=== PATIENT | male | born 1940 | race Caucasian/White ===

== ENCOUNTER 2018-03-20 20:53 | Inpatient (IN) ==
[2018-03-20] MEDS ORDERED: Etomidate Inj 20 MG/10 ML Ampul IV.PUSH ONE ×2 (21:17→22:00)
[2018-03-20] MEDS ORDERED: MethylPREDNISolone Sod Succinate Inj 125 MG/2 ML Vial IV.PUSH ONE (21:23)
[2018-03-20] MEDS ORDERED: Sod Chloride 0.9% Inj 1,000 ML IV.SIG ONE ×2 (21:25→21:43)
[2018-03-20] MEDS ORDERED: Propofol 1000 mg/100 ml Inj 1,000 MG/100 ML BOTTLE IV.CONT PRN (21:25)
--- NOTE | 2018-03-20 21:32 | ED ---
HPI General Chief complaint: Shortness of Breath/Dyspnea Stated complaint: Respirtary Failure Time Seen by Provider: 03/20/18 21:23 Source: family and EMS Mode of arrival: EMS Limitations: other History of Present Illness HPI narrative: 77yo M with PMH of DM, HTN was brought in by [facility] for sob. Pt had called his daughter a little after 8pm and said he thinks he is having a stroke and daughter said he had slurred speech and difficulty breathing. [facility] said he was diaphoretic and saturating in the 60s and then they intubated him. Was not able to obtain much information since he was in distress. Saturation was low at 89% even after intubation. Breath sounds were equal and bilateral in the ED. However there was no air in the ET cuff and pt was reintubated in the ED. Pt was given 40mg of etimodate and 4mg of versed prior to arrival. 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 Follows with tip scourer Dr. Michelle. Related Data Home Medications Medication Instructions Recorded Confirmed alendronate 70 mg PO QWEEK 03/20/18 03/20/18 amlodipine 10 mg PO DAILY 03/20/18 03/20/18 aspirin 81 mg PO DAILY 03/20/18 03/20/18 atorvastatin 20 mg PO DAILY 03/20/18 03/20/18 fenofibrate 50 mg PO DAILY 03/20/18 03/20/18 levetiracetam 500 mg PO Q12H 03/20/18 03/20/18 metoprolol succinate 50 mg PO DAILY 03/20/18 03/20/18 ramipril 5 mg PO BID 03/20/18 03/20/18 sertraline 100 mg PO DAILY 03/20/18 03/20/18 valsartan 160 mg PO DAILY 03/20/18 03/20/18 Allergies Allergy/AdvReac Type Severity Reaction Status Date / Time No Known Allergies Allergy Unverified 03/20/18 21:14 Review of Systems ROS Unobtainable ROS Unobtainable: unobtainable due to endotracheal tube PMFSH Medical History Medical History Medical history unknown (Acute) Surgical history unknown (Acute) Social History Social History Substance History: Unable to Obtain Smoking Status: Unknown if ever smoked How Often Do You Have a Drink Containing Alcohol: Unable to Obtain Recent Travel in [facility] within the Last 8 Weeks: No Recent Out of Country Travel within the Last 8 Weeks: No Exam Narrative Exam Narrative: GENERAL: 77yo M sedated. SKIN: Focused skin assessment warm/dry. HEAD: Atraumatic. Normocephalic. EYES: Pupils at 2mm reactive bilaterally. ENT: No nasal bleeding or discharge. Mucous membranes pink and moist. NECK: Trachea midline. No JVD. CARDIOVASCULAR: Tachycardic. No murmur appreciated. RESPIRATORY: Coarse breath sounds bilaterally, mild wheezing bilaterally. GASTROINTESTINAL: Abdomen soft, non-tender, nondistended. MUSCULOSKELETAL: No obvious deformities. No clubbing. No cyanosis. +Bilateral lower extremity edema. NEUROLOGICAL: Awake and alert. No obvious cranial nerve deficits. Motor grossly within normal limits. Normal speech. PSYCHIATRIC: Appropriate mood and affect; insight and judgment normal. Procedures Intubation Time Out Performed: Yes Sedative: etomidate Mg Given: 20 Laryngoscope: fiber optic video scope ET Tube Size: 8 ET Tube Uncuffed: No Tube Secured Depth (cm): 26 Tube Secured Location: lips Tube Placement Confirmation: visualized tube passing through cords Patient Tolerated Procedure: well Intubation Complications: none Course Initial Documented Vital Signs Temperature 98.7 F 03/20/18 21:15 Pulse Rate 116 H 03/20/18 21:15 Respiratory Rate 16 03/20/18 21:15 Blood Pressure 136/66 03/20/18 21:15 Pulse Oximetry 94 L 03/20/18 21:15 Last Documented Vital Signs Temperature 98.7 F 03/20/18 21:15 Pulse Rate 92 H 03/21/18 00:59 Respiratory Rate 30 H 03/21/18 01:35 Blood Pressure 149/87 H 03/21/18 00:59 Pulse Oximetry 99 03/21/18 01:35 Critical Care Time Critical Care Time: Yes Total Critical Care Time: 60 Attestation: Aggregate critical care time was 60 minutes. Time to perform other separately billable procedures was not included in the critical care time. My time did not include minutes spent treating any other patients simultaneously or on activities that did not directly contribute to the patient's treatment. The services I provided to this patient were to treat and/or prevent clinically significant deterioration that could result in: cardiovascular collapse or . I provided critical care services requiring my management, as noted below: Chart data review, documentation time, medication orders and management, vital sign assessments/reviewing monitor data, ordering and reviewing lab tests, ordering and interpreting/reviewing x-rays and diagnostic studies, care of the patient and discussion of the patient with the admitting physicians. Medical Decision Making MDM Narrative Medical decision making narrative: 77yo M with sob and hypoxemia and saturating in the 60s upon [facility] arrival. Pt was intubated in field but still hypoxic at 89 % and the balloon was not inflating so pt was reintubated in the ED. Pt found to have LBBB and is new from prior but last EKG here was in 2008. Labs reviewed , WBC 11.8. Glucose elevated at 477. CO2 normal at 21. BUN elevated at 39. Creatinine elevated at 3.0. Lactic acid elevated at 4.2. Troponin is elevated at 3.48, may be secondary to ischemia or sepsis but can be ACS as well. Discussed with tip scourer Dr. Malhotra and recommend heparin drip if CT brain negative and transfer to [facility]. Discussed with Dr. Wilson and accepted to his service. CT brain showed no acute intracranial abnormality. Pt given heparin bolus. Pt will be going directly to cardiac quality control lab technician. Differential Diagnosis Differential Diagnosis: Acute pulmonary edema vs. pneumonia vs. COPD vs. CVA vs. ACS Lab Data Result diagrams: 03/20/18 21:20 03/20/18 21:20 Lab Results 03/20/18 03/20/18 03/20/18 Range/Units 21:20 21:20 21:20 CBC w Diff Auto diff final WBC 11.8 H (4.0-11.0) th/mm3 RBC 4.97 (4.50-5.90) mil/mm3 Hgb 14.9 (13.0-17.0) gm/dL Hct 46.5 (39.0-51.0) % MCV 93.6 (80.0-100.0) fL MCH 30.0 (27.0-34.0) pg MCHC 32.0 (32.0-36.0) % RDW 14.0 (11.6-17.2) % Plt Count 411 (150-450) th/mm3 MPV 8.0 (7.0-11.0) fL Neut % (Auto) 67.6 (16.0-70.0) % Lymph % (Auto) 21.9 (9.0-44.0) % [place] % (Auto) 6.5 (0.0-8.0) % Eos % (Auto) 2.4 (0.0-4.0) % Baso % (Auto) 1.6 (0.0-2.0) % Neut # (Auto) 7.9 H (1.8-7.7) th/mm3 Lymph # (Auto) 2.6 (1.0-4.8) th/mm3 [place] # (Auto) 0.8 (0.0-0.9) th/mm3 Eos # (Auto) 0.3 (0.0-0.4) th/mm3 Baso # (Auto) 0.2 (0.0-0.2) th/mm3 WBC Differential . Differential Comment . PT 10.5 (9.8-11.6) sec INR 1.0 Ratio APTT 25.5 (24.3-30.1) sec Puncture Site Patient Temperature O2 Saturation (90-100) % ABG pH (7.380-7.420) ABG pCO2 (38-42) mmHg ABG pO2 (61-120) mmHg ABG HCO3 (22-26) mmol/L ABG O2 Content (12.0-20.0) Vol % ABG Base Excess (-2-2) mmol/L ABG Methemoglobin (0-2) % Nahum Test Hemoglobin (12.0-16.0) G/DL Carboxyhemoglobin (0-4) % O2 Delivery Device Vent Setting Inspired O2 % Critical Value Sodium 139 (136-145) meq/L Potassium 4.3 (3.5-5.1) meq/L Chloride 106 (98-107) meq/L Carbon Dioxide 21.0 (21.0-32.0) meq/L Anion Gap 12 (5-15) meq/L BUN 39 H (7-18) mg/dL Creatinine 3.00 H (0.60-1.30) mg/dL Estimated GFR 20 L (>89) mL/min Random Glucose 477 H* (74-106) mg/dL Lactic Acid (0.4-2.0) mmol/L Calcium 8.1 L (8.5-10.1) mg/dL Magnesium 2.3 (1.5-2.5) mg/dL Total Bilirubin 0.2 (0.2-1.0) mg/dL AST 31 (15-37) U/L ALT 20 (12-78) U/L Alkaline Phosphatase 62 (45-117) U/L Total Creatine Kinase (39-308) U/L CK-MB (CK-2) (0.5-3.6) ng/mL CK-MB (CK-2) % (0.0-4.0) % Troponin I 3.48 H* (0.02-0.05) ng/mL B-Natriuretic Peptide (0-100) pg/mL Total Protein 6.9 (6.4-8.2) g/dL Albumin 3.0 L (3.4-5.0) g/dL TSH (0.358-3.740) uIU/mL Urine Color (Yellw/Straw) Urine Clarity (Clear) Urine pH (5.0-8.5) Ur Specific [place] (1.002-1.035) Urine Protein (Neg-Trace) mg/dL Urine Glucose (UA) (Negative) mg/dL Urine Ketones (Negative) mg/dL Urine Occult Blood (Negative) Urine Nitrate (Negative) Urine Bilirubin (Negative) Urine Urobilinogen (Less than 2) mg/dL Ur Leukocyte Esterase (Negative) Urine RBC (0-3) /hpf Urine WBC (0-5) /hpf Urine WBC Clumps (None) Ur Squamous Epith Cells (0-5) /hpf Urine Bacteria (None) /hpf 03/20/18 03/20/18 03/20/18 Range/Units 21:20 21:20 21:40 CBC w Diff WBC (4.0-11.0) th/mm3 RBC (4.50-5.90) mil/mm3 Hgb (13.0-17.0) gm/dL Hct (39.0-51.0) % MCV (80.0-100.0) fL MCH (27.0-34.0) pg MCHC (32.0-36.0) % RDW (11.6-17.2) % Plt Count (150-450) th/mm3 MPV (7.0-11.0) fL Neut % (Auto) (16.0-70.0) % Lymph % (Auto) (9.0-44.0) % [place] % (Auto) (0.0-8.0) % Eos % (Auto) (0.0-4.0) % Baso % (Auto) (0.0-2.0) % Neut # (Auto) (1.8-7.7) th/mm3 Lymph # (Auto) (1.0-4.8) th/mm3 [place] # (Auto) (0.0-0.9) th/mm3 Eos # (Auto) (0.0-0.4) th/mm3 Baso # (Auto) (0.0-0.2) th/mm3 WBC Differential Differential Comment PT (9.8-11.6) sec INR Ratio APTT (24.3-30.1) sec Puncture Site Patient Temperature O2 Saturation (90-100) % ABG pH (7.380-7.420) ABG pCO2 (38-42) mmHg ABG pO2 (61-120) mmHg ABG HCO3 (22-26) mmol/L ABG O2 Content (12.0-20.0) Vol % ABG Base Excess (-2-2) mmol/L ABG Methemoglobin (0-2) % Nahum Test Hemoglobin (12.0-16.0) G/DL Carboxyhemoglobin (0-4) % O2 Delivery Device Vent Setting Inspired O2 % Critical Value Sodium (136-145) meq/L Potassium (3.5-5.1) meq/L Chloride (98-107) meq/L Carbon Dioxide (21.0-32.0) meq/L Anion Gap (5-15) meq/L BUN (7-18) mg/dL Creatinine (0.60-1.30) mg/dL Estimated GFR (>89) mL/min Random Glucose (74-106) mg/dL Lactic Acid 4.2 H* (0.4-2.0) mmol/L Calcium (8.5-10.1) mg/dL Magnesium (1.5-2.5) mg/dL Total Bilirubin (0.2-1.0) mg/dL AST (15-37) U/L ALT (12-78) U/L Alkaline Phosphatase (45-117) U/L Total Creatine Kinase (39-308) U/L CK-MB (CK-2) (0.5-3.6) ng/mL CK-MB (CK-2) % (0.0-4.0) % Troponin I (0.02-0.05) ng/mL B-Natriuretic Peptide 235 H (0-100) pg/mL Total Protein (6.4-8.2) g/dL Albumin (3.4-5.0) g/dL TSH 2.100 (0.358-3.740) uIU/mL Urine Color (Yellw/Straw) Urine Clarity (Clear) Urine pH (5.0-8.5) Ur Specific [place] (1.002-1.035) Urine Protein (Neg-Trace) mg/dL Urine Glucose (UA) (Negative) mg/dL Urine Ketones (Negative) mg/dL Urine Occult Blood (Negative) Urine Nitrate (Negative) Urine Bilirubin (Negative) Urine Urobilinogen (Less than 2) mg/dL Ur Leukocyte Esterase (Negative) Urine RBC (0-3) /hpf Urine WBC (0-5) /hpf Urine WBC Clumps (None) Ur Squamous Epith Cells (0-5) /hpf Urine Bacteria (None) /hpf 03/20/18 03/20/18 03/21/18 Range/Units 21:40 22:10 00:15 CBC w Diff WBC (4.0-11.0) th/mm3 RBC (4.50-5.90) mil/mm3 Hgb (13.0-17.0) gm/dL Hct (39.0-51.0) % MCV (80.0-100.0) fL MCH (27.0-34.0) pg MCHC (32.0-36.0) % RDW (11.6-17.2) % Plt Count (150-450) th/mm3 MPV (7.0-11.0) fL Neut % (Auto) (16.0-70.0) % Lymph % (Auto) (9.0-44.0) % [place] % (Auto) (0.0-8.0) % Eos % (Auto) (0.0-4.0) % Baso % (Auto) (0.0-2.0) % Neut # (Auto) (1.8-7.7) th/mm3 Lymph # (Auto) (1.0-4.8) th/mm3 [place] # (Auto) (0.0-0.9) th/mm3 Eos # (Auto) (0.0-0.4) th/mm3 Baso # (Auto) (0.0-0.2) th/mm3 WBC Differential Differential Comment PT (9.8-11.6) sec INR Ratio APTT (24.3-30.1) sec Puncture Site Right radial Patient Temperature 98.6 O2 Saturation 96 (90-100) % ABG pH 7.23 L* (7.380-7.420) ABG pCO2 43 H (38-42) mmHg ABG pO2 320 H (61-120) mmHg ABG HCO3 17 L (22-26) mmol/L ABG O2 Content 18.6 (12.0-20.0) Vol % ABG Base Excess -8.9 L (-2-2) mmol/L ABG Methemoglobin 1.6 (0-2) % Nahum Test Y Hemoglobin 13.2 (12.0-16.0) G/DL Carboxyhemoglobin 0.9 (0-4) % O2 Delivery Device Ventilator Vent Setting Prvc/ac Inspired O2 100 % Critical Value Yes Sodium (136-145) meq/L Potassium (3.5-5.1) meq/L Chloride (98-107) meq/L Carbon Dioxide (21.0-32.0) meq/L Anion Gap (5-15) meq/L BUN (7-18) mg/dL Creatinine (0.60-1.30) mg/dL Estimated GFR (>89) mL/min Random Glucose (74-106) mg/dL Lactic Acid (0.4-2.0) mmol/L Calcium (8.5-10.1) mg/dL Magnesium (1.5-2.5) mg/dL Total Bilirubin (0.2-1.0) mg/dL AST (15-37) U/L ALT (12-78) U/L Alkaline Phosphatase (45-117) U/L Total Creatine Kinase 971 H (39-308) U/L CK-MB (CK-2) 66.9 H (0.5-3.6) ng/mL CK-MB (CK-2) % 6.9 H* (0.0-4.0) % Troponin I 10.10 H* (0.02-0.05) ng/mL B-Natriuretic Peptide (0-100) pg/mL Total Protein (6.4-8.2) g/dL Albumin (3.4-5.0) g/dL TSH (0.358-3.740) uIU/mL Urine Color Yellow (Yellw/Straw) Urine Clarity Slightly cloudy (Clear) Urine pH 6.0 (5.0-8.5) Ur Specific [place] 1.020 (1.002-1.035) Urine Protein 300 or greater H (Neg-Trace) mg/dL Urine Glucose (UA) 1000 or greater H (Negative) mg/dL Urine Ketones Negative (Negative) mg/dL Urine Occult Blood Moderate H (Negative) Urine Nitrate Positive H (Negative) Urine Bilirubin Negative (Negative) Urine Urobilinogen 0.2 (Less than 2) mg/dL Ur Leukocyte Esterase Negative (Negative) Urine RBC 4-15 H (0-3) /hpf Urine WBC 21-50 H (0-5) /hpf Urine WBC Clumps Few H (None) Ur Squamous Epith Cells 0-5 (0-5) /hpf Urine Bacteria Moderate H (None) /hpf Imaging Data Radiologist's impression: Chest X-Ray 03/20/18 21:23 CONCLUSION: 1. Bilateral infiltrates as above. 2. Endotracheal tube tip projects over the chest approximately 4 cm above the fern. Head CT 03/20/18 21:24 CONCLUSION: 1. No acute intracranial abnormality is identified. 2. Chronic findings include mild generalized atrophy and mild periventricular white matter low-attenuation. ECG Data EKG Prior to Arrival: No Attestation: I personally reviewed and interpreted this ECG as follows: Interpretation: Sinus tachycardia at 106bpm. Normal axis. LBBB. no concordance. Prior EKG was in 2008 and pt did not have LBBB. Discharge Plan Discharge Disposition Patient Disposition: 30 Still Patient Discharge Details Diagnosis: Acute respiratory failure with hypoxia Physicians Team ED Provider: Tiffany Amador Primary Care Provider: Radha Springer Attending Provider: Gerber Wilson Other Providers: Ladarius Ozuna Status ED Status: Left Department Discharge Information Discharge Date/Time: 03/21/18 01:58
--- NOTE | 2018-03-20 21:47 | XR ---
EXAM DATE: 03/20/2018 9:37 PM EDT AGE/SEX: 77 years / Male INDICATIONS: Post intubation. CLINICAL DATA: This is the patient's initial encounter. Patient reports that signs and symptoms have been present for 1 day and indicates a pain score of Nonresponsive. MEDICAL/SURGICAL HISTORY: Non-responsive. Non-responsive. COMPARISON: POI, XR ABDOMEN KUB, 12/11/2015. . FINDINGS: There is bilateral perihilar pneumonia, right worse than left. Some patchy more peripheral consolidat ion seen diffusely of the right lung and of the upper lobe of the left lung. No pleural effusion demo nstrated. No pneumothorax. There is apparent calcified pleural plaques bilaterally. There is increased density material along the right side of the mediastinum which may be additional p leural plaquing. Patient is intubated. Endotracheal tube tip projects approximately 4 cm above the ca nancy. CONCLUSION: 1. Bilateral infiltrates as above. 2. Endotracheal tube tip projects over the chest approximately 4 cm above the fern. Electronically signed by: Wyatt Melo MD 03/20/2018 9:46 PM EDT
[2018-03-20 21:50] LABS: Bilirubin,Urine Negative (Negative); Clarity,Urine Slightly Cloudy (Clear); Color,Urine Yellow (Yellw/Straw); Leukocyte Esterase,Urine Negative (Negative); Nitrite,Urine Positive (Negative); Urobilinogen,Urine 0.2 mg/dL (Less than 2)
[2018-03-20 21:51] LABS: Baso # (Auto) 0.2 th/mm3 (0.0-0.2); Baso % (Auto) 1.6 % (0.0-2.0); Eos # (Auto) 0.3 th/mm3 (0.0-0.4); Eos % (Auto) 2.4 % (0.0-4.0); Hematocrit 46.5 % (39.0-51.0); Hemoglobin 14.9 gm/dL (13.0-17.0); Lymph # (Auto) 2.6 th/mm3 (1.0-4.8); Lymph % (Auto) 21.9 % (9.0-44.0); Mean Corpuscular Volume 93.6 fL (80.0-100.0); Mono # (Auto) 0.8 th/mm3 (0.0-0.9); Mono % (Auto) 6.5 % (0.0-8.0); Neut # (Auto) 7.9 th/mm3 (1.8-7.7); Neut % (Auto) 67.6 % (16.0-70.0); Platelet Count 411 th/mm3 (150-450); Red Blood Count 4.97 mil/mm3 (4.50-5.90); White Blood Count 11.8 th/mm3 (4.0-11.0)
[2018-03-20 21:55] LABS: Bacteria,Urine Moderate /hpf; Squamous Epithelial Cell,Urine 0-5 /hpf (0-5); WBC,Urine 21-50 /hpf (0-5)
[2018-03-20] MEDS ORDERED: Piperacil/Tazo 3.375 GM Premix 50 ML IV.SIG ONE (21:55)
[2018-03-20 22:00] LABS: Chloride 106 meq/L (98-107); Potassium 4.3 meq/L (3.5-5.1); Sodium 139 meq/L (136-145)
[2018-03-20] MEDS ORDERED: Vancomycin Inj 1 GM/200 ML PIGGYBACK IV.SIG SCH (22:00)
[2018-03-20 22:03] LABS: Calcium 8.1 mg/dL (8.5-10.1)
[2018-03-20 22:04] LABS: Anion Gap 12 meq/L (5-15)
[2018-03-20 22:05] LABS: Activated Partial Thrombo Time 25.5 sec (24.3-30.1); Prothrombin Time 10.5 sec (9.8-11.6)
[2018-03-20 22:13] LABS: Alanine Aminotransferase 20 U/L (12-78); Alkaline Phosphatase 62 U/L (45-117); Aspartate Aminotransferase 31 U/L (15-37); Blood Urea Nitrogen 39 mg/dL (7-18); Glomerular Filtration Rate 20 mL/min (>89); Magnesium 2.3 mg/dL (1.5-2.5); Total Protein 6.9 g/dL (6.4-8.2)
[2018-03-20 22:15] LABS: Glucose,Random 477 mg/dL (74-106); Troponin I 3.48 ng/mL (0.02-0.05)
[2018-03-20 22:23] LABS: ABG Base Excess -8.9 mmol/L (-2-2); ABG PCO2 43 mmHg (38-42); ABG PO2 320 mmHg (61-120)
[2018-03-20] MEDS ORDERED: fentaNYL 10 mcg/mL Premix Drip 2,500 MCG/250 ML BAG IV.SIG PRN (22:48)
[2018-03-20] MEDS ORDERED: Bisacodyl 10 MG Supp RECTAL PRN (22:48)
[2018-03-20] MEDS ORDERED: Acetaminophen 325 MG Tablet PO PRN (22:48)
[2018-03-20] MEDS ORDERED: Potassium Chloride 25 MEQ Effervescent Tablet PO PRN (22:53)
[2018-03-20] MEDS ORDERED: Potassium Chlor 10 mEq Premix 10 MEQ/100 ML PIGGYBACK IV.SIG PRN ×2 (22:53)
[2018-03-20] MEDS ORDERED: Potassium Phosphate 500 MG Soluble Tablet PO PRN ×2 (22:53)
[2018-03-20] MEDS ORDERED: Magnesium Sulfate Inj 4 GM in Sodium Chlor 0.9% Inj 92 ML IV.SIG PRN (22:53)
[2018-03-20] MEDS ORDERED: Potassium Phosphate Inj 30 MMOL in Sodium Chlor 0.9% Inj 250 ML IV.SIG PRN (22:53)
[2018-03-20] MEDS ORDERED: Sodium Phosphate Inj 30 MMOL in Sodium Chlor 0.9% Inj 250 ML IV.SIG PRN (22:53)
[2018-03-20] MEDS ORDERED: Potassium Chlor 40 mEq Premix 40 MEQ/100 ML PIGGYBACK IV.SIG PRN ×2 (22:53)
[2018-03-20] MEDS ORDERED: Magnesium Sulfate Inj 2 GM in Sodium Chlor 0.9% Inj 96 ML IV.SIG PRN (22:53)
[2018-03-20] MEDS ORDERED: Magnesium Oxide 400 MG Tablet PO PRN (22:53)
[2018-03-20] MEDS ORDERED: Dextrose 50% in Water 50 ML Vial IV.PUSH PRN (22:54)
[2018-03-20] MEDS ORDERED: Vancomycin Consult Pharmacy 1 EACH OTHER SCH (23:00)
[2018-03-20] MEDS ORDERED: Piperacil/Tazo 4.5 GM Premix 4.5 GM/100 ML BAG IV.SIG SCH (23:00)
[2018-03-20] MEDS ORDERED: Metoprolol Inj 5 MG/5 ML Vial IV.PUSH SCH (23:00)
[2018-03-20] MEDS: Sod Chloride 0.9% Inj 1,000 ML IV.CONT SCH (23:06)
[2018-03-21] MEDS: Metoprolol Inj 5 MG/5 ML Vial IV.PUSH SCH ×4 (00:25→17:13)
[2018-03-21] MEDS ORDERED: Heparin 10,000 UNITS/10 ML Vial (for IV use) IV.PUSH STA (00:27)
[2018-03-21] MEDS ORDERED: Heparin Drip 25,000 UNIT/250 ML BAG IV.CONT PRN (00:27)
--- NOTE | 2018-03-21 00:33 | CT ---
EXAM DATE: 03/21/2018 12:07 AM EDT AGE/SEX: 77 years / Male INDICATIONS: Respiratory failure. CLINICAL DATA: This is the patient's initial encounter. Patient reports that signs and symptoms have been present for 1 day and indicates a pain score of Nonresponsive. MEDICAL/SURGICAL HISTORY: Non-responsive. Non-responsive. RADIATION DOSE: 62.42 CTDI (mGy) COMPARISON: No prior exams available for comparison. TECHNIQUE: CT of the head without contrast. Using automated exposure control and adjustment of the mA and/or kV according to patient size, radiation dose was kept as low as reasonably achievable to ob tain optimal diagnostic quality images. DICOM format image data is available electronically for revi ew and comparison. FINDINGS: Cerebrum: There is mild generalized atrophy and ventricles are normal given the degree of atrophy. M ild periventricular white matter change is present. No midline shift, mass lesion, hemorrhage or acu te infarction. No extraaxial fluid collections are seen. Posterior Fossa: The cerebellum and brainstem demonstrate no acute abnormality. The 4th ventricle is midline. The cerebellopontine angle is within normal limits. Extracranial: There are mucous retention cysts within the maxillary antra bilaterally, left greater than right, measuring up to 14 mm. Skull: No fracture. CONCLUSION: 1. No acute intracranial abnormality is identified. 2. Chronic findings include mild generalized atrophy and mild periventricular white matter low-atten uation. Electronically signed by: Wyatt Ayala MD 03/21/2018 12:32 AM EDT
[2018-03-21 00:54] LABS: Creatine Kinase MB 66.9 ng/mL (0.5-3.6)
[2018-03-21 01:04] LABS: CKMB Percent 6.9 % (0.0-4.0); Troponin I 10.1 ng/mL (0.02-0.05)
[2018-03-21] MEDS ORDERED: Heparin/NS PF Inj 1,000 ML ONE (01:09)
--- NOTE | 2018-03-21 01:30 | MH ---
cc: Robb Malhotra DO DATE OF ADMISSION: 03/20/2018 CHIEF COMPLAINT: Shortness of breath. HISTORY OF CHIEF COMPLAINT: Wyatt Andrews is a 77-year-old male who sees my partner Dr. Michelle in the office and presented via [facility] to [facility] Emergency Room for shortness of breath. Apparently, he called his daughter a little after 8 p.m., said that he thought he was having a heart attack. He was significantly short of breath. His daughter said that he had slurred speech on the phone. [facility] arrived and he was still on the phone with his daughter and at that time he was telling her that he felt like he was having a heart attack and he was extremely diaphoretic. He was saturating in the 60s and so they intubated him. No information was given to me directly, but this is all taken from the chart and from the emergency room physician. After intubation, saturations were 89% and there was a problem with the ET tube cuff and so he was reintubated. EKG was done and showed left bundle branch block. Previous EKG did not show a left bundle branch block, but it was from 2008. Lab work shows a lactic acid of 4.2 and a troponin of 3.48. I was called emergently by Dr. Amador due to the abnormal EKG as well as the elevated troponin. PAST MEDICAL HISTORY: (little is known as the patient has been here since 2008 and unable to get information from the patient). 1. Asbestosis. 2. Hypertension. 3. Hyperlipidemia. 4. Diabetes mellitus. 5. Otherwise unknown. PAST SURGICAL HISTORY: Unknown. ALLERGIES: NO KNOWN DRUG ALLERGIES. MEDICATIONS: 1. Valsartan 160 mg daily. 2. Aspirin 81 mg daily. 3. Sertraline 100 mg daily. 4. Alendronate 70 mg weekly. 5. Levetiracetam 500 mg every 12 hours. 6. Lipitor 20 mg daily. 7. Norvasc 10 mg daily. 8. Toprol-XL 50 mg daily. 9. Ramipril 5 mg b.i.d. 10. Fenofibrate 50 mg daily. FAMILY HISTORY: Unable to obtain at this time. SOCIAL HISTORY: Unable to obtain at this time. REVIEW OF SYSTEMS: Unable to be obtained. Apparently, he was significantly short of breath and diaphoretic, but otherwise no symptoms. PHYSICAL EXAMINATION: VITAL SIGNS: Temperature 98.7, heart rate 95, blood pressure 180/85, respirations 30, pulse oximetry 97% on 100% FiO2. GENERAL: The patient is intubated and lightly sedated. HEENT: Pupils are equal and round. Mucous membranes moist. ET tube in place. NECK: Supple. No JVD at 45 degrees. No carotid bruits heard bilaterally. Carotid upstroke is brisk in nature. HEART: Regular rate and rhythm. Positive first and second heart sounds with a 2/6 holosystolic murmur noted at the apex. LUNGS: Decreased breath sounds bilaterally with minimal rales noted. Mild wheezing is also noted. ABDOMEN: Soft, nontender, nondistended. No organomegaly noted. EXTREMITIES: Show 1 plus pitting edema bilaterally. NEUROLOGIC: Lightly sedated. Able to answer simple questions with nodding his head when arousable, follows simple commands. SKIN: Warm, dry and intact. OSTEOPATHIC: No kyphoscoliosis, lordosis. LABORATORY DATA: Hemoglobin 14.9, hematocrit 46.5, platelets 411. Potassium 4.3, BUN 39, creatinine 3.0, lactic acid 4.2. Troponin 3.48. Electrocardiogram (03/20/2018 at 2057): Sinus tachycardia with left bundle branch block. IMPRESSIONS: 1. Non-ST elevation myocardial infarction. 2. Lactic acidosis. 3. Acute respiratory failure requiring mechanical ventilation. 4. Chest x-ray with pulmonary edema versus pneumonia. 5. History of asbestosis. 6. History of hypertension. 7. History of hyperlipidemia. 8. History of diabetes mellitus. RECOMMENDATIONS: 1. Mr. Andrews presented with significant shortness of breath, which required intubation. 2. He does have elevated lactic acid as well as troponin and an EKG which shows a new left bundle branch block. Overall, my concern is less likely for an occluded vessel with a STEMI, but more likely either left main or significant multivessel disease. 3. He does have acute kidney injury, but has a history of chronic kidney disease with a creatinine of 2.0 in 2009, but no recent labs to review. 4. Overall, despite his acute kidney injury, I feel that he should go to the cardiac catheterization lab due to the concern for significant disease causing pulmonary edema, lactic acidosis and elevated troponin. If he does have an occluded vessel, this will have to be fixed and unfortunately require a larger amount of contrast, although we will have to be cognizant of this. If left main or multivessel disease, then may require intraaortic balloon pump therapy. 5. We will check a 2-D echo to look at his overall left ventricular function, cardiac structure and possible valvulopathies. 6. Critical care will be consulted for further management of ventilator. 7. Further recommendations will be made based on the hospital course. Thank you for allowing me to see Wyatt Andrews. If there are any questions, please do not hesitate to call. Robb Malhotra DO VGP/ct , 12:42 AM , 12:55 AM MTDD
[2018-03-21] MEDS ORDERED: Heparin Drip 25,000 UNIT/250 ML BAG IV.CONT ONE (02:11)
[2018-03-21] MEDS: Heparin Drip 25,000 UNIT/250 ML BAG IV.CONT SCH (03:00)
[2018-03-21] MEDS: Propofol 1000 mg/100 ml Inj 1,000 MG/100 ML BOTTLE IV.CONT PRN ×2 (03:00→08:49)
--- NOTE | 2018-03-21 03:02 | CATHPROC ---
Metric[employer] HIS Report Study Information Study Number Admission Scheduled Start Study Start [id number] Mar 20 2018 10:55PM 03/20/2018 Mar 21 2018 12:08AM [place] Service Cardiac Catheterization Admit Source Facility Department Emergency department [facility] - Thread Checker Physician and Clinical Staff Initial MD Malhotra, Robb Front Office Director Rosa Lilly RN Other cathlab, cathlab Recorder Joelle Moreno,CLIENT SERVICE SUPERVISOR TECH2 Scrub Sai Slaughter,RT(R) Procedures Performed Procedure Location (Site) Vessel Name Coronary Angiograms RCA Right Coronary IABP Fem Art (right) Femoral Art Wire insertion Fem Art (right) Femoral Art Equipment Time [facility] Coordinator Description Size Mfg Part Number Used/Scraped TRANSDUCER, TRGeoPalzAVE [id number] 00:38 KUNZ RAMÍREZ * Used W/ANDREACK *[id number] INTRODUCER SET, 00:38 [employer] FR 5 [id number] *[id number] Used MICROPUNCTURE STIFF [id number] *[id number] 534-550S *[id number] BALLOON, FR8 50CC SENSATION [id number]- 02:17 MAQUET FR 8 50CC Used PLUS 01U *[id number] WIRE, AMPLATZ SUPER STIFF 02:13 Meditech 180CM [id number] Used 3MMJ [id number] 00:38 [employer] BLANKET,WARM AIR CCL * Used *[id number] 00:38 [employer] PACK, CCL CUSTOM * Used *[id number] 02:00 MEDTRONIC JL 4.0 DXTERITY CATHETER FR 5 Used *[id number] 00:38 Decalog MEDICAL WIRE, 3MMJ .035 180CM 180CM Used *[id number] 00:38 NAMIC MANIFOLD, 4 PORT * Used *[id number] 00:38 NYCOMED OMNIPAQUE, 350 MG, 150ML 150ML [id number] Used [id number] 00:38 TERUMO MEDICAL SHEATH, FR5 TERUMO (10CM) FR 5 Used *[id number] History: Allergies Allergy Reaction No Known Allergies History: Risk Factors Family History of Hypertension Dyslipidemia Previous MO Previous Heart Failure Premature CAD Yes Yes No No No Prior Valve Prior PCI Prior CABG Surgery No No No Cerebrovascular Peripheral Artery Chronic Lung On Dialysis Diabetes Diabetes Therapy Disease Disease Disease No No No Yes Yes Oral Labs Hgb (g/dl) Hct (%) WBC (l/cumm) Platelets (thousands) 11.60-17.00 35.00-51.00 4.00-11.00 150.00-450.00 14.9 46.5 11.8 411 Glucose (mg/dl) BUN (mg/dl) Creatinine (mg/dl) BUN:Creatinine (1:x) 74.00-106.00 7.00-18.00 0.50-1.30 10.00-20.00 477 39 3.0 13 Na (meq/l) K (meq/l) 136.00-145.00 3.50-5.10 139 4.3 INR (PTT:PT) 0.90-1.10 1 Troponin I (ng/ml) 0.02-0.05 3.4 Medication Medication Total Dose (Bolus/Oral) Medication Total Dosage/Unit 1% XYLOCAINE 20 mL PROPOFOL 29.5 mL/hr Medications (Bolus/Oral) Medication Time Given Dosage/Unit Administered By Reason PROPOFOL 03/21/2018 1:31:09 AM 13 mL/hr Patient arrived on 13 mL/hr PROPOFOL in Left Antecubital via Peripheral IV. Pump/Drip Flow = 0 ml/hr using NaCl .9. PROPOFOL 03/21/2018 1:44:45 AM 16.5 mL/hr Rosa Lilly 16.5 mL/hr PROPOFOL given in lab by Rosa Lilly, JOAQUIN in Left Antecubital via Peripheral IV. Pump/D rip Flow = 0 ml/hr using NaCl .9. Ordered by Robb Malhotra 1% XYLOCAINE 03/21/2018 1:51:42 AM 20 mL Robb Malhotra Patient arrived on 20 mL 1% XYLOCAINE given by Robb Malhotra in Right Groin via Subcutaneous. O rdered by Robb Malhotra. Medication (Drip) Medication Time Given Dosage/Unit Concentration/Unit Diluent (ml) Solutio n HEPARIN DRIP 03/21/2018 2:37:20 AM 1000 units/hr 98956 units 250 D5W 1000 units/hr HEPARIN DRIP given in lab by Rosa Lilly, RN in Left Antecubital via Peripheral IV. Pump/Drip Flow = 10 ml/hr [place] [address] units in 250 ml. Ordered by Robb Malhotra IV Solutions 03/21/2018 1:31:10 AM 0 mL (IV) 1000 NaCl .9 Patient arrived on IV Solutions given by cathlab, cathlab in Left Antecubital via Peripheral IV. Pump /Drip Flow = 20 ml/hr using NaCl .9. Ordered by Robb Malhotra Initial Case Assessment Cardiovascular HR NIBP 96 148/92 Edema Present Skin color Skin None Normal Warm Dry Circulatory - Right Pulses Dorsalis Pedis Femoral 1 2 Scale (0,1,2,3,4,d) Circulatory - Left Pulses Dorsalis Pedis Femoral 1 2 Scale (0,1,2,3,4,d) Neurological State Oriented to time-place- Alert Moves all extremities person Respiration - General Respiration Rate SpO2 (%) (B/min) 16 98 Respiration - Ventilator Type Intubation Type ET(oral) Respiration - Ventilator Settings TV (ml) IMV (L) FIO2 (%) PEEP (cm/H2O) 550 16 100 5 Final Case Assessment Cardiovascular HR NIBP 89 141/73 Edema Present Skin color Skin None Normal Warm Dry Circulatory - Right Pulses Dorsalis Pedis Femoral 1 2 Scale (0,1,2,3,4,d) Circulatory - Left Pulses Dorsalis Pedis Femoral 1 2 Scale (0,1,2,3,4,d) Neurological State Oriented to time-place- Alert Moves all extremities person Respiration - General Respiration Rate SpO2 (%) (B/min) 16 99 Respiration - Ventilator Type Intubation Type ET(oral) Respiration - Ventilator Settings TV (ml) IMV (L) FIO2 (%) PEEP (cm/H2O) 550 16 100 5 Chronological Log Time Study Chronological Log 0:08:02 Emergency Room notified that Thread Checker is ready. JOAQUIN LILLY RECEIVED REPORT FROM ED R N 1:30:55 Patient arrived via Bed. 1:30:56 Patient Name, D.O.B, / Armband Verified By R.N. 1:30:57 Consent signed by the physician and the patient and verified by the Thread Checker staff. 1:30:58 Pre-op and post- op instructions given; patient acknowledges understanding of instructions. 1:31:01 Patient has been NPO for More than 6Hrs. 1:31:02 NO Skin Breakdown- 1:31:03 Patient Warmer Placed on the Table. 1:31:05 Disposable Defibrillator Pads Placed On Patient. 1:31:06 Alessandro Prominences Protected 1:31:07 A # 20 IV was noted in the Antecubital (left). Grade = 0 1:31:08 A # 20 IV was noted in the Hand (right). Grade = 0 1:31:09 Patient arrived on 13 mL/hr PROPOFOL in Left Antecubital via Peripheral IV. Pump/Drip Flow = 0 ml/hr using NaCl .9. Patient arrived on IV Solutions given by dana cathlab in Left Antecubital via Peripheral IV. Pump/Drip Flow = 20 1:31:10 ml/hr using NaCl .9. Ordered by Robb Malhotra. 1:31:11 History and physical on the chart or being dictated. 1:40:27 NIBP STAT measurement started. 1:41:02 HR=96 bpm, NUGC=871/92 mmhg, SpO2=98.0 %, Resp=14 B/min, Pain=0, Teto=10, Garcia=2 16.5 mL/hr PROPOFOL given in lab by Rosa Lilly RN in Left Antecubital via Peripheral IV. P ump/Drip Flow = 0 1:44:45 ml/hr using NaCl .9. Ordered by Robb Malhotra. Assessment: Initial Case, HR=96 BPM, TVPY=398/92 mmhg, Edema=None, Color=Normal, Skin = Warm, Dr y Right Pulses: Earl Ped=1, Femoral=2 1:45:09 Left Pulses: Earl Ped=1, Femoral=2 Neurological: State=Alert, Ox3, ARIZA Respiration: Resp=16 B/min, SpO2=98 %, Type=ET(Oral), KK=139 mL, IMV=16 L, HJV4=201 %, PEEP=5 cm /H2O 1:46:35 Reference ECG taken 1:46:57 Bilateral groins prepped with 2% chlorhexidine, and draped after a 3 minute waiting time. 1:47:34 Pressure channel 1 zeroed. Time Out. Correct patient, correct procedure, correct physician, labs, allergies, and equipment verified with technology lab teacher 1:49:40 team present. Fire risk assesment completed (see hard stop sheet for coding). Time Out Concu rred by MD and individual staff in procedure. 1:50:10 Case Start Patient arrived on 20 mL 1% XYLOCAINE given by Robb Malhotra in Right Groin via Subcutaneo us. Ordered by 1:51:42 Robb Malhotra. 1:54:01 Access site was Right Femoral Artery. A INTRODUCER SET, MICROPUNCTURE STIFF FR 5 was advanced into the Fem Art (right) using the Modif ied Seldinger 1:54:11 technique. 1:54:15 A WIRE, 3MMJ .035 180CM 180CM was inserted via Fem Art (right). A SHEATH, FR5 TERUMO (10CM) FR 5 was exchanged in the Fem Art (right). This was necessary in ord er for catheter 1:54:18 support. 1:56:20 An injection in the Fem Art (right) was made through the SHEATH, FR5 TERUMO (10CM) FR 5. Recorded Pressure: FA, HR=93, Condition=Condition 1 1:56:45 (Femoral Artery) FA 153/75/103 A JR 4.0 INFINITI CATHETER FR 5 was advanced over a wire. OMNIPAQUE, 350 MG, 150ML 150ML was use d for 1:57:25 injections. Recorded Pressure: Ao, HR=92, Condition=Condition 1 1:59:18 (Aorta) Ao 146/78/107 2:00:06 The RCA was injected and visualized at various angles. OMNIPAQUE, 350 MG, 150ML 150ML used. After removing the current catheter a JL 4.0 DXTERITY CATHETER FR 5 was advanced over a WIRE, 3M MJ .035 180CM 2:00:39 180CM. After removing the current catheter a PIGTAIL STR. INFINITI CATHETER FR 5 was advanced over a WI RE, 3MMJ .035 2:06:08 180CM 180CM. Recorded Pressure: LV, HR=96, Condition=Condition 1 2:08:23 (Left Ventricle) LV 160/17/43 Recorded Pressure: LV, Ao, HR=97, Condition=Condition 1 2:08:35 (Left Ventricle) LV 162/20/44, (Aorta) Ao 157/84/116 2:09:24 A WIRE, 3MMJ .035 180CM 180CM was inserted via Fem Art (right). 2:09:27 Catheter was removed 2:09:59 Sheath exchanged for intra-aortic balloon insertion. 2:12:02 The previous wire was exchanged for a WIRE, AMPLATZ SUPER STIFF 3MMJ 180CM. An BALLOON, FR8 50CC SENSATION PLUS FR 8 50CC was advanced to the descending aorta. Proper place ment was 2:17:17 confired under fluoroscopy and the balloon was sutured in place. Ratio = ~RATIO~. Augmented BP ~S YS~/~LENNIE~ 2:29:07 NIBP STAT measurement started. 2:29:58 Case End (Physician broke scrub) 2:30:18 HR=89 bpm, ZUHL=378/73 mmhg, SpO2=99.0 %, Resp=16 B/min, Pain=0, Teto=10, Garcia=2 1000 units/hr HEPARIN DRIP given in lab by Rosa Lilly, JOAQUIN in Left Antecubital via Periphe ral IV. Pump/Drip Flow 2:37:20 = 10 ml/hr [place] [address] units in 250 ml. Ordered by Hank Malhotra 2:38:05 Catheter(s) removed without difficulty 2:38:10 In the Fem Art (right) the sheath was sutured in place by Robb Malhotra SHEATH AND BALLOON PUMP 2:38:35 Sterile dressing applied to site 2:38:36 No case complications noted. 2:38:37 Cine recording checked. Assessment: Final Case, HR=89 BPM, CUAD=145/73 mmhg, Edema=None, Color=Normal, Skin = Warm, Dr y Right Pulses: Earl Ped=1, Femoral=2 2:41:57 Left Pulses: Earl Ped=1, Femoral=2 Neurological: State=Alert, Ox3, ARIZA Respiration: Resp=16 B/min, SpO2=99 %, Type=ET(Oral), RW=208 mL, IMV=16 L, GXI5=999 %, PEEP=5 cm/H2O 2:42:53 Bedside Report will be given. 2:43:00 [facility] - Contrast Media Used In Study Contrast Total Opened (mL) Total Used (mL) Total Wasted (mL) Omnipaque 25 25 0 End Study - Maximum Contrast Load Max Contrast Load (mL) 181.8 End Study - Radiation Exposure Fluoro Time (minutes) 4.1 End Study - Patient Disposition Complications Transferred To No Critical Care Bed
[2018-03-21] MEDS ORDERED: Propofol Inj 500 MG/50 ML Vial ONE (03:05)
--- NOTE | 2018-03-21 03:58 | P.CONCC ---
History of Present Illness Service: Critical care medicine Consult date: 03/21/18 Requesting Physician: Robb Malhotra Reason for Consult: Critical care management Primary Care Provider: Radha Springer MD Family Provider: Radha Springer MD Chief Complaint: Chest pain, altered mental status History of Present Illness: This is a 69-year-old male. Date of admission 03/20/2018. Date of consultation 03/21/2018. Past medical history includes asbestosis, hypertension , dyspnea, seizure disorder, osteoarthritis/osteoporosis and elevated BMI. He is a patient of Dr. Michelle. He presents to [facility] emergency department with a chief complaint of shortness of breath and altered mental status. He called his daughter after 1999 last night with slurred speech/ shortness of breath and chest pain. And then when EVAC arrived, saturations at 60 so was intubated. Patient had a ETT cuff leak and was reintubated by ED physician. EKG showed a new left bundle branch block with elevated troponin III 0.48. Lactic acid 4.2. Patient received Pipracil and tazobactam and vancomycin for possible pneumonia/community-acquired. General Production Worker consulted and patient proceeded with a left heart catheterization early this morning. Patient has multisystem coronary artery disease left main 50%, LAD 50%/mid LAD 90%. Diagonal 70%. Circumflex 70%. OM 90%. RCA 70% patient had anterior balloon pump placed one-to-one in the right femoral region. Currently a propofol drip at 25 mcg/kg/min and hemodynamically stable.. Review of Systems unobtainable due to endotracheal tube PMFSH - History History Provided By: Family Member, Condenser Tester / EMT - Medical History Medical History: Medical History (Last Reviewed 03/21/18 @ 04:00 by Gerber Wilson MD) Medical history unknown Surgical history unknown - Tobacco History Smoking Status: Unknown if ever smoked - Alcohol History How Often Do You Have a Drink Containing Alcohol: Unable to Obtain - Substance Use History Substance History: Unable to Obtain - Travel History Recent Travel in the [place] Within the Last 8 Weeks: No Recent Travel Out of the Country Within the Last 8 Weeks: No - Immunization History Tetanus Immunization: Unable to Assess Hx Influenza Vaccine This Season: Unable to Assess Medications and Allergies Active Medications: Active Medications Acetaminophen (Tylenol) 650 mg PO Q6H PRN PRN Reason: PAIN 1-10 AND/OR FEVER >101F Albuterol (Duoneb Neb (Vianney)) 1 ampul NEB Q4HR NEB [facility] Albuterol (Albuterol Neb (Prn)) 2.5 mg NEB Q2HR NEB PRN PRN Reason: SHORTNESS OF BREATH/WHEEZING Artificial Tears (Genteal Severe Dry Eye Relief 0.3% Opth Gel) 1 drops EACH EYE BID [facility] Aspirin (Aspirin Chew) 81 mg PO DAILY [facility] Atorvastatin Calcium (Lipitor) 20 mg PO DAILY [facility] Bisacodyl (Dulcolax Supp) 10 mg RECTAL DAILY PRN PRN Reason: SEVERE CONSITIPATION Chlorhexidine Gluconate (Peridex 0.12% Oral Kit) 15 ml OROPHARYNG BID@0800, 2000 [facility] Chlorhexidine Gluconate (Chlorhexidine 2% Cloth) 3 pack TOPICAL DAILY@0400 [facility] Stop: 03/26/18 03:59 Chlorhexidine Gluconate (Chlorhexidine 2% Cloth) 3 pack TOPICAL DAILY@0400 PRN PRN Reason: Extra cloth needed Stop: 03/26/18 03:59 Dextrose (D50w Vial) 50 ml IV.PUSH UNSCH PRN PRN Reason: PER HYPOGLYCEMIA PROTOCOL Famotidine (Pepcid Pf Inj) 20 mg IV.PUSH Q12HR [facility] Glucagon (Glucagon Inj) 1 mg OTHER PRN PRN PRN Reason: for Hypoglycemia Protocol Vancomycin/Sodium Chloride (Vancomycin Inj) 1 gm in 200 mls @ 200 mls/hr IV.SIG FIXTURE REPAIRER FABRICATOR [facility] Last Infusion: 03/21/18 00:43 Dose: Infused Fentanyl (Fentanyl 10 Mcg/Ml Premix Drip) 2,500 mcg in 250 mls @ 5 mls/hr IV.SIG TITRATE PRN; Protocol PRN Reason: Per Protocol Sodium Chloride (Ns Inj) 1,000 mls @ 84 mls/hr IV.CONT .[id number] [facility] Last Admin: 03/20/18 23:06 Dose: 84 mls/hr Propofol (Diprivan 1000 Mg/100 Ml Inj) 1,000 mg in 100 mls @ 3.266 mls/hr IV.CONT TITRATE PRN; Protocol PRN Reason: Per Protocol Magnesium Sulfate Inj 4 gm/ (Sodium Chloride) 100 mls @ 50 mls/hr IV.SIG UNSCH PRN PRN Reason: For Magnesium 0.9 - 1.1 mg/dL Magnesium Sulfate Inj 2 gm/ (Sodium Chloride) 100 mls @ 50 mls/hr IV.SIG UNSCH PRN PRN Reason: For Magnesium 1.2 - 1.6 mg/dL Potassium Phosphate 30 mmol/ (Sodium Chloride) 260 mls @ 42 mls/hr IV.SIG UNSCH PRN PRN Reason: SEE LABEL COMMENTS Sodium Phosphate 30 mmol/ (Sodium Chloride) 260 mls @ 42 mls/hr IV.SIG UNSCH PRN PRN Reason: For Phosphorus < 2.5 mg/dL Pharmacy Profile Note (Vancomycin Consult Pharmacy) 0 mls @ 0 mls/hr OTHER UNSCH [facility] Piperacillin/Tazobactam/Dextrose (Zosyn 2.25 Gm Premix) 50 mls @ 100 mls/hr IV.SIG Q6HR [facility] Insulin Aspart (Novolog Insulin Correctional Sugar Inj) 0 unit SQ Q6HR [facility]; Protocol Lactulose (Lactulose Liq) 30 ml PO DAILY PRN PRN Reason: SEVERE CONSITIPATION Levetiracetam (Keppra) 500 mg PO Q12H [facility] Metoprolol Tartrate (Lopressor Inj) 2.5 mg IV.PUSH Q6HR [facility] Last Admin: 03/21/18 00:25 Dose: 2.5 mg Non-Formulary Medication (Fenofibrate [Fenofibrate]) 50 mg PO DAILY [facility] Ondansetron HCl (Zofran Inj) 4 mg IV.PUSH Q6H PRN PRN Reason: NAUSEA OR VOMITING Senna/Docusate Sodium (Gely-Colace) 1 tab PO BID [facility] Sennosides (Senokot) 17.2 mg PO Q12H PRN PRN Reason: Moderate Constipation Sertraline HCl (Zoloft) 100 mg PO DAILY [facility] Sodium Chloride (Ns Flush) 2 ml IV.FLUSH PRN PRN PRN Reason: FLUSH AFTER USING IV ACCESS Sodium Chloride (Ns Flush) 2 ml IV.FLUSH BID [facility] Allergies Allergy/AdvReac Type Severity Reaction Status Date / Time No Known Allergies Allergy Unverified 03/20/18 21:14 Home Medications Medication Instructions Recorded Confirmed Type alendronate 70 mg PO QWEEK 03/20/18 03/20/18 History amlodipine 10 mg PO DAILY 03/20/18 03/20/18 History aspirin 81 mg PO DAILY 03/20/18 03/20/18 History atorvastatin 20 mg PO DAILY 03/20/18 03/20/18 History fenofibrate 50 mg PO DAILY 03/20/18 03/20/18 History levetiracetam 500 mg PO Q12H 03/20/18 03/20/18 History metoprolol succinate 50 mg PO DAILY 03/20/18 03/20/18 History ramipril 5 mg PO BID 03/20/18 03/20/18 History sertraline 100 mg PO DAILY 03/20/18 03/20/18 History valsartan 160 mg PO DAILY 03/20/18 03/20/18 History Physical Exam Vital signs: Vital Signs 03/20/18 21:15 03/20/18 21:20 03/20/18 21:30 Temperature 98.7 F Pulse Rate 116 H 89 Respiratory Rate 16 27 H Blood Pressure 136/66 132/80 Pulse Oximetry 94 L 97 100 03/20/18 21:31 03/20/18 22:05 03/20/18 22:07 Temperature Pulse Rate 89 90 Respiratory Rate 29 H Blood Pressure 159/87 H Pulse Oximetry 94 L 100 03/20/18 22:35 03/20/18 23:02 03/20/18 23:58 Temperature Pulse Rate 86 90 95 H Respiratory Rate Blood Pressure 170/89 H 168/86 H 180/85 H Pulse Oximetry 100 99 97 03/21/18 00:18 03/21/18 00:59 03/21/18 01:35 Temperature Pulse Rate 92 H Respiratory Rate 30 H 30 H Blood Pressure 149/87 H Pulse Oximetry 95 96 99 Intake & Output 03/20/18 03/20/18 03/21/18 06:59 18:59 06:59 Intake Total 2449 / 2449 Output Total 650 / 650 Balance 1799 / 1799 Weight 108.862 kg Intake: IV 2249 / 2249 Heparin/NS PF Inj 1,000 ML @ 0 0 / 0 mls/hr .ROUTE .STK-MED ONE Rx#: [id number] Zosyn 3.375 GM Premix 50 ML @ 50 / 50 100 mls/hr IV.SIG ONCE ONE Rx#: [id number] NS Inj 1,000 ML @ Wide Open IV. 1998 SIG BOLUS ONE Rx#:[id number] Vancomycin Inj 1 gm In 200 ml @ 200 / 200 200 mls/hr IV.SIG FIXTURE REPAIRER FABRICATOR [facility] Rx#:[id number] Anesthesia Amount 200 / 200 Output: Urine Amount (Catheter) 650 / 650 Indwelling Urethral Catheter 650 / 650 - Constitutional no acute distress - Routine HEENT Exam Head: Present: normocephalic, atraumatic Eye: Present: EOMI, PERRL, conjunctivae pink ENT: Present: mucous membranes moist, dentition normal - Routine Neck Exam Present: supple. Absent: JVD, carotid bruit - Routine Respiratory Exam Present: decreased breath sounds, crackles, distant breath sounds. Absent: accessory muscle use - Routine Cardiovascular Exam Present: RRR, S1, S2, murmur, S4. Absent: S3 - Routine Abdominal Exam Present: soft, firm. Absent: distended, organomegaly, mass - Routine Exam Patient deferred: penile exam, testicular exam, scrotal exam, groin exam, perineal exam - Routine Extremities Exam Present: edema. Absent: cyanosis, clubbing - Routine Skin Exam Present: intact - Routine Neurological Exam Present: CN II-XII intact. Absent: alert, tremors - Urinary Catheter Management Coude Cath placed during this visit: yes Reason for continuing: Hourly intake/output Insertion date: 03/20/18 Insertion time: 21:30 Indwelling Urethral Catheter Cath placed during this visit: no Septic Shock Reassessment Septic shock perfusion: reassessment completed Assessment and Plan - Assessment and Plan Plan: Neuro/Psych: Depressive disorder NOS Seizure disorder Currently on propofol at 25 mcg/kg/min/as needed fentanyl drip for sedation/ analgesia while intubated Goal of RASS -2 Daily sedation vacation Continue sertraline 100 mg daily/home medication Acetaminophen 650 milligrams every 6 hours as needed fever Continue levetiracetam 5 mg twice daily/home medication CV: NSTEMI Multivessel coronary disease Acute systolic heart failure Essential hypertension Hyperlipidemia Lactic acidosis Left heart catheterization revealed revealed left main 50%, LAD 50%, mid 90%. Diagonal 70%. Circumflex 70%. OM 90%. RCA 70%. IABP 1:1 Metoprolol tartrate 2.5 mg every 6 hours. On metoprolol succinate 50 mg daily at home Holding amlodipine 10 mg daily, ramipril 5 mill grams daily and valsartan while balloon pump Continue fenofibrate 40 mg daily and atorvastatin 40 mg daily/home medications Continue aspirin [address] surgery consultation Heparin drip see below Resp: Acute respiratory failure History of asbestosis [facility] / Ventilator bundle Albuterol/ipratropium aerosols every 4 hours with albuterol aerosols every 2 hours as needed for dyspnea Spontaneous breathing trials when clinically indicated Follow-up on ABG. Post intubation chest x-ray revealed bilateral pulmonary edema/pleural plaques bilateral upper lobes likely from asbestosis GI: Hypoalbuminemia Patient is currently n.p.o. NGT to [facility] Famotidine 10 mg twice daily for GI prophylaxis Docusate sodium/senna 1 tablet twice daily for bowel regimen : Mccormick catheter has been placed Endo: Sliding scale insulin with aspart insulin/medium protocol with Accu-Cheks every 6 hours to maintain euglycemia TSH is 2.1 Renal: Acute kidney injury in the setting of chronic kidney disease baseline creatinine around 2.3. Kidney ultrasound/urine electrolytes and eosinophils pending Heme: Leukocytosis Monitor CBC daily. Follow trends. Currently on heparin drip at 1000 units an hour. No indication for transfusion of blood products at this time. ID: Possible community acquired pneumonia Blood cultures 2, sputum, UA/urine Legionella and pneumococcal antigens urinary and influenza a and B pending Vancomycin/Pipracil/tazobactam day #2 MSK: Osteoarthritis/osteoporosis Currently holding alendronate 70 mg weekly/home medication PT evaluate and treat FEN: Replace electrolytes as clinically indicated. Access -Utilize peripheral IV. Central line if indicated Prophylax -GI -lansoprazole -DVT -SCDs/heparin drip 35 minutes critical care time
[2018-03-21] MEDS ORDERED: Chlorhexidine Gluconate 2% 1 Pack (2 Cloths) TOPICAL PRN (04:00)
[2018-03-21 04:02] LABS: Creatinine,Urine Random 38 mg/dL (27-300)
--- NOTE | 2018-03-21 04:06 | MA ---
cc: Robb Malhotra DO DATE: 03/21/2018 PROCEDURE: Left heart catheterization, coronary angiogram, intraaortic balloon pump placement. PREPROCEDURE DIAGNOSES: Shortness of breath, acute pulmonary edema, acute decompensated heart failure (class IV), NSTEMI, lactic acidosis showing decreased tissue perfusion. POSTPROCEDURE DIAGNOSES: Multivessel coronary artery disease, acute pulmonary edema/decompensated heart failure (class IV), vent-dependent respiratory failure, NSTEMI, lactic acidosis showing decreased tissue perfusion. MEDICATIONS: Propofol drip, heparin drip at 1000 units per hour. CONTRAST USED: 25 mL FLUOROSCOPY: 4.1 minutes. MODERATE SEDATION: After her intraaortic balloon pump placement, moderate sedation 40 minutes. FRAILITY SCORE: 5. ESTIMATED BLOOD LOSS: 10 mL. PROCEDURAL SUMMARY: The patient is a 77-year-old male who sees my partner, Dr. Whitman in the office and presented to [facility] emergency room due to shortness of breath. He was evaluated by [facility] on arrival and was intubated and brought to the emergency room. He was found to have acute pulmonary edema on his x-ray as well as a new left bundle branch block, elevated troponin, and lactic acidosis. Because of this, I felt that he should be taken urgently to the cardiac catheterization lab to evaluate for possibly an occluded vessel, but more likely ischemic cardiomyopathy, needing support. Emergent consent was taken due to the current nature as well as the patient being intubated and lightly sedated. He was brought to the lab and prepped in the usual sterile fashion. The right femoral artery was accessed using a modified Seldinger technique and placement of a 5-Tajik sheath. This was easily aspirated and flushed. A JR4 was advanced over a J-wire to the ascending aorta and used for selective angiography of the right coronary artery system. This was exchanged out for a JL3.5, which was used for selective angiography of the left coronary artery system. JL3.5 was exchanged for a pigtail, which was used to cross the aortic valve for measurement of left ventricular pressure. This was pulled back across the aortic valve showing no significant gradient of aortic stenosis. The pigtail was then removed. Due to multivessel disease, elevated troponin and lactic acid as well as an elevated LVEDP, I felt that an intraaortic balloon pump should be placed. The sheath was exchanged for an 8-Tajik balloon pump sheath. A 50 mL balloon pump was then placed at the level of fern and started on inflation. Augment pressure was 140. 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 FINDINGS: LEFT MAIN: Moderate size vessel with distal 50% disease. It bifurcates into an LAD and circumflex. LAD: Mmall to moderate sized vessel with 50% disease in the proximal portion. Mid portion has a long tubular lesion of 90%. Distally, it does have mild luminal irregularities. There is one major diagonal, which has a 70% lesion in the mid portion. LEFT CIRCUMFLEX: Moderate size vessel. It gives off 1 major obtuse marginal, which has a 90% lesion. After this, it bifurcates into an upper and lower branch. The circumflex continues on into the mid portion where there is 70% lesion before giving off another small obtuse marginal as well as the left circumflex proper. RCA: Moderate sized vessel with an 80% lesion in the proximal portion. Jrl-ci-[id number] has mild luminal irregularities up to 10% with some tortuosity. Distally, it gives off a PDA as well as a posterolateral branch with no significant disease. LVEDP: 44. IMPRESSION: 1. Acute pulmonary edema. 2. Acute decompensated heart failure (class IV). 3. Acute respiratory failure requiring mechanical ventilation. 4. Aud-KA-cvvkohyxe myocardial infarction. 5. Multivessel disease. 6. Gyrje-zj-saclxgm kidney disease. 7. Lactic acidosis due to decreased tissue perfusion. RECOMMENDATIONS: 1. The patient appears to have multivessel disease and I will ask CT surgery to see him for consideration of coronary artery bypass grafting. 2. Intraaortic balloon pump has been placed to help with tissue perfusion as well as his current heart failure. We will continue on one-to-one status. 3. He will be transferred to the CV ICU. 4. Critical care will be consulted to help with management of the patient as well as the ventilator. 5. We will check a 2-D echo to look at his overall left ventricular function, cardiac structure and possible valvulopathies. 6. We will have to watch his overall kidney function as he does have acute kidney injury on chronic kidney disease. After this was stabilized, he will most likely need diuresis as he has a significantly elevated LVEDP as well as pulmonary edema. 7. He will continue on a heparin drip for his intraaortic balloon pump. 8. Further recommendations will be made based on the hospital course. Thank you for allowing me to see the patient. If there are any questions, please do not hesitate to call. Robb Malhotra DO VGP/sv , 03:07 AM , 03:23 AM
[2018-03-21 04:22] LABS: ABG Base Excess -9.3 mmol/L (-2-2); ABG PCO2 35 mmHg (38-42); ABG PO2 130 mmHG (61-120)
[2018-03-21] MEDS: Chlorhexidine Gluconate 2% 1 Pack (2 Cloths) TOPICAL SCH (05:29)
[2018-03-21] MEDS: Oral Hygiene Kit OROPHARYNG SCH ×4 (05:33→17:11)
[2018-03-21] MEDS: Insulin NovoLOG Aspart Correctional Sugar Inj SQ SCH ×4 (05:33→17:14)
[2018-03-21] MEDS: levETIRAcetam 500 MG Tablet PO SCH ×2 (05:35→15:12)
[2018-03-21 05:43] LABS: Activated Partial Thrombo Time 29.9 sec (24.3-30.1); Prothrombin Time 10.5 sec (9.8-11.6)
[2018-03-21 05:47] LABS: Baso # (Auto) 0.1 th/mm3 (0.0-0.2); Baso % (Auto) 0.5 % (0.0-2.0); Hematocrit 40.1 % (39.0-51.0); Hemoglobin 13.2 gm/dL (13.0-17.0); Lymph # (Auto) 0.2 th/mm3 (1.0-4.8); Lymph % (Auto) 1.2 % (9.0-44.0); Mean Corpuscular HGB Conc 32.8 % (32.0-36.0); Mean Corpuscular Hemoglobin 30.1 pg (27.0-34.0); Mean Corpuscular Volume 91.7 fL (80.0-100.0); Mean Platelet Volume 7.8 fL (7.0-11.0); Mono # (Auto) 0.5 th/mm3 (0.0-0.9); Mono % (Auto) 3.4 % (0.0-8.0); Neut # (Auto) 13.7 th/mm3 (1.8-7.7); Neut % (Auto) 94.9 % (16.0-70.0); Platelet Count 255 th/mm3 (150-450); Red Blood Count 4.37 mil/mm3 (4.50-5.90); Red Cell Distribution Width 14.7 % (11.6-17.2); White Blood Count 14.4 th/mm3 (4.0-11.0)
[2018-03-21 05:52] LABS: Alanine Aminotransferase 37 U/L (12-78); Albumin 2.6 g/dL (3.4-5.0); Anion Gap 11 meq/L (5-15); Aspartate Aminotransferase 268 U/L (15-37); Blood Urea Nitrogen 40 mg/dL (7-18); Calcium 7.5 mg/dL (8.5-10.1); Chloride 115 meq/L (98-107); Glomerular Filtration Rate 22 mL/min (>89); Glucose,Random 368 mg/dL (74-106); Magnesium 2.2 mg/dL (1.5-2.5); Potassium 4.6 meq/L (3.5-5.1); Sodium 144 meq/L (136-145)
[2018-03-21 05:56] LABS: Alkaline Phosphatase 47 U/L (45-117); Phosphorus 2.7 mg/dL (2.5-4.9); Prealbumin 22 mg/dL (20-40); Total Protein 5.7 g/dL (6.4-8.2)
[2018-03-21 06:13] LABS: Chol/HDL Ratio 3.08 Ratio; HDL Cholesterol 41.2 mg/dL (40.0-60.0)
[2018-03-21] MEDS: Piperacil/Tazo 2.25 GM Premix 50 ML IV.SIG SCH ×3 (06:13→17:16)
[2018-03-21] MEDS ORDERED: Labetalol HCl Inj 100 MG/20 ML Vial IV.PUSH PRN (06:15)
--- NOTE | 2018-03-21 06:54 | XR ---
EXAM DATE: 03/21/2018 6:50 AM EDT AGE/SEX: 77 years / Male INDICATIONS: Shortness of breath, possible pulmonary disease. CLINICAL DATA: This is the patient's subsequent encounter. Patient reports that signs and symptoms h ave been present for 2 days and indicates a pain score of Nonresponsive. MEDICAL/SURGICAL HISTORY: Non-responsive. Non-responsive. COMPARISON: [facility], CHEST 1V SINGLE AP, 03/20/2018. . FINDINGS: Portable AP view of the chest demonstrates a normal-sized cardiac silhouette. Endotracheal tube and n asogastric tube remain present. EKG lines overlie the patient. There is stable pleural-based calcific ation bilaterally and there is increased pleural-parenchymal opacity in the right lower lung zone and slightly increased opacity at the left lung base. Airspace opacity in the left upper lobe is stable. No pneumothorax is identified. Bones demonstrate no acute finding. CONCLUSION: 1. New pleural-based opacity on the right characteristic of a pleural effusion with persistent right lung airspace consolidation. 2. Mildly increased left basilar opacity representing either airspace consolidation or atelectasis. The left upper lobe opacity is stable. 3. 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 Electronically signed by: Wyatt Ayala MD 03/21/2018 6:53 AM EDT
--- NOTE | 2018-03-21 07:51 | ECG ---
Date Performed: 03/20/2018 Time Performed: 20:57:12 PTAGE: 77 years EKG: SINUS TACHYCARDIA WITH OCCASIONAL VENTRICULAR PREMATURE COMPLEXES LEFT BUNDLE BRANCH BLOCK ABNORMAL ECG INTERPRETATION BASED ON A DEFAULT AGE OF 39 YEARS NO PREVIOUS TRACING DOCTOR: Gelacio Cheney Interpretating Date/Time 03/21/2018 07:51:00
[2018-03-21] MEDS: Famotidine PF Inj 20 MG/2 ML Vial IV.PUSH SCH ×2 (08:47→20:48)
[2018-03-21] MEDS: Senna/Docusate Sodium 8.6/50 MG Tablet PO SCH ×2 (08:47→20:47)
[2018-03-21] MEDS: Sertraline 100 MG Tablet PO SCH (08:56)
[2018-03-21] MEDS: Fenofibrate 48 MG Tablet PO SCH (08:56)
[2018-03-21] MEDS ORDERED: Famotidine PF Inj 20 MG/2 ML Vial IV.PUSH SCH ×2 (09:00)
--- NOTE | 2018-03-21 09:34 | ECG ---
Date Performed: 03/21/2018 Time Performed: 05:44:20 PTAGE: 77 years EKG: Sinus rhythm Left bundle branch block Abnormal ECG PREVIOUS TRACING : 03/20/2018 20.57 DOCTOR: Gelacio Cheney Interpretating Date/Time 03/21/2018 09:33:19
[2018-03-21] MEDS ORDERED: Vancomycin Inj 1,000 MG in Sodium Chlor 0.9% Inj 250 ML IV.SIG ONE (10:00)
[2018-03-21] MEDS: Chlorhexidine 0.12% Oral Kit 15 ML UDC OROPHARYNG SCH ×2 (10:16→20:32)
[2018-03-21] MEDS: Hypromellose 0.3% Opth Gel 10 GM Bottle EACH EYE SCH ×2 (10:18→20:32)
[2018-03-21] MEDS: Sod Chloride 0.9% Inj 1,000 ML IV.CONT SCH (10:19)
--- NOTE | 2018-03-21 10:24 | US ---
EXAM DATE: 03/21/2018 10:05 AM EDT AGE/SEX: 77 years / Male INDICATIONS: Increased BUN and creatinine. CLINICAL DATA: This is the patient's initial encounter. Patient reports that signs and symptoms have been present for 1 day and indicates a pain score of 0/10. MEDICAL/SURGICAL HISTORY: . Hypertension. Hyperlipidemia. Diabetes. Asbestosis. . Unknown COMPARISON: [facility], US KIDNEY, BILATERAL, 09/19/2017. . MEASUREMENTS: Right Kidney:__14.7 x 5.4 x 6.9 cm Left Kidney:__12.4 x 6.2 x 5.4 cm FINDINGS: Right Kidney: Hydronephrosis. Lobulated minimally complex cyst right kidney measures 5.8 x 5.3 x 7.1 cm. Left Kidney: No mass or hydronephrosis. Minimally complex cyst lower pole measures 3.8 x 3.9 x 3.8 cm . Bladder: Mccormick catheter is present. Bladder decompressed. Other: None. CONCLUSION: 1. Severe hydronephrosis right kidney. 2. Bilateral renal cysts. 3. Urinary bladder decompressed by Mccormick catheter. Electronically signed by: Marcus Broussard MD 03/21/2018 10:23 AM EDT
[2018-03-21] MEDS ORDERED: Sodium Bicarbonate 8.4% Inj 50 MEQ/50 ML Syringe ONE ×2 (12:54→14:48)
--- NOTE | 2018-03-21 12:54 | P.CON ---
History of Present Illness Service: CT Surgery Consult date: 03/21/18 Requesting Physician: Robb Malhotra Reason for Consult: NSTEMI, Cardiogenic shock, CAD Primary Care Provider: Radha Springer MD Family Provider: Radha Springer MD Chief Complaint: Chest pain, altered mental status History of Present Illness: 77 y/o male presents to [facility] with acute shortness of breath, nausea, diaphoresis, malaise for several hours. He required ET intubation and ventilator support. He rule-in for NSTEMI and was transferred to the [facility] for emergent LHC. He was found to have 3 vessel CAD and required IABP placement for hemodynamic and circulatory support. I spoke with his daughter who has extensive CT Surgery experience and he has no prior cardiac history. He does have renal disease, but his baselinf creatinine is unknown, but now 2.78 on admission. Troponin ~30. ECHO is pending Review of Systems Constitutional: Reports fatigue, Reports lack of energy, Reports malaise, Denies anorexia, Denies body ache(s), Denies chills, Denies daytime sleepiness, Denies excessive sweating, Denies fever(s), Denies headache(s), Denies increased appetite, Denies night sweats, Denies weakness, Denies weight gain, Denies weight loss, Denies other Eyes: Denies blind spots, Denies blurry vision, Denies bulging eyes, Denies change in vision, Denies double vision, Denies discharge, Denies dry eyes, Denies floaters, Denies irritation, Denies itchy eyes, Denies loss of vision, Denies pain, Denies requires corrective lenses, Denies sensitivity to light, Denies other Ears, Nose, Mouth, and Throat: Reports abnormal hearing, Denies bleeding gums, Denies bad breath, Denies change in voice, Denies dental pain, Denies difficulty swallowing, Denies dizziness, Denies dry mouth, Denies ear discharge , Denies ear pain, Denies facial pain, Denies headache(s), Denies hearing loss, Denies hoarseness, Denies lip swelling, Denies nosebleed, Denies mouth lesions, Denies mouth pain, Denies nasal congestion, Denies nasal discharge, Denies nasal obstruction, Denies nasal trauma, Denies neck lump, Denies neck pain, Denies nose pain, Denies pain with swallowing, Denies poor balance, Denies post nasal drip, Denies ringing in the ears, Denies sinus pain, Denies sinus pressure , Denies sore throat, Denies throat swelling, Denies tongue swelling, Denies other Cardiovascular: Reports excessive sweating, Reports lightheadedness, Reports shortness of breath Respiratory: Denies change in phlegm color, Denies chest congestion, Denies cough, Denies coughing up blood, Denies excessive phlegm production, Denies pain on inspiration, Denies pain with cough, Denies shortness of breath, Denies shortness of breath with activity, Denies snoring, Denies stridor, Denies wheezing, Denies other Gastrointestinal: Denies abdominal pain, Denies belching, Denies black, tarry stools, Denies bloating, Denies bright, red blood in stools, Denies change in bowel habits, Denies constant urge to pass stool, Denies change in stools, Denies coffee ground vomit, Denies constipation, Denies cramping, Denies difficulty swallowing, Denies excessive passing of gas, Denies feeling full early, Denies heartburn, Denies incontinent of stools, Denies loose stools, Denies nausea, Denies pain with swallowing, Denies vomiting, Denies vomiting blood, Denies other Genitourinary: Denies blood in semen, Denies blood in urine, Denies decreased urination, Denies difficulty urinating, Denies difficulty with ejaculations, Denies erectile dysfunction, Denies genital lesions, Denies genital pain, Denies painful urination, Denies side pain, Denies frequent nighttime urination , Denies painful ejaculations, Denies penile discharge, Denies scrotal swelling , Denies testicle lump, Denies testicle pain, Denies urinary frequency, Denies urinary hesitancy, Denies urinary incontinence, Denies urinary urgency, Denies other Musculoskeletal: Denies abnormal walking, Denies back pain, Denies body aches, Denies decreased muscle mass, Denies deformity, Denies joint pain, Denies joint swelling, Denies limited joint movement, Denies loss of height, Denies muscle cramps, Denies muscle weakness, Denies neck pain, Denies numbness, Denies radiating pain into limb, Denies stiffness, Denies tingling, Denies other Skin/Breast: Denies acne, Denies bleeding lesions, Denies boil, Denies breast swelling, Denies breast skin changes, Denies breast pain, Denies breast lump, Denies change in breast shape, Denies change in hair, Denies change in skin color, Denies changing lesions, Denies dry skin, Denies excessive hair growth, Denies hair loss, Denies itching, Denies lesions, Denies nail changes, Denies new lesions, Denies nipple discharge, Denies non-healing lesions, Denies redness , Denies sensitivity to light, Denies rash, Denies skin pain, Denies skin ulcer , Denies sores, Denies stretch cooley, Denies unusual bruising, Denies wounds, Denies yellowing of the skin, Denies other Neurologic: Denies abnormal hearing, Denies abnormal movements, Denies abnormal speech, Denies abnormal walking, Denies behavioral changes, Denies burning sensations, Denies confusion, Denies dizziness, Denies fainting, Denies frequent falls, Denies headache(s), Denies lack of coordination, Denies localized weakness, Denies loss of vision, Denies memory loss, Denies numbness, Denies other visual disturbances, Denies radiating pain, Denies restless legs, Denies convulsions, Denies seizure-like activity, Denies sensory deficit, Denies tingling, Denies tingling/numbness/burning sensations, Denies tremor(s), Denies unsteadiness, Denies weakness, Denies other Psychiatric: Denies abnormal sleep pattern, Denies anxiety, Denies behavioral changes, Denies change in appetite, Denies change in sex drive, Denies confusion , Denies depression, Denies difficulty concentrating, Denies hearing things others do not hear, Denies hopelessness, Denies irritability, Denies lack of enjoyment, Denies memory loss, Denies mood swings, Denies panic attacks, Denies paranoia, Denies seeing things others do not see, Denies sensing things others do not sense, Denies tactile hallucinations, Denies thoughts of hurting/killing others, Denies thoughts of hurting/killing yourself, Denies other Endocrine: Denies cold intolerance, Denies excessive sweating, Denies flushing, Denies heat intolerance, Denies increased hunger, Denies increased thirst, Denies increased urination, Denies rapid, pounding, or irregular heartbeat, Denies other Hematologic/Lymphatic: Denies easy bleeding, Denies easy bruising, Denies enlarged lymph nodes, Denies other Allergic/Immunologic: Denies GI upset with certain foods, Denies hives, Denies itchy eyes, Denies lip swelling, Denies seasonal runny nose, Denies throat swelling, Denies tongue swelling, Denies wheezing, Denies other PMFSH - History History Provided By: Family Member, 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 / EMT - Medical History Medical History: Medical History (Last Updated 03/21/18 @ 12:40 by Kallie Horn MD) Medical history unknown Renal disease Surgical history unknown - Family History Family History: Family History (Last Updated 03/21/18 @ 12:40 by Kallie Horn MD) Other Family history of acute myocardial infarction Family history of hypertension - Tobacco History Second Hand Smoke Exposure: Yes Tobacco Use In Past 30 Days: No Smoking Status: Never smoker - Alcohol History How Often Do You Have a Drink Containing Alcohol: 2 to 3 times a week - Substance Use History Substance History: No History of Abuse, Unable to Obtain - Travel History History of Recent Travel: No Recent Travel in the [place] Within the Last 8 Weeks: No Recent Travel Out of the Country Within the Last 8 Weeks: No - Immunization History Tetanus Immunization: Unable to Assess Hx Influenza Vaccine This Season: Yes Medications and Allergies Active Medications: Active Medications Acetaminophen (Tylenol) 650 mg PO Q6H PRN PRN Reason: PAIN 1-10 AND/OR FEVER >101F Albuterol (Duoneb Neb (V[facility]ney)) 1 ampul NEB Q4HR NEB [facility] Last Admin: 03/21/18 12:11 Dose: 1 ampul Albuterol (Albuterol Neb (Prn)) 2.5 mg NEB Q2HR NEB PRN PRN Reason: SHORTNESS OF BREATH/WHEEZING Artificial Tears (Genteal Severe Dry Eye Relief 0.3% Opth Gel) 1 drops EACH EYE BID [facility] Last Admin: 03/21/18 10:18 Dose: Not Given Aspirin (Aspirin Chew) 81 mg PO DAILY [facility] Last Admin: 03/21/18 08:47 Dose: 81 mg Atorvastatin Calcium (Lipitor) 20 mg PO DAILY [facility] Last Admin: 03/21/18 08:54 Dose: 20 mg Bisacodyl (Dulcolax Supp) 10 mg RECTAL DAILY PRN PRN Reason: SEVERE CONSITIPATION Chlorhexidine Gluconate (Peridex 0.12% Oral Kit) 15 ml OROPHARYNG BID@0800, 2000 [facility] Last Admin: 03/21/18 10:16 Dose: 15 ml Chlorhexidine Gluconate (Chlorhexidine 2% Cloth) 3 pack TOPICAL DAILY@0400 [facility] Stop: 03/26/18 03:59 Last Admin: 03/21/18 05:29 Dose: 3 pack Chlorhexidine Gluconate (Chlorhexidine 2% Cloth) 3 pack TOPICAL DAILY@0400 PRN PRN Reason: Extra cloth needed Stop: 03/26/18 03:59 Dextrose (D50w Vial) 50 ml IV.PUSH UNSCH PRN PRN Reason: PER HYPOGLYCEMIA PROTOCOL Famotidine (Pepcid Pf Inj) 10 mg IV.PUSH Q12HR [facility] Last Admin: 03/21/18 08:47 Dose: 10 mg Fenofibrate (Tricor) 48 mg PO DAILY [facility] Last Admin: 03/21/18 08:56 Dose: 48 mg Furosemide (Lasix Inj) 40 mg IV.PUSH ONCE ONE Stop: 03/21/18 12:17 Glucagon (Glucagon Inj) 1 mg OTHER PRN PRN PRN Reason: for Hypoglycemia Protocol Vancomycin/Sodium Chloride (Vancomycin Inj) 1 gm in 200 mls @ 200 mls/hr IV.SIG FLORAL ARTIST [facility] Last Infusion: 03/21/18 00:43 Dose: Infused Fentanyl (Fentanyl 10 Mcg/Ml Premix Drip) 2,500 mcg in 250 mls @ 5 mls/hr IV.SIG TITRATE PRN; Protocol PRN Reason: Per Protocol Sodium Chloride (Ns Inj) 1,000 mls @ 84 mls/hr IV.CONT .[id number] [facility] Last Admin: 03/21/18 10:19 Dose: 84 mls/hr Propofol (Diprivan 1000 Mg/100 Ml Inj) 1,000 mg in 100 mls @ 3.266 mls/hr IV.CONT TITRATE PRN; Protocol PRN Reason: Per Protocol Last Admin: 03/21/18 08:49 Dose: 25 mcg/kg/min, 16.33 mls/hr Magnesium Sulfate Inj 4 gm/ (Sodium Chloride) 100 mls @ 50 mls/hr IV.SIG UNSCH PRN PRN Reason: For Magnesium 0.9 - 1.1 mg/dL Magnesium Sulfate Inj 2 gm/ (Sodium Chloride) 100 mls @ 50 mls/hr IV.SIG UNSCH PRN PRN Reason: For Magnesium 1.2 - 1.6 mg/dL Potassium Phosphate 30 mmol/ (Sodium Chloride) 260 mls @ 42 mls/hr IV.SIG UNSCH PRN PRN Reason: SEE LABEL COMMENTS Sodium Phosphate 30 mmol/ (Sodium Chloride) 260 mls @ 42 mls/hr IV.SIG UNSCH PRN PRN Reason: For Phosphorus < 2.5 mg/dL Pharmacy Profile Note (Vancomycin Consult Pharmacy) 0 mls @ 0 mls/hr OTHER UNSCH [facility] Piperacillin/Tazobactam/Dextrose (Zosyn 2.25 Gm Premix) 50 mls @ 100 mls/hr IV.SIG Q6HR [facility] Last Admin: 03/21/18 11:38 Dose: 100 mls/hr Heparin Sodium/Dextrose (Heparin/D5w 25,000 U/250 Ml) 25,000 unit in 250 mls @ 10 mls/hr IV.CONT Q25H [facility] Last Infusion: 03/21/18 06:52 Dose: 1,000 units/hr, 10 mls/hr Insulin Aspart (Novolog Insulin Correctional Sugar Inj) 0 unit SQ Q6HR [facility]; Protocol Last Admin: 03/21/18 11:38 Dose: 7 unit Lactulose (Lactulose Liq) 30 ml PO DAILY PRN PRN Reason: SEVERE CONSITIPATION Levetiracetam (Keppra) 500 mg PO Q12H [facility] Last Admin: 03/21/18 05:35 Dose: 500 mg Metoprolol Tartrate (Lopressor Inj) 2.5 mg IV.PUSH Q6HR [facility] Last Admin: 03/21/18 11:38 Dose: 2.5 mg Ondansetron HCl (Zofran Inj) 4 mg IV.PUSH Q6H PRN PRN Reason: NAUSEA OR VOMITING Senna/Docusate Sodium (Gely-Colace) 1 tab PO BID [facility] Last Admin: 03/21/18 08:47 Dose: 1 tab Sennosides (Senokot) 17.2 mg PO Q12H PRN PRN Reason: Moderate Constipation Sertraline HCl (Zoloft) 100 mg PO DAILY [facility] Last Admin: 03/21/18 08:56 Dose: 100 mg Sodium Chloride (Ns Flush) 2 ml IV.FLUSH PRN PRN PRN Reason: FLUSH AFTER USING IV ACCESS Sodium Chloride (Ns Flush) 2 ml IV.FLUSH BID [facility] Last Admin: 03/21/18 08:56 Dose: 2 ml Allergies Allergy/AdvReac Type Severity Reaction Status Date / Time No Known Allergies Allergy Unverified 03/20/18 21:14 Home Medications Medication Instructions Recorded Confirmed Type alendronate 70 mg PO QWEEK 03/20/18 03/20/18 History amlodipine 10 mg PO DAILY 03/20/18 03/20/18 History aspirin 81 mg PO DAILY 03/20/18 03/20/18 History atorvastatin 20 mg PO DAILY 03/20/18 03/20/18 History fenofibrate 50 mg PO DAILY 03/20/18 03/20/18 History levetiracetam 500 mg PO Q12H 03/20/18 03/20/18 History metoprolol succinate 50 mg PO DAILY 03/20/18 03/20/18 History ramipril 5 mg PO BID 03/20/18 03/20/18 History sertraline 100 mg PO DAILY 03/20/18 03/20/18 History valsartan 160 mg PO DAILY 03/20/18 03/20/18 History Physical Exam Vital signs: Vital Signs 03/20/18 21:15 03/20/18 21:20 03/20/18 21:30 Temperature 98.7 F Pulse Rate 116 H 89 Respiratory Rate 16 27 H Blood Pressure 136/66 132/80 Pulse Oximetry 94 L 97 100 03/20/18 21:31 03/20/18 22:05 03/20/18 22:07 Temperature Pulse Rate 89 90 Respiratory Rate 29 H Blood Pressure 159/87 H Pulse Oximetry 94 L 100 03/20/18 22:35 03/20/18 23:02 03/20/18 23:58 Temperature Pulse Rate 86 90 95 H Respiratory Rate Blood Pressure 170/89 H 168/86 H 180/85 H Pulse Oximetry 100 99 97 03/21/18 00:18 03/21/18 00:59 03/21/18 01:35 Temperature Pulse Rate 92 H Respiratory Rate 30 H 30 H Blood Pressure 149/87 H Pulse Oximetry 95 96 99 03/21/18 03:00 03/21/18 03:15 03/21/18 03:41 Temperature 97.4 F L Pulse Rate 80 87 Respiratory Rate 20 Blood Pressure 159/90 H 159/90 H Pulse Oximetry 99 99 03/21/18 04:33 03/21/18 05:30 03/21/18 07:00 Temperature 97.5 F L Pulse Rate 66 69 Respiratory Rate 19 19 18 Blood Pressure 132/80 Pulse Oximetry 97 99 03/21/18 07:39 03/21/18 07:55 03/21/18 08:00 Temperature Pulse Rate 67 68 69 Respiratory Rate 18 18 Blood Pressure 139/72 Pulse Oximetry 99 99 03/21/18 08:07 03/21/18 10:00 03/21/18 11:00 Temperature 97.2 F L 97.4 F L Pulse Rate 69 68 80 Respiratory Rate 19 23 25 H Blood Pressure 107/55 L 112/71 120/78 Pulse Oximetry 99 98 99 03/21/18 12:12 03/21/18 12:23 Temperature Pulse Rate 68 Respiratory Rate 18 14 Blood Pressure Pulse Oximetry 99 Intake & Output 03/20/18 03/21/18 03/21/18 18:59 06:59 18:59 Intake Total 2695.0 / 2695.0 816 / 816 Output Total 1015 / 1015 Balance 1680.0 / 1680.0 816 / 816 Weight 102 kg Intake: IV 2495.0 / 2495.0 816 / 816 Heparin/NS PF Inj 1,000 ML @ 0 0 / 0 mls/hr .ROUTE .STK-MED ONE Rx#: [id number] Heparin/D5W 25,000 U/250 mL 25, 36.8 / 36.8 000 unit In 250 ml @ 1,000 UNITS/HR 10 mls/hr IV.CONT Q25H [facility] Rx#:[id number] Diprivan 1000 mg/100 ml Inj 1, 54 / 54 46 / 46 000 mg In 100 ml @ 5 MCG/KG/MIN 3.266 mls/hr IV.CONT TITRATE PRN Rx#:[id number] NS Inj 1,000 ML @ 84 mls/hr IV. 115 / 115 770 / 770 CONT .[id number] [facility] Rx#: [id number] Zosyn 2.25 GM Premix 50 ML @ 40.2 / 40.2 100 mls/hr IV.SIG Q6HR [facility] Rx#: [id number] Zosyn 3.375 GM Premix 50 ML @ 50 / 50 100 mls/hr IV.SIG ONCE ONE Rx#: [id number] NS Inj 1,000 ML @ Wide Open IV. 1998 SIG BOLUS ONE Rx#:[id number] Vancomycin Inj 1 gm In 200 ml @ 200 / 200 200 mls/hr IV.SIG FLORAL ARTIST [facility] Rx#:[id number] Anesthesia Amount 200 / 200 Output: Urine Amount (Catheter) 1015 / 1015 Indwelling Urethral Catheter 1015 / 1015 Other: Weight On Admission 101.5 kg - Constitutional no acute distress - Routine HEENT Exam Head: Present: normocephalic, atraumatic Eye: Present: normal accommodation - Routine Neck Exam Present: supple - Routine Respiratory Exam Present: rales - Routine Cardiovascular Exam Present: RRR, S1, S2 - Routine Abdominal Exam Present: soft, normoactive bowel sounds - Routine Extremities Exam Present: pulses intact - Routine Skin Exam Present: intact - Routine Psychiatric Exam Comments: Intubated and sedated - Urinary Catheter Management Coude Cath placed during this visit: yes Reason for continuing: Hourly intake/output Insertion date: 03/20/18 Insertion time: 21:30 Indwelling Urethral Catheter Cath placed during this visit: no Assessment and Plan - Assessment (1) NSTEMI (non-ST elevated myocardial infarction) Code(s): I21.4 - Non-ST elevation (NSTEMI) myocardial infarction Status: Acute (2) Cardiogenic shock Code(s): R57.0 - Cardiogenic shock Status: Acute (3) CAD (coronary artery disease) Code(s): I25.10 - Atherosclerotic heart disease of [place] coronary artery without angina pectoris Status: Acute (4) Stage 4 chronic kidney disease Code(s): N18.4 - Chronic kidney disease, stage 4 (severe) Status: Acute - Plan 77y/o male presents with acute NSTEMI, pulmonary edema, respiratory failure requiring mechanical ventilation, and cardiogenic shock with metabolic acidosis. He was found tohave multivessel and left main CAD. His EF is unknown and an echo is pending. STS risk for CABG is as follows: Risk Model and Variables - STS Adult Cardiac Surgery Database Version 2.81 RISK SCORES About the STS Risk Calculator Procedure: CAB Only Risk of Mortality: 16.383% Morbidity or Mortality: 76.637% Long Length of Stay: 34.492% Short Length of Stay: 4.215% Permanent Stroke: 2.428% Prolonged Ventilation: 65.473% DSW Infection: 0.68% Renal Failure: 36.391% Reoperation: 20.569% He is stable with IABP support and mechanical ventilation. His current risk for CABG is very high and his LV function is unknown. He also continues to have a profound metabolic acidosis which needs to be corrected. Recommend CABG once he is stabilized and resuscitated. I spoke withhis daughter, who I know well and she understands he may require several days to recover prior to surgery. He remains very critical at this moment. Discussed Condition With: daughter
[2018-03-21 12:59] LABS: Hemoglobin A1c 8.2 % (4.3-6.0)
--- NOTE | 2018-03-21 14:16 | P.PNCA ---
Subjective Interval history: Stable since cardiac cath Sedated on the vent IABP 1:1 with good augmentation Pulses distally by doppler, foot warm Hemodynamically stable Physical Exam Vital signs: Vital Signs 03/20/18 21:15 03/20/18 21:20 03/20/18 21:30 Temperature 98.7 F Pulse Rate 116 H 89 Respiratory Rate 16 27 H Blood Pressure 136/66 132/80 Pulse Oximetry 94 L 97 100 03/20/18 21:31 03/20/18 22:05 03/20/18 22:07 Temperature Pulse Rate 89 90 Respiratory Rate 29 H Blood Pressure 159/87 H Pulse Oximetry 94 L 100 03/20/18 22:35 03/20/18 23:02 03/20/18 23:58 Temperature Pulse Rate 86 90 95 H Respiratory Rate Blood Pressure 170/89 H 168/86 H 180/85 H Pulse Oximetry 100 99 97 03/21/18 00:18 03/21/18 00:59 03/21/18 01:35 Temperature Pulse Rate 92 H Respiratory Rate 30 H 30 H Blood Pressure 149/87 H Pulse Oximetry 95 96 99 03/21/18 03:00 03/21/18 03:15 03/21/18 03:41 Temperature 97.4 F L Pulse Rate 80 87 Respiratory Rate 20 Blood Pressure 159/90 H 159/90 H Pulse Oximetry 99 99 03/21/18 04:33 03/21/18 05:30 03/21/18 07:00 Temperature 97.5 F L Pulse Rate 66 69 Respiratory Rate 19 19 18 Blood Pressure 132/80 Pulse Oximetry 97 99 03/21/18 07:39 03/21/18 07:55 03/21/18 08:00 Temperature Pulse Rate 67 68 69 Respiratory Rate 18 18 Blood Pressure 139/72 Pulse Oximetry 99 99 03/21/18 08:07 03/21/18 10:00 03/21/18 11:00 Temperature 97.2 F L 97.4 F L Pulse Rate 69 68 80 Respiratory Rate 19 23 25 H Blood Pressure 107/55 L 112/71 120/78 Pulse Oximetry 99 98 99 03/21/18 12:12 03/21/18 12:23 Temperature Pulse Rate 68 Respiratory Rate 18 14 Blood Pressure Pulse Oximetry 99 Intake & Output 03/20/18 03/21/18 03/21/18 18:59 06:59 18:59 Intake Total 2695.0 / 2695.0 816 / 816 Output Total 1015 / 1015 Balance 1680.0 / 1680.0 816 / 816 Weight 102 kg Intake: IV 2495.0 / 2495.0 816 / 816 Heparin/NS PF Inj 1,000 ML @ 0 0 / 0 mls/hr .ROUTE .STK-MED ONE Rx#: [id number] Heparin/D5W 25,000 U/250 mL 25, 36.8 / 36.8 000 unit In 250 ml @ 1,000 UNITS/HR 10 mls/hr IV.CONT Q25H [facility] Rx#:[id number] Diprivan 1000 mg/100 ml Inj 1, 54 / 54 46 / 46 000 mg In 100 ml @ 5 MCG/KG/MIN 3.266 mls/hr IV.CONT TITRATE PRN Rx#:[id number] NS Inj 1,000 ML @ 84 mls/hr IV. 115 / 115 770 / 770 CONT .[id number] [facility] Rx#: [id number] Zosyn 2.25 GM Premix 50 ML @ 40.2 / 40.2 100 mls/hr IV.SIG Q6HR [facility] Rx#: [id number] Zosyn 3.375 GM Premix 50 ML @ 50 / 50 100 mls/hr IV.SIG ONCE ONE Rx#: [id number] NS Inj 1,000 ML @ Wide Open IV. 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 HEAD: Atraumatic. Normocephalic. EYES: Pupils equal and round. No scleral icterus. No injection or drainage. ENT: No nasal bleeding or discharge. Mucous membranes pink and moist. ET tube in place NECK: Trachea midline. No JVD. CARDIOVASCULAR: Regular rate and rhythm. RESPIRATORY: No accessory muscle use. Decreased breath sounds bilaterally GASTROINTESTINAL: Abdomen soft, non-tender, nondistended. Hepatic and splenic margins not palpable. MUSCULOSKELETAL: Extremities without clubbing, cyanosis, or edema. No obvious deformities. Right femoral sheath no hematoma NEUROLOGICAL: Intubated and sedated, able to follow simple commands - Urinary Catheter Management Coude Cath placed during this visit: yes Reason for continuing: Hourly intake/output Insertion date: 03/20/18 Insertion time: 21:30 Indwelling Urethral Catheter Cath placed during this visit: no Assessment and Plan - Assessment (1) Multi-vessel coronary artery stenosis Code(s): I25.10 - Atherosclerotic heart disease of [place] coronary artery without angina pectoris Status: Acute (2) Lactic acidosis Code(s): E87.2 - Acidosis Status: Acute (3) Acute respiratory failure with hypoxia Code(s): J96.01 - Acute respiratory failure with hypoxia Status: Acute (4) NSTEMI (non-ST elevated myocardial infarction) Code(s): I21.4 - Non-ST elevation (NSTEMI) myocardial infarction Status: Acute (5) Cardiogenic shock Code(s): R57.0 - Cardiogenic shock Status: Acute (6) CAD (coronary artery disease) Code(s): I25.10 - Atherosclerotic heart disease of [place] coronary artery without angina pectoris Status: Acute (7) Stage 4 chronic kidney disease Code(s): N18.4 - Chronic kidney disease, stage 4 (severe) Status: Acute - Plan 1) MVCAD/NSTEMI CT surgery evaluation Discussed with Dr. Horn Agree with trying to stabilize before consideration of surgery 2D echo pending Heparin drip for NSTEMI/CAD/IABP 2) Cardiogenic shock/pulmonary edema Heart failure with lactic acidosis Leading to decreased tissue perfusion Con't on IABP for now while lactic acid hopefully clears with better perfusion 3) ROMINA on CKD Not sure what his baseline is, but creatinine was 2.0 in 2009 Will ask Nephrology to evaluate the patient 4) VDRF due to heart failure Critical care managing Would wait to extubate until acidosis resolved And consider taking out IABP before extubating so patient would not have to lay flat?
--- NOTE | 2018-03-21 14:54 | ECHRPT ---
Indication: Heart Failure CONCLUSIONS Limited echo for LVEF The left ventricular systolic function is severely reduced with an estimated ejection fraction in th e range of 20-25%. Global hypokinesis, worse inferiorly. Mild concentric left ventricular hypertrophy. Normal left ventricular size. BP: / HR: Rhythm: MEASUREMENTS (Male / Female) Normal Values Technical Quality:Technically difficult study 2D ECHO LV Diastolic Diameter PLAX 5.3 cm 4.2 - 5.9 / 3.9 - 5.3 cm LV Systolic Diameter PLAX 4.8 cm IVS Diastolic Thickness 1.3 cm 0.6 - 1.0 / 0.6 - 0.9 cm LVPW Diastolic Thickness 1.2 cm 0.6 - 1.0 / 0.6 - 0.9 cm LV Relative Wall Thickness 0.5 FINDINGS LEFT VENTRICLE The left ventricular systolic function is severely reduced with an estimated ejection fraction in th e range of 20-25%. Mild concentric left ventricular hypertrophy. Normal left ventricular size. Ladarius Ozuna MD (Electronically Signed) Final Date:21 March 2018 14:52
[2018-03-21] MEDS ORDERED: Calcium Chloride Inj 1 GM in Sodium Chlor 0.9% Inj 100 ML IV.SIG ONE (15:00)
[2018-03-21] MEDS: Insulin Regular (For Infusion) 100 UNIT in Sodium Chlor 0.9% Inj 99 ML IV.CONT PRN ×4 (15:12→18:17)
--- NOTE | 2018-03-21 16:58 | P.CONNP ---
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 Herrera in [facility]. According to one of the notes, his baseline creatinine is around 2.3. Patient is currently intubated, but conscious, able to understand communication, tries to talk through the ET tube. Also able to write some questions and answers. He was at home yesterday, developed shortness of breath. Called his daughter. EMS brought him to the ER, intubated. His creatinine was 3. Today it is 2.7. He had cardiac catheterization which revealed multivessel disease. He has IABP. Patient has been seen by CT surgery. He has metabolic acidosis, pulmonary edema. CT surgery wants stabilization of his status before surgery. He has made about 1680 ml of urine so far today, in about 10 hours. He received a dose of Lasix. Patient is on heparin drip. Review of Systems unobtainable due to endotracheal tube PMFSH - History History Provided By: Patient - Medical History Medical History: Medical History (Last Updated 03/21/18 @ 12:40 by Kallie Horn MD) Medical history unknown Renal disease Surgical history unknown - Family History Family History: Family History (Last Updated 03/21/18 @ 12:40 by Kallie Horn MD) Other Family history of acute myocardial infarction Family history of hypertension - Tobacco History Second Hand Smoke Exposure: Yes Tobacco Use In Past 30 Days: No Smoking Status: Never smoker - Alcohol History How Often Do You Have a Drink Containing Alcohol: 2 to 3 times a week - Substance Use History Substance History: No History of Abuse, Unable to Obtain - Travel History History of Recent Travel: No Recent Travel in the [place] Within the Last 8 Weeks: No Recent Travel Out of the Country Within the Last 8 Weeks: No - Immunization History Tetanus Immunization: Unable to Assess Hx Influenza Vaccine This Season: Yes Medications and Allergies Active Medications: Active Medications Acetaminophen (Tylenol) 650 mg PO Q6H PRN PRN Reason: PAIN 1-10 AND/OR FEVER >101F Albuterol (Duoneb Neb (Vianney)) 1 ampul NEB Q4HR NEB VIANNEY Last Admin: 03/21/18 16:12 Dose: 1 ampul Albuterol (Albuterol Neb (Prn)) 2.5 mg NEB Q2HR NEB PRN PRN Reason: SHORTNESS OF BREATH/WHEEZING Artificial Tears (Genteal Severe Dry Eye Relief 0.3% Opth Gel) 1 drops EACH EYE BID [facility] Last Admin: 03/21/18 10:18 Dose: Not Given Aspirin (Aspirin Chew) 81 mg PO DAILY [facility] Last Admin: 03/21/18 08:47 Dose: 81 mg Atorvastatin Calcium (Lipitor) 80 mg PO [facility] Bisacodyl (Dulcolax Supp) 10 mg RECTAL DAILY PRN PRN Reason: SEVERE CONSITIPATION Chlorhexidine Gluconate (Peridex 0.12% Oral Kit) 15 ml OROPHARYNG BID@0800, 2000 [facility] Last Admin: 03/21/18 10:16 Dose: 15 ml Chlorhexidine Gluconate (Chlorhexidine 2% Cloth) 3 pack TOPICAL DAILY@0400 [facility] Stop: 03/26/18 03:59 Last Admin: 03/21/18 05:29 Dose: 3 pack Chlorhexidine Gluconate (Chlorhexidine 2% Cloth) 3 pack TOPICAL DAILY@0400 PRN PRN Reason: Extra cloth needed Stop: 03/26/18 03:59 Dextrose (D50w Vial) 50 ml IV.PUSH UNSCH PRN PRN Reason: PER HYPOGLYCEMIA PROTOCOL Famotidine (Pepcid Pf Inj) 10 mg IV.PUSH Q12HR [facility] Last Admin: 03/21/18 08:47 Dose: 10 mg Fenofibrate (Tricor) 48 mg PO DAILY [facility] Last Admin: 03/21/18 08:56 Dose: 48 mg Glucagon (Glucagon Inj) 1 mg OTHER PRN PRN PRN Reason: for Hypoglycemia Protocol Vancomycin/Sodium Chloride (Vancomycin Inj) 1 gm in 200 mls @ 200 mls/hr IV.SIG [employer]ELOPMENT [facility] Last Infusion: 03/21/18 00:43 Dose: Infused Fentanyl (Fentanyl 10 Mcg/Ml Premix Drip) 2,500 mcg in 250 mls @ 5 mls/hr IV.SIG TITRATE PRN; Protocol PRN Reason: Per Protocol Sodium Chloride (Ns Inj) 1,000 mls @ 84 mls/hr IV.CONT .[id number] [facility] Last Admin: 03/21/18 10:19 Dose: 84 mls/hr Propofol (Diprivan 1000 Mg/100 Ml Inj) 1,000 mg in 100 mls @ 3.266 mls/hr IV.CONT TITRATE PRN; Protocol PRN Reason: Per Protocol Last Titration: 03/21/18 16:12 Dose: 0 mcg/kg/min, 0 mls/hr Magnesium Sulfate Inj 4 gm/ (Sodium Chloride) 100 mls @ 50 mls/hr IV.SIG UNSCH PRN PRN Reason: For Magnesium 0.9 - 1.1 mg/dL Magnesium Sulfate Inj 2 gm/ (Sodium Chloride) 100 mls @ 50 mls/hr IV.SIG UNSCH PRN PRN Reason: For Magnesium 1.2 - 1.6 mg/dL Potassium Phosphate 30 mmol/ (Sodium Chloride) 260 mls @ 42 mls/hr IV.SIG UNSCH PRN PRN Reason: SEE LABEL COMMENTS Sodium Phosphate 30 mmol/ (Sodium Chloride) 260 mls @ 42 mls/hr IV.SIG UNSCH PRN PRN Reason: For Phosphorus < 2.5 mg/dL Pharmacy Profile Note (Vancomycin Consult Pharmacy) 0 mls @ 0 mls/hr OTHER UNSCH VIANNEY Piperacillin/Tazobactam/Dextrose (Zosyn 2.25 Gm Premix) 50 mls @ 100 mls/hr IV.SIG Q6HR [facility] Last Admin: 03/21/18 11:38 Dose: 100 mls/hr Heparin Sodium/Dextrose (Heparin/D5w 25,000 U/250 Ml) 25,000 unit in 250 mls @ 10 mls/hr IV.CONT Q25H [facility] Last Infusion: 03/21/18 06:52 Dose: 1,000 units/hr, 10 mls/hr Insulin Human Regular 100 unit (/ Sodium Chloride) 100 mls @ 3 mls/hr IV.CONT TITRATE PRN; Protocol PRN Reason: See Protocol Last Admin: 03/21/18 16:06 Dose: 13 units/hr, 13 mls/hr Insulin Aspart (Novolog Insulin Correctional Sugar Inj) 0 unit SQ Q6HR VIANNEY; Protocol Last Admin: 03/21/18 11:38 Dose: 7 unit Lactulose (Lactulose Liq) 30 ml PO DAILY PRN PRN Reason: SEVERE CONSITIPATION Levetiracetam (Keppra) 500 mg PO Q12H [facility] Last Admin: 03/21/18 15:12 Dose: 500 mg Metoprolol Tartrate (Lopressor Inj) 2.5 mg IV.PUSH Q6HR [facility] Last Admin: 03/21/18 11:38 Dose: 2.5 mg Ondansetron HCl (Zofran Inj) 4 mg IV.PUSH Q6H PRN PRN Reason: NAUSEA OR VOMITING Senna/Docusate Sodium (Gely-Colace) 1 tab PO BID [facility] Last Admin: 03/21/18 08:47 Dose: 1 tab Sennosides (Senokot) 17.2 mg PO Q12H PRN PRN Reason: Moderate Constipation Sertraline HCl (Zoloft) 100 mg PO DAILY [facility] Last Admin: 03/21/18 08:56 Dose: 100 mg Sodium Chloride (Ns Flush) 2 ml IV.FLUSH PRN PRN PRN Reason: FLUSH AFTER USING IV ACCESS Sodium Chloride (Ns Flush) 2 ml IV.FLUSH BID [facility] Last Admin: 03/21/18 08:56 Dose: 2 ml Allergies Allergy/AdvReac Type Severity Reaction Status Date / Time No Known Allergies Allergy Unverified 03/20/18 21:14 Home Medications Medication Instructions Recorded Confirmed Type alendronate 70 mg PO QWEEK 03/20/18 03/20/18 History amlodipine 10 mg PO DAILY 03/20/18 03/20/18 History aspirin 81 mg PO DAILY 03/20/18 03/20/18 History atorvastatin 20 mg PO DAILY 03/20/18 03/20/18 History fenofibrate 50 mg PO DAILY 03/20/18 03/20/18 History levetiracetam 500 mg PO Q12H 03/20/18 03/20/18 History metoprolol succinate 50 mg PO DAILY 03/20/18 03/20/18 History ramipril 5 mg PO BID 03/20/18 03/20/18 History sertraline 100 mg PO DAILY 03/20/18 03/20/18 History valsartan 160 mg PO DAILY 03/20/18 03/20/18 History Exam Vital signs: Vital Signs 03/20/18 21:15 03/20/18 21:20 03/20/18 21:30 Temperature 98.7 F Pulse Rate 116 H 89 Respiratory Rate 16 27 H Blood Pressure 136/66 132/80 Pulse Oximetry 94 L 97 100 03/20/18 21:31 03/20/18 22:05 03/20/18 22:07 Temperature Pulse Rate 89 90 Respiratory Rate 29 H Blood Pressure 159/87 H Pulse Oximetry 94 L 100 03/20/18 22:35 03/20/18 23:02 03/20/18 23:58 Temperature Pulse Rate 86 90 95 H Respiratory Rate Blood Pressure 170/89 H 168/86 H 180/85 H Pulse Oximetry 100 99 97 03/21/18 00:18 03/21/18 00:59 03/21/18 01:35 Temperature Pulse Rate 92 H Respiratory Rate 30 H 30 H Blood Pressure 149/87 H Pulse Oximetry 95 96 99 03/21/18 03:00 03/21/18 03:15 03/21/18 03:41 Temperature 97.4 F L Pulse Rate 80 87 Respiratory Rate 20 Blood Pressure 159/90 H 159/90 H Pulse Oximetry 99 99 03/21/18 04:33 03/21/18 05:30 03/21/18 07:00 Temperature 97.5 F L Pulse Rate 66 69 Respiratory Rate 19 19 18 Blood Pressure 132/80 Pulse Oximetry 97 99 03/21/18 07:39 03/21/18 07:55 03/21/18 08:00 Temperature Pulse Rate 67 68 69 Respiratory Rate 18 18 Blood Pressure 139/72 Pulse Oximetry 99 99 03/21/18 08:07 03/21/18 10:00 03/21/18 11:00 Temperature 97.2 F L 97.4 F L Pulse Rate 69 68 80 Respiratory Rate 19 23 25 H Blood Pressure 107/55 L 112/71 120/78 Pulse Oximetry 99 98 99 03/21/18 12:00 03/21/18 12:12 03/21/18 12:23 Temperature 97.3 F L Pulse Rate 69 68 Respiratory Rate 18 18 14 Blood Pressure 129/75 Pulse Oximetry 98 99 03/21/18 13:00 03/21/18 14:00 03/21/18 15:00 Temperature 97.6 F Pulse Rate 68 83 78 Respiratory Rate 15 19 19 Blood Pressure 137/78 129/75 121/73 Pulse Oximetry 98 98 98 03/21/18 15:40 03/21/18 16:12 03/21/18 16:20 Temperature Pulse Rate 83 80 86 Respiratory Rate 25 H 21 14 Blood Pressure 127/80 127/80 Pulse Oximetry 98 98 Intake & Output 03/20/18 03/21/18 03/21/18 18:59 06:59 18:59 Intake Total 2695.0 / 2695.0 Output Total 101 / 1015 Balance 1680.0 / 1680.0 Weight 102 kg Intake: IV 2495.0 / 2495.0 Heparin/NS PF Inj 1,000 ML @ 0 0 / 0 mls/hr .ROUTE .STK-MED ONE Rx#: [id number] Heparin/D5W 25,000 U/250 mL 25, 36.8 / 36.8 000 unit In 250 ml @ 1,000 UNITS/HR 10 mls/hr IV.CONT Q25H [facility] Rx#:[id number] NovoLIN R (IV Infusion) 100 100 / 100 UNIT In NS Inj 99 ML @ 3 UNITS/ HR 3 mls/hr IV.CONT TITRATE PRN Rx#:[id number] Diprivan 1000 mg/100 ml Inj 1, 54 / 54 46 / 46 000 mg In 100 ml @ 5 MCG/KG/MIN 3.266 mls/hr IV.CONT TITRATE PRN Rx#:[id number] NS Inj 1,000 ML @ 84 mls/hr IV. 115 / 115 770 / 770 CONT .[id number] [facility] Rx#: [id number] Zosyn 2.25 GM Premix 50 ML @ 40.2 / 40.2 100 mls/hr IV.SIG Q6HR [facility] Rx#: [id number] Zosyn 3.375 GM Premix 50 ML @ 50 / 50 100 mls/hr IV.SIG ONCE ONE Rx#: [id number] NS Inj 1,000 ML @ Wide Open IV. 1998 SIG BOLUS ONE Rx#:[id number] Vancomycin Inj 1 gm In 200 ml @ 200 / 200 200 mls/hr IV.SIG STRATE[employer]IC BUSINESS DEVELOPMENT [facility] Rx#:[id number] Anesthesia Amount 200 / 200 Output: Urine Amount (Catheter) 1015 / 1015 Indwelling Urethral Catheter 1015 / 1015 Other: Weight On Admission 101.5 kg - Constitutional no acute distress Comments: intubated, on the ventilator. - Routine HEENT Exam Head: Present: normocephalic Eye: Present: EOMI, PERRL - Routine Neck Exam Absent: JVD, thyromegaly - Routine Respiratory Exam Present: CTA bilaterally - Routine Cardiovascular Exam Present: RRR, S1, S2 - Routine Abdominal Exam Present: soft, normoactive bowel sounds. Absent: tenderness, distended, rebound , organomegaly, mass - Routine Extremities Exam Present: pulses intact. Absent: edema - Routine Skin Exam Present: intact. Absent: cyanosis, erythema - Routine Neurological Exam Present: alert, oriented X3 Results - Lab Results 03/21/18 05:08 03/21/18 05:08 Most recent lab results ABG pH 7.28 (7.380-7.420) L* 03/21/18 03:57 ABG pCO2 35 mmHg (38-42) L 03/21/18 03:57 ABG pO2 130 mmHG (61-120) H 03/21/18 03:57 ABG HCO3 16 mmol/L (22-26) L* 03/21/18 03:57 Calcium 7.5 mg/dL (8.5-10.1) L 03/21/18 05:08 Phosphorus 2.7 mg/dL (2.5-4.9) 03/21/18 05:08 Magnesium 2.2 mg/dL (1.5-2.5) 03/21/18 05:08 Assessment and Plan - Assessment (1) Acute worsening of stage 4 chronic kidney disease Code(s): N28.9 - Disorder of kidney and ureter, unspecified; N18.4 - Chronic kidney disease, stage 4 (severe) Status: Acute Plan: patient may have underlying stage III to IV CKD due to diabetic nephropathy. He appears to have diabetic nephropathy. Acute worsening could be due to NSTEMI, cardiogenic shock and renal hypoperfusion. He is non oliguric, and it appears that renal function is improving. He is non oliguric. Avoid nephrotoxic agents. Monitor urine output and renal function. Quantify proteinuria. Addendum Patient's renal US revealed severe hydronephrosis of the right kidney. Reason is not clear. Needs CT of the abdomen/pelvis when he is stable to investigate further. Consider consulting Urology. Unclear of the duration. (2) Lactic acidosis Code(s): E87.2 - Acidosis Status: Acute Plan: due to renal hypoperfusion after NSTEMI. Monitor. Should improve with improved hemodynamics. (3) NSTEMI (non-ST elevated myocardial infarction) Code(s): I21.4 - Non-ST elevation (NSTEMI) myocardial infarction Status: Acute Plan: s/p cath. Multivessel disease noted, need for CABG. Seen by CT surgery, surgery when he is stable. (4) Cardiogenic shock Code(s): R57.0 - Cardiogenic shock Status: Acute Plan: s/p cath, on IABP. Improving. - Attending Attestation Thanks for the consult.
[2018-03-21 17:38] LABS: Calcium 8.6 mg/dL (8.5-10.1); Carbon Dioxide 21.9 meq/L (21.0-32.0); Potassium 4.2 meq/L (3.5-5.1)
[2018-03-22] MEDS: Sod Chloride 0.9% Inj 1,000 ML IV.CONT SCH ×2 (00:21→12:04)
[2018-03-22] MEDS: Metoprolol Inj 5 MG/5 ML Vial IV.PUSH SCH ×3 (00:21→11:36)
[2018-03-22] MEDS: Oral Hygiene Kit OROPHARYNG SCH ×4 (00:22→16:20)
[2018-03-22] MEDS: Insulin NovoLOG Aspart Correctional Sugar Inj SQ SCH ×4 (00:22→17:55)
[2018-03-22] MEDS: Piperacil/Tazo 2.25 GM Premix 50 ML IV.SIG SCH ×4 (00:22→17:55)
--- NOTE | 2018-03-22 03:50 | XR ---
EXAM DATE: 03/22/2018 3:30 AM EDT AGE/SEX: 77 years / Male INDICATIONS: Shortness of breath, possible pulmonary disease. CLINICAL DATA: This is the patient's subsequent encounter. Patient reports that signs and symptoms h ave been present for 2 days and indicates a pain score of Nonresponsive. MEDICAL/SURGICAL HISTORY: . Hypertension. Hyperlipidemia. Diabetes Non-responsive. COMPARISON: [facility] [place], CHEST 1V SINGLE AP, 03/21/2018. . FINDINGS: Portable AP view of the chest demonstrates a normal-sized cardiac silhouette with calcification of th e aorta. EKG lines overlie the patient. Bilateral calcified pleural plaques remain present. Lungs are underinflated with mild bibasilar airspace opacity. No pleural effusion is appreciated. There is imp roved aeration at the right lung base. CONCLUSION: Improved aeration at the right lung base. Mild bibasilar opacity remains present and may represent at electasis or consolidation. Electronically signed by: Wyatt Ayala MD 03/22/2018 3:49 AM EDT
[2018-03-22 04:23] LABS: Baso % (Auto) 0.3 % (0.0-2.0); Hematocrit 39.6 % (39.0-51.0); Hemoglobin 12.7 gm/dL (13.0-17.0); Lymph # (Auto) 1.8 th/mm3 (1.0-4.8); Lymph % (Auto) 12.3 % (9.0-44.0); Mean Corpuscular HGB Conc 32.1 % (32.0-36.0); Mean Corpuscular Hemoglobin 29.6 pg (27.0-34.0); Mean Corpuscular Volume 92.2 fL (80.0-100.0); Mean Platelet Volume 7.6 fL (7.0-11.0); Mono # (Auto) 1.2 th/mm3 (0.0-0.9); Mono % (Auto) 8.4 % (0.0-8.0); Neut # (Auto) 11.4 th/mm3 (1.8-7.7); Platelet Count 212 th/mm3 (150-450); Red Blood Count 4.29 mil/mm3 (4.50-5.90); Red Cell Distribution Width 14.8 % (11.6-17.2); White Blood Count 14.5 th/mm3 (4.0-11.0)
[2018-03-22 04:40] LABS: Alanine Aminotransferase 40 U/L (12-78); Albumin 2.6 g/dL (3.4-5.0); Anion Gap 10 meq/L (5-15); Aspartate Aminotransferase 183 U/L (15-37); Blood Urea Nitrogen 37 mg/dL (7-18); Calcium 7.9 mg/dL (8.5-10.1); Carbon Dioxide 23.3 meq/L (21.0-32.0); Chloride 114 meq/L (98-107); Glomerular Filtration Rate 23 mL/min (>89); Glucose,Random 183 mg/dL (74-106); Magnesium 1.7 mg/dL (1.5-2.5); Phosphorus 2.7 mg/dL (2.5-4.9); Potassium 3.9 meq/L (3.5-5.1); Sodium 147 meq/L (136-145)
[2018-03-22 04:42] LABS: Alkaline Phosphatase 30 U/L (45-117); Total Protein 5.8 g/dL (6.4-8.2); Vancomycin,Random 12.3 Comment
[2018-03-22] MEDS ORDERED: Metoprolol Tartrate 25 MG Tablet PO SCH (05:00)
[2018-03-22] MEDS: Chlorhexidine Gluconate 2% 1 Pack (2 Cloths) TOPICAL SCH (06:25)
[2018-03-22] MEDS: levETIRAcetam 500 MG Tablet PO SCH ×2 (06:28→16:20)
[2018-03-22] MEDS: Heparin Drip 25,000 UNIT/250 ML BAG IV.CONT SCH (08:26)
[2018-03-22] MEDS: Senna/Docusate Sodium 8.6/50 MG Tablet PO SCH ×2 (08:27→21:00)
[2018-03-22] MEDS: Sertraline 100 MG Tablet PO SCH (08:27)
[2018-03-22] MEDS: Famotidine PF Inj 20 MG/2 ML Vial IV.PUSH SCH ×2 (08:27→21:00)
[2018-03-22] MEDS: Fenofibrate 48 MG Tablet PO SCH (08:27)
[2018-03-22] MEDS: Chlorhexidine 0.12% Oral Kit 15 ML UDC OROPHARYNG SCH ×2 (08:28→22:19)
[2018-03-22] MEDS: Hypromellose 0.3% Opth Gel 10 GM Bottle EACH EYE SCH ×2 (10:23→22:19)
[2018-03-22] MEDS ORDERED: Vancomycin Inj 1,500 MG in Sodium Chlor 0.9% Inj 500 ML IV.SIG ONE (11:00)
[2018-03-22] MEDS ORDERED: Sodium Chloride 0.45 % Inj 1,000 ML IV.CONT SCH (11:00)
--- NOTE | 2018-03-22 11:25 | P.PNNP ---
Subjective Interval history: He is doing much better. Hemodynamically stable. Daughter is at the bedside. She is not aware of his baseline renal function. IABP may be discontinued today. Physical Exam Vital signs: Vital Signs 03/21/18 12:00 03/21/18 12:12 03/21/18 12:23 Temperature 97.3 F L Pulse Rate 69 68 Respiratory Rate 18 18 14 Blood Pressure 129/75 Pulse Oximetry 98 99 03/21/18 12:30 03/21/18 13:00 03/21/18 14:00 Temperature 97.6 F 97.6 F 97.5 F L Pulse Rate 68 83 Respiratory Rate 15 19 Blood Pressure 137/78 129/75 Pulse Oximetry 98 98 03/21/18 14:30 03/21/18 15:00 03/21/18 15:40 Temperature 97.4 F L Pulse Rate 78 83 Respiratory Rate 19 25 H Blood Pressure 121/73 127/80 Pulse Oximetry 98 98 03/21/18 15:55 03/21/18 16:12 03/21/18 16:20 Temperature Pulse Rate 80 86 Respiratory Rate 21 21 14 Blood Pressure 127/80 Pulse Oximetry 99 98 03/21/18 16:50 03/21/18 17:33 03/21/18 19:00 Temperature 97.8 F Pulse Rate 92 H 97 H Respiratory Rate 23 16 Blood Pressure 146/73 H 134/63 Pulse Oximetry 95 95 94 L 03/21/18 20:00 03/21/18 21:42 03/21/18 23:00 Temperature 98 F Pulse Rate 98 H 92 H 106 H Respiratory Rate 20 14 Blood Pressure 146/67 H Pulse Oximetry 94 L 96 95 03/22/18 00:00 03/22/18 00:07 03/22/18 03:00 Temperature 98.2 F Pulse Rate 105 H 102 H 106 H Respiratory Rate 18 16 Blood Pressure 145/74 H Pulse Oximetry 96 03/22/18 04:00 03/22/18 07:00 03/22/18 07:46 Temperature 98.0 F Pulse Rate 112 H 82 96 H Respiratory Rate 16 18 Blood Pressure 157/67 H Pulse Oximetry 98 98 03/22/18 08:00 03/22/18 10:48 Temperature Pulse Rate 88 Respiratory Rate 16 19 Blood Pressure Pulse Oximetry 97 Intake & Output 03/21/18 03/22/18 03/22/18 18:59 06:59 18:59 Intake Total 2090 / 2090 1743.2 / 1743.2 410 / 410 Output Total 3550 / 3550 1974 Balance -1459 / -1459 -231.8 / -231.8 410 / 410 Weight 102.5 kg Intake: IV 1216 / 1216 1263.2 / 1263.2 410 / 410 Heparin/D5W 25,000 U/250 mL 25, 213.2 / 213.2 000 unit In 250 ml @ 1,000 UNITS/HR 10 mls/hr IV.CONT Q25H [facility] Rx#:[id number] NovoLIN R (IV Infusion) 100 300 / 300 UNIT In NS Inj 99 ML @ 3 UNITS/ HR 3 mls/hr IV.CONT TITRATE PRN Rx#:[id number] Diprivan 1000 mg/100 ml Inj 1, 46 / 46 000 mg In 100 ml @ 5 MCG/KG/MIN 3.266 mls/hr IV.CONT TITRATE PRN Rx#:[id number] NS Inj 1,000 ML @ 84 mls/hr IV. 770 / 770 1000 / 1000 CONT .[id number] [facility] Rx#: [id number] Zosyn 2.25 GM Premix 50 ML @ 100 / 100 50 / 50 50 / 50 100 mls/hr IV.SIG Q6HR [facility] Rx#: [id number] Oral 480 / 480 Tube Irrigant 30 / 30 Other 845 / 845 Output: Urine Amount (Catheter) 3550 / 3550 1974 Indwelling Urethral Catheter 3550 / 3550 1974 Other: Other Intake Source Saline Solution Date of Last Bowel Movement 03/20/18 03/20/18 # Bowel Movements 0 - Constitutional no acute distress - Routine HEENT Exam Head: Present: normocephalic, atraumatic Eye: Present: EOMI, PERRL ENT: Present: mucous membranes moist - Routine Neck Exam Present: supple. Absent: JVD, lymphadenopathy, thyromegaly - Routine Respiratory Exam Present: CTA bilaterally - Routine Cardiovascular Exam Present: RRR, S1, S2 - Routine Abdominal Exam Present: soft, normoactive bowel sounds. Absent: mass - Routine Skin Exam Present: intact. Absent: cyanosis, erythema - Routine Neurological Exam Present: alert, oriented X3, CN II-XII intact, hearing grossly intact, normal speech - Urinary Catheter Management Coude Cath placed during this visit: yes Reason for continuing: Hourly intake/output Insertion date: 03/20/18 Insertion time: 21:30 Indwelling Urethral Catheter Cath placed during this visit: no Assessment and Plan - Assessment (1) Acute worsening of stage 4 chronic kidney disease Code(s): N28.9 - Disorder of kidney and ureter, unspecified; N18.4 - Chronic kidney disease, stage 4 (severe) Status: Acute Plan: patient may have underlying stage III to IV CKD due to diabetic nephropathy. He appears to have diabetic nephropathy. Acute worsening could be due to NSTEMI, cardiogenic shock and renal hypoperfusion. He is non oliguric, and it appears that renal function is improving. Avoid nephrotoxic agents. Monitor urine output and renal function. Quantify proteinuria. Discontinue 0.9 %NS. Start 0.45%NS at 30 ml/hour. IVF can be stopped if oral intake is adequate. Patient's renal US revealed severe hydronephrosis of the right kidney. Reason is not clear. I have ordered CT of the abdomen/pelvis. (2) Lactic acidosis Code(s): E87.2 - Acidosis Status: Acute Plan: due to renal hypoperfusion after NSTEMI. Monitor. Should improve with improved hemodynamics. (3) NSTEMI (non-ST elevated myocardial infarction) Code(s): I21.4 - Non-ST elevation (NSTEMI) myocardial infarction Status: Acute Plan: s/p cath. Multivessel disease noted, need for CABG. Seen by CT surgery, surgery when he is stable. (4) Cardiogenic shock Code(s): R57.0 - Cardiogenic shock Status: Acute Plan: s/p cath, on IABP. Improving. (5) Hyperosmolality and hypernatremia Code(s): E87.0 - Hyperosmolality and hypernatremia Status: Acute Plan: Discontinue 0.9%NS. Encourage oral water intake.
[2018-03-22] MEDS ORDERED: Sodium Chlor 0.9% Inj 77.5 ML, Papaverine Inj 60 MG, Nitroglycerin Inj 100 MCG, dilTIAZ... IRRIGATION SCH ×3 (11:30)
[2018-03-22] MEDS ORDERED: Chlorhexidine 4% Topical 120 APPLIC/120 ML Bottle TOPICAL SCH (11:30)
[2018-03-22] MEDS ORDERED: Sodium Chloride 0.9% Irr Bot 500 ML, ceFAZolin Inj 500 MG IRRIGATION SCH ×2 (11:30)
--- NOTE | 2018-03-22 11:36 | P.PNCV ---
- Note Subjective/Hospital Course: Markedly improved. Extubated. A and O x 4. Objective: Vital Signs - 24 hr 03/21/18 12:00 03/21/18 12:12 03/21/18 12:23 Temperature 97.3 F L Pulse Rate 69 68 Respiratory Rate 18 18 14 Blood Pressure 129/75 Pulse Oximetry 98 99 03/21/18 12:30 03/21/18 13:00 03/21/18 14:00 Temperature 97.6 F 97.6 F 97.5 F L Pulse Rate 68 83 Respiratory Rate 15 19 Blood Pressure 137/78 129/75 Pulse Oximetry 98 98 03/21/18 14:30 03/21/18 15:00 03/21/18 15:40 Temperature 97.4 F L Pulse Rate 78 83 Respiratory Rate 19 25 H Blood Pressure 121/73 127/80 Pulse Oximetry 98 98 03/21/18 15:55 03/21/18 16:12 03/21/18 16:20 Temperature Pulse Rate 80 86 Respiratory Rate 21 21 14 Blood Pressure 127/80 Pulse Oximetry 99 98 03/21/18 16:50 03/21/18 17:33 03/21/18 19:00 Temperature 97.8 F Pulse Rate 92 H 97 H Respiratory Rate 23 16 Blood Pressure 146/73 H 134/63 Pulse Oximetry 95 95 94 L 03/21/18 20:00 03/21/18 21:42 03/21/18 23:00 Temperature 98 F Pulse Rate 98 H 92 H 106 H Respiratory Rate 20 14 Blood Pressure 146/67 H Pulse Oximetry 94 L 96 95 03/22/18 00:00 03/22/18 00:07 03/22/18 03:00 Temperature 98.2 F Pulse Rate 105 H 102 H 106 H Respiratory Rate 18 16 Blood Pressure 145/74 H Pulse Oximetry 96 03/22/18 04:00 03/22/18 07:00 03/22/18 07:46 Temperature 98.0 F Pulse Rate 112 H 82 96 H Respiratory Rate 16 18 Blood Pressure 157/67 H Pulse Oximetry 98 98 03/22/18 08:00 03/22/18 10:48 Temperature Pulse Rate 88 Respiratory Rate 16 19 Blood Pressure Pulse Oximetry 97 Labs: Laboratory Results - last 12 hr 03/22/18 03/22/18 03/22/18 04:00 04:00 04:00 WBC 14.5 H RBC 4.29 L Hgb 12.7 L Hct 39.6 MCV 92.2 MCH 29.6 MCHC 32.1 RDW 14.8 Plt Count 212 MPV 7.6 Neut % (Auto) 79.0 H Lymph % (Auto) 12.3 [place] % (Auto) 8.4 H Eos % (Auto) 0.0 Baso % (Auto) 0.3 Neut # (Auto) 11.4 H Lymph # (Auto) 1.8 [place] # (Auto) 1.2 H Eos # (Auto) 0.0 Baso # (Auto) 0.0 WBC Differential . Differential Comment Auto diff final Sodium 147 H Potassium 3.9 Chloride 114 H Carbon Dioxide 23.3 Anion Gap 10 BUN 37 H Creatinine 2.67 H Estimated GFR 23 L Random Glucose 183 H D Lactic Acid 2.2 H Calcium 7.9 L Phosphorus 2.7 Magnesium 1.7 Total Bilirubin 0.3 AST 183 H ALT 40 Alkaline Phosphatase 30 L Total Protein 5.8 L Albumin 2.6 L Random Vancomycin 12.3 Result Diagrams: 03/22/18 04:00 03/22/18 04:00 Imaging: Head CT 03/20/18 21:24 CONCLUSION: 1. No acute intracranial abnormality is identified. 2. Chronic findings include mild generalized atrophy and mild periventricular white matter low-attenuation. Abdomen/Bladder Ultrasound 03/21/18 00:00 CONCLUSION: 1. Severe hydronephrosis right kidney. 2. Bilateral renal cysts. 3. Urinary bladder decompressed by Mccormick catheter. Chest X-Ray 03/22/18 06:00 CONCLUSION: Improved aeration at the right lung base. Mild bibasilar opacity remains present and may represent atelectasis or consolidation. Cardiovascular: RRR Telemetry: ST with PACs Pulmonary: Bilat crackles GI/: NABS, NT Preop orders written Risks and benefits of cabg discussed and he agrees to proceed. CABG likely Friday or Friday pending renal function.
[2018-03-22] MEDS ORDERED: ceFAZolin Inj 2,000 MG in Sodium Chlor 0.9% Inj 80 ML IV.SIG SCH (12:00)
[2018-03-22] MEDS: Mupirocin 2% Nasal Oint Topical Syringe EACH NARE SCH ×2 (12:50→22:19)
[2018-03-22] MEDS ORDERED: Mag Sulf 1 gm/100 ml Premix 100 ML IV.SIG SCH (13:00)
--- NOTE | 2018-03-22 13:03 | P.PNCA ---
Subjective Interval history: Extubated yesterday Doing well No chest pain/SOB IABP 1:1, right leg warm with pulses Augment pressure 140-150 Physical Exam Vital signs: Vital Signs 03/21/18 13:00 03/21/18 14:00 03/21/18 14:30 Temperature 97.6 F 97.5 F L 97.4 F L Pulse Rate 68 83 Respiratory Rate 15 19 Blood Pressure 137/78 129/75 Pulse Oximetry 98 98 03/21/18 15:00 03/21/18 15:40 03/21/18 15:55 Temperature Pulse Rate 78 83 Respiratory Rate 19 25 H 21 Blood Pressure 121/73 127/80 Pulse Oximetry 98 98 99 03/21/18 16:12 03/21/18 16:20 03/21/18 16:50 Temperature Pulse Rate 80 86 Respiratory Rate 21 14 Blood Pressure 127/80 Pulse Oximetry 98 95 03/21/18 17:33 03/21/18 19:00 03/21/18 20:00 Temperature 97.8 F Pulse Rate 92 H 97 H 98 H Respiratory Rate 23 16 Blood Pressure 146/73 H 134/63 Pulse Oximetry 95 94 L 94 L 03/21/18 21:42 03/21/18 23:00 03/22/18 00:00 Temperature 98 F Pulse Rate 92 H 106 H 105 H Respiratory Rate 20 14 Blood Pressure 146/67 H Pulse Oximetry 96 95 03/22/18 00:07 03/22/18 03:00 03/22/18 04:00 Temperature 98.2 F Pulse Rate 102 H 106 H 112 H Respiratory Rate 18 16 Blood Pressure 145/74 H Pulse Oximetry 96 03/22/18 07:00 03/22/18 07:46 03/22/18 08:00 Temperature 98.0 F Pulse Rate 82 96 H Respiratory Rate 16 18 16 Blood Pressure 157/67 H Pulse Oximetry 98 98 97 03/22/18 10:48 03/22/18 11:00 Temperature 98.0 F Pulse Rate 88 98 H Respiratory Rate 19 16 Blood Pressure 165/85 H Pulse Oximetry 97 Intake & Output 03/21/18 03/22/18 03/22/18 18:59 06:59 18:59 Intake Total 2091 / 2091 1743.2 / 1743.2 1466 / 1466 Output Total 3550 / 3550 1974 Balance -1459 / -1459 -231.8 / -231.8 1466 / 1466 Weight 102.5 kg Intake: IV 1216 / 1216 1263.2 / 1263.2 1466 / 1466 Heparin/D5W 25,000 U/250 mL 25, 213.2 / 213.2 000 unit In 250 ml @ 1,000 UNITS/HR 10 mls/hr IV.CONT Q25H [facility] Rx#:[id number] NovoLIN R (IV Infusion) 100 300 / 300 6 / 6 UNIT In NS Inj 99 ML @ 3 UNITS/ HR 3 mls/hr IV.CONT TITRATE PRN Rx#:[id number] Diprivan 1000 mg/100 ml Inj 1, 46 / 46 000 mg In 100 ml @ 5 MCG/KG/MIN 3.266 mls/hr IV.CONT TITRATE PRN Rx#:[id number] NS Inj 1,000 ML @ 84 mls/hr IV. 770 / 770 1000 / 1000 1000 / 1000 CONT .[id number] [facility] Rx#: [id number] Zosyn 2.25 GM Premix 50 ML @ 100 / 100 50 / 50 100 / 100 100 mls/hr IV.SIG Q6HR [facility] Rx#: [id number] Oral 480 / 480 Tube Irrigant 30 / 30 Other 845 / 845 Output: Urine Amount (Catheter) 3550 / 3549 Indwelling Urethral Catheter 3549 / 3549 Other: Other Intake Source Saline Solution Date of Last Bowel Movement 03/20/18 03/20/18 # Bowel Movements 0 Narrative: GENERAL: NAD, AAOx3 SKIN: Warm and dry. HEAD: Atraumatic. Normocephalic. EYES: Pupils equal and round. No scleral icterus. No injection or drainage. ENT: No nasal bleeding or discharge. Mucous membranes pink and moist. ET tube in place NECK: Trachea midline. No JVD. CARDIOVASCULAR: Regular rate and rhythm. RESPIRATORY: No accessory muscle use. Decreased breath sounds bilaterally GASTROINTESTINAL: Abdomen soft, non-tender, nondistended. Hepatic and splenic margins not palpable. MUSCULOSKELETAL: Extremities without clubbing, cyanosis, or edema. No obvious deformities. Right femoral sheath no hematoma, right lower extremity is warm with palpable pulses NEUROLOGICAL: No focal deficits - Urinary Catheter Management Coude Cath placed during this visit: yes Reason for continuing: Hourly intake/output Insertion date: 03/20/18 Insertion time: 21:30 Indwelling Urethral Catheter Cath placed during this visit: no Assessment and Plan - Assessment (1) Multi-vessel coronary artery stenosis Code(s): I25.10 - Atherosclerotic heart disease of [place] coronary artery without angina pectoris Status: Acute (2) Lactic acidosis Code(s): E87.2 - Acidosis Status: Acute (3) Acute respiratory failure with hypoxia Code(s): J96.01 - Acute respiratory failure with hypoxia Status: Acute (4) NSTEMI (non-ST elevated myocardial infarction) Code(s): I21.4 - Non-ST elevation (NSTEMI) myocardial infarction Status: Acute (5) Cardiogenic shock Code(s): R57.0 - Cardiogenic shock Status: Acute (6) CAD (coronary artery disease) Code(s): I25.10 - Atherosclerotic heart disease of [place] coronary artery without angina pectoris Status: Acute (7) Stage 4 chronic kidney disease Code(s): N18.4 - Chronic kidney disease, stage 4 (severe) Status: Acute - Plan 1) MVCAD/NSTEMI CT surgery evaluation Discussed with Dr. Horn Agree with trying to stabilize before consideration of surgery, possible later this week EF 25% Heparin drip for NSTEMI/CAD/IABP 2) Cardiogenic shock/pulmonary edema Heart failure with lactic acidosis Leading to decreased tissue perfusion Con't on IABP for now while lactic acid hopefully clears with better perfusion Discussed with Dr. Horn, plan to leave IABP until surgery if possible, will reevaluate daily 3) ROMINA on CKD Not sure what his baseline is, but creatinine was 2.0 in 2008 Evaluated by Nephrology 4) VDRF due to heart failure Extubated
[2018-03-22] MEDS ORDERED: Magnesium Sulfate Inj 2 GM in Sodium Chlor 0.9% Inj 96 ML IV.SIG PRN (13:07)
[2018-03-22] MEDS ORDERED: Magnesium Sulfate Inj 2 GM in Sodium Chlor 0.9% Inj 96 ML IV.SIG ONE (14:00)
--- NOTE | 2018-03-22 14:23 | US ---
EXAM DATE: 03/22/2018 2:19 PM EDT AGE/SEX: 77 years / Male INDICATIONS: Pre op cardiac surgery. CLINICAL DATA: This is the patient's initial encounter. Patient reports that signs and symptoms have been present for 1 day and indicates a pain score of 0/10. MEDICAL/SURGICAL HISTORY: . Renal disease. None. COMPARISON: No prior exams available for comparison. VELOCITY PARAMETERS: ICA/CCA Ratio: Right 1.9 , Left 1.1 ICA: Right 121 cm/sec, Left 89 cm/sec CCA: Right 63 cm/sec, Left 80 cm/sec ECA: Right 130 cm/sec, Left 98 cm/sec Vertebral: Right 35 cm/sec antegrade, Left 63 cm/sec antegrade FINDINGS: Right Carotid: Mild arteriosclerotic plaque is visualized.The waveforms are within normal limits. Left Carotid: Mild arteriosclerotic plaque is visualized. The waveforms are within normal limits. Other: None. CONCLUSION: 1. Mild atherosclerotic plaquing at both carotid bifurcations. 2. No focal high-grade or hemodynamically significant stenosis. Electronically signed by: Damian Cortes MD 03/22/2018 2:22 PM EDT
--- NOTE | 2018-03-22 14:33 | US ---
EXAM DATE: 03/22/2018 2:25 PM EDT AGE/SEX: 77 years / Male INDICATIONS: Pre op cardiac surgery. CLINICAL DATA: This is the patient's initial encounter. Patient reports that signs and symptoms have been present for 1 day and indicates a pain score of 0/10. MEDICAL/SURGICAL HISTORY: . Renal disease. None. COMPARISON: No prior exams available for comparison. TECHNIQUE: Venous ultrasound of both lower extremities was performed from the inguinal ligament to t he proximal calf. Real-time, color Doppler and spectral tracing, compression and augmentation techni ques were used. FINDINGS: Right Leg: Normal compression of the deep venous system from the inguinal region to the proximal saul f. No echogenic clot is seen. Normal response of the venous system to augmentation and respiration. Left Leg: Normal compression of the deep venous system from the inguinal region to the proximal calf . No echogenic clot is seen. Normal response of the venous system to augmentation and respiration. Other: On the venous mapping study, a thrombus is noted in the right distal calf within the greater saphenous vein.. CONCLUSION: 1. No evidence of DVT. 2. Focal thrombus in the distal right calf within the GSV. Electronically signed by: Damian Cortes MD 03/22/2018 2:31 PM EDT
--- NOTE | 2018-03-22 14:34 | US ---
EXAM DATE: 03/22/2018 2:25 PM EDT AGE/SEX: 77 years / Male INDICATIONS: Pre op cardiac surgery. CLINICAL DATA: This is the patient's initial encounter. Patient reports that signs and symptoms have been present for 1 day and indicates a pain score of 0/10. MEDICAL/SURGICAL HISTORY: . Renal disease. None. COMPARISON: [facility] [place], US VENOUS DOPPLER LEG BI, 03/22/2018. . MEASUREMENTS: RIGHT THIGH: Proximal:__4 mm Mid:__ 3 mm Distal:__3 mm LEFT THIGH: Proximal:__5 mm Mid:__3 mm Distal:__3 mm RIGHT CALF: Proximal:__3 mm Mid:__2 mm Distal:__Thrombosed LEFT CALF: Proximal:__1 mm Mid:__3 mm Distal:__3 mm FINDINGS: There is occlusive thrombus seen in the right distal greater saphenous vein in the calf. CONCLUSION: 1. Focal occlusive thrombus in the distal right greater saphenous vein in the calf. 2. Otherwise unremarkable study with measurements as above. Electronically signed by: Damian Cortes MD 03/22/2018 2:32 PM EDT
--- NOTE | 2018-03-22 15:35 | P.PNCC ---
Subjective Subjective Remarks/Hospital Course: 03/21: This is a 69-year-old male. Date of admission 03/20/2018. Date of consultation 03/21/2018. Past medical history includes asbestosis, hypertension, dyspnea, seizure disorder, osteoarthritis/osteoporosis and elevated BMI. He is a patient of Dr. Michelle. He presents to [facility] emergency department with a chief complaint of shortness of breath and altered mental status. He called his daughter after 1999 last night with slurred speech/shortness of breath and chest pain. And then when [facility] arrived, saturations at 60 so was intubated. Patient had a ETT cuff leak and was reintubated by ED physician. EKG showed a new left bundle branch block with elevated troponin III 0.48. Lactic acid 4.2. Patient received Pipracil and tazobactam and vancomycin for possible pneumonia/community-acquired. [employer] consulted and patient proceeded with a left heart catheterization early this morning. Patient has multisystem coronary artery disease left main 50%, LAD 50%/mid LAD 90%. Diagonal 70%. Circumflex 70%. OM 90%. RCA 70% patient had anterior balloon pump placed one-to-one in the right femoral region. Currently a propofol drip at 25 mcg/kg/min and hemodynamically stable. 03/22: Extubated yesterday currently on 1 L nasal cannula. IABP remains in place. Denies any chest pain or shortness of breath. CABG plan for 03/[address] surgery[address] Cardiology following. Objective Vital Signs / I&O: Vital Signs 03/21/18 15:40 03/21/18 15:55 03/21/18 16:12 Temperature Pulse Rate 83 80 Respiratory Rate 25 H 21 21 Blood Pressure 127/80 Pulse Oximetry 98 99 03/21/18 16:20 03/21/18 16:50 03/21/18 17:33 Temperature Pulse Rate 86 92 H Respiratory Rate 14 23 Blood Pressure 127/80 146/73 H Pulse Oximetry 98 95 95 03/21/18 19:00 03/21/18 20:00 03/21/18 21:42 Temperature 97.8 F Pulse Rate 97 H 98 H 92 H Respiratory Rate 16 20 Blood Pressure 134/63 Pulse Oximetry 94 L 94 L 96 03/21/18 23:00 03/22/18 00:00 03/22/18 00:07 Temperature 98 F Pulse Rate 106 H 105 H 102 H Respiratory Rate 14 18 Blood Pressure 146/67 H Pulse Oximetry 95 03/22/18 03:00 03/22/18 04:00 03/22/18 07:00 Temperature 98.2 F 98.0 F Pulse Rate 106 H 112 H 82 Respiratory Rate 16 16 Blood Pressure 145/74 H 157/67 H Pulse Oximetry 96 98 03/22/18 07:46 03/22/18 08:00 03/22/18 10:48 Temperature Pulse Rate 96 H 88 Respiratory Rate 18 16 19 Blood Pressure Pulse Oximetry 98 97 03/22/18 11:00 Temperature 98.0 F Pulse Rate 98 H Respiratory Rate 16 Blood Pressure 165/85 H Pulse Oximetry 97 Intake & Output 03/21/18 03/22/18 03/22/18 18:59 06:59 18:59 Intake Total 2091 / 2091 1743.2 / 1743.2 1484 / 1484 Output Total 3550 / 3550 1974 / 1974 Balance -1459 / -1459 -231.8 / -231.8 1484 / 1484 Weight 102.5 kg Intake: IV 1216 / 1216 1263.2 / 1263.2 1484 / 1484 Heparin/D5W 25,000 U/250 mL 25, 213.2 / 213.2 000 unit In 250 ml @ 1,000 UNITS/HR 10 mls/hr IV.CONT Q25H [facility] Rx#:[id number] NovoLIN R (IV Infusion) 100 300 / 300 6 / 6 UNIT In NS Inj 99 ML @ 3 UNITS/ HR 3 mls/hr IV.CONT TITRATE PRN Rx#:[id number] Diprivan 1000 mg/100 ml Inj 1, 46 / 46 000 mg In 100 ml @ 5 MCG/KG/MIN 3.266 mls/hr IV.CONT TITRATE PRN Rx#:[id number] NS Inj 1,000 ML @ 84 mls/hr IV. 770 / 770 1000 / 1000 1000 / 1000 CONT .[id number] [facility] Rx#: [id number] Magnesium Sulfate 1 gm/D5W 100 18 / 18 ml Premix 100 ML @ 100 mls/hr IV.SIG Q1H [facility] Rx#:[id number] Zosyn 2.25 GM Premix 50 ML @ 100 / 100 50 / 50 100 / 100 100 mls/hr IV.SIG Q6HR [facility] Rx#: [id number] Oral 480 / 480 Tube Irrigant 30 / 30 Other 845 / 845 Output: Urine Amount (Catheter) 3549 Indwelling Urethral Catheter 3549 Other: Other Intake Source Saline Solution Date of Last Bowel Movement 03/20/18 03/20/18 # Bowel Movements 0 Result Diagrams: 03/22/18 04:00 03/22/18 04:00 Objective Remarks: HEENT/Neuro: No pallor or icterus, tongue moist, NARINDER, Awake alert oriented 3 , nonfocal grossly, moving all 4 extremities Neck: No JVD Chest/pulmonary: CTA bilaterally Cardiovascular: S1-S2 regular no gallop or murmur. IABP in place with 1:1 augmentation GI/abdomen: Soft, nontender, bowel sounds present Extremities: Warm bilaterally, no edema Assessment and Plan - Assessment and Plan Plan: Neuro/Psych: Depressive disorder NOS Seizure disorder Currently on propofol at 25 mcg/kg/min/as needed fentanyl drip for sedation/ analgesia while intubated Goal of RASS -2 Daily sedation vacation Continue sertraline 100 mg daily/home medication Acetaminophen 650 milligrams every 6 hours as needed fever Continue levetiracetam 5 mg twice daily/home medication CV: NSTEMI Multivessel coronary disease Acute systolic heart failure Essential hypertension Hyperlipidemia Lactic acidosis Left heart catheterization revealed revealed left main 50%, LAD 50%, mid 90%. Diagonal 70%. Circumflex 70%. OM 90%. RCA 70%. IABP 1:1 Metoprolol tartrate 2.5 mg every 6 hours. On metoprolol succinate 50 mg daily at home Holding amlodipine 10 mg daily, ramipril 5 mill grams daily and valsartan while balloon pump Continue fenofibrate 40 mg daily and atorvastatin 40 mg daily/home medications Continue aspirin [address] surgery consultation Heparin drip see below Resp: Acute respiratory failure History of asbestosis [facility] / Ventilator bundle Albuterol/ipratropium aerosols every 4 hours with albuterol aerosols every 2 hours as needed for dyspnea Spontaneous breathing trials when clinically indicated Follow-up on ABG. Post intubation chest x-ray revealed bilateral pulmonary edema/pleural plaques bilateral upper lobes likely from asbestosis GI: Hypoalbuminemia Patient is currently n.p.o. NGT to RAJEEV Famotidine 10 mg twice daily for GI prophylaxis Docusate sodium/senna 1 tablet twice daily for bowel regimen : Mccormick catheter has been placed Endo: Sliding scale insulin with aspart insulin/medium protocol with Accu-Cheks every 6 hours to maintain euglycemia TSH is 2.1 Renal: Acute kidney injury in the setting of chronic kidney disease baseline creatinine around 2.3. Strict intake output, monitor and replete electrodes, follow BN creatinine. Nephrology following. IV hydration. Heme: Leukocytosis Monitor CBC daily. Follow trends. Currently on heparin drip. No indication for transfusion of blood products at this time. ID: Possible community acquired pneumonia Blood cultures 2, sputum, UA/urine Legionella and pneumococcal antigens urinary and influenza a and B pending Stop IV vancomycin and Zosyn, doubt pneumonia MSK: Osteoarthritis/osteoporosis Currently holding alendronate 70 mg weekly/home medication PT evaluate and treat FEN: Replace electrolytes as clinically indicated. Access -Utilize peripheral IV. Central line if indicated Prophylax -GI -lansoprazole -DVT -SCDs/heparin drip Discussed with Dr. Malhotra from cardiology.
[2018-03-22] MEDS: Metoprolol Tartrate 25 MG Tablet PO SCH (21:00)
[2018-03-23] MEDS: Oral Hygiene Kit OROPHARYNG SCH ×4 (01:26→16:11)
[2018-03-23 03:41] LABS: Albumin 2.6 g/dL (3.4-5.0); Calcium 8.3 mg/dL (8.5-10.1); Carbon Dioxide 25.4 meq/L (21.0-32.0); Phosphorus 2.8 mg/dL (2.5-4.9); Potassium 3.8 meq/L (3.5-5.1)
[2018-03-23] MEDS: levETIRAcetam 500 MG Tablet PO SCH ×2 (04:45→15:39)
[2018-03-23] MEDS: Chlorhexidine Gluconate 2% 1 Pack (2 Cloths) TOPICAL SCH (04:45)
[2018-03-23] MEDS: Piperacil/Tazo 2.25 GM Premix 50 ML IV.SIG SCH ×4 (05:27→18:11)
[2018-03-23] MEDS: Insulin NovoLOG Aspart Correctional Sugar Inj SQ SCH ×4 (05:27→18:11)
[2018-03-23] MEDS: Heparin Drip 25,000 UNIT/250 ML BAG IV.CONT SCH ×2 (05:28→11:39)
--- NOTE | 2018-03-23 06:14 | XR ---
EXAM DATE: 03/23/2018 5:29 AM EDT AGE/SEX: 77 years / Male INDICATIONS: shortness of breath, possible pulmonary disease. CLINICAL DATA: This is the patient's subsequent encounter. Patient reports that signs and symptoms h ave been present for 3 days and indicates a pain score of 0/10. MEDICAL/SURGICAL HISTORY: Renal disease. Hypertension. Diabetes. None. Hyperlipidemia. COMPARISON: [facility] – [place], CHEST 1V SINGLE AP, 03/22/2018. . FINDINGS: A single AP view of the chest demonstrates the lungs to be symmetrically aerated without evidence of mass, infiltrate or effusion. Minimal right basilar density. Bilateral calcified pleural plaques. Car diomegaly. The cardiomediastinal contours are unremarkable. Osseous structures are intact. CONCLUSION: 1. Minimal right basilar density. 2. Bilateral calcified pleural plaques which can be seen with asbestosis exposure. Electronically signed by: Marcus Broussard MD 03/23/2018 6:13 AM EDT
[2018-03-23] MEDS: Chlorhexidine 0.12% Oral Kit 15 ML UDC OROPHARYNG SCH ×2 (07:21→20:13)
[2018-03-23] MEDS ORDERED: Iohexol 350 MG/ML 50 ML Vial (for Cath Lab) IV.SIG ONE (08:34)
[2018-03-23] MEDS ORDERED: Heparin Drip 25,000 UNIT/250 ML BAG IV.CONT PRN (08:43)
[2018-03-23] MEDS: Mupirocin 2% Nasal Oint Topical Syringe EACH NARE SCH ×2 (08:57→21:10)
[2018-03-23] MEDS: Fenofibrate 48 MG Tablet PO SCH (08:57)
[2018-03-23] MEDS: Senna/Docusate Sodium 8.6/50 MG Tablet PO SCH ×2 (08:57→21:10)
[2018-03-23] MEDS: Metoprolol Tartrate 25 MG Tablet PO SCH ×3 (08:58→18:11)
[2018-03-23] MEDS: Famotidine PF Inj 20 MG/2 ML Vial IV.PUSH SCH ×2 (08:58→21:10)
[2018-03-23] MEDS: Sertraline 100 MG Tablet PO SCH (08:58)
[2018-03-23] MEDS: Hypromellose 0.3% Opth Gel 10 GM Bottle EACH EYE SCH ×2 (08:59→21:10)
--- NOTE | 2018-03-23 09:28 | P.PNCV ---
- Note Subjective/Hospital Course: 77-year-old male pt of Dr. Michelle presented via [facility] to [facility] Emergency Room for shortness of breath. Apparently, he called his daughter a little after 8 p.m., said that he thought he was having a heart attack. He was significantly short of breath. His daughter said that he had slurred speech on the phone. [facility] arrived and he was still on the phone with his daughter and at that time he was telling her that he felt like he was having a heart attack and he was extremely diaphoretic. He was saturating in the 60s and so they intubated him. He was then transferred to the [facility] hospital . EKG was done and showed ne left bundle branch block. Lab work shows a lactic acid of 4.2 and a troponin of 3.48. PAST MEDICAL HISTORY: Asbestosis, Hypertension, Hyperlipidemia, Diabetes mellitus, seizure disorder s/p heart cath : . Acute pulmonary edema, Acute decompensated heart failure ( class IV), Acute respiratory failure requiring mechanical ventilation, Non- ST-elevation myocardial infarction, Multivessel disease, [id number] kidney disease, Lactic acidosis due to decreased tissue perfusion. EF 20-25% cath : left main 50%, LAD 50%/mid LAD 90%. Diagonal 70%. Circumflex 70%. OM 90%. RCA 70% patient had anterior balloon pump placed one-to-one in the right femoral region. 03/23 pt on nasal cannula, IABP 1:1 lower ext US noted : thrombus is noted in the right distal calf within the greater saphenous vein.. Objective: Vital Signs - 24 hr 03/22/18 10:48 03/22/18 11:00 03/22/18 15:00 Temperature 98.0 F 98.4 F Pulse Rate 88 98 H 86 Respiratory Rate 19 16 16 Blood Pressure 165/85 H 160/75 H Pulse Oximetry 97 97 03/22/18 17:05 03/22/18 19:00 03/22/18 20:00 Temperature 98.2 F Pulse Rate 84 103 H Respiratory Rate 20 18 Blood Pressure 144/74 H Pulse Oximetry 94 L 96 03/22/18 21:50 03/22/18 22:28 03/22/18 23:00 Temperature 98.4 F Pulse Rate 95 H 88 Respiratory Rate 20 16 Blood Pressure 155/83 H Pulse Oximetry 97 93 L 03/23/18 00:22 03/23/18 03:00 03/23/18 03:54 Temperature 98.2 F Pulse Rate 84 88 81 Respiratory Rate 14 16 14 Blood Pressure 163/77 H Pulse Oximetry 82 L 03/23/18 04:00 03/23/18 07:00 03/23/18 07:30 Temperature 97.9 F Pulse Rate 84 Respiratory Rate 14 16 Blood Pressure 163/82 H Pulse Oximetry 95 93 L 03/23/18 07:39 Temperature Pulse Rate Respiratory Rate Blood Pressure Pulse Oximetry 95 GENERAL: A&) x 3 SKIN: Warm and dry. HEAD: Atraumatic. Normocephalic. EYES: Pupils equal and round. No scleral icterus. No injection or drainage. ENT: No nasal bleeding or discharge. Mucous membranes pink and moist. NECK: Trachea midline. No JVD. CARDIOVASCULAR: Regular rate and rhythm. IABP right groin with good augmentation / + distal pulses RESPIRATORY: No accessory muscle use. Clear to auscultation. Breath sounds equal bilaterally. diminished in bases GASTROINTESTINAL: Abdomen soft, non-tender, nondistended. Hepatic and splenic margins not palpable. MUSCULOSKELETAL: Extremities without clubbing, cyanosis, or edema. No obvious deformities. NEUROLOGICAL: Awake and alert. No obvious cranial nerve deficits. Motor grossly within normal limits. Five out of 5 muscle strength in the arms and legs. Normal speech. PSYCHIATRIC: Appropriate mood and affect; insight and judgment normal. Labs: Laboratory Results - last 12 hr 03/22/18 03/23/18 23:59 02:18 Sodium 145 Potassium 3.8 Chloride 111 H Carbon Dioxide 25.4 Anion Gap 9 BUN 35 H Creatinine 2.47 H Estimated GFR 25 L POC Glucose 181 H Random Glucose 185 H Calcium 8.3 L Phosphorus 2.8 Albumin 2.6 L Result Diagrams: 03/22/18 04:00 03/23/18 02:18 Telemetry: NSR with LBBB - Plan (1) NSTEMI (non-ST elevated myocardial infarction) Plan: on ASA, Heparin for possible surgery in am (2) Cardiogenic shock Plan: resolved (4) Stage 4 chronic kidney disease Plan: indices improving, non-oliguric/ Nephro following
[2018-03-23 12:01] LABS: Hematocrit 36.5 % (39.0-51.0); Hemoglobin 12.1 gm/dL (13.0-17.0); Mean Corpuscular HGB Conc 33.2 % (32.0-36.0); Mean Corpuscular Hemoglobin 30.3 pg (27.0-34.0); Mean Corpuscular Volume 91.4 fL (80.0-100.0); Mean Platelet Volume 7.7 fL (7.0-11.0); Platelet Count 175 th/mm3 (150-450); Red Cell Distribution Width 14.8 % (11.6-17.2)
[2018-03-23 12:15] LABS: Activated Partial Thrombo Time 27.5 sec (24.3-30.1); Prothrombin Time 10.2 sec (9.8-11.6)
[2018-03-23] MEDS ORDERED: Heparin 10,000 UNITS/10 ML Vial (for IV use) IV.PUSH PRN ×2 (12:38→12:39)
--- NOTE | 2018-03-23 12:44 | P.PNCC ---
Subjective Subjective Remarks/Hospital Course: 03/21: This is a 69-year-old male. Date of admission 03/20/2018. Date of consultation 03/21/2018. Past medical history includes asbestosis, hypertension, dyspnea, seizure disorder, osteoarthritis/osteoporosis and elevated BMI. He is a patient of Dr. Michelle. He presents to [facility] emergency department with a chief complaint of shortness of breath and altered mental status. He called his daughter after 1999 last night with slurred speech/shortness of breath and chest pain. And then when [facility]AC arrived, saturations at 60 so was intubated. Patient had a ETT cuff leak and was reintubated by ED physician. EKG showed a new left bundle branch block with elevated troponin III 0.48. Lactic acid 4.2. Patient received Pipracil and tazobactam and vancomycin for possible pneumonia/community-acquired. Building Maintenance Worker consulted and patient proceeded with a left heart catheterization early this morning. Patient has multisystem coronary artery disease left main 50%, LAD 50%/mid LAD 90%. Diagonal 70%. Circumflex 70%. OM 90%. RCA 70% patient had anterior balloon pump placed one-to-one in the right femoral region. Currently a propofol drip at 25 mcg/kg/min and hemodynamically stable. 03/22: Extubated yesterday currently on 1 L nasal cannula. IABP remains in place. Denies any chest pain or shortness of breath. CABG plan for 03/[address] surgery[address] Cardiology following. 03/23: Remains on nasal cannula. IABP in place. Awaiting CABG. Objective Vital Signs / I&O: Vital Signs 03/22/18 15:00 03/22/18 17:05 03/22/18 19:00 Temperature 98.4 F 98.2 F Pulse Rate 86 84 103 H Respiratory Rate 16 20 18 Blood Pressure 160/75 H 144/74 H Pulse Oximetry 97 94 L 03/22/18 20:00 03/22/18 21:50 03/22/18 22:28 Temperature Pulse Rate 95 H Respiratory Rate 20 Blood Pressure Pulse Oximetry 96 97 03/22/18 23:00 03/23/18 00:22 03/23/18 03:00 Temperature 98.4 F 98.2 F Pulse Rate 88 84 88 Respiratory Rate 16 14 16 Blood Pressure 155/83 H 163/77 H Pulse Oximetry 93 L 82 L 03/23/18 03:54 03/23/18 04:00 03/23/18 07:00 Temperature 97.9 F Pulse Rate 81 84 Respiratory Rate 14 14 16 Blood Pressure 163/82 H Pulse Oximetry 95 03/23/18 07:30 03/23/18 07:39 03/23/18 11:00 Temperature 98.1 F Pulse Rate 93 H Respiratory Rate 16 Blood Pressure 154/75 H Pulse Oximetry 93 L 95 96 03/23/18 12:06 Temperature Pulse Rate 77 Respiratory Rate 17 Blood Pressure Pulse Oximetry Intake & Output 03/22/18 03/23/18 03/23/18 18:59 06:59 18:59 Intake Total 2434 / 2434 1760 / 1760 150 / 150 Output Total 925 / 925 1075 / 1075 Balance 1509 / 1509 685 / 685 150 / 150 Weight 99 kg Intake: IV 1534 / 1534 1280 / 1280 150 / 150 Heparin/D5W 25,000 U/250 mL 25, 250 / 250 000 unit In 250 ml @ 1,000 UNITS/HR 10 mls/hr IV.CONT Q25H HEIDI Rx#:[id number] NovoLIN R (IV Infusion) 100 6 / 6 UNIT In NS Inj 99 ML @ 3 UNITS/ HR 3 mls/hr IV.CONT TITRATE PRN Rx#:[id number] NS Inj 1,000 ML @ 84 mls/hr IV. 1000 / 1000 CONT .[id number] HEIDI Rx#: [id number] 1/2 Normal Saline Inj 1,000 ML 930 / 930 @ 30 mls/hr IV.CONT .Q24H HEIDI Rx#:[id number] Magnesium Sulfate 1 gm/D5W 100 18 / 18 ml Premix 100 ML @ 100 mls/hr IV.SIG Q1H HEIDI Rx#:[id number] Zosyn 2.25 GM Premix 50 ML @ 150 / 150 100 / 100 50 / 50 100 mls/hr IV.SIG Q6HR HEIDI Rx#: [id number] Oral 900 / 900 480 / 480 Output: Urine Amount (Catheter) 925 / 925 1075 / 1075 Indwelling Urethral Catheter 925 / 925 1075 / 1075 Other: Date of Last Bowel Movement 03/20/18 03/20/18 03/20/18 # Bowel Movements 0 Result Diagrams: 03/23/18 11:36 03/23/18 02:18 Objective Remarks: HEENT/Neuro: No pallor or icterus, tongue moist, NARINDER, Awake alert oriented 3 , nonfocal grossly, moving all 4 extremities Neck: No JVD Chest/pulmonary: CTA bilaterally Cardiovascular: S1-S2 regular no gallop or murmur. IABP in place with 1:1 augmentation GI/abdomen: Soft, nontender, bowel sounds present Extremities: Warm bilaterally, no edema Assessment and Plan - Assessment and Plan Plan: Neuro/Psych: Depressive disorder NOS Seizure disorder Currently on propofol at 25 mcg/kg/min/as needed fentanyl drip for sedation/ analgesia while intubated Goal of RASS -2 Daily sedation vacation Continue sertraline 100 mg daily/home medication Acetaminophen 650 milligrams every 6 hours as needed fever Continue levetiracetam 5 mg twice daily/home medication CV: NSTEMI Multivessel coronary disease Acute systolic heart failure Essential hypertension Hyperlipidemia Lactic acidosis Left heart catheterization revealed revealed left main 50%, LAD 50%, mid 90%. Diagonal 70%. Circumflex 70%. OM 90%. RCA 70%. IABP 1:1 Metoprolol tartrate 2.5 mg every 6 hours. On metoprolol succinate 50 mg daily at home Holding amlodipine 10 mg daily, ramipril 5 mill grams daily and valsartan while balloon pump Continue fenofibrate 40 mg daily and atorvastatin 40 mg daily/home medications Continue aspirin [address] surgery consultation Heparin drip see below Resp: Acute respiratory failure History of asbestosis Extubated on 03/22, on nasal cannula 1 L/min Albuterol/ipratropium aerosols every 4 hours with albuterol aerosols every 2 hours as needed for dyspnea Post intubation chest x-ray revealed bilateral pulmonary edema/pleural plaques bilateral upper lobes likely from asbestosis GI: Hypoalbuminemia Tolerating p.o. diet Famotidine 10 mg twice daily for GI prophylaxis Docusate sodium/senna 1 tablet twice daily for bowel regimen : Mccormick catheter has been placed Endo: Sliding scale insulin with aspart insulin/medium protocol with Accu-Cheks every 6 hours to maintain euglycemia TSH is 2.1 Renal: Acute kidney injury in the setting of chronic kidney disease baseline creatinine around 2.3. Strict intake output, monitor and replete electrodes, follow BN creatinine. Nephrology following. IV hydration. Heme: Leukocytosis Monitor CBC daily. Follow trends. Currently on heparin drip. No indication for transfusion of blood products at this time. ID: Possible community acquired pneumonia Blood cultures 2 negative. Stopped IV vancomycin and Zosyn on 03/22, doubt pneumonia MSK: Osteoarthritis/osteoporosis Currently holding alendronate 70 mg weekly/home medication PT evaluate and treat FEN: Replace electrolytes as clinically indicated. Access -Utilize peripheral IV. Central line if indicated Prophylax -GI -lansoprazole -DVT -SCDs/heparin drip Discussed with Dr. Horn from [facility].
--- NOTE | 2018-03-23 15:59 | P.PNCA ---
Subjective Interval history: No events overnight Doing well IABP in place, pulses palpable distally Physical Exam Vital signs: Vital Signs 03/22/18 17:05 03/22/18 19:00 03/22/18 20:00 Temperature 98.2 F Pulse Rate 84 103 H Respiratory Rate 20 18 Blood Pressure 144/74 H Pulse Oximetry 94 L 96 03/22/18 21:50 03/22/18 22:28 03/22/18 23:00 Temperature 98.4 F Pulse Rate 95 H 88 Respiratory Rate 20 16 Blood Pressure 155/83 H Pulse Oximetry 97 93 L 03/23/18 00:22 03/23/18 03:00 03/23/18 03:54 Temperature 98.2 F Pulse Rate 84 88 81 Respiratory Rate 14 16 14 Blood Pressure 163/77 H Pulse Oximetry 82 L 03/23/18 04:00 03/23/18 07:00 03/23/18 07:30 Temperature 97.9 F Pulse Rate 84 Respiratory Rate 14 16 Blood Pressure 163/82 H Pulse Oximetry 95 93 L 03/23/18 07:39 03/23/18 11:00 03/23/18 12:06 Temperature 98.1 F Pulse Rate 93 H 77 Respiratory Rate 16 17 Blood Pressure 154/75 H Pulse Oximetry 95 96 03/23/18 15:00 03/23/18 15:28 Temperature 98.5 F Pulse Rate 86 78 Respiratory Rate 18 19 Blood Pressure 131/72 Pulse Oximetry 94 L Intake & Output 03/22/18 03/23/18 03/23/18 18:59 06:59 18:59 Intake Total 2434 / 2434 1760 / 1760 150 / 150 Output Total 925 / 925 1075 / 1075 Balance 1509 / 1509 685 / 685 150 / 150 Weight 99 kg Intake: IV 1534 / 1534 1280 / 1280 150 / 150 Heparin/D5W 25,000 U/250 mL 25, 250 / 250 000 unit In 250 ml @ 1,000 UNITS/HR 10 mls/hr IV.CONT Q25H HEIDI Rx#:[id number] NovoLIN R (IV Infusion) 100 6 / 6 UNIT In NS Inj 99 ML @ 3 UNITS/ HR 3 mls/hr IV.CONT TITRATE PRN Rx#:[id number] NS Inj 1,000 ML @ 84 mls/hr IV. 1000 / 1000 CONT .[id number] HEIDI Rx#: [id number] 1/2 Normal Saline Inj 1,000 ML 930 / 930 @ 30 mls/hr IV.CONT .Q24H HEIDI Rx#:[id number] Magnesium Sulfate 1 gm/D5W 100 18 / 18 ml Premix 100 ML @ 100 mls/hr IV.SIG Q1H HEIDI Rx#:[id number] Zosyn 2.25 GM Premix 50 ML @ 150 / 150 100 / 100 50 / 50 100 mls/hr IV.SIG Q6HR HEIDI Rx#: [id number] Oral 900 / 900 480 / 480 Output: Urine Amount (Catheter) 925 / 925 1075 / 1075 Indwelling Urethral Catheter 925 / 925 1075 / 1075 Other: Date of Last Bowel Movement 03/20/18 03/20/18 03/20/18 # Bowel Movements 0 Narrative: GENERAL: NAD, AAOx3 SKIN: Warm and dry. HEAD: Atraumatic. Normocephalic. EYES: Pupils equal and round. No scleral icterus. No injection or drainage. ENT: No nasal bleeding or discharge. Mucous membranes pink and moist. ET tube in place NECK: Trachea midline. No JVD. CARDIOVASCULAR: Regular rate and rhythm. RESPIRATORY: No accessory muscle use. Decreased breath sounds bilaterally GASTROINTESTINAL: Abdomen soft, non-tender, nondistended. Hepatic and splenic margins not palpable. MUSCULOSKELETAL: Extremities without clubbing, cyanosis, or edema. No obvious deformities. Right femoral sheath no hematoma, right lower extremity is warm with palpable pulses NEUROLOGICAL: No focal deficits - Urinary Catheter Management Coude Cath placed during this visit: yes Reason for continuing: Hourly intake/output Insertion date: 03/20/18 Insertion time: 21:30 Indwelling Urethral Catheter Cath placed during this visit: no Assessment and Plan - Assessment (1) Multi-vessel coronary artery stenosis Code(s): I25.10 - Atherosclerotic heart disease of [place] coronary artery without angina pectoris Status: Acute (2) Lactic acidosis Code(s): E87.2 - Acidosis Status: Acute (3) Acute respiratory failure with hypoxia Code(s): J96.01 - Acute respiratory failure with hypoxia Status: Acute (4) NSTEMI (non-ST elevated myocardial infarction) Code(s): I21.4 - Non-ST elevation (NSTEMI) myocardial infarction Status: Acute (5) Cardiogenic shock Code(s): R57.0 - Cardiogenic shock Status: Acute (6) CAD (coronary artery disease) Code(s): I25.10 - Atherosclerotic heart disease of [place] coronary artery without angina pectoris Status: Acute (7) Stage 4 chronic kidney disease Code(s): N18.4 - Chronic kidney disease, stage 4 (severe) Status: Acute - Plan 1) MVCAD/NSTEMI CT surgery evaluation Discussed with Dr. Horn Agree with trying to stabilize before consideration of surgery, possible tomorrow EF 25% Heparin drip for NSTEMI/CAD/IABP 2) Cardiogenic shock/pulmonary edema Heart failure with lactic acidosis Leading to decreased tissue perfusion Con't on IABP for now while lactic acid hopefully clears with better perfusion Discussed with Dr. Horn, plan to leave IABP until surgery if possible, will reevaluate daily 3) ROMINA on CKD Not sure what his baseline is, but creatinine was 2.0 in 2008 Evaluated by Nephrology 4) VDRF due to heart failure Extubated
[2018-03-23 16:21] LABS: Calcium 8.6 mg/dL (8.5-10.1); Carbon Dioxide 23.9 meq/L (21.0-32.0); Potassium 3.9 meq/L (3.5-5.1)
--- NOTE | 2018-03-23 17:34 | P.PNNP ---
Subjective Interval history: His renal function is better. IABP is still in place. May have CABG tomorrow. He has been extubated. <Kavita Beauchamp - Last Filed: 03/23/18 17:15> Physical Exam Vital signs: Vital Signs 03/22/18 19:00 03/22/18 20:00 03/22/18 21:50 Temperature 98.2 F Pulse Rate 103 H 95 H Respiratory Rate 18 20 Blood Pressure 144/74 H Pulse Oximetry 94 L 96 03/22/18 22:28 03/22/18 23:00 03/23/18 00:22 Temperature 98.4 F Pulse Rate 88 84 Respiratory Rate 16 14 Blood Pressure 155/83 H Pulse Oximetry 97 93 L 03/23/18 03:00 03/23/18 03:54 03/23/18 04:00 Temperature 98.2 F Pulse Rate 88 81 Respiratory Rate 16 14 14 Blood Pressure 163/77 H Pulse Oximetry 82 L 03/23/18 07:00 03/23/18 07:30 03/23/18 07:39 Temperature 97.9 F Pulse Rate 84 Respiratory Rate 16 Blood Pressure 163/82 H Pulse Oximetry 95 93 L 95 03/23/18 11:00 03/23/18 12:06 03/23/18 15:00 Temperature 98.1 F 98.5 F Pulse Rate 93 H 77 86 Respiratory Rate 16 17 18 Blood Pressure 154/75 H 131/72 Pulse Oximetry 96 94 L 03/23/18 15:28 Temperature Pulse Rate 78 Respiratory Rate 19 Blood Pressure Pulse Oximetry Intake & Output 03/22/18 03/23/18 03/23/18 18:59 06:59 18:59 Intake Total 2434 / 2434 1760 / 1760 150 / 150 Output Total 925 / 925 1075 / 1075 Balance 1509 / 1509 685 / 685 150 / 150 Weight 99 kg Intake: IV 1534 / 1534 1280 / 1280 150 / 150 Heparin/D5W 25,000 U/250 mL 25, 250 / 250 000 unit In 250 ml @ 1,000 UNITS/HR 10 mls/hr IV.CONT Q25H HEIDI Rx#:[id number] NovoLIN R (IV Infusion) 100 6 / 6 UNIT In NS Inj 99 ML @ 3 UNITS/ HR 3 mls/hr IV.CONT TITRATE PRN Rx#:[id number] NS Inj 1,000 ML @ 84 mls/hr IV. 1000 / 1000 CONT .[id number] HEIDI Rx#: [id number] 1/2 Normal Saline Inj 1,000 ML 930 / 930 @ 30 mls/hr IV.CONT .Q24H HEIDI Rx#:[id number] Magnesium Sulfate 1 gm/D5W 100 18 / 18 ml Premix 100 ML @ 100 mls/hr IV.SIG Q1H HEIDI Rx#:[id number] Zosyn 2.25 GM Premix 50 ML @ 150 / 150 100 / 100 50 / 50 100 mls/hr IV.SIG Q6HR HEIDI Rx#: [id number] Oral 900 / 900 480 / 480 Output: Urine Amount (Catheter) 925 / 925 1075 / 1075 Indwelling Urethral Catheter 925 / 925 1075 / 1075 Other: Date of Last Bowel Movement 03/20/18 03/20/18 03/20/18 # Bowel Movements 0 - Constitutional no acute distress, average body habitus - Routine HEENT Exam Head: Present: normocephalic Eye: Present: EOMI ENT: Present: mucous membranes moist - Routine Neck Exam Present: supple, full ROM - Routine Respiratory Exam Present: decreased breath sounds. Absent: accessory muscle use - Routine Cardiovascular Exam Present: RRR, S1, S2 Comments: IABP - Routine Abdominal Exam Present: soft, normoactive bowel sounds - Routine Extremities Exam Present: pulses intact, normal capillary refill. Absent: edema - Routine Skin Exam Present: intact, dry, warm - Routine Neurological Exam Present: alert, oriented X3, CN II-XII intact, moving all extremities - Detailed Neurological Exam: Coma Scale Eye Opening: Spontaneous Verbal Response: Oriented Motor Response: Obey commands [place] Coma Scale Total: 15 - Routine Psychiatric Exam Present: normal affect, normal thought process - Urinary Catheter Management Coude Cath placed during this visit: yes Urethral indwelling: Yes Reason for continuing: Hourly intake/output Insertion date: 03/20/18 Insertion time: 21:30 Indwelling Urethral Catheter Cath placed during this visit: no <Kavita Beauchamp - Last Filed: 03/23/18 17:15> Vital signs: Vital Signs 03/23/18 11:00 03/23/18 12:06 08/13/18 15:00 Temperature 98.1 F 98.5 F Pulse Rate 93 H 77 86 Respiratory Rate 16 17 18 Blood Pressure 154/75 H 131/72 Pulse Oximetry 96 94 L 03/23/18 15:28 03/23/18 19:00 03/23/18 19:15 Temperature 98.5 F Pulse Rate 78 82 88 Respiratory Rate 19 20 Blood Pressure 158/86 H Pulse Oximetry 97 03/23/18 20:16 03/23/18 23:00 03/23/18 23:30 Temperature 99.1 F Pulse Rate 81 85 Respiratory Rate 16 20 Blood Pressure 171/90 H Pulse Oximetry 95 91 L 97 03/24/18 03:00 03/24/18 03:20 03/24/18 03:51 Temperature Pulse Rate 65 67 66 Respiratory Rate 20 20 Blood Pressure 97/59 L Pulse Oximetry 98 03/24/18 04:00 03/24/18 04:01 Temperature Pulse Rate Respiratory Rate 24 Blood Pressure Pulse Oximetry 97 Intake & Output 03/23/18 03/24/18 03/24/18 18:59 06:59 18:59 Intake Total 1750 / 1750 244.4 / 244.4 502 / 502 Output Total 875 / 875 800 / 800 Balance 875 / 875 -555.6 / -555.6 502 / 502 Weight 98.5 kg Intake: IV 200 / 200 244.4 / 244.4 502 / 502 Precedex Inj 200 MCG In NS Inj 54.2 / 54.2 48 ML @ 0.2 MCG/KG/HR 4.95 mls/ hr IV.CONT TITRATE PRN Rx#: [id number] Zosyn 2.25 GM Premix 50 ML @ 100 / 100 100 / 100 100 mls/hr IV.SIG Q6HR HEIDI Rx#: [id number] Rocephin Inj 1,000 MG In NS Inj 90.2 / 90.2 100 ML @ 200 mls/hr IV.SIG Q24H HEIDI Rx#:[id number] Oral 1550 / 1550 Output: Urine Amount (Catheter) 875 / 875 800 / 800 Indwelling Urethral Catheter 875 / 875 800 / 800 Other: Date of Last Bowel Movement 03/20/18 # Bowel Movements 0 - Urinary Catheter Management Coude Cath placed during this visit: no Indwelling Urethral Catheter Cath placed during this visit: no <Joaquin Veronica - Last Filed: 03/24/18 08:02> Assessment and Plan - Assessment (1) Acute worsening of stage 4 chronic kidney disease Code(s): N28.9 - Disorder of kidney and ureter, unspecified; N18.4 - Chronic kidney disease, stage 4 (severe) Status: Acute Plan: 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 Follows with Dr Herrera in [facility]. Exact baseline is unknown. ROMINA secondary to NSTEMI and cardiogenic shock, resulting in renal hypoperfusion. Imaging shows severe hydronephrosis of the right kidney. Reason is unclear. Pending non contrast CT of the abdomen/pelvis. May need urology evaluation. He is non oliguric. Renal function is improving. Obtain daily labs, monitor renal indices. Avoid nephrotoxic agents. He has 3 grams proteinuria. Ramipril should be resumed at discharge. Off IVF , PO fluids encouraged. (2) NSTEMI (non-ST elevated myocardial infarction) Code(s): I21.4 - Non-ST elevation (NSTEMI) myocardial infarction Status: Acute Plan: s/p cath showing multivessel disease. He needs CABG. Possible surgery 03/24. On heparin gtt, metoprolol, ASA. (3) Cardiogenic shock Code(s): R57.0 - Cardiogenic shock Status: Acute Plan: s/p cath, on IABP (to be continued until surgery). Improving hemodynamics. (4) Hyperosmolality and hypernatremia Code(s): E87.0 - Hyperosmolality and hypernatremia Status: Acute Plan: Improving. Encourage oral fluids now that he is extubated. (5) Lactic acidosis Code(s): E87.2 - Acidosis Status: Acute Plan: due to renal hypoperfusion after NSTEMI. Monitor. Improving. <Kavita Beauchamp - Last Filed: 03/23/18 17:15> - Assessment (1) Acute worsening of stage 4 chronic kidney disease Code(s): N28.9 - Disorder of kidney and ureter, unspecified; N18.4 - Chronic kidney disease, stage 4 (severe) Status: Acute (2) NSTEMI (non-ST elevated myocardial infarction) Code(s): I21.4 - Non-ST elevation (NSTEMI) myocardial infarction Status: Acute (3) Cardiogenic shock Code(s): R57.0 - Cardiogenic shock Status: Acute (4) Hyperosmolality and hypernatremia Code(s): E87.0 - Hyperosmolality and hypernatremia Status: Acute (5) Lactic acidosis Code(s): E87.2 - Acidosis Status: Acute - Attending Attestation patient was seen and examined. Agree with above assessment and plan. Discussed with patient's daughter at the bedside. We are attempting to verify his baseline renal function. Also we have ordered CT of the abdomen/pelvis to further investigate unilateral hydronephrosis. <Joaquin Veronica - Last Filed: 03/24/18 08:02>
[2018-03-24] MEDS ORDERED: Labetalol HCl Inj 100 MG/20 ML Vial ONE (00:13)
[2018-03-24] MEDS ORDERED: Labetalol HCl Inj 100 MG/20 ML Vial IV.PUSH PRN (00:15)
[2018-03-24] MEDS: Oral Hygiene Kit OROPHARYNG SCH ×4 (00:28→16:57)
[2018-03-24] MEDS: Insulin NovoLOG Aspart Correctional Sugar Inj SQ SCH ×2 (00:28→05:51)
[2018-03-24] MEDS: Piperacil/Tazo 2.25 GM Premix 50 ML IV.SIG SCH ×2 (00:30→05:35)
[2018-03-24] MEDS: Dexmedetomidine Inj 200 MCG in Sodium Chlor 0.9% Inj 48 ML IV.CONT PRN ×4 (00:32→23:54)
--- NOTE | 2018-03-24 03:22 | XR ---
EXAM DATE: 03/24/2018 2:39 AM EDT AGE/SEX: 77 years / Male INDICATIONS: Check IABP placement. CLINICAL DATA: This is the patient's subsequent encounter. Patient reports that signs and symptoms h ave been present for 4 - 6 days and indicates a pain score of 0/10. MEDICAL/SURGICAL HISTORY: Renal disease. Hypertension. Diabetes. None. COMPARISON: POI, XR ABDOMEN KUB, 12/11/2015. . FINDINGS: Examination of the upper abdomen and chest demonstrates nonobstructive bowel gas pattern. Bilateral c alcified pleural plaques. Small metallic density projects over the descending thoracic aorta presumed to be the intra-arterial balloon pump. No free air is identified. Osseous structures are intact. CONCLUSION: Intra-arterial balloon pump noted in the descending thoracic aorta Electronically signed by: Marcus Broussard MD 03/24/2018 3:21 AM EDT
[2018-03-24 04:27] LABS: Hematocrit 34.4 % (39.0-51.0); Hemoglobin 11.3 gm/dL (13.0-17.0); Mean Corpuscular HGB Conc 32.8 % (32.0-36.0); Mean Corpuscular Hemoglobin 30.2 pg (27.0-34.0); Mean Corpuscular Volume 91.9 fL (80.0-100.0); Mean Platelet Volume 7.9 fL (7.0-11.0); Platelet Count 154 th/mm3 (150-450); Red Blood Count 3.74 mil/mm3 (4.50-5.90); Red Cell Distribution Width 14.5 % (11.6-17.2); White Blood Count 9.4 th/mm3 (4.0-11.0)
[2018-03-24 04:45] LABS: Albumin 2.3 g/dL (3.4-5.0); Calcium 8.1 mg/dL (8.5-10.1); Carbon Dioxide 23.9 meq/L (21.0-32.0); Phosphorus 4.5 mg/dL (2.5-4.9); Potassium 4.3 meq/L (3.5-5.1); Vancomycin,Random 4.8 Comment
[2018-03-24] MEDS: Chlorhexidine Gluconate 2% 1 Pack (2 Cloths) TOPICAL SCH (05:21)
[2018-03-24] MEDS: levETIRAcetam 500 MG Tablet PO SCH ×2 (05:35→16:56)
[2018-03-24] MEDS ORDERED: MethylPREDNISolone Sod Succinate Inj 125 MG/2 ML Vial ONE (06:33)
[2018-03-24] MEDS ORDERED: Heparin - SQ 10,000 UNITS/ML Vial ONE ×2 (06:33→06:48)
[2018-03-24] MEDS ORDERED: Potassium Chlor 40 mEq Premix 80 MEQ/200 ML PIGGYBACK ONE (06:46)
[2018-03-24] MEDS ORDERED: Cardioplegic Irr Soln 2,000 ML IRRIGATION ONE (06:46)
[2018-03-24] MEDS ORDERED: Heparin 10,000 UNITS/10 ML Vial (for IV use) ONE (06:47)
[2018-03-24] MEDS ORDERED: Albumin Human 25% Inj 50 ML IV.SIG ONE (06:47)
[2018-03-24] MEDS ORDERED: ceFAZolin 2 GM Premix Inj 2 GM/50 ML PIGGYBACK IV.SIG ONE (07:00)
--- NOTE | 2018-03-24 08:36 | P.PNCC ---
Subjective Subjective Remarks/Hospital Course: 03/21: This is a 69-year-old male. Date of admission 03/20/2018. Date of consultation 03/21/2018. Past medical history includes asbestosis, hypertension, dyspnea, seizure disorder, osteoarthritis/osteoporosis and elevated BMI. He is a patient of Dr. Michelle. He presents to [facility] emergency department with a chief complaint of shortness of breath and altered mental status. He called his daughter after 1999 last night with slurred speech/shortness of breath and chest pain. And then when EVAC arrived, saturations at 60 so was intubated. Patient had a ETT cuff leak and was reintubated by ED physician. EKG showed a new left bundle branch block with elevated troponin III 0.48. Lactic acid 4.2. Patient received Pipracil and tazobactam and vancomycin for possible pneumonia/community-acquired. Solutions Specialist consulted and patient proceeded with a left heart catheterization early this morning. Patient has multisystem coronary artery disease left main 50%, LAD 50%/mid LAD 90%. Diagonal 70%. Circumflex 70%. OM 90%. RCA 70% patient had anterior balloon pump placed one-to-one in the right femoral region. Currently a propofol drip at 25 mcg/kg/min and hemodynamically stable. 03/22: Extubated yesterday currently on 1 L nasal cannula. IABP remains in place. Denies any chest pain or shortness of breath. CABG plan for 03/[address] surgery[address] Cardiology following. 03/23: Remains on nasal cannula. IABP in place. Awaiting CABG. 03/24: Had agitation/delirium last night for which Precedex was started. Going to OR for CABG today. IABP in place. Objective Vital Signs / I&O: Vital Signs 03/23/18 11:00 03/23/18 12:06 03/23/18 15:00 Temperature 98.1 F 98.5 F Pulse Rate 93 H 77 86 Respiratory Rate 16 17 18 Blood Pressure 154/75 H 131/72 Pulse Oximetry 96 94 L 03/23/18 15:28 03/23/18 19:00 03/23/18 19:15 Temperature 98.5 F Pulse Rate 78 82 88 Respiratory Rate 19 20 Blood Pressure 158/86 H Pulse Oximetry 97 03/23/18 20:16 03/23/18 23:00 03/23/18 23:30 Temperature 99.1 F Pulse Rate 81 85 Respiratory Rate 16 20 Blood Pressure 171/90 H Pulse Oximetry 95 91 L 97 03/24/18 03:00 03/24/18 03:20 03/24/18 03:51 Temperature Pulse Rate 65 67 66 Respiratory Rate 20 20 Blood Pressure 97/59 L Pulse Oximetry 98 03/24/18 04:00 03/24/18 04:01 Temperature Pulse Rate Respiratory Rate 24 Blood Pressure Pulse Oximetry 97 Intake & Output 03/23/18 03/24/18 03/24/18 18:59 06:59 18:59 Intake Total 1750 / 1750 244.4 / 244.4 502 / 502 Output Total 875 / 875 800 / 800 Balance 875 / 875 -555.6 / -555.6 502 / 502 Weight 98.5 kg Intake: IV 200 / 200 244.4 / 244.4 502 / 502 Precedex Inj 200 MCG In NS Inj 54.2 / 54.2 48 ML @ 0.2 MCG/KG/HR 4.95 mls/ hr IV.CONT TITRATE PRN Rx#: [id number] Zosyn 2.25 GM Premix 50 ML @ 100 / 100 100 / 100 100 mls/hr IV.SIG Q6HR HEIDI Rx#: [id number] Rocephin Inj 1,000 MG In NS Inj 90.2 / 90.2 100 ML @ 200 mls/hr IV.SIG Q24H HEIDI Rx#:[id number] Oral 1550 / 1550 Output: Urine Amount (Catheter) 875 / 875 800 / 800 Indwelling Urethral Catheter 875 / 875 800 / 800 Other: Date of Last Bowel Movement 03/20/18 # Bowel Movements 0 Result Diagrams: 03/24/18 04:16 03/24/18 04:16 Imaging: Impressions Carotid Doppler Study 03/22/18 11:30 CONCLUSION: 1. Mild atherosclerotic plaquing at both carotid bifurcations. 2. No focal high-grade or hemodynamically significant stenosis. Lower Extremity Ultrasound 03/22/18 11:30 CONCLUSION: 1. Focal occlusive thrombus in the distal right greater saphenous vein in the calf. 2. Otherwise unremarkable study with measurements as above. Venous Doppler Study 03/22/18 11:30 CONCLUSION: 1. No evidence of DVT. 2. Focal thrombus in the distal right calf within the GSV. Chest X-Ray 03/23/18 06:00 CONCLUSION: 1. Minimal right basilar density. 2. Bilateral calcified pleural plaques which can be seen with asbestosis exposure. Abdomen X-Ray 03/24/18 01:58 CONCLUSION: Intra-arterial balloon pump noted in the descending thoracic aorta Objective Remarks: HEENT/Neuro: No pallor or icterus, tongue moist, NARINDER, Awake alert oriented 3 , nonfocal grossly, moving all 4 extremities Neck: No JVD Chest/pulmonary: CTA bilaterally Cardiovascular: S1-S2 regular no gallop or murmur. IABP in place with 1:1 augmentation GI/abdomen: Soft, nontender, bowel sounds present Extremities: Warm bilaterally, no edema Assessment and Plan - Assessment and Plan Plan: Neuro/Psych: Depressive disorder NOS Seizure disorder Currently on propofol at 25 mcg/kg/min/as needed fentanyl drip for sedation/ analgesia while intubated Goal of RASS -2 Daily sedation vacation Continue sertraline 100 mg daily/home medication Acetaminophen 650 milligrams every 6 hours as needed fever Continue levetiracetam 5 mg twice daily/home medication CV: NSTEMI Multivessel coronary disease Acute systolic heart failure Essential hypertension Hyperlipidemia Lactic acidosis Left heart catheterization revealed revealed left main 50%, LAD 50%, mid 90%. Diagonal 70%. Circumflex 70%. OM 90%. RCA 70%. IABP 1:1 Metoprolol tartrate 2.5 mg every 6 hours. On metoprolol succinate 50 mg daily at home Holding amlodipine 10 mg daily, ramipril 5 mill grams daily and valsartan while balloon pump Continue fenofibrate 40 mg daily and atorvastatin 40 mg daily/home medications Continue aspirin [address] surgery following, scheduled for CABG 03/24 Heparin drip see below Resp: Acute respiratory failure History of asbestosis Extubated on 03/22, on nasal cannula 1 L/min Albuterol/ipratropium aerosols every 4 hours with albuterol aerosols every 2 hours as needed for dyspnea Post intubation chest x-ray revealed bilateral pulmonary edema/pleural plaques bilateral upper lobes likely from asbestosis GI: Hypoalbuminemia Tolerating p.o. diet Famotidine 10 mg twice daily for GI prophylaxis Docusate sodium/senna 1 tablet twice daily for bowel regimen : Mccormick catheter has been placed Endo: Sliding scale insulin with aspart insulin/medium protocol with Accu-Cheks every 6 hours to maintain euglycemia TSH is 2.1 Renal: Acute kidney injury in the setting of chronic kidney disease baseline creatinine around 2.3. Strict intake output, monitor and replete electrodes, follow BUN creatinine. Nephrology following. IV hydration. Heme: Leukocytosis Monitor CBC daily. Follow trends. Currently on heparin drip. No indication for transfusion of blood products at this time. ID: Possible community acquired pneumonia Blood cultures 2 negative. Stopped IV vancomycin and Zosyn on 03/22, doubt pneumonia MSK: Osteoarthritis/osteoporosis Currently holding alendronate 70 mg weekly/home medication PT evaluate and treat FEN: Replace electrolytes as clinically indicated. Access -Utilize peripheral IV. Central line if indicated Prophylax -GI -lansoprazole -DVT -SCDs/heparin drip
[2018-03-24] MEDS: Chlorhexidine 0.12% Oral Kit 15 ML UDC OROPHARYNG SCH ×2 (08:41→23:21)
[2018-03-24] MEDS: Metoprolol Tartrate 25 MG Tablet PO SCH (08:42)
[2018-03-24] MEDS: Hypromellose 0.3% Opth Gel 10 GM Bottle EACH EYE SCH ×2 (08:42→22:36)
[2018-03-24] MEDS: Senna/Docusate Sodium 8.6/50 MG Tablet PO SCH ×2 (08:42→21:24)
[2018-03-24] MEDS: Famotidine PF Inj 20 MG/2 ML Vial IV.PUSH SCH (08:42)
[2018-03-24] MEDS: Fenofibrate 48 MG Tablet PO SCH (08:42)
[2018-03-24] MEDS: Mupirocin 2% Nasal Oint Topical Syringe EACH NARE SCH ×2 (08:42→22:36)
[2018-03-24] MEDS ORDERED: Insulin Regular (For Infusion) 100 UNIT in Sodium Chlor 0.9% Inj 99 ML IV.CONT PRN (11:47)
[2018-03-24] MEDS ORDERED: Calcium Chloride Inj 1 GM in Sodium Chlor 0.9% Inj 100 ML IV.SIG PRN (11:47)
[2018-03-24] MEDS ORDERED: Potassium Chlor 20 mEq Premix 20 MEQ/100 ML PIGGYBACK IV.SIG PRN ×3 (11:47)
[2018-03-24] MEDS ORDERED: Albumin Human 5% Inj 250 ML IV.SIG PRN (11:47)
[2018-03-24] MEDS ORDERED: Post-op Orders (for Pharmacy) OTHER STA (11:47)
[2018-03-24] MEDS ORDERED: RESP: Racemic Epinephrine 2.25% 0.5 ML Neb NEB PRN (11:47)
[2018-03-24] MEDS ORDERED: Dextrose 50% in Water 50 ML Vial IV.PUSH PRN (11:47)
[2018-03-24] MEDS ORDERED: hydrALAZINE HCl Inj 20 MG/ML Vial IV.PUSH PRN (11:47)
[2018-03-24] MEDS ORDERED: Metoprolol Inj 5 MG/5 ML Vial IV.PUSH PRN (11:47)
[2018-03-24] MEDS ORDERED: Calcium Chloride Inj 1 GM/10 ML Syringe IV.PUSH PRN (11:47)
[2018-03-24] MEDS ORDERED: Magnesium Sulfate Inj 2 GM in Sodium Chlor 0.9% Inj 96 ML IV.SIG PRN ×4 (11:47)
[2018-03-24] MEDS ORDERED: Heparin - SQ 10,000 UNITS/ML Vial OTHER ONE (12:00)
[2018-03-24] MEDS ORDERED: Sodium Chlor 0.9% Inj 250 ML IV.SIG ONE (12:00)
[2018-03-24] MEDS ORDERED: Protamine Sulfate Inj 250 MG/25 ML Vial IV.PUSH ONE (12:00)
[2018-03-24] MEDS ORDERED: Phenylephrine/NS 1000 MCG/10ML Syringe IV.PUSH ONE (12:00)
[2018-03-24] MEDS ORDERED: Dexmedetomidine Inj 200 MCG/2 ML Vial IV.PUSH ONE (12:00)
[2018-03-24] MEDS ORDERED: Artificial Tears Opth Oint 3.5 GM Tube EACH EYE ONE (12:00)
[2018-03-24] MEDS ORDERED: Sodium Chlor 0.9% Inj 500 ML IV.SIG ONE (12:00)
[2018-03-24] MEDS ORDERED: Nitroglycerin Drip Premix 50 MG/250 ML BOTTLE IV.SIG ONE (12:00)
[2018-03-24] MEDS ORDERED: Calcium Chloride Inj 1 GM/10 ML Syringe IV.CONT ONE (12:00)
--- NOTE | 2018-03-24 12:20 | P.OP ---
- Preoperative Diagnosis (1) NSTEMI (non-ST elevated myocardial infarction) (2) Cardiogenic shock (3) CAD (coronary artery disease) (4) Multi-vessel coronary artery stenosis - Postoperative Diagnosis (1) NSTEMI (non-ST elevated myocardial infarction) (2) Cardiogenic shock (3) CAD (coronary artery disease) (4) Multi-vessel coronary artery stenosis Date of procedure: 03/24/18 Procedure: CABG x 4 VERDUGO to LAD - good SVG to PDA - good SVG to OM1 - good SVG to D1 - fair EVH Anesthesia: GETA Surgeon: Kallie Horn MD Dye Reel Operator: Halima Bone Operation and Findings: The risks, benefits, complications, treatment options, and expected outcomes were discussed with the patient. The possibilities of reaction to medication, pulmonary aspiration, perforation of viscus, bleeding, recurrent infection, the need for additional procedures, failure to diagnose a condition, and creating a complication requiring transfusion or operation were discussed with the patient. The patient concurred with the proposed plan, giving informed consent. The site of surgery properly noted/marked. The patient was taken to Operating Room, identified as Wyatt Nakulxiao and the procedure verified as CABG, EVH, TAWNY. A Time Out was held and the above information confirmed. Standard monitoring lines and Mccormick catheter were placed. General anesthesia was induced. The patient was prepped and draped in a sterile fashion. A median sternotomy was performed and electrocautery was used to obtain hemostasis. The left internal mammary artery was procured as a pedicle from the 7th rib to the 1st rib in the usual manner. Simultaneously left greater saphenous vein was procured from the left leg using a minimally invasive endoscopic technique. The vein was prepared for anastomosis and the leg wound was irrigated and closed in 2 layers. The pericardium was opened and a pericardial sling was created using interrupted 0 silk sutures. The patient was heparinized for cardiopulmonary bypass and the distal mammary pedicle was instrumented for anastomosis. The heart was instrumented for cardiopulmonary bypass in the usual manner. Antegrade blood cardioplegia was employed. The patient was placed on cardiopulmonary bypass. An aortic cross-clamp was applied and the heart was arrested using cold blood cardioplegia. Antegrade cardioplegia was administered after he each anastomosis. After adequate arrest, the distal right coronary circulation was investigated and the PDA was opened with a [place] blade and found to be a 1.5 millimeter good target. Saphenous vein was approximated to the PDA artery using a running 7 0 Prolene suture. The graft was measured for length and orientation and the proximal anastomosis was constructed to the ascending aorta using a running 5 0 Prolene suture after creating an aortotomy with a 5 millimeter punch. The 1st circumflex marginal artery was then opened with a [place] blade and found to be a 1.5 millimeter good target. Saphenous vein was approximated to the OM1 artery using a running 7 0 Prolene suture. The graft was measured for length and orientation and the proximal anastomosis was constructed to the ascending aorta using a running 5 0 Prolene suture after creating an aortotomy with a 5 millimeter punch. The 1st diagonal artery was then opened with a [place] blade and found to be a 1 millimeter fair target. Saphenous vein was approximated to the D1 artery using a running 7 0 Prolene suture. The graft was measured for length and orientation and was suspended from the pericardium. The distal LAD was opened with a [place] blade and found to be a 1.5 millimeter good target. The left internal mammary artery was approximated to the LAD using a running 7 0 Prolene suture. The pedicle was attached to the epicardium using interrupted 5 0 silk suture. The patient was systemically rewarmed and received a hotshot dose of warm blood cardioplegia. The aorta was vented and the proximal anastomosis to the D1 graft was accomplished using a running 5 0 Prolene suture after creating an aortotomy was a 5 millimeter punch. The cross -clamp was removed and all proximal and distal anastomoses were examined for hemostasis. Temporary atrial pacing on wires were positioned and brought out through the skin in the usual manner. The patient was paced at 80 beats per minute and weaned from cardiopulmonary bypass. Protamine was given. There was no adverse reaction. Decannulation was carried out without incident. Wound was checked for hemostasis which was obtained using electrocautery. A 36 [place] mediastinal and 32 [place] left pleural chest tubes were placed and secured to the skin with 0 silk suture. The sternum was closed with stainless steel wire. The fascia was closed with 1. PDS. The subcutaneous tissue was closed using a running 2-0 Vicryl suture. The skin was closed with 4-0 Monocryl. Sterile dressings were placed. At the end of the operation, all sponge, instruments, and needle counts were correct. The patient was transferred to the CVICU in stable condition. Findings: Diffuse CAD, IABP 1:1, EF improved to ~35-40% after revascularization XC: 68 min CPB: 83 min Drains: mediastinal x 1 pleural x 1 Complications: none Disposition: to CVICU in stable condition, IABP 1:1
--- NOTE | 2018-03-24 13:10 | XR ---
EXAM DATE: 03/24/2018 1:02 PM EDT AGE/SEX: 77 years / Male INDICATIONS: Post cabg. CLINICAL DATA: This is the patient's initial encounter. Patient reports that signs and symptoms have been present for 1 day and indicates a pain score of Nonresponsive. MEDICAL/SURGICAL HISTORY: Hypertension. renal disease, diabetes None. COMPARISON: [facility] [place], CHEST 1V SINGLE AP, 03/23/2018. . FINDINGS: A single AP view of the chest demonstrates interval thoracic surgery with intact median sternotomy wi res. Endotracheal tube is appropriately positioned above the fern. Left-sided thoracostomy tube wit hout pneumothorax. Bilateral pleural plaques, right greater than left are unchanged from prior. Heart size is borderline . Increasing right basilar consolidation with probable associated effusion. Osseous structures are in tact with some degenerative spurring of the dorsal spine. CONCLUSION: 1. Findings of interval thoracic surgery with intact median sternotomy wires. 2. Increasing right basilar consolidation with probable associated effusion. Minimal left basilar at electasis. 3. Appropriate positioning of life-support tubes. Endotracheal tube with the tip at the clavicular h camilla. Left thoracostomy tube without pneumothorax. 4. Bilateral pleural plaques, right greater than left. Findings may be indicative of prior asbestos exposure. Electronically signed by: Jony Mota MD 03/24/2018 1:09 PM EDT
[2018-03-24] MEDS ORDERED: fentaNYL Citrate Inj 250 MCG/5 ML Ampul ONE ×2 (13:24)
--- NOTE | 2018-03-24 13:59 | P.PNCV ---
- Note Subjective/Hospital Course: 77-year-old male pt of Dr. Michelle presented via [facility] to [facility] Emergency Room for shortness of breath. Apparently, he called his daughter a little after 8 p.m., said that he thought he was having a heart attack. He was significantly short of breath. His daughter said that he had slurred speech on the phone. [facility] arrived and he was still on the phone with his daughter and at that time he was telling her that he felt like he was having a heart attack and he was extremely diaphoretic. He was saturating in the 60s and so they intubated him. He was then transferred to the [facility] hospital . EKG was done and showed ne left bundle branch block. Lab work shows a lactic acid of 4.2 and a troponin of 3.48. PAST MEDICAL HISTORY: Asbestosis, Hypertension, Hyperlipidemia, Diabetes mellitus, seizure disorder s/p heart cath : . Acute pulmonary edema, Acute decompensated heart failure ( class IV), Acute respiratory failure requiring mechanical ventilation, Non- ST-elevation myocardial infarction, Multivessel disease, [id number] kidney disease, Lactic acidosis due to decreased tissue perfusion. EF 20-25% cath : left main 50%, LAD 50%/mid LAD 90%. Diagonal 70%. Circumflex 70%. OM 90%. RCA 70% patient had anterior balloon pump placed one-to-one in the right femoral region. 03/23 pt on nasal cannula, IABP 1:1 lower ext US noted : thrombus is noted in the right distal calf within the greater saphenous vein.. 03/24 surgery CABG x 4 VERDUGO to LAD - good SVG to PDA - good SVG to OM1 - good SVG to D1 - fair EVH Objective: Vital Signs - 24 hr 03/23/18 15:00 03/23/18 15:28 03/23/18 19:00 Temperature 98.5 F Pulse Rate 86 78 82 Respiratory Rate 18 19 Blood Pressure 131/72 Pulse Oximetry 94 L 03/23/18 19:15 03/23/18 20:16 03/23/18 23:00 Temperature 98.5 F 99.1 F Pulse Rate 88 81 85 Respiratory Rate 20 16 20 Blood Pressure 158/86 H 171/90 H Pulse Oximetry 97 95 91 L 03/23/18 23:30 03/24/18 03:00 03/24/18 03:20 Temperature Pulse Rate 65 67 Respiratory Rate 20 Blood Pressure 97/59 L Pulse Oximetry 97 98 03/24/18 03:51 03/24/18 04:00 03/24/18 04:01 Temperature Pulse Rate 66 Respiratory Rate 20 24 Blood Pressure Pulse Oximetry 97 03/24/18 12:30 03/24/18 13:00 Temperature 96.8 F L Pulse Rate 71 Respiratory Rate 18 17 Blood Pressure 139/40 L Pulse Oximetry 92 L Labs: Laboratory Results - last 12 hr 03/22/18 03/24/18 03/24/18 13:23 04:16 04:16 WBC 9.4 RBC 3.74 L Hgb 11.3 L Hct 34.4 L MCV 91.9 MCH 30.2 MCHC 32.8 RDW 14.5 Plt Count 154 MPV 7.9 Sodium 141 Potassium 4.3 Chloride 109 H Carbon Dioxide 23.9 Anion Gap 8 BUN 44 H Creatinine 2.61 H Estimated GFR 24 L POC Glucose Random Glucose 175 H Calcium 8.1 L Phosphorus 4.5 D Albumin 2.3 L Random Vancomycin 4.8 Blood Type O Positive Antibody Screen Negative MTS Gel Crossmatch See Detail 03/24/18 03/24/18 05:44 13:11 WBC RBC Hgb Hct MCV MCH MCHC RDW Plt Count MPV Sodium Potassium Chloride Carbon Dioxide Anion Gap BUN Creatinine Estimated GFR POC Glucose 169 H 131 H Random Glucose Calcium Phosphorus Albumin Random Vancomycin Blood Type Antibody Screen MTS Gel Crossmatch Result Diagrams: 03/24/18 04:16 03/24/18 04:16 - Plan (2) Cardiogenic shock Plan: IABP (4) Stage 4 chronic kidney disease Plan: indices improving, non-oliguric/ Nephro following
[2018-03-24] MEDS ORDERED: DOBUTamine 250 MG/250 ML Premx 250 MG/250 ML BAG IV.CONT SCH (14:00)
--- NOTE | 2018-03-24 14:09 | P.DCO ---
- Physical Therapy Order: Evaluate and treat - Home Health Nursing Order: Signs/symptoms of disease process, Wound care and dressing changes, Nursing assessment with vital signs Instructions: Heart and Vascular Surgery patients *Special attention to sternal dressing Mandatory frequency Assess and evaluation, 4 days in a row The next week 3X week 2 times a week for 4 weeks 1 time a week for 5 weeks Schedule Heart and Vascular patients for full 60 day certification period Initial visit Review Open Heart Surgery Discharge Instructions (Sternal precautions, Activity, Elastic hose, Incision care, Driving, Incentive spirometry, Smoking, [place], Work and other) Need Betadine to paint incision Medication reconciliation Importance of follow up care/ check on appointments Make calendar record temperature daily When to call [facility] nurse, review instructions, phone list Incentive Spirometry, demonstration Visit 1- Begin discharge instruction for patient family and/ or caregiver using teach back method- Signs and symptoms of infection Disease characteristics Medicines and side effects Foods and nutrition/ appetite Infection control/ hand washing/ hygiene Visit 2- Continue teaching Discharge instructions- include additional information on smoking cessation , sternal dressing (sternal vac) Visit 3- Continue teaching- Cough and deep breathing, incision monitoring. Choose my plate Visit 4- Continue teaching- Discuss limitations Discuss how they are feeling Discuss progress toward goals Remaining visits- continue teaching and monitoring For any questions please call : Friday 8am-5pm Heart & Vascular Surgery Office ( Dr. Kruger & Dr. Horn), After Hours / Nights (5pm -8am) Weekends and Holidays Please call [facility] Card[facility] ([facility]) Charge Nurse PREVENA Single Use Negative Wound Therapy System Caregiver Instruction Sheet 1. A Prevena dressing system was applied to the chest incision during surgery , to promote wound healing. It works via a suction device (negative pressure wound therapy) to remove low to moderate levels of exudate (drainage) and infectious materials. We recommend that the device stay in place for up to seven days, from day of surgery. 2. Day of Surgery___/ Day of Removal ____/ 3. The dressing should only be removed by a health care analyst. Please arrange removal of device to coincide with Home Health visit and or with Nursing staff at Rehab 4. If skin reddening or irritation of skin occurs, or excessive drainage, please notify the Cardiovascular Surgeons office at [phone]. 5. Light showering is permissible; however the pump should be disconnected and placed in safe location, where it will not get wet. The dressing should not be exposed to direct spray or submerged in water. No bath tub / shower only. Ensure the end of the tubing attached to the dressing is facing down so that water does not enter the top of the tube. 6. To remove Prevena dressing: press purple button to turn off device / remove the suction. Then disconnect the tubing from the pump. The fixation strips should be stretched away from the skin and the dressing lifted at one corner and peeled back until it has been fully removed. 7. After removal, it is ok to shower daily using liquid dial soap and clean wash cloth, rinse and pat dry, and leave incision open to air dry. For any concerns regarding Prevena dressing, and or wounds, please contact Laura Turner, patient navigator at [phone] or notify the Cardiovascular Surgeons office at [phone]. Incentive spirometry Q1 hr x 10, while awake, also use acapella device hourly whole awake Sternal Breast Bone Precautions: NO pushing or pulling, ( pt must use sternal pillow to support chest with all activities and with coughing ( takes up to 3 months breast bone to heal ) Daily incision care: ok to shower daily, no tub bath. Wash all incisions with liquid dial soap, clean wash cloth to each site, rinse and pat dry. Observe for any signs of infection, such as drainage which is dark yellow, holt, green or foul smelling. Immediately report to the surgeon any drainage from the chest incision, or legs, and for any abnormal drainage from the chest tube sites. Notify surgeon if any temp >101.5 degrees F. When specialty dressing removed/ or if you do not have one, continue to shower daily as above, then rinse and pat incision dry and paint with betadine daily x 5 days. Allow steri strips to fall off if you have any. Avoid lotions, creams, salves, oils, etc. for the first month Please see attached forms for additional instructions regarding post Open Heart specialty wound vacuum dressings. LUCIEN or Prevena , Dressing to be removed by Nursing staff on ___8/21/18____ For Dr. Horn patients , please obtain CBC, BMP, PA & Lat CXR in 2 weeks, results to Dr. Horn ( prescription will be given) ( ) (Tele: [phone]) , F/U appointment: as per DC instructions: PCP in 2 weeks, CV surgeon 2 weeks, Healthcare Corporate Account Director 3-4 weeks For any questions regarding incisions/ dressing / meds / post op care or above Symptoms, Friday 8am-5pm Heart & Vascular Surgery Office ( Dr. Kruger & Dr. Horn), After Hours / Nights (5pm -8am) Weekends and Holidays Please call [facility] ([facility]) Charge Nurse - Certification I have seen patient Wyatt Andrews on 03/24/18. My clinical findings support the need for the requested home health care services because: Deconditioned with increased weakness I certify that my clinical findings support that this patient is homebound because: Post-op weakness
[2018-03-24] MEDS: fentaNYL Citrate Inj 100 MCG/2 ML Ampul IV.PUSH PRN ×3 (15:36→19:57)
[2018-03-24] MEDS ORDERED: Vancomycin Inj 1,000 MG in Sodium Chlor 0.9% Inj 250 ML IV.SIG SCH (16:00)
[2018-03-24] MEDS: Amiodarone 200 MG Tablet PO SCH (21:24)
[2018-03-25] MEDS: Oral Hygiene Kit OROPHARYNG SCH ×2 (00:33→05:17)
[2018-03-25] MEDS: Dexmedetomidine Inj 200 MCG in Sodium Chlor 0.9% Inj 48 ML IV.CONT PRN ×4 (01:42→07:17)
[2018-03-25 04:33] LABS: Hematocrit 32.3 % (39.0-51.0); Hemoglobin 10.5 gm/dL (13.0-17.0); Mean Corpuscular HGB Conc 32.6 % (32.0-36.0); Mean Corpuscular Volume 92.1 fL (80.0-100.0); Mean Platelet Volume 7.9 fL (7.0-11.0); Platelet Count 126 th/mm3 (150-450); Red Blood Count 3.51 mil/mm3 (4.50-5.90); Red Cell Distribution Width 14.6 % (11.6-17.2); White Blood Count 14.2 th/mm3 (4.0-11.0)
[2018-03-25 04:57] LABS: Calcium 8.2 mg/dL (8.5-10.1); Carbon Dioxide 26.8 meq/L (21.0-32.0); Magnesium 3.3 mg/dL (1.5-2.5); Potassium 4.6 meq/L (3.5-5.1)
[2018-03-25] MEDS: Chlorhexidine Gluconate 2% 1 Pack (2 Cloths) TOPICAL SCH (05:17)
--- NOTE | 2018-03-25 05:27 | XR ---
EXAM DATE: 03/25/2018 5:22 AM EDT AGE/SEX: 77 years / Male INDICATIONS: Post CABG. CLINICAL DATA: This is the patient's subsequent encounter. Patient reports that signs and symptoms h ave been present for 2 days and indicates a pain score of Nonresponsive. MEDICAL/SURGICAL HISTORY: . Hypertension. renal disease, diabetes. None. [place] [facility] [place]. . FINDINGS: A single AP view of the chest demonstrates minimal right basilar density. Status post CABG. Left-side d chest tube without pneumothorax. Intra-arterial balloon pump noted and stable position. The cardiom ediastinal contours are unremarkable. Osseous structures are intact. Calcified pleural plaques. CONCLUSION: Lungs are better aerated with minimal right basilar density. Electronically signed by: Marcus Broussard MD 03/25/2018 5:26 AM EDT
[2018-03-25] MEDS: levETIRAcetam 500 MG Tablet PO SCH ×2 (05:38→17:14)
--- NOTE | 2018-03-25 08:40 | ECG ---
Date Performed: 03/25/2018 Time Performed: 03:51:50 PTAGE: 77 years EKG: Sinus arrhythmia Left bundle branch block pattern Abnormal ECG PREVIOUS TRACING : 03/21/2018 05.44 No significant change from previous tracing noted. DOCTOR: Carlos Enrique Michelle Interpretating Date/Time 03/25/2018 08:38:47
[2018-03-25] MEDS: Senna/Docusate Sodium 8.6/50 MG Tablet PO SCH ×2 (08:57→20:09)
[2018-03-25] MEDS: Fenofibrate 48 MG Tablet PO SCH (08:57)
[2018-03-25] MEDS: Amiodarone 200 MG Tablet PO SCH ×2 (08:57→20:08)
[2018-03-25] MEDS: Chlorhexidine 0.12% Oral Kit 15 ML UDC OROPHARYNG SCH (08:58)
[2018-03-25] MEDS: Mupirocin 2% Nasal Oint Topical Syringe EACH NARE SCH (08:58)
[2018-03-25] MEDS: Hypromellose 0.3% Opth Gel 10 GM Bottle EACH EYE SCH ×2 (09:03→22:26)
--- NOTE | 2018-03-25 12:16 | P.PNNP ---
Subjective Interval history: S/P CABG x 4 yesterday. He is extubated, awake. Balloon pump removed. Off all gtts except for Precedex. Creatinine is higher, he is making urine. No acute complaints. <Kavita Beauchamp - Last Filed: 03/25/18 12:12> Physical Exam Vital signs: Vital Signs 03/24/18 12:30 03/24/18 13:00 03/24/18 14:26 Temperature 96.8 F L Pulse Rate 71 Respiratory Rate 18 17 16 Blood Pressure 139/40 L Pulse Oximetry 92 L 03/24/18 15:00 03/24/18 15:25 03/24/18 15:30 Temperature 96.1 F L Pulse Rate 69 Respiratory Rate 15 Blood Pressure 145/37 H Pulse Oximetry 99 95 95 03/24/18 15:31 03/24/18 15:45 03/24/18 16:28 Temperature 96.1 F L Pulse Rate 76 Respiratory Rate 20 Blood Pressure Pulse Oximetry 97 03/24/18 19:00 03/24/18 19:34 03/24/18 21:25 Temperature 96.5 F L 97.1 F L Pulse Rate 80 88 Respiratory Rate 18 18 18 Blood Pressure 136/48 L Pulse Oximetry 98 03/24/18 23:00 03/25/18 03:00 03/25/18 08:03 Temperature 96.9 F L 97.1 F L Pulse Rate 85 80 Respiratory Rate 20 20 Blood Pressure 143/42 H 108/62 Pulse Oximetry 98 98 94 L Intake & Output 03/24/18 03/25/18 03/25/18 18:59 06:59 18:59 Intake Total 5930 / 5930 480 / 480 100 / 100 Output Total 3970 / 3970 1360 / 1360 Balance 1960 / 1960 -880 / -880 100 / 100 Weight 103 kg Intake: IV 1712 / 1712 480 / 480 100 / 100 DOBUTamine 250 MG/250 ML Premx 83 / 83 250 mg In 250 ml @ 2 MCG/KG/MIN 11.82 mls/hr IV.CONT .[id number] [facility] Rx#:[id number] Precedex Inj 200 MCG In NS Inj 40 / 40 280 / 280 48 ML @ 0.2 MCG/KG/HR 4.95 mls/ hr IV.CONT TITRATE PRN Rx#: [id number] NovoLIN R (IV Infusion) 100 27 / 27 UNIT In NS Inj 99 ML @ 3 UNITS/ HR 3 mls/hr IV.CONT TITRATE PRN Rx#:[id number] NovoLIN R (IV Infusion) 100 0 / 0 UNIT In NS Inj 99 ML @ 3 UNITS/ HR 3 mls/hr IV.CONT TITRATE PRN Rx#:[id number] Ofirmev Inj 1,000 mg In 100 ml 200 / 200 100 / 100 100 / 100 @ 400 mls/hr IV.SIG Q6H [facility] Rx# :[id number] Calcium Chloride Inj 1 GM In NS 110 / 110 Inj 100 ML @ 100 mls/hr IV.SIG PRN PRN Rx#:[id number] LR 1000 mL Inj 500 ML @ 500 mls 500 / 500 /hr IV.SIG .Q1H PRN Rx#: [id number] KCl 20 mEq Premix Inj 20 meq In 100 / 100 100 ml @ 50 mls/hr IV.SIG PRN PRN Rx#:[id number] Ancef 2 GM Premix Inj 2 gm In 50 / 50 50 ml @ 0 mls/hr IV.SIG .STK- MED [facility] Rx#:[id number] Ancef Inj 1,000 MG In NS Inj 100 / 100 100 / 100 100 ML @ 200 mls/hr IV.SIG Q8H [facility] Rx#:[id number] Oral 240 / 240 Anesthesia Amount 2900 / 2900 Other 500 / 500 Cell Saver Amount 578 / 578 Output: Estimated Blood Loss 1200 / 1200 Urine Amount (Catheter) 2640 / 2640 1360 / 1360 Indwelling Temp Sensing 2640 / 2640 1360 / 1360 Catheter Chest Tube Drainage 130 / 130 #2 Pleural/Mediastinal Y 130 / 130 Connected Other: Other Intake Source Saline Solution - Constitutional no acute distress, cooperative - Routine HEENT Exam Head: Present: normocephalic - Routine Neck Exam Present: supple, full ROM - Routine Respiratory Exam Present: decreased breath sounds, CTA bilaterally, diminished air movement. Absent: accessory muscle use - Routine Cardiovascular Exam Present: RRR, S1, S2 Comments: midsternal wound vac - Routine Abdominal Exam Present: soft, normoactive bowel sounds - Routine Extremities Exam Present: edema, full ROM, pulses intact, normal capillary refill - Routine Skin Exam Present: dry, warm Comments: Left leg wrapped s/p vein harvesting - Routine Neurological Exam Present: oriented X3, CN II-XII intact, moving all extremities, normal speech - Detailed Neurological Exam: Coma Scale Eye Opening: To sound Verbal Response: Oriented Motor Response: Obey commands Daniela Coma Scale Total: 14 - Routine Psychiatric Exam Present: normal affect, normal thought process - Urinary Catheter Management Coude Cath placed during this visit: yes Urethral indwelling: Yes Reason for continuing: Not indwelling catheter Insertion date: 03/20/18 Insertion time: 21:30 Indwelling Urethral Catheter Cath placed during this visit: yes, but has since been removed by the nurse Reason for continuing: Decision to DC catheter Removal date: 03/24/18 Removal time: 07:25 Indwelling Temp Sensing Catheter Cath placed during this visit: yes Reason for continuing: Hourly intake/output Insertion date: 03/24/18 Insertion time: 07:30 <Kavita Beauchamp - Last Filed: 03/25/18 12:12> Vital signs: Vital Signs 03/25/18 08:03 03/25/18 11:00 03/25/18 15:00 Temperature 98.5 F 98.4 F Pulse Rate 82 91 H Respiratory Rate 16 18 Blood Pressure 103/64 117/67 Pulse Oximetry 94 L 96 97 03/25/18 16:33 03/25/18 20:00 03/25/18 21:41 Temperature 98.2 F Pulse Rate 116 H 102 H 96 H Respiratory Rate 18 18 22 Blood Pressure 113/72 Pulse Oximetry 99 95 03/26/18 00:00 03/26/18 04:00 Temperature 98.2 F 98.3 F Pulse Rate 98 H 90 Respiratory Rate 18 20 Blood Pressure 130/66 142/71 H Pulse Oximetry 91 L 97 Intake & Output 03/25/18 03/26/18 03/26/18 18:59 06:59 18:59 Intake Total 720 / 720 460 / 460 100 / 100 Output Total 735 / 735 650 / 650 Balance -15 / -15 -190 / -190 100 / 100 Intake: IV 240 / 240 100 / 100 100 / 100 Precedex Inj 200 MCG In NS Inj 40 / 40 48 ML @ 0.2 MCG/KG/HR 4.95 mls/ hr IV.CONT TITRATE PRN Rx#: [id number] Ofirmev Inj 1,000 mg In 100 ml 100 / 100 @ 400 mls/hr IV.SIG Q6H [facility] Rx# :[id number] Ancef Inj 1,000 MG In NS Inj 100 / 100 100 / 100 100 / 100 100 ML @ 200 mls/hr IV.SIG Q8H [facility] Rx#:[id number] Oral 480 / 480 360 / 360 Output: Urine Amount (Catheter) 535 / 535 600 / 600 Indwelling Temp Sensing 535 / 535 600 / 600 Catheter Chest Tube Drainage 200 / 200 50 / 50 #2 Pleural/Mediastinal Y 200 / 200 50 / 50 Connected Other: Date of Last Bowel Movement 03/25/18 03/25/18 # Bowel Movements 1 0 - Urinary Catheter Management Coude Cath placed during this visit: no Indwelling Urethral Catheter Cath placed during this visit: no Indwelling Temp Sensing Catheter Cath placed during this visit: no <Joaquin Veronica - Last Filed: 03/26/18 07:39> Assessment and Plan - Assessment (1) Acute worsening of stage 4 chronic kidney disease Code(s): N28.9 - Disorder of kidney and ureter, unspecified; N18.4 - Chronic kidney disease, stage 4 (severe) Status: Acute Plan: 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 Follows with Dr Herrera in [facility]. Exact baseline is unknown. ROMINA secondary to NSTEMI and cardiogenic shock, resulting in renal hypoperfusion. Imaging shows severe hydronephrosis of the right kidney. Reason is unclear. Still awaiting non contrast CT of the abdomen/pelvis. May need urology evaluation depending on results. This is most likely not acute. Currently non oliguric. Renal function is slightly worse. Obtain daily labs, monitor renal indices. Avoid nephrotoxic agents. He has 3 grams proteinuria. Ramipril should be resumed at discharge. Off IVF , PO fluids encouraged. (2) NSTEMI (non-ST elevated myocardial infarction) Code(s): I21.4 - Non-ST elevation (NSTEMI) myocardial infarction Status: Acute Plan: s/p cath showing multivessel disease. s/p CABGx 4 on 03/24. CV surgery managing. (3) Cardiogenic shock Code(s): R57.0 - Cardiogenic shock Status: Acute Plan: Off IABP Improved hemodynamics. (4) Hyperosmolality and hypernatremia Code(s): E87.0 - Hyperosmolality and hypernatremia Status: Acute Plan: Improved Encourage oral fluids now that he is extubated. (5) Lactic acidosis Code(s): E87.2 - Acidosis Status: Acute Plan: due to renal hypoperfusion after NSTEMI. Monitor. Improved <Kavita Beauchamp - Last Filed: 03/25/18 12:12> - Assessment (1) Acute worsening of stage 4 chronic kidney disease Code(s): N28.9 - Disorder of kidney and ureter, unspecified; N18.4 - Chronic kidney disease, stage 4 (severe) Status: Acute (2) NSTEMI (non-ST elevated myocardial infarction) Code(s): I21.4 - Non-ST elevation (NSTEMI) myocardial infarction Status: Acute (3) Cardiogenic shock Code(s): R57.0 - Cardiogenic shock Status: Acute (4) Hyperosmolality and hypernatremia Code(s): E87.0 - Hyperosmolality and hypernatremia Status: Acute (5) Lactic acidosis Code(s): E87.2 - Acidosis Status: Acute - Attending Attestation patient was seen and examined. Agree with above assessment and plan. Overall stable renal function after surgery. Non oliguric. Reduce IVF, monitor renal function. Avoid nephrotoxic agents. <Joaquin Veronica - Last Filed: 03/26/18 07:39>
--- NOTE | 2018-03-25 13:48 | P.PNCV ---
- Note Subjective/Hospital Course: 77-year-old male pt of Dr. Michelle presented via [facility] to [facility] Emergency Room for shortness of breath. Apparently, he called his daughter a little after 8 p.m., said that he thought he was having a heart attack. He was significantly short of breath. His daughter said that he had slurred speech on the phone. [facility] arrived and he was still on the phone with his daughter and at that time he was telling her that he felt like he was having a heart attack and he was extremely diaphoretic. He was saturating in the 60s and so they intubated him. He was then transferred to the [facility] hospital . EKG was done and showed ne left bundle branch block. Lab work shows a lactic acid of 4.2 and a troponin of 3.48. PAST MEDICAL HISTORY: Asbestosis, Hypertension, Hyperlipidemia, Diabetes mellitus, seizure disorder s/p heart cath : . Acute pulmonary edema, Acute decompensated heart failure ( class IV), Acute respiratory failure requiring mechanical ventilation, Non- ST-elevation myocardial infarction, Multivessel disease, Embde-oe-hnsfypr kidney disease, Lactic acidosis due to decreased tissue perfusion. EF 20-25% cath : left main 50%, LAD 50%/mid LAD 90%. Diagonal 70%. Circumflex 70%. OM 90%. RCA 70% patient had anterior balloon pump placed one-to-one in the right femoral region. 03/23 pt on nasal cannula, IABP 1:1 lower ext US noted : thrombus is noted in the right distal calf within the greater saphenous vein.. 03/24 surgery CABG x 4 VERDUGO to LAD - good, SVG to PDA - good, SVG to OM1 - good, SVG to D1 - fair, L EVH extubated after surgery, had some confusion last pm IABP dc without difficulty , hemostasis obtained , + distal pulses, no hematoma start plavix when chest tube out start resume RICK when BP tolerates per Nephro recommendation eval for transfer to stepdown later today Objective: Vital Signs - 24 hr 03/24/18 14:26 03/24/18 15:00 03/24/18 15:25 Temperature 96.1 F L Pulse Rate 69 Respiratory Rate 16 15 Blood Pressure 145/37 H Pulse Oximetry 99 95 03/24/18 15:30 03/24/18 15:31 08/14/18 15:45 Temperature Pulse Rate 76 Respiratory Rate 20 Blood Pressure Pulse Oximetry 95 97 03/24/18 16:28 03/24/18 19:00 03/24/18 19:34 Temperature 96.1 F L 96.5 F L Pulse Rate 80 88 Respiratory Rate 18 18 Blood Pressure 136/48 L Pulse Oximetry 98 03/24/18 21:25 03/24/18 23:00 03/25/18 03:00 Temperature 97.1 F L 96.9 F L 97.1 F L Pulse Rate 85 80 Respiratory Rate 18 20 20 Blood Pressure 143/42 H 108/62 Pulse Oximetry 98 98 03/25/18 08:03 Temperature Pulse Rate Respiratory Rate Blood Pressure Pulse Oximetry 94 L GENERAL: A&O x 3 SKIN: Warm and dry. prevena dressing intact to chest , rick wrap left leg HEAD: Normocephalic. EYES: No scleral icterus. No injection or drainage. NECK: Supple, trachea midline. No JVD or lymphadenopathy. CARDIOVASCULAR: Regular rate and rhythm without murmurs, gallops, or rubs. RESPIRATORY: Breath sounds equal bilaterally. No accessory muscle use. diminished in bases, chest tube to wall suction, no air leak GASTROINTESTINAL: Abdomen soft, non-tender, nondistended. MUSCULOSKELETAL: No cyanosis, or edema. BACK: Nontender without obvious deformity. No CVA tenderness. Labs: Laboratory Results - last 12 hr 03/22/18 03/25/18 03/25/18 13:23 01:41 02:21 WBC RBC Hgb Hct MCV MCH MCHC RDW Plt Count MPV Sodium Potassium Chloride Carbon Dioxide Anion Gap BUN Creatinine Estimated GFR POC Glucose 100 102 Random Glucose Calcium Magnesium MTS Gel Crossmatch See Detail 03/25/18 03/25/18 03/25/18 03:04 04:09 04:10 WBC 14.2 H D RBC 3.51 L Hgb 10.5 L Hct 32.3 L MCV 92.1 MCH 30.0 MCHC 32.6 RDW 14.6 Plt Count 126 L MPV 7.9 Sodium Potassium Chloride Carbon Dioxide Anion Gap BUN Creatinine Estimated GFR POC Glucose 113 H 103 Random Glucose Calcium Magnesium MTS Gel Crossmatch 03/25/18 03/25/18 03/25/18 04:10 06:00 10:07 WBC RBC Hgb Hct MCV MCH MCHC RDW Plt Count MPV Sodium 144 Potassium 4.6 Chloride 109 H Carbon Dioxide 26.8 Anion Gap 8 BUN 50 H Creatinine 2.77 H Estimated GFR 22 L POC Glucose 107 128 H Random Glucose 100 Calcium 8.2 L Magnesium 3.3 H MTS Gel Crossmatch Result Diagrams: 03/25/18 04:10 03/25/18 04:10 EKG: NSR Telemetry: NSR - Plan (1) S/P CABG x 3 Plan: ASA, statin , start BB when BP allows start low dose RCIK when BP allows (2) NSTEMI (non-ST elevated myocardial infarction) Plan: on ASA, Heparin for possible surgery in am (3) Stage 4 chronic kidney disease Plan: indices worsening non-oliguric/ Nephro following (5) Cardiogenic shock Plan: IABP removed, no pressors
[2018-03-25] MEDS ORDERED: Bisacodyl 10 MG Supp RECTAL PRN (13:49)
[2018-03-25] MEDS ORDERED: Sod Phosphate/Sod Biphosphate (Adult) Enema 133 ML Bottle RECTAL PRN (13:49)
[2018-03-25] MEDS ORDERED: Dextrose 50% in Water 50 ML Vial IV.PUSH PRN (13:49)
[2018-03-25] MEDS ORDERED: Insulin NovoLOG Aspart Correctional Sugar Inj SQ SCH (14:00)
--- NOTE | 2018-03-25 16:09 | P.DIET ---
Nutritional Evaluation Screening comments: MDC for diet education s/p CABG x 4 on 04/03 received. Patient Navigator to provide education. Consult RD if complexities with diet education arise.
[2018-03-25 17:00] LABS: Bacteria,Urine Many /hpf; Bilirubin,Urine Negative (Negative); Clarity,Urine Turbid (Clear); Color,Urine Yellow (Yellw/Straw); Glucose,Urine (UA) 50 mg/dL (Negative); Leukocyte Esterase,Urine Large (Negative); Mucus,Urine Few /lpf (Occasional); Nitrite,Urine Negative (Negative); Specific Gravity,Urine 1.019 (1.002-1.035)
[2018-03-25] MEDS: Insulin NovoLOG Aspart Correctional Sugar Inj SQ SCH ×2 (18:47→22:24)
[2018-03-25] MEDS: Docusate Sodium 100 MG Capsule PO SCH (20:08)
--- NOTE | 2018-03-25 20:55 | P.PNCA ---
Subjective Interval history: CABGx4, extubated Doing well overall, hemodynamically stable Physical Exam Vital signs: Vital Signs 03/24/18 21:25 03/24/18 23:00 03/25/18 03:00 Temperature 97.1 F L 96.9 F L 97.1 F L Pulse Rate 85 80 Respiratory Rate 18 20 20 Blood Pressure 143/42 H 108/62 Pulse Oximetry 98 98 03/25/18 07:00 03/25/18 08:03 03/25/18 11:00 Temperature 98.7 F 98.5 F Pulse Rate 76 82 Respiratory Rate 16 16 Blood Pressure 120/57 L 103/64 Pulse Oximetry 93 L 94 L 96 03/25/18 15:00 03/25/18 16:33 Temperature 98.4 F Pulse Rate 91 H 116 H Respiratory Rate 18 18 Blood Pressure 117/67 Pulse Oximetry 97 Intake & Output 03/25/18 03/25/18 03/26/18 06:59 18:59 06:59 Intake Total 480 / 480 720 / 720 100 / 100 Output Total 1360 / 1360 735 / 735 Balance -880 / -880 -15 / -15 100 / 100 Weight 103 kg Intake: IV 480 / 480 240 / 240 100 / 100 Precedex Inj 200 MCG In NS Inj 280 / 280 40 / 40 48 ML @ 0.2 MCG/KG/HR 4.95 mls/ hr IV.CONT TITRATE PRN Rx#: [id number] Ofirmev Inj 1,000 mg In 100 ml 100 / 100 100 / 100 @ 400 mls/hr IV.SIG Q6H [facility] Rx# :[id number] Ancef Inj 1,000 MG In NS Inj 100 / 100 100 / 100 100 / 100 100 ML @ 200 mls/hr IV.SIG Q8H [facility] Rx#:[id number] Oral 480 / 480 Output: Urine Amount (Catheter) 1360 / 1360 535 / 535 Indwelling Temp Sensing 1360 / 1360 535 / 535 Catheter Chest Tube Drainage 200 / 200 #2 Pleural/Mediastinal Y 200 / 200 Connected Other: Date of Last Bowel Movement 03/25/18 # Bowel Movements 1 Narrative: GENERAL: NAD, AAOx3 SKIN: Warm and dry. HEAD: Atraumatic. Normocephalic. EYES: Pupils equal and round. No scleral icterus. No injection or drainage. ENT: No nasal bleeding or discharge. Mucous membranes pink and moist. ET tube in place NECK: Trachea midline. No JVD. CARDIOVASCULAR: Regular rate and rhythm. RESPIRATORY: No accessory muscle use. Decreased breath sounds bilaterally GASTROINTESTINAL: Abdomen soft, non-tender, nondistended. Hepatic and splenic margins not palpable. MUSCULOSKELETAL: Extremities without clubbing, cyanosis, or edema. No obvious deformities. IABP removed, no hematoma noted NEUROLOGICAL: No focal deficits - Urinary Catheter Management Coude Cath placed during this visit: yes Urethral indwelling: Yes Reason for continuing: Not indwelling catheter Insertion date: 03/20/18 Insertion time: 21:30 Indwelling Urethral Catheter Cath placed during this visit: yes, but has since been removed by the nurse Reason for continuing: Decision to DC catheter Removal date: 03/24/18 Removal time: 07:25 Indwelling Temp Sensing Catheter Cath placed during this visit: yes Reason for continuing: Hourly intake/output Insertion date: 03/24/18 Insertion time: 07:30 Assessment and Plan - Assessment (1) Multi-vessel coronary artery stenosis Code(s): I25.10 - Atherosclerotic heart disease of [place] coronary artery without angina pectoris Status: Acute (2) Lactic acidosis Code(s): E87.2 - Acidosis Status: Acute (3) Acute respiratory failure with hypoxia Code(s): J96.01 - Acute respiratory failure with hypoxia Status: Acute (4) NSTEMI (non-ST elevated myocardial infarction) Code(s): I21.4 - Non-ST elevation (NSTEMI) myocardial infarction Status: Acute (5) Cardiogenic shock Code(s): R57.0 - Cardiogenic shock Status: Acute (6) CAD (coronary artery disease) Code(s): I25.10 - Atherosclerotic heart disease of [place] coronary artery without angina pectoris Status: Acute (7) Stage 4 chronic kidney disease Code(s): N18.4 - Chronic kidney disease, stage 4 (severe) Status: Acute - Plan 1) MVCAD/NSTEMI CABGx4 POD #1 VERDUGO to LAD SVG to D1 SVG to OM1 SVG to PDA EF 25% 2) Cardiogenic shock/pulmonary edema on admission Resolved 3) ROMINA on CKD Evaluated by Nephrology 4) Con't current meds
[2018-03-26] MEDS: Insulin NovoLOG Aspart Correctional Sugar Inj SQ SCH ×6 (02:18→20:20)
[2018-03-26 04:50] LABS: Baso % (Auto) 0.2 % (0.0-2.0); Eos % (Auto) 0.1 % (0.0-4.0); Hematocrit 30.6 % (39.0-51.0); Hemoglobin 10.2 gm/dL (13.0-17.0); Lymph # (Auto) 0.9 th/mm3 (1.0-4.8); Lymph % (Auto) 5.8 % (9.0-44.0); Mean Corpuscular HGB Conc 33.5 % (32.0-36.0); Mean Corpuscular Hemoglobin 30.5 pg (27.0-34.0); Mean Platelet Volume 7.7 fL (7.0-11.0); Mono # (Auto) 2.2 th/mm3 (0.0-0.9); Mono % (Auto) 14.3 % (0.0-8.0); Neut # (Auto) 12.3 th/mm3 (1.8-7.7); Neut % (Auto) 79.6 % (16.0-70.0); Platelet Count 175 th/mm3 (150-450); Red Blood Count 3.36 mil/mm3 (4.50-5.90); Red Cell Distribution Width 14.3 % (11.6-17.2); White Blood Count 15.4 th/mm3 (4.0-11.0)
[2018-03-26] MEDS: levETIRAcetam 500 MG Tablet PO SCH ×2 (05:10→16:23)
[2018-03-26 05:42] LABS: Calcium 8.4 mg/dL (8.5-10.1); Carbon Dioxide 23.7 meq/L (21.0-32.0); Magnesium 3.1 mg/dL (1.5-2.5); Potassium 4.3 meq/L (3.5-5.1)
[2018-03-26 07:44] LABS: Lymphocytes 6 % (9-44); Monocytes 13 % (0-8)
[2018-03-26 07:45] LABS: Platelet Estimate Normal (Normal); Platelet Morphology Clumped (Normal)
[2018-03-26] MEDS: Amiodarone 200 MG Tablet PO SCH ×2 (09:06→20:20)
[2018-03-26] MEDS: Fenofibrate 48 MG Tablet PO SCH (09:07)
[2018-03-26] MEDS: Docusate Sodium 100 MG Capsule PO SCH ×2 (09:07→20:19)
[2018-03-26] MEDS: Senna/Docusate Sodium 8.6/50 MG Tablet PO SCH ×2 (09:07→20:20)
[2018-03-26] MEDS: Multivitamin/Minerals Therapeutic Tablet PO SCH (09:07)
[2018-03-26] MEDS: Polyethylene Glycol 3350 17 GM Packet PO SCH (09:08)
[2018-03-26] MEDS: Metoprolol Tartrate 25 MG Tablet PO SCH ×2 (09:30→20:20)
[2018-03-26] MEDS: Hypromellose 0.3% Opth Gel 10 GM Bottle EACH EYE SCH (10:49)
--- NOTE | 2018-03-26 11:29 | CT ---
EXAM DATE: 03/26/2018 11:14 AM EDT AGE/SEX: 77 years / Male INDICATIONS: Renal failure CLINICAL DATA: This is the patient's initial encounter. Patient reports that signs and symptoms have been present for 1 day and indicates a pain score of 4/10. MEDICAL/SURGICAL HISTORY: Cardiovascular disease. Kidney disease CABG. RADIATION DOSE: 11.49 CTDI (mGy) COMPARISON: No prior exams available for comparison. TECHNIQUE: Multiple contiguous axial images were obtained through the abdomen. Images were obtained using multiple row detector helical technique. Using automated exposure control and adjustment of the mA and/or kV according to patient size, radiation dose was kept as low as reasonably achievable to o btain optimal diagnostic quality images. DICOM format image data is available electronically for rev iew and comparison. FINDINGS: Lower chest: There are small bilateral pleural effusions, right larger than left with associated comp ressive atelectasis. Coronary artery calcification is present. There is a pleural thickening with saul cification bilaterally. Air is present within the inferior aspect of the anterior mediastinum. Hepatobiliary: No focal liver lesion is identified. Hepatic vasculature demonstrates no abnormality. There are multiple calcified stones in the gallbladder. No wall thickening or pericholecystic fluid i s present. Kidneys: Both kidneys have a lobulated contour in the right kidney demonstrates cortical thinning. At the lower pole the left kidney there is a 4.6 cm low-density lesion that has density measurements co nsist with a simple cyst. There are multiple cystic lesions versus hydronephrosis and dilated calyces in the right kidney. I believe they are dilated calyces some of which contain dependent layering sto suzanne. Parenchymal calcifications are also present. There is no hydroureter. Adrenal Glands: Within normal limits. Spleen: Within normal limits. Pancreas: Within normal limits. Vascular: The aorta is nonaneurysmal. There is severe atherosclerotic disease. Bowel/Mesentery: The stomach and small bowel demonstrate no abnormality. No acute colon abnormality i s seen. There is no free intraperitoneal air or fluid. There is sigmoid diverticulosis. Abdominal Wall: There is a small fat-containing umbilical hernia. Small amount of subcutaneous air is present on the anterior abdominal wall of the upper abdomen. Retroperitoneum: No lymphadenopathy. Bladder: No wall thickening or mass. There is air within the urinary bladder lumen. Reproductive: Within normal limits. Inguinal: There is a fat-containing left inguinal hernia. No lymphadenopathy is present. Inflammator y changes are present in the subcutaneous fat of the right inguinal region, likely related to prior l ine placement. Musculoskeletal: No acute osseous abnormality is identified. There are degenerative changes of the hank mbar spine. Patient is post median sternotomy. CONCLUSION: 1. Right kidney is abnormal demonstrating severe cortical thinning and presumed dilated calyces cont aining multiple small stones. The renal pelvis is not dilated so this is from uncertain etiology but an obstructing process is not seen. Given the severe cortical thinning this is likely a chronic proce ss. The left kidney also demonstrates lobulated contour with mild cortical thinning. 2. There is a small amount of air in the anterior inferior mediastinum presumably related to recent surgery but suggest correlating clinically with the history. 3. There is air within the urinary bladder. This presumably is related to recent catheterization but suggest correlating with the clinical history. 4. Small bilateral pleural effusions, right larger than left, with associated compressive atelectasi s in the lower lobes. 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 5. Nonacute findings include cholelithiasis, severe atherosclerotic disease, and coronary artery saul cification. Electronically signed by: Wyatt Ayala MD 03/26/2018 11:27 AM EDT
--- NOTE | 2018-03-26 13:50 | P.PNCV ---
- Note Subjective/Hospital Course: 77-year-old male pt of Dr. Michelle presented via [facility] to [facility] Emergency Room for shortness of breath. Apparently, he called his daughter a little after 8 p.m., said that he thought he was having a heart attack. He was significantly short of breath. His daughter said that he had slurred speech on the phone. [facility] arrived and he was still on the phone with his daughter and at that time he was telling her that he felt like he was having a heart attack and he was extremely diaphoretic. He was saturating in the 60s and so they intubated him. He was then transferred to the [facility] . EKG was done and showed ne left bundle branch block. Lab work shows a lactic acid of 4.2 and a troponin of 3.48. PAST MEDICAL HISTORY: Asbestosis, Hypertension, Hyperlipidemia, Diabetes mellitus, seizure disorder s/p heart cath : . Acute pulmonary edema, Acute decompensated heart failure ( class IV), Acute respiratory failure requiring mechanical ventilation, Non- ST-elevation myocardial infarction, Multivessel disease, [id number] kidney disease, Lactic acidosis due to decreased tissue perfusion. EF 20-25% cath : left main 50%, LAD 50%/mid LAD 90%. Diagonal 70%. Circumflex 70%. OM 90%. RCA 70% patient had anterior balloon pump placed one-to-one in the right femoral region. 03/23 pt on nasal cannula, IABP 1:1 lower ext US noted : thrombus is noted in the right distal calf within the greater saphenous vein.. 03/24 surgery CABG x 4 VERDUGO to LAD - good, SVG to PDA - good, SVG to OM1 - good, SVG to D1 - fair, L EVH extubated after surgery, had some confusion last pm 03/25 POD 1 IABP dc without difficulty , hemostasis obtained , + distal pulses, no hematoma start plavix when chest tube out start resume RICK when BP tolerates per Nephro recommendation eval for transfer to stepdown later today 03/26 POD 2 wean 02 as tolerated UA obtained / + UTI placed on Rocephin worsening renal indices / nephro following start plavix transfer to stepdown Objective: Vital Signs - 24 hr 03/25/18 15:00 03/25/18 16:33 03/25/18 20:00 Temperature 98.4 F 98.2 F Pulse Rate 91 H 116 H 102 H Respiratory Rate 18 18 18 Blood Pressure 117/67 113/72 Pulse Oximetry 97 99 03/25/18 21:41 03/26/18 00:00 03/26/18 04:00 Temperature 98.2 F 98.3 F Pulse Rate 96 H 98 H 90 Respiratory Rate 22 18 20 Blood Pressure 130/66 142/71 H Pulse Oximetry 95 91 L 97 03/26/18 07:00 03/26/18 08:10 03/26/18 11:00 Temperature 98.4 F 98.8 F Pulse Rate 97 H 103 H 76 Respiratory Rate 18 18 18 Blood Pressure 127/69 102/57 L Pulse Oximetry 97 97 99 GENERAL: A&O x 3 , less confused SKIN: Warm and dry. prevena dressing to chest, incision intact to left leg HEAD: Normocephalic. EYES: No scleral icterus. No injection or drainage. NECK: Supple, trachea midline. No JVD or lymphadenopathy. CARDIOVASCULAR: Regular rate and rhythm without murmurs, gallops, or rubs. mild general edema RESPIRATORY: Breath sounds equal bilaterally. No accessory muscle use. few crackles in bases GASTROINTESTINAL: Abdomen soft, non-tender, nondistended. MUSCULOSKELETAL: No cyanosis, or edema. BACK: Nontender without obvious deformity. No CVA tenderness. Labs: Laboratory Results - last 12 hr 03/26/18 03/26/18 03/26/18 02:09 04:35 04:35 WBC 15.4 H RBC 3.36 L Hgb 10.2 L Hct 30.6 L MCV 91.0 MCH 30.5 MCHC 33.5 RDW 14.3 Plt Count 175 D MPV 7.7 Prelim Diff (Auto) Slide review pending Neut % (Auto) 79.6 H Lymph % (Auto) 5.8 L [place] % (Auto) 14.3 H Eos % (Auto) 0.1 Baso % (Auto) 0.2 Neut # (Auto) 12.3 H Lymph # (Auto) 0.9 L [place] # (Auto) 2.2 H Eos # (Auto) 0.0 Baso # (Auto) 0.0 WBC Differential Manual diff final Seg Neuts % (Manual) 78 H Band Neuts % (Manual) 3 Lymphocytes % (Manual) 6 L Monocytes % (Manual) 13 H Abs Neuts (Manual) 12.5 H Differential Comment . Platelet Estimate Normal Platelet Morphology Clumped H Sodium 140 Potassium 4.3 Chloride 107 Carbon Dioxide 23.7 Anion Gap 9 BUN 63 H Creatinine 3.23 H Estimated GFR 19 L POC Glucose 134 H Random Glucose 130 H Calcium 8.4 L Magnesium 3.1 H 03/26/18 11:24 WBC RBC Hgb Hct MCV MCH MCHC RDW Plt Count MPV Prelim Diff (Auto) Neut % (Auto) Lymph % (Auto) [place] % (Auto) Eos % (Auto) Baso % (Auto) Neut # (Auto) Lymph # (Auto) [place] # (Auto) Eos # (Auto) Baso # (Auto) WBC Differential Seg Neuts % (Manual) Band Neuts % (Manual) Lymphocytes % (Manual) Monocytes % (Manual) Abs Neuts (Manual) Differential Comment Platelet Estimate Platelet Morphology Sodium Potassium Chloride Carbon Dioxide Anion Gap BUN Creatinine Estimated GFR POC Glucose 182 H Random Glucose Calcium Magnesium Result Diagrams: 03/26/18 04:35 03/26/18 04:35 Telemetry: NSR - Plan (1) S/P CABG x 3 Plan: ASA, statin , on BB hold on RICK 2/2 worsening renal indices (2) NSTEMI (non-ST elevated myocardial infarction) Plan: on ASA, Heparin for possible surgery in am (3) Stage 4 chronic kidney disease Plan: indices worsening non-oliguric/ Nephro following ct Abd/ pelvis . Right kidney is abnormal demonstrating severe cortical thinning and presumed dilated calyces containing multiple small stones. The renal pelvis is not dilated so this is from uncertain etiology but an obstructing process is not seen. Given the severe cortical thinning this is likely a chronic process. The left kidney also demonstrates lobulated contour with mild cortical thinning. (4) Delirium Plan: resolved (5) Cardiogenic shock Plan: IABP removed, no pressors
--- NOTE | 2018-03-26 14:35 | P.PNCA ---
Subjective Interval history: Up to the chair, hemodynamically stable Doing well Physical Exam Vital signs: Vital Signs 03/25/18 15:00 03/25/18 16:33 03/25/18 20:00 Temperature 98.4 F 98.2 F Pulse Rate 91 H 116 H 102 H Respiratory Rate 18 18 18 Blood Pressure 117/67 113/72 Pulse Oximetry 97 99 03/25/18 21:41 03/26/18 00:00 03/26/18 04:00 Temperature 98.2 F 98.3 F Pulse Rate 96 H 98 H 90 Respiratory Rate 22 18 20 Blood Pressure 130/66 142/71 H Pulse Oximetry 95 91 L 97 03/26/18 07:00 03/26/18 08:10 03/26/18 11:00 Temperature 98.4 F 98.8 F Pulse Rate 97 H 103 H 76 Respiratory Rate 18 18 18 Blood Pressure 127/69 102/57 L Pulse Oximetry 97 97 99 03/26/18 13:41 Temperature Pulse Rate 78 Respiratory Rate 18 Blood Pressure Pulse Oximetry Intake & Output 03/25/18 03/26/18 03/26/18 18:59 06:59 18:59 Intake Total 720 / 720 460 / 460 100 / 100 Output Total 735 / 735 650 / 650 200 / 200 Balance -15 / -15 -190 / -190 -100 / -100 Intake: IV 240 / 240 100 / 100 100 / 100 Precedex Inj 200 MCG In NS Inj 40 / 40 48 ML @ 0.2 MCG/KG/HR 4.95 mls/ hr IV.CONT TITRATE PRN Rx#: [id number] Ofirmev Inj 1,000 mg In 100 ml 100 / 100 @ 400 mls/hr IV.SIG Q6H HEIDI Rx# :[id number] Ancef Inj 1,000 MG In NS Inj 100 / 100 100 / 100 100 / 100 100 ML @ 200 mls/hr IV.SIG Q8H HEIDI Rx#:[id number] Oral 480 / 480 360 / 360 Output: Urine 150 / 150 Urine Amount (Catheter) 535 / 535 600 / 600 Indwelling Temp Sensing 535 / 535 600 / 600 Catheter Chest Tube Drainage 200 / 200 50 / 50 50 / 50 #2 Pleural/Mediastinal Y 200 / 200 50 / 50 50 / 50 Connected Other: Date of Last Bowel Movement 03/25/18 03/25/18 03/25/18 # Bowel Movements 1 0 Narrative: GENERAL: NAD, AAOx3 SKIN: Warm and dry. HEAD: Atraumatic. Normocephalic. EYES: Pupils equal and round. No scleral icterus. No injection or drainage. ENT: No nasal bleeding or discharge. Mucous membranes pink and moist. NECK: Trachea midline. No JVD. CARDIOVASCULAR: Regular rate and rhythm. RESPIRATORY: No accessory muscle use. Decreased breath sounds bilateral bases GASTROINTESTINAL: Abdomen soft, non-tender, nondistended. Hepatic and splenic margins not palpable. MUSCULOSKELETAL: Extremities without clubbing, cyanosis, or edema. No obvious deformities. IABP removed, no hematoma noted NEUROLOGICAL: No focal deficits - Urinary Catheter Management Coude Cath placed during this visit: yes Urethral indwelling: Yes Reason for continuing: Not indwelling catheter Insertion date: 03/20/18 Insertion time: 21:30 Indwelling Urethral Catheter Cath placed during this visit: yes, but has since been removed by the nurse Reason for continuing: Decision to DC catheter Removal date: 03/24/18 Removal time: 07:25 Indwelling Temp Sensing Catheter Cath placed during this visit: yes, but has since been removed by the nurse Reason for continuing: Not indwelling catheter Insertion date: 03/24/18 Insertion time: 07:30 Removal date: 03/26/18 Removal time: 05:30 Assessment and Plan - Assessment (1) Multi-vessel coronary artery stenosis Code(s): I25.10 - Atherosclerotic heart disease of [place] coronary artery without angina pectoris Status: Acute (2) Lactic acidosis Code(s): E87.2 - Acidosis Status: Acute (3) Acute respiratory failure with hypoxia Code(s): J96.01 - Acute respiratory failure with hypoxia Status: Acute (4) NSTEMI (non-ST elevated myocardial infarction) Code(s): I21.4 - Non-ST elevation (NSTEMI) myocardial infarction Status: Acute (5) Cardiogenic shock Code(s): R57.0 - Cardiogenic shock Status: Acute (6) CAD (coronary artery disease) Code(s): I25.10 - Atherosclerotic heart disease of [place] coronary artery without angina pectoris Status: Acute (7) Stage 4 chronic kidney disease Code(s): N18.4 - Chronic kidney disease, stage 4 (severe) Status: Acute - Plan 1) MVCAD/NSTEMI CABGx4 POD #2 VERDUGO to LAD SVG to D1 SVG to OM1 SVG to PDA EF 25% 2) Cardiogenic shock/pulmonary edema on admission Resolved 3) ROMINA on CKD Evaluated by Nephrology Increased BUN/Cr 4) ASA/Amio/BB/Statin RICK-I on hold due to ROMINA on CKD 5) Will be out of town, if concerns please call the office for covering physician
--- NOTE | 2018-03-26 16:25 | P.PNNP ---
Subjective Interval history: Out of ICU. Doing well. Renal function is slightly worse. He had CT abd/pelvis today. <Kavita Beauchamp - Last Filed: 03/26/18 16:21> Physical Exam Vital signs: Vital Signs 03/25/18 16:33 03/25/18 20:00 03/25/18 21:41 Temperature 98.2 F Pulse Rate 116 H 102 H 96 H Respiratory Rate 18 18 22 Blood Pressure 113/72 Pulse Oximetry 99 95 03/26/18 00:00 03/26/18 04:00 03/26/18 07:00 Temperature 98.2 F 98.3 F 98.4 F Pulse Rate 98 H 90 97 H Respiratory Rate 18 20 18 Blood Pressure 130/66 142/71 H 127/69 Pulse Oximetry 91 L 97 97 03/26/18 08:10 03/26/18 11:00 03/26/18 13:41 Temperature 98.8 F Pulse Rate 103 H 76 78 Respiratory Rate 18 18 18 Blood Pressure 102/57 L Pulse Oximetry 97 99 Intake & Output 03/25/18 03/26/18 03/26/18 18:59 06:59 18:59 Intake Total 720 / 720 460 / 460 100 / 100 Output Total 735 / 735 650 / 650 200 / 200 Balance -15 / -15 -190 / -190 -100 / -100 Intake: IV 240 / 240 100 / 100 100 / 100 Precedex Inj 200 MCG In NS Inj 40 / 40 48 ML @ 0.2 MCG/KG/HR 4.95 mls/ hr IV.CONT TITRATE PRN Rx#: [id number] Ofirmev Inj 1,000 mg In 100 ml 100 / 100 @ 400 mls/hr IV.SIG Q6H HEIDI Rx# :[id number] Ancef Inj 1,000 MG In NS Inj 100 / 100 100 / 100 100 / 100 100 ML @ 200 mls/hr IV.SIG Q8H HEIDI Rx#:[id number] Oral 480 / 480 360 / 360 Output: Urine 150 / 150 Urine Amount (Catheter) 535 / 535 600 / 600 Indwelling Temp Sensing 535 / 535 600 / 600 Catheter Chest Tube Drainage 200 / 200 50 / 50 50 / 50 #2 Pleural/Mediastinal Y 200 / 200 50 / 50 50 / 50 Connected Other: Date of Last Bowel Movement 03/25/18 03/25/18 03/25/18 # Bowel Movements 1 0 - Constitutional no acute distress, obese, cooperative - Routine HEENT Exam Head: Present: normocephalic - Routine Neck Exam Present: supple, full ROM. Absent: JVD - Routine Respiratory Exam Present: decreased breath sounds. Absent: accessory muscle use, rales - Routine Cardiovascular Exam Present: RRR, S1, S2 Comments: Midsternal wound vac chest tube removed. - Routine Abdominal Exam Present: soft, normoactive bowel sounds - Routine Extremities Exam Present: edema, full ROM, pulses intact, normal capillary refill - Routine Skin Exam Present: dry, warm Comments: surgical incisions - Routine Neurological Exam Present: alert, oriented X3, CN II-XII intact, moving all extremities - Detailed Neurological Exam: Coma Scale Eye Opening: Spontaneous Verbal Response: Oriented Motor Response: Obey commands [place] Coma Scale Total: 15 - Routine Psychiatric Exam Present: normal affect, normal thought process - Urinary Catheter Management Coude Cath placed during this visit: yes Urethral indwelling: Yes Reason for continuing: Not indwelling catheter Insertion date: 03/20/18 Insertion time: 21:30 Indwelling Urethral Catheter Cath placed during this visit: yes, but has since been removed by the nurse Reason for continuing: Decision to DC catheter Removal date: 03/24/18 Removal time: 07:25 Indwelling Temp Sensing Catheter Cath placed during this visit: yes, but has since been removed by the nurse Reason for continuing: Not indwelling catheter Insertion date: 03/24/18 Insertion time: 07:30 Removal date: 03/26/18 Removal time: 05:30 <Kavita Beauchamp - Last Filed: 03/26/18 16:21> Vital signs: Vital Signs 03/26/18 15:00 03/26/18 19:00 03/26/18 23:00 Temperature 98 F 98.1 F 97.5 F L Pulse Rate 80 151 H 79 Respiratory Rate 20 16 16 Blood Pressure 108/50 L 159/70 H 129/71 Pulse Oximetry 03/27/18 00:00 03/27/18 01:00 03/27/18 03:00 Temperature 98.1 F Pulse Rate 72 83 83 Respiratory Rate 18 Blood Pressure 153/72 H Pulse Oximetry 03/27/18 06:10 03/27/18 07:00 03/27/18 08:00 Temperature 98.2 F Pulse Rate 82 84 Respiratory Rate 23 Blood Pressure 141/65 H Pulse Oximetry 94 L 03/27/18 08:06 Temperature Pulse Rate 87 Respiratory Rate 16 Blood Pressure Pulse Oximetry Intake & Output 03/26/18 03/27/18 03/27/18 18:59 06:59 18:59 Intake Total 4568 / 4568 480 / 480 Output Total 2200 / 2200 895 / 895 Balance 2368 / 2368 -415 / -415 Weight 101.5 kg Intake: IV 200 / 200 Ancef Inj 1,000 MG In NS Inj 100 / 100 100 ML @ 200 mls/hr IV.SIG Q8H HEIDI Rx#:[id number] Rocephin Inj 1,000 MG In NS Inj 100 / 100 100 ML @ 200 mls/hr IV.SIG Q24H HEIDI Rx#:[id number] Oral 360 / 360 480 / 480 Tube Irrigant 30 / 30 Anesthesia Amount 2900 / 2900 Other 500 / 500 Cell Saver Amount 578 / 578 Output: Urine 300 / 300 895 / 895 Estimated Blood Loss 1200 / 1200 Urine Amount (Catheter) 600 / 600 Indwelling Temp Sensing 600 / 600 Catheter Chest Tube Drainage 100 / 100 #2 Pleural/Mediastinal Y 100 / 100 Connected Other: Other Intake Source Saline Solution Date of Last Bowel Movement 03/25/18 03/25/18 03/27/18 # Bowel Movements 0 1 - Urinary Catheter Management Coude Cath placed during this visit: no Indwelling Urethral Catheter Cath placed during this visit: no Indwelling Temp Sensing Catheter Cath placed during this visit: no <Joaquin Veronica - Last Filed: 03/27/18 14:43> Assessment and Plan - Assessment (1) Acute worsening of stage 4 chronic kidney disease Code(s): N28.9 - Disorder of kidney and ureter, unspecified; N18.4 - Chronic kidney disease, stage 4 (severe) Status: Acute Plan: 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 Follows with Dr Herrera in [facility]. Exact baseline is unknown. ROMINA secondary to NSTEMI and cardiogenic shock, resulting in renal hypoperfusion. Repeat imaging shows chronic complex cyst, not obstructive etiology as previously thought. Renal function is slightly worse. Give one dose of Bumex 2 gm IV. Obtain daily labs, monitor renal indices. Avoid nephrotoxic agents. Monitor urine output. Currently nonoliguric. He has 3 grams proteinuria. Ramipril should be resumed at discharge. Off IVF , PO fluids encouraged. (2) NSTEMI (non-ST elevated myocardial infarction) Code(s): I21.4 - Non-ST elevation (NSTEMI) myocardial infarction Status: Acute Plan: s/p cath showing multivessel disease. s/p CABGx 4 on 03/24. CV surgery managing. He is on ASA Also on fenofibrate. This should be discontinued due to association with CKD. Consider statin or niacin based treatment for hyperlipidemia. (3) Cardiogenic shock Code(s): R57.0 - Cardiogenic shock Status: Acute Plan: Improved. Improved hemodynamics. (4) Hyperosmolality and hypernatremia Code(s): E87.0 - Hyperosmolality and hypernatremia Status: Acute Plan: Improved Encourage oral fluids now that he is extubated. (5) Lactic acidosis Code(s): E87.2 - Acidosis Status: Acute Plan: due to renal hypoperfusion after NSTEMI. Monitor. Improved <Kavita Beauchamp - Last Filed: 03/26/18 16:21> - Assessment (1) Acute worsening of stage 4 chronic kidney disease Code(s): N28.9 - Disorder of kidney and ureter, unspecified; N18.4 - Chronic kidney disease, stage 4 (severe) Status: Acute (2) NSTEMI (non-ST elevated myocardial infarction) Code(s): I21.4 - Non-ST elevation (NSTEMI) myocardial infarction Status: Acute (3) Cardiogenic shock Code(s): R57.0 - Cardiogenic shock Status: Deleted (4) Hyperosmolality and hypernatremia Code(s): E87.0 - Hyperosmolality and hypernatremia Status: Acute (5) Lactic acidosis Code(s): E87.2 - Acidosis Status: Acute - Attending Attestation patient was seen and examined. CT revealed chronic changes in the right kidney, no obstruction. Positive fluid balance, start diuresis cautiously. <Joaquin Veronica - Last Filed: 03/27/18 14:43>
[2018-03-26] MEDS ORDERED: Amiodarone Inj 150 MG in Dextrose 5% in Water Inj 97 ML IV.SIG ONE ×4 (21:44)
[2018-03-27] MEDS: Hypromellose 0.3% Opth Gel 10 GM Bottle EACH EYE SCH ×3 (04:42→21:56)
[2018-03-27] MEDS: levETIRAcetam 500 MG Tablet PO SCH ×2 (05:07→17:09)
[2018-03-27 05:56] LABS: Albumin 2.1 g/dL (3.4-5.0); Calcium 8.4 mg/dL (8.5-10.1); Carbon Dioxide 23.4 meq/L (21.0-32.0); Potassium 4.7 meq/L (3.5-5.1)
[2018-03-27 06:03] LABS: Phosphorus 5.8 mg/dL (2.5-4.9)
--- NOTE | 2018-03-27 06:04 | XR ---
EXAM DATE: 03/27/2018 5:34 AM EDT AGE/SEX: 77 years / Male INDICATIONS: Chest tube removal. Post op CABG. CLINICAL DATA: This is the patient's subsequent encounter. Patient reports that signs and symptoms h ave been present for 3 days and indicates a pain score of 5/10. MEDICAL/SURGICAL HISTORY: Cardiovascular disease. CABG. COMPARISON: [facility], CHEST 1V SINGLE AP, 03/25/2018. . FINDINGS: The patient is status post sternotomy. The heart size is enlarged. There is a left subclavian line in good position. The lungs are grossly clear. There are calcified pleural plaques seen bilaterally. Th e left chest tube has been removed. A pneumothorax is not seen. CONCLUSION: Cardiomegaly. Calcified pleural plaques seen bilaterally. Electronically signed by: Wyatt Carias MD 03/27/2018 6:02 AM EDT
[2018-03-27] MEDS: Insulin NovoLOG Aspart Correctional Sugar Inj SQ SCH ×4 (08:49→21:57)
[2018-03-27] MEDS: Docusate Sodium 100 MG Capsule PO SCH ×2 (08:50→21:46)
[2018-03-27] MEDS: Metoprolol Tartrate 25 MG Tablet PO SCH ×2 (08:51→21:46)
[2018-03-27] MEDS: Amiodarone 200 MG Tablet PO SCH ×2 (08:51→21:45)
[2018-03-27] MEDS: Senna/Docusate Sodium 8.6/50 MG Tablet PO SCH ×2 (08:52→21:53)
[2018-03-27] MEDS: Multivitamin/Minerals Therapeutic Tablet PO SCH (08:52)
[2018-03-27] MEDS ORDERED: Amiodarone Inj 150 MG in Dextrose 5% in Water Inj 97 ML IV.SIG ONE ×2 (10:53)
--- NOTE | 2018-03-27 13:04 | ECG ---
Date Performed: 03/26/2018 Time Performed: 19:21:52 PTAGE: 77 years EKG: Atrial fibrillation with rapid ventricular response. Left bundle branch block Abnormal ECG Compared to PREVIOUS TRACING , atrial fibrillation has replaced Sinus rhythm . PREVIOUS TRACING DOCTOR: Segundo [place] Interpretating Date/Time 03/27/2018 13:04:03
--- NOTE | 2018-03-27 14:15 | P.PNNP ---
Subjective Interval history: Awake and alert. Renal function is stable. Non oliguric. <Kavita Beauchamp - Last Filed: 03/27/18 14:12> Physical Exam Vital signs: Vital Signs 03/26/18 15:00 03/26/18 19:00 03/26/18 23:00 Temperature 98 F 98.1 F 97.5 F L Pulse Rate 80 151 H 79 Respiratory Rate 20 16 16 Blood Pressure 108/50 L 159/70 H 129/71 Pulse Oximetry 03/27/18 00:00 03/27/18 01:00 03/27/18 03:00 Temperature 98.1 F Pulse Rate 72 83 83 Respiratory Rate 18 Blood Pressure 153/72 H Pulse Oximetry 03/27/18 06:10 03/27/18 07:00 03/27/18 08:00 Temperature 98.2 F Pulse Rate 82 84 Respiratory Rate 23 Blood Pressure 141/65 H Pulse Oximetry 94 L 03/27/18 08:06 Temperature Pulse Rate 87 Respiratory Rate 16 Blood Pressure Pulse Oximetry Intake & Output 03/26/18 03/27/18 03/27/18 18:59 06:59 18:59 Intake Total 4568 / 4568 480 / 480 Output Total 2200 / 2200 895 / 895 Balance 2368 / 2368 -415 / -415 Weight 101.5 kg Intake: IV 200 / 200 Ancef Inj 1,000 MG In NS Inj 100 / 100 100 ML @ 200 mls/hr IV.SIG Q8H HEIDI Rx#:[id number] Rocephin Inj 1,000 MG In NS Inj 100 / 100 100 ML @ 200 mls/hr IV.SIG Q24H HEIDI Rx#:[id number] Oral 360 / 360 480 / 480 Tube Irrigant 30 / 30 Anesthesia Amount 2900 / 2900 Other 500 / 500 Cell Saver Amount 578 / 578 Output: Urine 300 / 300 895 / 895 Estimated Blood Loss 1200 / 1200 Urine Amount (Catheter) 600 / 600 Indwelling Temp Sensing 600 / 600 Catheter Chest Tube Drainage 100 / 100 #2 Pleural/Mediastinal Y 100 / 100 Connected Other: Other Intake Source Saline Solution Date of Last Bowel Movement 03/25/18 03/25/18 03/27/18 # Bowel Movements 0 1 - Constitutional no acute distress, obese - Routine HEENT Exam Head: Present: normocephalic - Routine Neck Exam Present: supple, full ROM - Routine Respiratory Exam Present: CTA bilaterally. Absent: accessory muscle use - Routine Cardiovascular Exam Present: RRR, S1, S2 - Routine Abdominal Exam Present: soft, normoactive bowel sounds - Routine Extremities Exam Present: full ROM, pulses intact, tenderness. Absent: edema - Routine Skin Exam Present: intact, dry, warm - Routine Neurological Exam Present: alert, oriented X3, moving all extremities - Detailed Neurological Exam: Coma Scale Eye Opening: Spontaneous Verbal Response: Oriented Motor Response: Obey commands Daniela Coma Scale Total: 15 - Routine Psychiatric Exam Present: normal affect, normal thought process - Urinary Catheter Management Coude Cath placed during this visit: yes Urethral indwelling: Yes Reason for continuing: Not indwelling catheter Insertion date: 03/20/18 Insertion time: 21:30 Indwelling Urethral Catheter Cath placed during this visit: yes, but has since been removed by the nurse Reason for continuing: Decision to DC catheter Removal date: 03/24/18 Removal time: 07:25 Indwelling Temp Sensing Catheter Cath placed during this visit: yes, but has since been removed by the nurse Reason for continuing: Not indwelling catheter Insertion date: 03/24/18 Insertion time: 07:30 Removal date: 03/26/18 Removal time: 05:30 <Kavita Beauchamp - Last Filed: 03/27/18 14:12> Vital signs: Vital Signs 03/26/18 19:00 03/26/18 23:00 03/27/18 00:00 Temperature 98.1 F 97.5 F L Pulse Rate 151 H 79 72 Respiratory Rate 16 16 Blood Pressure 159/70 H 129/71 Pulse Oximetry 03/27/18 01:00 03/27/18 03:00 03/27/18 06:10 Temperature 98.1 F Pulse Rate 83 83 82 Respiratory Rate 18 Blood Pressure 153/72 H Pulse Oximetry 03/27/18 07:00 03/27/18 08:00 03/27/18 08:06 Temperature 98.2 F Pulse Rate 84 87 Respiratory Rate 23 16 Blood Pressure 141/65 H Pulse Oximetry 94 L Intake & Output 03/26/18 03/27/18 03/27/18 18:59 06:59 18:59 Intake Total 4568 / 4568 480 / 480 Output Total 2200 / 2200 895 / 895 Balance 2368 / 2368 -415 / -415 Weight 101.5 kg Intake: IV 200 / 200 Ancef Inj 1,000 MG In NS Inj 100 / 100 100 ML @ 200 mls/hr IV.SIG Q8H HEIDI Rx#:[id number] Rocephin Inj 1,000 MG In NS Inj 100 / 100 100 ML @ 200 mls/hr IV.SIG Q24H HEIDI Rx#:[id number] Oral 360 / 360 480 / 480 Tube Irrigant 30 / 30 Anesthesia Amount 2900 / 2900 Other 500 / 500 Cell Saver Amount 578 / 578 Output: Urine 300 / 300 895 / 895 Estimated Blood Loss 1200 / 1200 Urine Amount (Catheter) 600 / 600 Indwelling Temp Sensing 600 / 600 Catheter Chest Tube Drainage 100 / 100 #2 Pleural/Mediastinal Y 100 / 100 Connected Other: Other Intake Source Saline Solution Date of Last Bowel Movement 03/25/18 03/25/18 03/27/18 # Bowel Movements 0 1 - Urinary Catheter Management Coude Cath placed during this visit: no Indwelling Urethral Catheter Cath placed during this visit: no Indwelling Temp Sensing Catheter Cath placed during this visit: no <Joaquin Veronica - Last Filed: 03/27/18 15:06> Assessment and Plan - Assessment (1) Acute worsening of stage 4 chronic kidney disease Code(s): N28.9 - Disorder of kidney and ureter, unspecified; N18.4 - Chronic kidney disease, stage 4 (severe) Status: Acute Plan: 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 Follows with Dr Herrera in [facility]. Exact baseline is unknown. ROMINA secondary to NSTEMI and cardiogenic shock, resulting in renal hypoperfusion. Renal function is stable. Give another dose of Bumex 2 gm IV. Continue to monitor renal indices. Avoid nephrotoxic agents. Monitor urine output. He has 3 grams proteinuria. Ramipril should be resumed at discharge. Off IVF , PO fluids encouraged. (2) NSTEMI (non-ST elevated myocardial infarction) Code(s): I21.4 - Non-ST elevation (NSTEMI) myocardial infarction Status: Acute Plan: s/p cath showing multivessel disease. s/p CABGx 4 on 03/24. CV surgery managing. He is on ASA Also on fenofibrate. This should be discontinued due to association with CKD. Consider statin or niacin based treatment for hyperlipidemia. (3) Cardiogenic shock Code(s): R57.0 - Cardiogenic shock Status: Acute Plan: Improved. Improved hemodynamics. (4) Hyperosmolality and hypernatremia Code(s): E87.0 - Hyperosmolality and hypernatremia Status: Acute Plan: Improved Encourage oral fluids now that he is extubated. (5) Lactic acidosis Code(s): E87.2 - Acidosis Status: Acute Plan: due to renal hypoperfusion after NSTEMI. Monitor. Improved <Kavita Beauchamp - Last Filed: 03/27/18 14:12> - Assessment (1) Acute worsening of stage 4 chronic kidney disease Code(s): N28.9 - Disorder of kidney and ureter, unspecified; N18.4 - Chronic kidney disease, stage 4 (severe) Status: Acute (2) NSTEMI (non-ST elevated myocardial infarction) Code(s): I21.4 - Non-ST elevation (NSTEMI) myocardial infarction Status: Acute (3) Cardiogenic shock Code(s): R57.0 - Cardiogenic shock Status: Deleted (4) Hyperosmolality and hypernatremia Code(s): E87.0 - Hyperosmolality and hypernatremia Status: Acute (5) Lactic acidosis Code(s): E87.2 - Acidosis Status: Acute - Attending Attestation patient was seen and examined. He is already on Atorvastatin. OK to continue Fenofibrate. <Joaquin Veronica - Last Filed: 03/27/18 15:06>
--- NOTE | 2018-03-27 14:34 | P.PNCV ---
- Note Subjective/Hospital Course: 77-year-old male pt of Dr. Michelle presented via [facility] to [facility] Emergency Room for shortness of breath. Apparently, he called his daughter a little after 8 p.m., said that he thought he was having a heart attack. He was significantly short of breath. His daughter said that he had slurred speech on the phone. [facility] arrived and he was still on the phone with his daughter and at that time he was telling her that he felt like he was having a heart attack and he was extremely diaphoretic. He was saturating in the 60s and so they intubated him. He was then transferred to the [facility] . EKG was done and showed ne left bundle branch block. Lab work shows a lactic acid of 4.2 and a troponin of 3.48. PAST MEDICAL HISTORY: Asbestosis, Hypertension, Hyperlipidemia, Diabetes mellitus, seizure disorder s/p heart cath : . Acute pulmonary edema, Acute decompensated heart failure ( class IV), Acute respiratory failure requiring mechanical ventilation, Non- ST-elevation myocardial infarction, Multivessel disease, [id number] kidney disease, Lactic acidosis due to decreased tissue perfusion. EF 20-25% cath : left main 50%, LAD 50%/mid LAD 90%. Diagonal 70%. Circumflex 70%. OM 90%. RCA 70% patient had anterior balloon pump placed one-to-one in the right femoral region. 03/23 pt on nasal cannula, IABP 1:1 lower ext US noted : thrombus is noted in the right distal calf within the greater saphenous vein.. 03/24 surgery CABG x 4 VERDUGO to LAD - good, SVG to PDA - good, SVG to OM1 - good, SVG to D1 - fair, L EVH extubated after surgery, had some confusion last pm 03/25 POD 1 IABP dc without difficulty , hemostasis obtained , + distal pulses, no hematoma start plavix when chest tube out start resume RICK when BP tolerates per Nephro recommendation eval for transfer to stepdown later today 03/26 POD 2 wean 02 as tolerated UA obtained / + UTI placed on Rocephin worsening renal indices / nephro following start plavix transfer to stepdown 03/27 pt went into Afib RVR last pm , placed on amiodarone gtt turned off this am / then went back into afib / rebolused with amiodarone 150mg started on eliquis 2/2 Sampson score 5 discussed with daughter no plavix / family now requesting rehab Objective: Vital Signs - 24 hr 03/26/18 15:00 03/26/18 19:00 03/26/18 23:00 Temperature 98 F 98.1 F 97.5 F L Pulse Rate 80 151 H 79 Respiratory Rate 20 16 16 Blood Pressure 108/50 L 159/70 H 129/71 Pulse Oximetry 03/27/18 00:00 03/27/18 01:00 03/27/18 03:00 Temperature 98.1 F Pulse Rate 72 83 83 Respiratory Rate 18 Blood Pressure 153/72 H Pulse Oximetry 03/27/18 06:10 03/27/18 07:00 03/27/18 08:00 Temperature 98.2 F Pulse Rate 82 84 Respiratory Rate 23 Blood Pressure 141/65 H Pulse Oximetry 94 L 03/27/18 08:06 Temperature Pulse Rate 87 Respiratory Rate 16 Blood Pressure Pulse Oximetry GENERAL: A&O x 3 SKIN: Warm and dry. prevena dressing to chest HEAD: Normocephalic. EYES: No scleral icterus. No injection or drainage. NECK: Supple, trachea midline. No JVD or lymphadenopathy. CARDIOVASCULAR: Regular rate and rhythm without murmurs, gallops, or rubs. RESPIRATORY: Breath sounds equal bilaterally. No accessory muscle use. diminished in bases / few crackles GASTROINTESTINAL: Abdomen soft, non-tender, nondistended. MUSCULOSKELETAL: No cyanosis, or edema. BACK: Nontender without obvious deformity. No CVA tenderness. Labs: Laboratory Results - last 12 hr 03/27/18 03/27/18 03/27/18 05:00 07:53 11:38 Sodium 139 Potassium 4.7 Chloride 105 Carbon Dioxide 23.4 Anion Gap 11 BUN 70 H Creatinine 3.23 H Estimated GFR 19 L POC Glucose 133 H 247 H Random Glucose 130 H Calcium 8.4 L Phosphorus 5.8 H Albumin 2.1 L Result Diagrams: 03/26/18 04:35 03/27/18 05:00 Telemetry: Afib> NSR > Afib - Plan (1) S/P CABG x 3 Plan: ASA, statin , amiodarone on BB low dose RICK as per Renal request (2) NSTEMI (non-ST elevated myocardial infarction) Plan: on ASA, Heparin for possible surgery in am (3) Stage 4 chronic kidney disease Plan: indices stabilizing non-oliguric/ Nephro following on Bumex (4) Delirium Plan: resolved
[2018-03-27] MEDS: Ramipril 2.5 MG Capsule PO SCH (15:05)
[2018-03-27] MEDS: Fenofibrate 48 MG Tablet PO SCH (15:05)
[2018-03-27] MEDS: Polyethylene Glycol 3350 17 GM Packet PO SCH (16:40)
[2018-03-28 06:05] LABS: Calcium 8.1 mg/dL (8.5-10.1); Carbon Dioxide 25.1 meq/L (21.0-32.0); Potassium 4.5 meq/L (3.5-5.1)
[2018-03-28] MEDS: levETIRAcetam 500 MG Tablet PO SCH ×2 (06:56→16:43)
[2018-03-28] MEDS: Metoprolol Tartrate 25 MG Tablet PO SCH ×2 (09:15→20:59)
[2018-03-28] MEDS: Multivitamin/Minerals Therapeutic Tablet PO SCH (09:15)
[2018-03-28] MEDS: Amiodarone 200 MG Tablet PO SCH ×2 (09:15→20:59)
[2018-03-28] MEDS: Insulin NovoLOG Aspart Correctional Sugar Inj SQ SCH ×4 (09:15→21:17)
[2018-03-28] MEDS: Ramipril 2.5 MG Capsule PO SCH (09:15)
[2018-03-28] MEDS: Fenofibrate 48 MG Tablet PO SCH (09:15)
[2018-03-28] MEDS: Docusate Sodium 100 MG Capsule PO SCH ×2 (09:16→21:00)
[2018-03-28] MEDS: Senna/Docusate Sodium 8.6/50 MG Tablet PO SCH ×2 (09:16→21:00)
[2018-03-28] MEDS: Polyethylene Glycol 3350 17 GM Packet PO SCH (09:16)
[2018-03-28] MEDS: Hypromellose 0.3% Opth Gel 10 GM Bottle EACH EYE SCH ×2 (09:18→21:00)
--- NOTE | 2018-03-28 09:52 | P.PNCV ---
- Note Subjective/Hospital Course: 77-year-old male pt of Dr. Michelle presented via EVAC to [facility] Emergency Room for shortness of breath. Apparently, he called his daughter a little after 8 p.m., said that he thought he was having a heart attack. He was significantly short of breath. His daughter said that he had slurred speech on the phone. [facility] arrived and he was still on the phone with his daughter and at that time he was telling her that he felt like he was having a heart attack and he was extremely diaphoretic. He was saturating in the 60s and so they intubated him. He was then transferred to the [facility] hospital . EKG was done and showed ne left bundle branch block. Lab work shows a lactic acid of 4.2 and a troponin of 3.48. PAST MEDICAL HISTORY: Asbestosis, Hypertension, Hyperlipidemia, Diabetes mellitus, seizure disorder s/p heart cath : . Acute pulmonary edema, Acute decompensated heart failure ( class IV), Acute respiratory failure requiring mechanical ventilation, Non- ST-elevation myocardial infarction, Multivessel disease, [id number] kidney disease, Lactic acidosis due to decreased tissue perfusion. EF 20-25% cath : left main 50%, LAD 50%/mid LAD 90%. Diagonal 70%. Circumflex 70%. OM 90%. RCA 70% patient had anterior balloon pump placed one-to-one in the right femoral region. 03/23 pt on nasal cannula, IABP 1:1 lower ext US noted : thrombus is noted in the right distal calf within the greater saphenous vein.. 03/24 surgery CABG x 4 VERDUGO to LAD - good, SVG to PDA - good, SVG to OM1 - good, SVG to D1 - fair, L EV[facility] extubated after surgery, had some confusion last pm 03/25 POD 1 IABP dc without difficulty , hemostasis obtained , + distal pulses, no hematoma start plavix when chest tube out start resume RICK when BP tolerates per Nephro recommendation eval for transfer to stepdown later today 03/26 POD 2 wean 02 as tolerated UA obtained / + UTI placed on Rocephin worsening renal indices / nephro following start plavix transfer to stepdown 03/27 pt went into Afib RVR last pm , placed on amiodarone gtt turned off this am / then went back into afib / rebolused with amiodarone 150mg started on eliquis 09/12 Sampson score 5 discussed with daughter no plavix / family now requesting rehab 03/28 Doing well clinically. Recurrent atrial fibrillation with rate control on Eliquis Discharge planning Objective: Vital Signs - 24 hr 03/27/18 10:00 03/27/18 11:00 03/27/18 12:00 Temperature 98.2 F Pulse Rate 95 H 80 75 Respiratory Rate 16 Blood Pressure 123/66 Pulse Oximetry 03/27/18 13:00 03/27/18 14:00 03/27/18 15:00 Temperature 98.2 F Pulse Rate 71 67 74 Respiratory Rate 14 Blood Pressure 111/63 Pulse Oximetry 03/27/18 16:00 03/27/18 16:58 03/27/18 17:00 Temperature Pulse Rate 72 78 Respiratory Rate Blood Pressure Pulse Oximetry 94 L 03/27/18 18:00 03/27/18 19:00 03/27/18 20:00 Temperature 98.5 F Pulse Rate 79 81 83 Respiratory Rate 14 Blood Pressure 159/82 H Pulse Oximetry 93 L 03/27/18 21:00 03/27/18 22:00 03/27/18 23:00 Temperature Pulse Rate 87 85 73 Respiratory Rate Blood Pressure Pulse Oximetry 03/28/18 00:00 03/28/18 01:00 03/28/18 02:00 Temperature Pulse Rate 68 72 73 Respiratory Rate Blood Pressure Pulse Oximetry 03/28/18 03:00 Temperature 98.7 F Pulse Rate 68 Respiratory Rate 16 Blood Pressure 120/65 Pulse Oximetry Labs: Laboratory Results - last 12 hr 03/27/18 03/28/18 21:38 05:20 Sodium 139 Potassium 4.5 Chloride 104 Carbon Dioxide 25.1 Anion Gap 10 BUN 73 H Creatinine 3.34 H Estimated GFR 18 L POC Glucose 206 H Random Glucose 148 H Calcium 8.1 L Result Diagrams: 03/26/18 04:35 03/28/18 05:20 - Plan (1) S/P CABG x 3 Plan: ASA, statin , amiodarone on BB low dose RICK as per Renal request (2) NSTEMI (non-ST elevated myocardial infarction) Plan: on ASA, Heparin for possible surgery in am (3) Stage 4 chronic kidney disease Plan: indices stabilizing non-oliguric/ Nephro following on Bumex (4) Delirium Plan: resolved
[2018-03-29] MEDS: levETIRAcetam 500 MG Tablet PO SCH ×2 (05:21→15:01)
[2018-03-29] MEDS: Fenofibrate 48 MG Tablet PO SCH (08:09)
[2018-03-29] MEDS: Amiodarone 200 MG Tablet PO SCH ×2 (08:09→21:22)
[2018-03-29] MEDS: Multivitamin/Minerals Therapeutic Tablet PO SCH (08:09)
[2018-03-29] MEDS: Ramipril 2.5 MG Capsule PO SCH (08:09)
[2018-03-29] MEDS: Metoprolol Tartrate 25 MG Tablet PO SCH ×2 (08:09→21:22)
[2018-03-29] MEDS: Senna/Docusate Sodium 8.6/50 MG Tablet PO SCH ×2 (08:10→21:41)
[2018-03-29] MEDS: Hypromellose 0.3% Opth Gel 10 GM Bottle EACH EYE SCH ×2 (08:10→21:41)
[2018-03-29] MEDS: Polyethylene Glycol 3350 17 GM Packet PO SCH (08:10)
[2018-03-29] MEDS: Docusate Sodium 100 MG Capsule PO SCH ×2 (08:10→21:41)
[2018-03-29] MEDS: Insulin NovoLOG Aspart Correctional Sugar Inj SQ SCH ×4 (08:10→21:40)
--- NOTE | 2018-03-29 09:18 | P.PNCV ---
- Note Subjective/Hospital Course: 77-year-old male pt of Dr. Michelle presented via EV[facility] to [facility] Emergency Room for shortness of breath. Apparently, he called his daughter a little after 8 p.m., said that he thought he was having a heart attack. He was significantly short of breath. His daughter said that he had slurred speech on the phone. [facility] arrived and he was still on the phone with his daughter and at that time he was telling her that he felt like he was having a heart attack and he was extremely diaphoretic. He was saturating in the 60s and so they intubated him. He was then transferred to the [facility] hospital . EKG was done and showed ne left bundle branch block. Lab work shows a lactic acid of 4.2 and a troponin of 3.48. PAST MEDICAL HISTORY: Asbestosis, Hypertension, Hyperlipidemia, Diabetes mellitus, seizure disorder s/p heart cath : . Acute pulmonary edema, Acute decompensated heart failure ( class IV), Acute respiratory failure requiring mechanical ventilation, Non- ST-elevation myocardial infarction, Multivessel disease, Ejiqm-[id number] kidney disease, Lactic acidosis due to decreased tissue perfusion. EF 20-25% cath : left main 50%, LAD 50%/mid LAD 90%. Diagonal 70%. Circumflex 70%. OM 90%. RCA 70% patient had anterior balloon pump placed one-to-one in the right femoral region. 03/23 pt on nasal cannula, IABP 1:1 lower ext US noted : thrombus is noted in the right distal calf within the greater saphenous vein.. 03/24 surgery CABG x 4 VERDUGO to LAD - good, SVG to PDA - good, SVG to OM1 - good, SVG to D1 - fair, L [facility] extubated after surgery, had some confusion last pm 03/25 POD 1 IABP dc without difficulty , hemostasis obtained , + distal pulses, no hematoma start plavix when chest tube out start resume RICK when BP tolerates per Nephro recommendation eval for transfer to stepdown later today 03/26 POD 2 wean 02 as tolerated UA obtained / + UTI placed on Rocephin worsening renal indices / nephro following start plavix transfer to stepdown 03/27 pt went into Afib RVR last pm , placed on amiodarone gtt turned off this am / then went back into afib / rebolused with amiodarone 150mg started on eliquis 09/12 Sampson score 5 discussed with daughter no plavix / family now requesting rehab 03/28 Doing well clinically. Recurrent atrial fibrillation with rate control on Eliquis Discharge planning 03/29 Doing well in NSR Possible transfer to rehab today Objective: Vital Signs - 24 hr 03/28/18 11:00 03/28/18 12:00 03/28/18 13:00 Temperature 97.9 F Pulse Rate 68 68 72 Respiratory Rate 16 Blood Pressure 125/78 Pulse Oximetry 99 03/28/18 14:00 03/28/18 15:00 03/28/18 16:00 Temperature 98.3 F Pulse Rate 63 63 65 Respiratory Rate 18 Blood Pressure 122/60 Pulse Oximetry 94 L 03/28/18 17:00 03/28/18 18:00 03/28/18 19:00 Temperature Pulse Rate 77 71 71 Respiratory Rate Blood Pressure Pulse Oximetry 03/28/18 20:00 03/28/18 20:52 03/28/18 21:00 Temperature 98.5 F Pulse Rate 73 74 Respiratory Rate 16 Blood Pressure 141/69 H Pulse Oximetry 95 95 03/28/18 22:00 03/28/18 23:00 03/29/18 00:00 Temperature 98.5 F Pulse Rate 69 64 63 Respiratory Rate 16 Blood Pressure 118/66 Pulse Oximetry 95 03/29/18 02:00 03/29/18 03:00 03/29/18 04:00 Temperature 98.7 F Pulse Rate 68 68 75 Respiratory Rate 16 Blood Pressure 147/67 H Pulse Oximetry 95 03/29/18 05:00 03/29/18 06:00 03/29/18 07:00 Temperature 98.1 F Pulse Rate 69 73 74 Respiratory Rate 16 Blood Pressure 157/75 H Pulse Oximetry 97 03/29/18 08:00 03/29/18 09:00 Temperature Pulse Rate 79 82 Respiratory Rate Blood Pressure Pulse Oximetry 95 Labs: Laboratory Results - last 12 hr 03/29/18 07:36 POC Glucose 117 H Result Diagrams: 03/26/18 04:35 03/28/18 05:20 - Plan (1) S/P CABG x 3 Plan: ASA, statin , amiodarone on BB low dose RICK as per Renal request (2) NSTEMI (non-ST elevated myocardial infarction) Plan: on ASA, Heparin for possible surgery in am (3) Stage 4 chronic kidney disease Plan: indices stabilizing non-oliguric/ Nephro following on Bumex (4) Delirium Plan: resolved
[2018-03-30] MEDS: levETIRAcetam 500 MG Tablet PO SCH ×2 (03:00→17:08)
[2018-03-30] MEDS: Insulin NovoLOG Aspart Correctional Sugar Inj SQ SCH ×4 (08:40→21:26)
[2018-03-30] MEDS: Metoprolol Tartrate 25 MG Tablet PO SCH ×2 (08:58→21:25)
[2018-03-30] MEDS: Amiodarone 200 MG Tablet PO SCH ×2 (08:58→21:25)
[2018-03-30] MEDS: Ramipril 2.5 MG Capsule PO SCH (08:59)
[2018-03-30] MEDS: Senna/Docusate Sodium 8.6/50 MG Tablet PO SCH ×2 (08:59→23:02)
[2018-03-30] MEDS: Docusate Sodium 100 MG Capsule PO SCH ×2 (09:00→23:02)
[2018-03-30] MEDS: Multivitamin/Minerals Therapeutic Tablet PO SCH (09:00)
[2018-03-30] MEDS: Fenofibrate 48 MG Tablet PO SCH (09:00)
[2018-03-30] MEDS: Polyethylene Glycol 3350 17 GM Packet PO SCH (09:01)
[2018-03-30] MEDS: Hypromellose 0.3% Opth Gel 10 GM Bottle EACH EYE SCH (09:01)
--- NOTE | 2018-03-30 09:50 | P.DS ---
Date of admission: 03/20/18 22:55 Primary care physician: Radha Springer MD Attending physician on discharge: Kallie Horn Anticipated date of discharge: 03/30/18 Brief History from admission: 77-year-old male pt of Dr. Michelle presented via [facility] to [facility] Emergency Room for shortness of breath. Apparently, he called his daughter a little after 8 p.m., said that he thought he was having a heart attack. He was significantly short of breath. His daughter said that he had slurred speech on the phone. [facility] arrived and he was still on the phone with his daughter and at that time he was telling her that he felt like he was having a heart attack and he was extremely diaphoretic. He was saturating in the 60s and so they intubated him. He was then transferred to the [facility] . EKG was done and showed ne left bundle branch block. Lab work shows a lactic acid of 4.2 and a troponin of 3.48. PAST MEDICAL HISTORY: Asbestosis, Hypertension, Hyperlipidemia, Diabetes mellitus, seizure disorder s/p heart cath : . Acute pulmonary edema, Acute decompensated heart failure ( class IV), Acute respiratory failure requiring mechanical ventilation, Non- ST-elevation myocardial infarction, Multivessel disease, [id number] kidney disease, Lactic acidosis due to decreased tissue perfusion. EF 20-25% cath : left main 50%, LAD 50%/mid LAD 90%. Diagonal 70%. Circumflex 70%. OM 90%. RCA 70% patient had anterior balloon pump placed one-to-one in the right femoral region. DS: Diagnosis - Discharge Diagnosis (1) S/P CABG x 3 Status: Acute (2) NSTEMI (non-ST elevated myocardial infarction) Status: Acute (3) Stage 4 chronic kidney disease Status: Chronic (4) Delirium Status: Acute (5) CAD (coronary artery disease) Status: Acute DS: Medications - Discharge Medications Prescriptions: oxycodone-acetaminophen 1 tab PO Q4H PRN #30 tab PRN Reason: Pain Scale 1 To 5 DS: Summary Hospital Course: 03/23 pt on nasal cannula, IABP 1:1 lower ext US noted : thrombus is noted in the right distal calf within the greater saphenous vein.. 03/24 surgery CABG x 4 VERDUGO to LAD - good, SVG to PDA - good, SVG to OM1 - good, SVG to D1 - fair, L EVH extubated after surgery, had some confusion last pm 03/25 POD 1 IABP dc without difficulty , hemostasis obtained , + distal pulses, no hematoma start plavix when chest tube out start resume RICK when BP tolerates per Nephro recommendation eval for transfer to stepdown later today 03/26 POD 2 wean 02 as tolerated UA obtained / + UTI placed on Rocephin worsening renal indices / nephro following start plavix transfer to stepdown 03/27 pt went into Afib RVR last pm , placed on amiodarone gtt turned off this am / then went back into afib / rebolused with amiodarone 150mg started on eliquis 09/12 Sampson score 5 discussed with daughter no plavix / family now requesting rehab 03/28 Doing well clinically. Recurrent atrial fibrillation with rate control on Eliquis Discharge planning 03/29 Doing well in NSR Possible transfer to rehab today 03/30 on room air stable for dc to rehab remains in NSR - Time Spent with Patient Total time spent providing and/or coordinating discharge services: Greater than 30 minutes - Quality: VTE Deep Vein Thrombosis/Pulmonary Embolism Present on Admission: No Exam Vital signs: Vital Signs 03/29/18 10:00 03/29/18 11:00 03/29/18 12:00 Temperature 98.0 F Pulse Rate 69 72 64 Respiratory Rate 16 Blood Pressure 131/71 Pulse Oximetry 96 03/29/18 13:00 03/29/18 14:00 03/29/18 15:00 Temperature 98.1 F Pulse Rate 67 67 68 Respiratory Rate 16 Blood Pressure 152/73 H Pulse Oximetry 97 03/29/18 16:00 03/29/18 17:00 03/29/18 17:17 Temperature Pulse Rate 69 75 Respiratory Rate Blood Pressure Pulse Oximetry 97 03/29/18 18:00 03/29/18 19:00 03/29/18 20:00 Temperature 98.4 F Pulse Rate 74 77 72 Respiratory Rate 18 Blood Pressure 164/78 H Pulse Oximetry 94 L 97 03/29/18 21:00 03/29/18 22:00 03/29/18 23:00 Temperature 98.5 F Pulse Rate 71 68 75 Respiratory Rate 18 Blood Pressure 154/79 H Pulse Oximetry 96 03/30/18 00:00 03/30/18 01:00 03/30/18 02:00 Temperature Pulse Rate 72 70 68 Respiratory Rate Blood Pressure Pulse Oximetry 03/30/18 03:00 03/30/18 04:00 03/30/18 05:00 Temperature 97.9 F Pulse Rate 73 69 64 Respiratory Rate 22 Blood Pressure 158/77 H Pulse Oximetry 95 03/30/18 06:00 03/30/18 07:00 Temperature Pulse Rate 62 78 Respiratory Rate Blood Pressure Pulse Oximetry Intake & Output 03/29/18 03/30/18 03/30/18 18:59 06:59 18:59 Intake Total 940 / 940 1440 / 1440 Output Total 1100 / 1100 1000 / 1000 Balance -160 / -160 440 / 440 Intake: IV 100 / 100 Rocephin Inj 1,000 MG In NS Inj 100 / 100 100 ML @ 200 mls/hr IV.SIG Q24H [facility] Rx#:[id number] Oral 840 / 840 1440 / 1440 Output: Urine 1100 / 1100 1000 / 1000 Other: # Voids 6 # Incontinent Voids 1 Date of Last Bowel Movement 03/29/18 03/29/18 # Bowel Movements 1 1 - Constitutional no acute distress - Routine HEENT Exam Head: Present: normocephalic Eye: Present: EOMI - Routine Neck Exam Present: supple, full ROM - Routine Chest/Breast/Axilla Exam Chest wall: Present: tenderness - Routine Cardiovascular Exam Present: RRR, S1, S2 - Routine Abdominal Exam Present: soft - Routine Extremities Exam Present: full ROM, pulses intact - Routine Skin Exam Present: intact, wounds Comments: sternal incision intact and well approximated - Routine Neurological Exam Present: alert, oriented X3 Results Procedures completed during hospitalization: 03/24 CABG x 4 VERDUGO to LAD - good SVG to PDA - good SVG to OM1 - good SVG to D1 - fair EV[facility] Labs on day of discharge: Labs from last 24 hours 03/30/18 03/29/18 03/29/18 07:51 21:26 16:05 POC Glucose 148 H 199 H 90 03/29/18 10:30 POC Glucose 292 H - Impressions ITS Impressions Head CT 03/20/18 21:24 CONCLUSION: 1. No acute intracranial abnormality is identified. 2. Chronic findings include mild generalized atrophy and mild periventricular white matter low-attenuation. Abdomen/Bladder Ultrasound 03/21/18 00:00 CONCLUSION: 1. Severe hydronephrosis right kidney. 2. Bilateral renal cysts. 3. Urinary bladder decompressed by Mccormick catheter. Carotid Doppler Study 03/22/18 11:30 CONCLUSION: 1. Mild atherosclerotic plaquing at both carotid bifurcations. 2. No focal high-grade or hemodynamically significant stenosis. Lower Extremity Ultrasound 03/22/18 11:30 CONCLUSION: 1. Focal occlusive thrombus in the distal right greater saphenous vein in the calf. 2. Otherwise unremarkable study with measurements as above. Venous Doppler Study 03/22/18 11:30 CONCLUSION: 1. No evidence of DVT. 2. Focal thrombus in the distal right calf within the GSV. Abdomen X-Ray 03/24/18 01:58 CONCLUSION: Intra-arterial balloon pump noted in the descending thoracic aorta Abdomen/Pelvis CT 03/26/18 00:00 CONCLUSION: 1. Right kidney is abnormal demonstrating severe cortical thinning and presumed dilated calyces containing multiple small stones. The renal pelvis is not dilated so this is from uncertain etiology but an obstructing process is not seen. Given the severe cortical thinning this is likely a chronic process. The left kidney also demonstrates lobulated contour with mild cortical thinning. 2. There is a small amount of air in the anterior inferior mediastinum presumably related to recent surgery but suggest correlating clinically with the history. 3. There is air within the urinary bladder. This presumably is related to recent catheterization but suggest correlating with the clinical history. 4. Small bilateral pleural effusions, right larger than left, with associated compressive atelectasis in the lower lobes. 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 5. Nonacute findings include cholelithiasis, severe atherosclerotic disease, and coronary artery calcification. Chest X-Ray 03/27/18 06:00 CONCLUSION: Cardiomegaly. Calcified pleural plaques seen bilaterally. Discharge Plan - Discharge Disposition Patient Disposition: Discharge to SNF - Discharge Condition Condition: Good - Discharge Order Discharge Orders: Discharge Order (Routine); Ordered 03/30/18 Ordered By: Livia Worrell - Discharge Details Anticipated Discharge Date: 03/30/18 - Physicians Team Primary Care Provider: Radha Springer Attending Provider: Kallie Horn Other Providers: Ladarius Ozuna MD ; Kallie Horn MD ; Joaquin Veronica MD ; [employer],[facility] ; [facility]ency ; [facility],Agency ; [facility],Agency
[2018-03-30] MEDS: Sertraline 100 MG Tablet PO SCH (10:22)
[2018-03-30 11:30] LABS: Albumin 2.2 g/dL (3.4-5.0); Calcium 8.6 mg/dL (8.5-10.1); Carbon Dioxide 24.2 meq/L (21.0-32.0); Phosphorus 3.4 mg/dL (2.5-4.9); Potassium 4.9 meq/L (3.5-5.1)
--- NOTE | 2018-03-30 12:08 | P.PNNP ---
Subjective Interval history: Renal function improved. Pending discharge to rehab today. <Kavita Beauchamp - Last Filed: 03/30/18 12:04> Physical Exam Vital signs: Vital Signs 03/29/18 13:00 03/29/18 14:00 03/29/18 15:00 Temperature 98.1 F Pulse Rate 67 67 68 Respiratory Rate 16 Blood Pressure 152/73 H Pulse Oximetry 97 03/29/18 16:00 03/29/18 17:00 03/29/18 17:17 Temperature Pulse Rate 69 75 Respiratory Rate Blood Pressure Pulse Oximetry 97 03/29/18 18:00 03/29/18 19:00 03/29/18 20:00 Temperature 98.4 F Pulse Rate 74 77 72 Respiratory Rate 18 Blood Pressure 164/78 H Pulse Oximetry 94 L 97 03/29/18 21:00 03/29/18 22:00 03/29/18 23:00 Temperature 98.5 F Pulse Rate 71 68 75 Respiratory Rate 18 Blood Pressure 154/79 H Pulse Oximetry 96 03/30/18 00:00 03/30/18 01:00 03/30/18 02:00 Temperature Pulse Rate 72 70 68 Respiratory Rate Blood Pressure Pulse Oximetry 03/30/18 03:00 03/30/18 04:00 03/30/18 05:00 Temperature 97.9 F Pulse Rate 73 69 64 Respiratory Rate 22 Blood Pressure 158/77 H Pulse Oximetry 95 03/30/18 06:00 03/30/18 07:00 03/30/18 08:00 Temperature 98.3 F Pulse Rate 62 84 84 Respiratory Rate 17 Blood Pressure 132/64 Pulse Oximetry 03/30/18 09:00 03/30/18 10:00 Temperature Pulse Rate 67 65 Respiratory Rate Blood Pressure Pulse Oximetry Intake & Output 03/29/18 03/30/18 03/30/18 18:59 06:59 18:59 Intake Total 940 / 940 1440 / 1440 100 / 100 Output Total 1100 / 1100 1000 / 1000 Balance -160 / -160 440 / 440 100 / 100 Intake: IV 100 / 100 100 / 100 Rocephin Inj 1,000 MG In NS Inj 100 / 100 100 / 100 100 ML @ 200 mls/hr IV.SIG Q24H [facility] Rx#:[id number] Oral 840 / 840 1440 / 1440 Output: Urine 1100 / 1100 1000 / 1000 Other: # Voids 6 # Incontinent Voids 1 Date of Last Bowel Movement 03/29/18 03/29/18 # Bowel Movements 1 1 - Constitutional no acute distress, obese - Routine HEENT Exam Head: Present: normocephalic - Routine Neck Exam Present: supple, full ROM - Routine Respiratory Exam Present: CTA bilaterally. Absent: accessory muscle use - Routine Cardiovascular Exam Present: RRR, S1, S2. Absent: murmur - Routine Abdominal Exam Present: soft, normoactive bowel sounds - Routine Extremities Exam Present: full ROM, pulses intact. Absent: edema - Routine Skin Exam Present: warm, wounds Comments: midsternal surgical incision, healing well. left leg wound s/p vein harvesting, butterfly suture intact - Routine Neurological Exam Present: alert, oriented X3, CN II-XII intact - Detailed Neurological Exam: Coma Scale Eye Opening: Spontaneous Verbal Response: Oriented Motor Response: Obey commands Daniela Coma Scale Total: 15 - Routine Psychiatric Exam Present: normal affect, normal thought process - Urinary Catheter Management Coude Cath placed during this visit: yes Urethral indwelling: Yes Reason for continuing: Not indwelling catheter Insertion date: 03/20/18 Insertion time: 21:30 Indwelling Urethral Catheter Cath placed during this visit: yes, but has since been removed by the nurse Reason for continuing: Decision to DC catheter Removal date: 03/24/18 Removal time: 07:25 Indwelling Temp Sensing Catheter Cath placed during this visit: yes, but has since been removed by the nurse Reason for continuing: Not indwelling catheter Insertion date: 03/24/18 Insertion time: 07:30 Removal date: 03/26/18 Removal time: 05:30 <Kavita Beauchamp - Last Filed: 03/30/18 12:04> Vital signs: Vital Signs 03/30/18 12:18 03/30/18 13:00 03/30/18 14:00 Temperature Pulse Rate 75 73 Respiratory Rate Blood Pressure Pulse Oximetry 97 03/30/18 14:50 03/30/18 15:00 03/30/18 16:00 Temperature 99.3 F Pulse Rate 73 71 Respiratory Rate 16 Blood Pressure 154/73 H Pulse Oximetry 97 97 03/30/18 17:00 03/30/18 18:00 03/30/18 18:54 Temperature 98.7 F Pulse Rate 74 76 82 Respiratory Rate 16 Blood Pressure 143/68 H Pulse Oximetry 93 L 03/30/18 19:00 03/30/18 19:54 03/30/18 20:00 Temperature 98.9 F Pulse Rate 80 75 82 Respiratory Rate 16 16 Blood Pressure 143/68 H 150/73 H Pulse Oximetry 98 03/30/18 20:54 03/30/18 21:00 03/30/18 21:16 Temperature Pulse Rate 70 78 Respiratory Rate 16 Blood Pressure 158/76 H Pulse Oximetry 97 94 L 03/30/18 21:54 03/30/18 22:00 03/30/18 23:00 Temperature 98.9 F 97.9 F Pulse Rate 70 80 70 Respiratory Rate 16 16 Blood Pressure 149/67 H 144/74 H Pulse Oximetry 98 94 L 03/31/18 00:00 03/31/18 01:00 03/31/18 01:54 Temperature Pulse Rate 76 66 73 Respiratory Rate 16 Blood Pressure 164/80 H Pulse Oximetry 94 L 03/31/18 02:00 03/31/18 03:00 03/31/18 04:00 Temperature 98.1 F Pulse Rate 74 62 78 Respiratory Rate 16 Blood Pressure 129/66 Pulse Oximetry 99 03/31/18 05:00 03/31/18 05:54 03/31/18 06:00 Temperature Pulse Rate 80 80 80 Respiratory Rate 18 Blood Pressure 161/86 H Pulse Oximetry 94 L 03/31/18 07:00 03/31/18 08:00 03/31/18 09:00 Temperature 98.2 F Pulse Rate 78 77 77 Respiratory Rate 17 Blood Pressure 174/82 H Pulse Oximetry 96 96 03/31/18 10:00 Temperature 98.2 F Pulse Rate 81 Respiratory Rate 17 Blood Pressure 174/82 H Pulse Oximetry 96 Intake & Output 03/30/18 03/31/18 03/31/18 18:59 06:59 18:59 Intake Total 760 / 760 Output Total 600 / 600 925 / 925 Balance 160 / 160 -925 / -925 Weight 98.5 kg Intake: IV 100 / 100 Rocephin Inj 1,000 MG In NS Inj 100 / 100 100 ML @ 200 mls/hr IV.SIG Q24H [facility] Rx#:[id number] Oral 660 / 660 Output: Urine 600 / 600 925 / 925 Other: # Voids 5 Date of Last Bowel Movement 03/30/18 03/30/18 # Bowel Movements 1 - Urinary Catheter Management Coude Cath placed during this visit: no Indwelling Urethral Catheter Cath placed during this visit: no Indwelling Temp Sensing Catheter Cath placed during this visit: no <Joaquin Veronica - Last Filed: 03/31/18 11:02> Assessment and Plan - Assessment (1) Acute worsening of stage 4 chronic kidney disease Code(s): N28.9 - Disorder of kidney and ureter, unspecified; N18.4 - Chronic kidney disease, stage 4 (severe) Status: Acute Plan: 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 Follows with Dr Herrera in [facility]. Exact baseline is unknown. ROMINA secondary to NSTEMI and cardiogenic shock, resulting in renal hypoperfusion. Renal function has improved He is non oliguric. Stable for discharge. Advised to follow with Dr. Herrera within one-two weeks. Avoid nephrotoxic agents. Resume Ramipril PO fluids encouraged. (2) NSTEMI (non-ST elevated myocardial infarction) Code(s): I21.4 - Non-ST elevation (NSTEMI) myocardial infarction Status: Acute Plan: s/p cath showing multivessel disease. s/p CABGx 4 on 03/24. CV surgery managing. He is on ASA and fenofibrate. (3) Cardiogenic shock Code(s): R57.0 - Cardiogenic shock Status: Deleted Plan: Improved. Improved hemodynamics. (4) Hyperosmolality and hypernatremia Code(s): E87.0 - Hyperosmolality and hypernatremia Status: Acute Plan: Improved Encourage oral fluids now that he is extubated. (5) Lactic acidosis Code(s): E87.2 - Acidosis Status: Acute Plan: due to renal hypoperfusion after NSTEMI. Improved <Kavita Beauchamp - Last Filed: 03/30/18 12:04> - Assessment (1) Acute worsening of stage 4 chronic kidney disease Code(s): N28.9 - Disorder of kidney and ureter, unspecified; N18.4 - Chronic kidney disease, stage 4 (severe) Status: Acute (2) NSTEMI (non-ST elevated myocardial infarction) Code(s): I21.4 - Non-ST elevation (NSTEMI) myocardial infarction Status: Acute (3) Cardiogenic shock Code(s): R57.0 - Cardiogenic shock Status: Deleted (4) Hyperosmolality and hypernatremia Code(s): E87.0 - Hyperosmolality and hypernatremia Status: Acute (5) Lactic acidosis Code(s): E87.2 - Acidosis Status: Acute - Attending Attestation patient was seen and examined. Renal function is stable. Possible discharge. <Joaquin Veronica - Last Filed: 03/31/18 11:02>
--- NOTE | 2018-03-30 21:10 | P.PNCA ---
Subjective Interval history: No complaints Doing well Planning on going to rehab Physical Exam Vital signs: Vital Signs 03/29/18 22:00 03/29/18 23:00 03/30/18 00:00 Temperature 98.5 F Pulse Rate 68 75 72 Respiratory Rate 18 Blood Pressure 154/79 H Pulse Oximetry 96 03/30/18 01:00 03/30/18 02:00 03/30/18 03:00 Temperature 97.9 F Pulse Rate 70 68 73 Respiratory Rate 22 Blood Pressure 158/77 H Pulse Oximetry 95 03/30/18 04:00 03/30/18 05:00 03/30/18 06:00 Temperature Pulse Rate 69 64 62 Respiratory Rate Blood Pressure Pulse Oximetry 03/30/18 07:00 03/30/18 08:00 03/30/18 09:00 Temperature 98.3 F Pulse Rate 84 84 67 Respiratory Rate 17 Blood Pressure 132/64 Pulse Oximetry 03/30/18 10:00 03/30/18 11:00 03/30/18 12:18 Temperature 98.5 F Pulse Rate 65 67 Respiratory Rate 17 Blood Pressure 132/72 Pulse Oximetry 97 03/30/18 13:00 03/30/18 14:00 03/30/18 14:50 Temperature Pulse Rate 75 73 Respiratory Rate Blood Pressure Pulse Oximetry 97 03/30/18 15:00 03/30/18 16:00 03/30/18 17:00 Temperature 99.3 F Pulse Rate 73 71 74 Respiratory Rate 16 Blood Pressure 154/73 H Pulse Oximetry 97 03/30/18 18:00 03/30/18 18:54 Temperature 98.7 F Pulse Rate 76 82 Respiratory Rate 16 Blood Pressure 143/68 H Pulse Oximetry 93 L Intake & Output 03/30/18 03/30/18 03/31/18 06:59 18:59 06:59 Intake Total 1440 / 1440 760 / 760 Output Total 1000 / 1000 600 / 600 Balance 440 / 440 160 / 160 Intake: IV 100 / 100 Rocephin Inj 1,000 MG In NS Inj 100 / 100 100 ML @ 200 mls/hr IV.SIG Q24H [facility] Rx#:[id number] Oral 1440 / 1440 660 / 660 Output: Urine 1000 / 1000 600 / 600 Other: # Voids 6 # Incontinent Voids 1 Date of Last Bowel Movement 03/29/18 03/30/18 03/30/18 # Bowel Movements 1 1 Narrative: GENERAL: NAD, AAOx3 SKIN: Warm and dry. HEAD: Atraumatic. Normocephalic. EYES: Pupils equal and round. No scleral icterus. No injection or drainage. ENT: No nasal bleeding or discharge. Mucous membranes pink and moist. NECK: Trachea midline. No JVD. CARDIOVASCULAR: Regular rate and rhythm. RESPIRATORY: No accessory muscle use. CTA B/L GASTROINTESTINAL: Abdomen soft, non-tender, nondistended. Hepatic and splenic margins not palpable. MUSCULOSKELETAL: Extremities without clubbing, cyanosis, or edema. No obvious deformities. IABP removed, no hematoma noted NEUROLOGICAL: No focal deficits - Urinary Catheter Management Coude Cath placed during this visit: yes Urethral indwelling: Yes Reason for continuing: Not indwelling catheter Insertion date: 03/20/18 Insertion time: 21:30 Indwelling Urethral Catheter Cath placed during this visit: yes, but has since been removed by the nurse Reason for continuing: Decision to DC catheter Removal date: 03/24/18 Removal time: 07:25 Indwelling Temp Sensing Catheter Cath placed during this visit: yes, but has since been removed by the nurse Reason for continuing: Not indwelling catheter Insertion date: 03/24/18 Insertion time: 07:30 Removal date: 03/26/18 Removal time: 05:30 Assessment and Plan - Assessment (1) Multi-vessel coronary artery stenosis Code(s): I25.10 - Atherosclerotic heart disease of [place] coronary artery without angina pectoris Status: Acute (2) Lactic acidosis Code(s): E87.2 - Acidosis Status: Acute (3) Acute respiratory failure with hypoxia Code(s): J96.01 - Acute respiratory failure with hypoxia Status: Acute (4) NSTEMI (non-ST elevated myocardial infarction) Code(s): I21.4 - Non-ST elevation (NSTEMI) myocardial infarction Status: Acute (5) Cardiogenic shock Code(s): R57.0 - Cardiogenic shock Status: Deleted (6) CAD (coronary artery disease) Code(s): I25.10 - Atherosclerotic heart disease of [place] coronary artery without angina pectoris Status: Acute (7) Stage 4 chronic kidney disease Code(s): N18.4 - Chronic kidney disease, stage 4 (severe) Status: Chronic - Plan 1) MVCAD/NSTEMI CABGx4 POD #6 VERDUGO to LAD SVG to D1 SVG to OM1 SVG to PDA EF 25% 2) Cardiogenic shock/pulmonary edema on admission Resolved 3) ROMINA on CKD Evaluated by Nephrology Increased BUN/Cr 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
[2018-03-31] MEDS: levETIRAcetam 500 MG Tablet PO SCH (04:30)
[2018-03-31] MEDS: Hypromellose 0.3% Opth Gel 10 GM Bottle EACH EYE SCH ×2 (06:34→09:33)
[2018-03-31 08:40] VITALS: O2SAT 96
--- NOTE | 2018-03-31 08:59 | P.PNCV ---
- Note Subjective/Hospital Course: 77-year-old male pt of Dr. Michelle presented via [facility] to [facility] Emergency Room for shortness of breath. Apparently, he called his daughter a little after 8 p.m., said that he thought he was having a heart attack. He was significantly short of breath. His daughter said that he had slurred speech on the phone. [facility] arrived and he was still on the phone with his daughter and at that time he was telling her that he felt like he was having a heart attack and he was extremely diaphoretic. He was saturating in the 60s and so they intubated him. He was then transferred to the [facility] . EKG was done and showed ne left bundle branch block. Lab work shows a lactic acid of 4.2 and a troponin of 3.48. PAST MEDICAL HISTORY: Asbestosis, Hypertension, Hyperlipidemia, Diabetes mellitus, seizure disorder s/p heart cath : . Acute pulmonary edema, Acute decompensated heart failure ( class IV), Acute respiratory failure requiring mechanical ventilation, Non- ST-elevation myocardial infarction, Multivessel disease, Gfyan-cj-[id number] kidney disease, Lactic acidosis due to decreased tissue perfusion. EF 20-25% cath : left main 50%, LAD 50%/mid LAD 90%. Diagonal 70%. Circumflex 70%. OM 90%. RCA 70% patient had anterior balloon pump placed one-to-one in the right femoral region. 03/23 pt on nasal cannula, IABP 1:1 lower ext US noted : thrombus is noted in the right distal calf within the greater saphenous vein.. 03/24 surgery CABG x 4 VERDUGO to LAD - good, SVG to PDA - good, SVG to OM1 - good, SVG to D1 - fair, L EVH extubated after surgery, had some confusion last pm 03/25 POD 1 IABP dc without difficulty , hemostasis obtained , + distal pulses, no hematoma start plavix when chest tube out start resume RICK when BP tolerates per Nephro recommendation eval for transfer to stepdown later today 03/26 POD 2 wean 02 as tolerated UA obtained / + UTI placed on Rocephin worsening renal indices / nephro following start plavix transfer to stepdown 03/27 pt went into Afib RVR last pm , placed on amiodarone gtt turned off this am / then went back into afib / rebolused with amiodarone 150mg started on eliquis 09/12 Sampson score 5 discussed with daughter no plavix / family now requesting rehab 03/28 Doing well clinically. Recurrent atrial fibrillation with rate control on Eliquis Discharge planning 03/29 Doing well in NSR Possible transfer to rehab today 09/30 DC summary completed 10/01 pt doing well on room air Creatinine 2.84 has f/u with nephrology as outpt dc when bed available Objective: Vital Signs - 24 hr 03/30/18 09:00 03/30/18 10:00 03/30/18 11:00 Temperature 98.5 F Pulse Rate 67 65 67 Respiratory Rate 17 Blood Pressure 132/72 Pulse Oximetry 03/30/18 12:18 03/30/18 13:00 03/30/18 14:00 Temperature Pulse Rate 75 73 Respiratory Rate Blood Pressure Pulse Oximetry 97 03/30/18 14:50 03/30/18 15:00 03/30/18 16:00 Temperature 99.3 F Pulse Rate 73 71 Respiratory Rate 16 Blood Pressure 154/73 H Pulse Oximetry 97 97 03/30/18 17:00 03/30/18 18:00 03/30/18 18:54 Temperature 98.7 F Pulse Rate 74 76 82 Respiratory Rate 16 Blood Pressure 143/68 H Pulse Oximetry 93 L 03/30/18 19:00 03/30/18 19:54 03/30/18 20:00 Temperature 98.9 F Pulse Rate 80 75 82 Respiratory Rate 16 16 Blood Pressure 143/68 H 150/73 H Pulse Oximetry 98 03/30/18 20:54 03/30/18 21:00 03/30/18 21:16 Temperature Pulse Rate 70 78 Respiratory Rate 16 Blood Pressure 158/76 H Pulse Oximetry 97 94 L 03/30/18 21:54 03/30/18 22:00 03/30/18 23:00 Temperature 98.9 F 97.9 F Pulse Rate 70 80 70 Respiratory Rate 16 16 Blood Pressure 149/67 H 144/74 H Pulse Oximetry 98 94 L 03/31/18 00:00 03/31/18 01:00 03/31/18 01:54 Temperature Pulse Rate 76 66 73 Respiratory Rate 16 Blood Pressure 164/80 H Pulse Oximetry 94 L 03/31/18 02:00 03/31/18 03:00 03/31/18 04:00 Temperature 98.1 F Pulse Rate 74 62 78 Respiratory Rate 16 Blood Pressure 129/66 Pulse Oximetry 99 03/31/18 05:00 03/31/18 05:54 03/31/18 06:00 Temperature Pulse Rate 80 80 80 Respiratory Rate 18 Blood Pressure 161/86 H Pulse Oximetry 94 L 03/31/18 07:00 03/31/18 08:00 Temperature 98.2 F Pulse Rate 78 81 Respiratory Rate 17 Blood Pressure 174/82 H Pulse Oximetry 96 Labs: Laboratory Results - last 12 hr 03/30/18 03/31/18 21:02 08:16 POC Glucose 232 H 164 H Result Diagrams: 03/26/18 04:35 03/30/18 10:49 - Plan (1) S/P CABG x 3 Plan: ASA, statin , amiodarone on BB low dose RICK as per Renal request (2) NSTEMI (non-ST elevated myocardial infarction) Plan: on ASA, Heparin for possible surgery in am (3) Stage 4 chronic kidney disease Plan: indices stabilizing non-oliguric/ Nephro following on Bumex (4) Delirium Plan: resolved
[2018-03-31] MEDS ORDERED: Metoprolol Tartrate 50 MG Tablet PO SCH (09:30)
[2018-03-31] MEDS: Amiodarone 200 MG Tablet PO SCH (09:31)
[2018-03-31] MEDS: Fenofibrate 48 MG Tablet PO SCH (09:31)
[2018-03-31] MEDS: Multivitamin/Minerals Therapeutic Tablet PO SCH (09:31)
[2018-03-31] MEDS: Sertraline 100 MG Tablet PO SCH (09:31)
[2018-03-31] MEDS: Docusate Sodium 100 MG Capsule PO SCH (09:32)
[2018-03-31] MEDS: Insulin NovoLOG Aspart Correctional Sugar Inj SQ SCH ×2 (09:32→11:48)
[2018-03-31] MEDS: Ramipril 2.5 MG Capsule PO SCH (09:32)
[2018-03-31] MEDS: Senna/Docusate Sodium 8.6/50 MG Tablet PO SCH (09:33)
[2018-03-31] MEDS: Polyethylene Glycol 3350 17 GM Packet PO SCH (09:33)
--- NOTE | 2018-03-31 11:25 | P.PNNP ---
Subjective Interval history: He was not discharged. Fell yesterday. Yesterday's labs showed improvement in renal function. NO complaints today. Some edema noted. <Kavita Beauchamp - Last Filed: 03/31/18 11:20> Physical Exam Vital signs: Vital Signs 03/30/18 12:18 03/30/18 13:00 03/30/18 14:00 Temperature Pulse Rate 75 73 Respiratory Rate Blood Pressure Pulse Oximetry 97 03/30/18 14:50 03/30/18 15:00 03/30/18 16:00 Temperature 99.3 F Pulse Rate 73 71 Respiratory Rate 16 Blood Pressure 154/73 H Pulse Oximetry 97 97 03/30/18 17:00 03/30/18 18:00 03/30/18 18:54 Temperature 98.7 F Pulse Rate 74 76 82 Respiratory Rate 16 Blood Pressure 143/68 H Pulse Oximetry 93 L 03/30/18 19:00 03/30/18 19:54 03/30/18 20:00 Temperature 98.9 F Pulse Rate 80 75 82 Respiratory Rate 16 16 Blood Pressure 143/68 H 150/73 H Pulse Oximetry 98 03/30/18 20:54 03/30/18 21:00 03/30/18 21:16 Temperature Pulse Rate 70 78 Respiratory Rate 16 Blood Pressure 158/76 H Pulse Oximetry 97 94 L 03/30/18 21:54 03/30/18 22:00 03/30/18 23:00 Temperature 98.9 F 97.9 F Pulse Rate 70 80 70 Respiratory Rate 16 16 Blood Pressure 149/67 H 144/74 H Pulse Oximetry 98 94 L 03/31/18 00:00 03/31/18 01:00 03/31/18 01:54 Temperature Pulse Rate 76 66 73 Respiratory Rate 16 Blood Pressure 164/80 H Pulse Oximetry 94 L 03/31/18 02:00 03/31/18 03:00 03/31/18 04:00 Temperature 98.1 F Pulse Rate 74 62 78 Respiratory Rate 16 Blood Pressure 129/66 Pulse Oximetry 99 03/31/18 05:00 03/31/18 05:54 03/31/18 06:00 Temperature Pulse Rate 80 80 80 Respiratory Rate 18 Blood Pressure 161/86 H Pulse Oximetry 94 L 03/31/18 07:00 03/31/18 08:00 03/31/18 09:00 Temperature 98.2 F Pulse Rate 78 77 77 Respiratory Rate 17 Blood Pressure 174/82 H Pulse Oximetry 96 96 03/31/18 10:00 Temperature 98.2 F Pulse Rate 81 Respiratory Rate 17 Blood Pressure 174/82 H Pulse Oximetry 96 Intake & Output 03/30/18 03/31/18 03/31/18 18:59 06:59 18:59 Intake Total 760 / 760 Output Total 600 / 600 925 / 925 Balance 160 / 160 -925 / -925 Weight 98.5 kg Intake: IV 100 / 100 Rocephin Inj 1,000 MG In NS Inj 100 / 100 100 ML @ 200 mls/hr IV.SIG Q24H HEIDI Rx#:[id number] Oral 660 / 660 Output: Urine 600 / 600 925 / 925 Other: # Voids 5 Date of Last Bowel Movement 03/30/18 03/30/18 # Bowel Movements 1 - Constitutional no acute distress - Routine HEENT Exam Head: Present: normocephalic - Routine Neck Exam Present: supple, full ROM - Routine Respiratory Exam Present: crackles. Absent: accessory muscle use - Routine Cardiovascular Exam Present: RRR, S1, S2 Comments: midsternal incision healing. - Routine Abdominal Exam Present: soft, normoactive bowel sounds - Routine Extremities Exam Present: edema, full ROM, pulses intact, calf tenderness - Routine Skin Exam Present: dry, warm Comments: multiple surgical incision sites healing - Routine Neurological Exam Present: alert, oriented X3, CN II-XII intact - Detailed Neurological Exam: Coma Scale Eye Opening: Spontaneous Verbal Response: Oriented Motor Response: Obey commands [place] Coma Scale Total: 15 - Routine Psychiatric Exam Present: normal affect, normal thought process - Urinary Catheter Management Coude Cath placed during this visit: yes Urethral indwelling: Yes Reason for continuing: Not indwelling catheter Insertion date: 03/20/18 Insertion time: 21:30 Indwelling Urethral Catheter Cath placed during this visit: yes, but has since been removed by the nurse Reason for continuing: Decision to DC catheter Removal date: 03/24/18 Removal time: 07:25 Indwelling Temp Sensing Catheter Cath placed during this visit: yes, but has since been removed by the nurse Reason for continuing: Not indwelling catheter Insertion date: 03/24/18 Insertion time: 07:30 Removal date: 03/26/18 Removal time: 05:30 <Kavita Beauchamp - Last Filed: 03/31/18 11:20> Vital signs: Vital Signs 03/30/18 18:00 03/30/18 18:54 03/30/18 19:00 Temperature 98.7 F 98.9 F Pulse Rate 76 82 80 Respiratory Rate 16 16 Blood Pressure 143/68 H 143/68 H Pulse Oximetry 93 L 98 03/30/18 19:54 03/30/18 20:00 03/30/18 20:54 Temperature Pulse Rate 75 82 70 Respiratory Rate 16 16 Blood Pressure 150/73 H 158/76 H Pulse Oximetry 97 03/30/18 21:00 03/30/18 21:16 03/30/18 21:54 Temperature 98.9 F Pulse Rate 78 70 Respiratory Rate 16 Blood Pressure 149/67 H Pulse Oximetry 94 L 98 03/30/18 22:00 03/30/18 23:00 03/31/18 00:00 Temperature 97.9 F Pulse Rate 80 70 76 Respiratory Rate 16 Blood Pressure 144/74 H Pulse Oximetry 94 L 03/31/18 01:00 03/31/18 01:54 03/31/18 02:00 Temperature Pulse Rate 66 73 74 Respiratory Rate 16 Blood Pressure 164/80 H Pulse Oximetry 94 L 03/31/18 03:00 03/31/18 04:00 03/31/18 05:00 Temperature 98.1 F Pulse Rate 62 78 80 Respiratory Rate 16 Blood Pressure 129/66 Pulse Oximetry 99 03/31/18 05:54 03/31/18 06:00 03/31/18 07:00 Temperature Pulse Rate 80 80 78 Respiratory Rate 18 Blood Pressure 161/86 H Pulse Oximetry 94 L 96 03/31/18 08:00 03/31/18 09:00 03/31/18 10:00 Temperature 98.2 F 98.2 F Pulse Rate 77 77 81 Respiratory Rate 17 17 Blood Pressure 174/82 H 174/82 H Pulse Oximetry 96 96 03/31/18 11:00 03/31/18 12:00 Temperature 98 F Pulse Rate 62 63 Respiratory Rate 18 Blood Pressure 122/72 Pulse Oximetry 96 Intake & Output 03/30/18 03/31/18 03/31/18 18:59 06:59 18:59 Intake Total 760 / 760 Output Total 600 / 600 925 / 925 Balance 160 / 160 -925 / -925 Weight 98.5 kg Intake: IV 100 / 100 Rocephin Inj 1,000 MG In NS Inj 100 / 100 100 ML @ 200 mls/hr IV.SIG Q24H HEIDI Rx#:[id number] Oral 660 / 660 Output: Urine 600 / 600 925 / 925 Other: # Voids 5 Date of Last Bowel Movement 03/30/18 03/30/18 # Bowel Movements 1 - Urinary Catheter Management Coude Cath placed during this visit: no Indwelling Urethral Catheter Cath placed during this visit: no Indwelling Temp Sensing Catheter Cath placed during this visit: no <Joaquin Veronica - Last Filed: 03/31/18 17:55> Assessment and Plan - Assessment (1) Acute worsening of stage 4 chronic kidney disease Code(s): N28.9 - Disorder of kidney and ureter, unspecified; N18.4 - Chronic kidney disease, stage 4 (severe) Status: Acute Plan: 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 Follows with Dr Herrera in [facility]. ROMINA secondary to NSTEMI and cardiogenic shock, resulting in renal hypoperfusion. Renal function improved. Labs not checked today. He is making urine. Some edema noted, start Lasix 40 mg daily. Stable for discharge. Advised to follow with Dr. Herrera within one-two weeks. Avoid nephrotoxic agents. Ramipril was resumed. PO fluids encouraged. (2) NSTEMI (non-ST elevated myocardial infarction) Code(s): I21.4 - Non-ST elevation (NSTEMI) myocardial infarction Status: Acute Plan: s/p cath showing multivessel disease. s/p CABGx 4 on 03/24. CV surgery managing. He is on ASA and fenofibrate. (3) Hyperosmolality and hypernatremia Code(s): E87.0 - Hyperosmolality and hypernatremia Status: Acute Plan: Improved Encourage oral fluids now that he is extubated. (4) Lactic acidosis Code(s): E87.2 - Acidosis Status: Acute Plan: due to renal hypoperfusion after NSTEMI. Corrected <Kavita Beauchamp - Last Filed: 03/31/18 11:20> - Assessment (1) Acute worsening of stage 4 chronic kidney disease Code(s): N28.9 - Disorder of kidney and ureter, unspecified; N18.4 - Chronic kidney disease, stage 4 (severe) Status: Acute (2) NSTEMI (non-ST elevated myocardial infarction) Code(s): I21.4 - Non-ST elevation (NSTEMI) myocardial infarction Status: Acute (3) Hyperosmolality and hypernatremia Code(s): E87.0 - Hyperosmolality and hypernatremia Status: Acute (4) Lactic acidosis Code(s): E87.2 - Acidosis Status: Acute - Attending Attestation patient was seen and examined. Agree with above assessment and plan. <Joaquin Veronica - Last Filed: 03/31/18 17:55>
[2018-03-31] MEDS ORDERED: Furosemide 40 MG Tablet PO SCH (11:30)
[2018-03-31 12:09] VITALS: BP 122/72; PULSE 63; RESP 18; TEMP 98
--- NOTE | 2018-03-31 14:48 | P.PNCA ---
Subjective Interval history: No events overnight Blood pressure mildly elevated Physical Exam Vital signs: Vital Signs 03/30/18 14:50 03/30/18 15:00 03/30/18 16:00 Temperature 99.3 F Pulse Rate 73 71 Respiratory Rate 16 Blood Pressure 154/73 H Pulse Oximetry 97 97 03/30/18 17:00 03/30/18 18:00 03/30/18 18:54 Temperature 98.7 F Pulse Rate 74 76 82 Respiratory Rate 16 Blood Pressure 143/68 H Pulse Oximetry 93 L 03/30/18 19:00 03/30/18 19:54 03/30/18 20:00 Temperature 98.9 F Pulse Rate 80 75 82 Respiratory Rate 16 16 Blood Pressure 143/68 H 150/73 H Pulse Oximetry 98 03/30/18 20:54 03/30/18 21:00 03/30/18 21:16 Temperature Pulse Rate 70 78 Respiratory Rate 16 Blood Pressure 158/76 H Pulse Oximetry 97 94 L 03/30/18 21:54 03/30/18 22:00 03/30/18 23:00 Temperature 98.9 F 97.9 F Pulse Rate 70 80 70 Respiratory Rate 16 16 Blood Pressure 149/67 H 144/74 H Pulse Oximetry 98 94 L 03/31/18 00:00 03/31/18 01:00 03/31/18 01:54 Temperature Pulse Rate 76 66 73 Respiratory Rate 16 Blood Pressure 164/80 H Pulse Oximetry 94 L 03/31/18 02:00 03/31/18 03:00 03/31/18 04:00 Temperature 98.1 F Pulse Rate 74 62 78 Respiratory Rate 16 Blood Pressure 129/66 Pulse Oximetry 99 03/31/18 05:00 03/31/18 05:54 03/31/18 06:00 Temperature Pulse Rate 80 80 80 Respiratory Rate 18 Blood Pressure 161/86 H Pulse Oximetry 94 L 03/31/18 07:00 03/31/18 08:00 03/31/18 09:00 Temperature 98.2 F Pulse Rate 78 77 77 Respiratory Rate 17 Blood Pressure 174/82 H Pulse Oximetry 96 96 03/31/18 10:00 03/31/18 11:00 03/31/18 12:00 Temperature 98.2 F 98 F Pulse Rate 81 62 63 Respiratory Rate 17 18 Blood Pressure 174/82 H 122/72 Pulse Oximetry 96 96 Intake & Output 03/30/18 03/31/18 03/31/18 18:59 06:59 18:59 Intake Total 760 / 760 Output Total 600 / 600 925 / 925 Balance 160 / 160 -925 / -925 Weight 98.5 kg Intake: IV 100 / 100 Rocephin Inj 1,000 MG In NS Inj 100 / 100 100 ML @ 200 mls/hr IV.SIG Q24H HEIDI Rx#:[id number] Oral 660 / 660 Output: Urine 600 / 600 925 / 925 Other: # Voids 5 Date of Last Bowel Movement 03/30/18 03/30/18 # Bowel Movements 1 Narrative: GENERAL: NAD, AAOx3 SKIN: Warm and dry. HEAD: Atraumatic. Normocephalic. EYES: Pupils equal and round. No scleral icterus. No injection or drainage. ENT: No nasal bleeding or discharge. Mucous membranes pink and moist. NECK: Trachea midline. No JVD. CARDIOVASCULAR: Regular rate and rhythm. RESPIRATORY: No accessory muscle use. CTA B/L GASTROINTESTINAL: Abdomen soft, non-tender, nondistended. Hepatic and splenic margins not palpable. MUSCULOSKELETAL: Extremities without clubbing, cyanosis, or edema. No obvious deformities. IABP removed, no hematoma noted NEUROLOGICAL: No focal deficits - Urinary Catheter Management Coude Cath placed during this visit: yes Urethral indwelling: Yes Reason for continuing: Not indwelling catheter Insertion date: 03/20/18 Insertion time: 21:30 Indwelling Urethral Catheter Cath placed during this visit: yes, but has since been removed by the nurse Reason for continuing: Decision to DC catheter Removal date: 03/24/18 Removal time: 07:25 Indwelling Temp Sensing Catheter Cath placed during this visit: yes, but has since been removed by the nurse Reason for continuing: Not indwelling catheter Insertion date: 03/24/18 Insertion time: 07:30 Removal date: 03/26/18 Removal time: 05:30 Assessment and Plan - Assessment (1) Multi-vessel coronary artery stenosis Code(s): I25.10 - Atherosclerotic heart disease of [place] coronary artery without angina pectoris Status: Acute (2) Lactic acidosis Code(s): E87.2 - Acidosis Status: Acute (3) Acute respiratory failure with hypoxia Code(s): J96.01 - Acute respiratory failure with hypoxia Status: Acute (4) NSTEMI (non-ST elevated myocardial infarction) Code(s): I21.4 - Non-ST elevation (NSTEMI) myocardial infarction Status: Acute (5) Cardiogenic shock Code(s): R57.0 - Cardiogenic shock Status: Deleted (6) CAD (coronary artery disease) Code(s): I25.10 - Atherosclerotic heart disease of [place] coronary artery without angina pectoris Status: Acute (7) Stage 4 chronic kidney disease Code(s): N18.4 - Chronic kidney disease, stage 4 (severe) Status: Chronic - Plan 1) MVCAD/NSTEMI CABGx4 POD #7 VERDUGO to LAD SVG to D1 SVG to OM1 SVG to PDA EF 25% 2) Cardiogenic shock/pulmonary edema on admission Resolved 3) ROMINA on CKD Evaluated by Nephrology Increased BUN/Cr Following up with his [employer] [employer] outpt 4) ASA/Amio/BB/Statin Eliquis for Afib 5) HTN BB increased
== END 2018-03-31 12:00 ==
LOC: EDBD → PHED 20:53 → PHEDA 22:55 → HCVI 03-21 02:57 → HCPC 03-26 14:10
PROVIDERS: ADMIT Thoracic Surgery (Cardiothoracic Vascular Surgery); ATTEND Thoracic Surgery (Cardiothoracic Vascular Surgery)

== ENCOUNTER 2018-05-23 10:53 | Inpatient (IN) ==
--- NOTE | 2018-05-23 11:08 | ED ---
HPI General Chief Complaint: Shortness of Breath/Dyspnea Stated Complaint: SOB Time Seen by Provider: 05/23/18 11:04 Source: patient and EMS Mode of arrival: EMS Limitations: no limitations History of Present Illness 78-year-old male patient with history of CAD, [place], status post CABG x4, hypertension, diabetes, presents to the ER today because he apparently had a worsening dyspnea on exertion and shortness of breath over the last 4 days. He denies any chest pains, coughing, or any other issues. He states he only sleeps on one pillow. He does not notice any leg swelling. Related Data Home Medications Medication Instructions Recorded Confirmed amlodipine 10 mg PO DAILY 05/23/18 05/23/18 apixaban [Eliquis] 2.5 mg PO BID 05/23/18 05/23/18 aspirin [Aspir-81] 81 mg PO DAILY 05/23/18 05/23/18 atorvastatin 20 mg PO DAILY 05/23/18 05/23/18 docusate sodium 100 mg PO DAILY 05/23/18 05/23/18 fenofibrate 50 mg PO DAILY 05/23/18 05/23/18 furosemide 40 mg PO DAILY 05/23/18 05/23/18 levetiracetam 500 mg PO BID 05/23/18 05/23/18 metoprolol tartrate 25 mg PO BID 05/23/18 05/23/18 oxycodone-acetaminophen 1 tab PO Q4-6H PRN 05/23/18 05/23/18 ramipril 2.5 mg PO BID 05/23/18 05/23/18 sertraline 100 mg PO DAILY 05/23/18 05/23/18 Allergies Allergy/AdvReac Type Severity Reaction Status Date / Time No Known Allergies Allergy Uncoded 03/07/16 15:20 Review of Systems ROS: all other systems reviewed are negative PMFSH History History Provided By: Patient Medical History Medical History Myocardial infarct (Acute) Surgical History Surgical History S/P CABG x 4 (Acute) Social History Social History Smoking Status: Unknown if ever smoked How Often Do You Have a Drink Containing Alcohol: Unable to Obtain Exam Narrative Exam Narrative: GENERAL: Well-developed elderly white male patient currently and mild respiratory distress at rest. Awake and oriented x3. SKIN: Focused skin assessment warm/dry. HEAD: Atraumatic. Normocephalic. EYES: Pupils equal and round. No scleral icterus. No injection or drainage. ENT: No nasal bleeding or discharge. Mucous membranes pink and moist. NECK: Trachea midline. No JVD. CARDIOVASCULAR: Regular rate and rhythm. No murmur appreciated. RESPIRATORY: Mild accessory muscle use. Decreased breath sounds and crackles at bases. Breath sounds equal bilaterally. GASTROINTESTINAL: Abdomen soft, non-tender, nondistended. Hepatic and splenic margins not palpable. MUSCULOSKELETAL: No obvious deformities. No clubbing. No cyanosis. Trace bilateral pitting edema. NEUROLOGICAL: Awake and alert. No obvious cranial nerve deficits. Motor grossly within normal limits. Normal speech. PSYCHIATRIC: Appropriate mood and affect; insight and judgment normal. Course Initial Documented Vital Signs Temperature 97.5 F L 05/23/18 11:04 Pulse Rate 83 05/23/18 11:04 Respiratory Rate 28 H 05/23/18 11:04 Blood Pressure 153/85 H 05/23/18 11:04 Pulse Oximetry 94 L 05/23/18 11:04 Last Documented Vital Signs Temperature 97.5 F L 05/23/18 11:04 Pulse Rate 76 05/23/18 14:29 Respiratory Rate 23 05/23/18 14:29 Blood Pressure 149/82 H 05/23/18 14:29 Pulse Oximetry 96 05/23/18 14:29 Medical Decision Making MDM Narrative Medical decision making narrative: Chest x-ray and BNP is indicative of CHF. Patient was given nitroglycerin initially and then was given Lasix in the ER. His BUN and creatinine is quite elevated as well, has history of chronic renal insufficiency. Plan would be to admit him at this point for further evaluation. Case is discussed with Dr. Truong for admission. Medical Screen Exam Complete: Yes Emergency Medical Condition: Yes Differential Diagnosis Differential Diagnosis: CHF versus COPD versus pneumonia Lab Data Lab results reviewed: Yes I reviewed the patient's lab results. Result diagrams: 05/23/18 11:08 05/23/18 11:08 Lab Results 05/23/18 05/23/18 05/23/18 Range/Units 11:08 11:08 11:08 WBC 7.3 (4.0-11.0) th/mm3 RBC 4.02 L (4.50-5.90) mil/mm3 Hgb 11.8 L (13.0-17.0) gm/dL Hct 36.8 L (39.0-51.0) % MCV 91.6 (80.0-100.0) fL MCH 29.2 (27.0-34.0) pg MCHC 31.9 L (32.0-36.0) % RDW 14.8 (11.6-17.2) % Plt Count 341 (150-450) th/mm3 MPV 7.2 (7.0-11.0) fL Neut % (Auto) 84.3 H (16.0-70.0) % Lymph % (Auto) 7.7 L (9.0-44.0) % Amelia % (Auto) 7.3 (0.0-8.0) % Eos % (Auto) 0.3 (0.0-4.0) % Baso % (Auto) 0.4 (0.0-2.0) % Neut # (Auto) 6.1 (1.8-7.7) th/mm3 Lymph # (Auto) 0.6 L (1.0-4.8) th/mm3 Amelia # (Auto) 0.5 (0.0-0.9) th/mm3 Eos # (Auto) 0.0 (0.0-0.4) th/mm3 Baso # (Auto) 0.0 (0.0-0.2) th/mm3 WBC Differential . Differential Comment Auto diff final PT (9.8-11.6) sec INR Ratio APTT (24.3-30.1) sec Sodium 140 (136-145) meq/L Potassium 5.0 (3.5-5.1) meq/L Chloride 110 H (98-107) meq/L Carbon Dioxide 20.1 L (21.0-32.0) meq/L Anion Gap 10 (5-15) meq/L BUN 51 H (7-18) mg/dL Creatinine 2.83 H (0.60-1.30) mg/dL Estimated GFR 22 L (>89) mL/min Random Glucose 163 H (74-106) mg/dL Calcium 8.2 L (8.5-10.1) mg/dL Total Bilirubin 0.3 (0.2-1.0) mg/dL AST 20 (15-37) U/L ALT 19 (12-78) U/L Alkaline Phosphatase 58 (45-117) U/L Troponin I 0.07 H (0.02-0.05) ng/mL B-Natriuretic Peptide 3100 H (0-100) pg/mL Total Protein 7.1 (6.4-8.2) g/dL Albumin 3.3 L (3.4-5.0) g/dL 05/23/18 Range/Units 11:08 WBC (4.0-11.0) th/mm3 RBC (4.50-5.90) mil/mm3 Hgb (13.0-17.0) gm/dL Hct (39.0-51.0) % MCV (80.0-100.0) fL MCH (27.0-34.0) pg MCHC (32.0-36.0) % RDW (11.6-17.2) % Plt Count (150-450) th/mm3 MPV (7.0-11.0) fL Neut % (Auto) (16.0-70.0) % Lymph % (Auto) (9.0-44.0) % Amelia % (Auto) (0.0-8.0) % Eos % (Auto) (0.0-4.0) % Baso % (Auto) (0.0-2.0) % Neut # (Auto) (1.8-7.7) th/mm3 Lymph # (Auto) (1.0-4.8) th/mm3 Amelia # (Auto) (0.0-0.9) th/mm3 Eos # (Auto) (0.0-0.4) th/mm3 Baso # (Auto) (0.0-0.2) th/mm3 WBC Differential Differential Comment PT 10.6 (9.8-11.6) sec INR 1.0 Ratio APTT 25.5 (24.3-30.1) sec Sodium (136-145) meq/L Potassium (3.5-5.1) meq/L Chloride (98-107) meq/L Carbon Dioxide (21.0-32.0) meq/L Anion Gap (5-15) meq/L BUN (7-18) mg/dL Creatinine (0.60-1.30) mg/dL Estimated GFR (>89) mL/min Random Glucose (74-106) mg/dL Calcium (8.5-10.1) mg/dL Total Bilirubin (0.2-1.0) mg/dL AST (15-37) U/L ALT (12-78) U/L Alkaline Phosphatase (45-117) U/L Troponin I (0.02-0.05) ng/mL B-Natriuretic Peptide (0-100) pg/mL Total Protein (6.4-8.2) g/dL Albumin (3.4-5.0) g/dL Imaging Data Attestation: I personally reviewed and interpreted this imaging study as follows : Radiologist's impression: Chest X-Ray 05/23/18 11:04 CONCLUSION: Left lower lobe airspace consolidation/atelectasis with radiographic findings concerning for congestive heart failure and pulmonary edema versus volume overload. ECG Data Attestation: I personally reviewed and interpreted this ECG as follows: Interpretation: EKG shows left bundle branch block with a sinus rhythm at a rate of 83 bpm. Discharge Plan Discharge Disposition Patient Disposition: 30 Still Patient Discharge Condition Condition: Stable Discharge Details Anticipated Discharge Date: 05/23/18 Diagnosis: CHF (congestive heart failure) Physicians Team ED Provider: Federico Viramontes Primary Care Provider: Radha Springer Attending Provider: Chinyere Truong Discharge Interventions Interventions: Vital Signs Last Done: 05/23/18 14:29 Status ED Status: Admitted Observation Patient
--- NOTE | 2018-05-23 11:39 | XR ---
EXAM DATE: 05/23/2018 11:04 AM EDT AGE/SEX: 78 years / Male INDICATIONS: Short of breath for 4 days. CLINICAL DATA: This is the patient's initial encounter. Patient reports that signs and symptoms have been present for 4 - 6 days and indicates a pain score of 3/10. MEDICAL/SURGICAL HISTORY: Diabetes mellitus type II. High blood pressure. CABG. COMPARISON: No prior exams available for comparison. FINDINGS: Single AP view of the chest demonstrate bilateral areas of calcified and noncalcified pleural plaques . Heart size is enlarged, moderate. There is left basilar atelectasis/airspace consolidation with los s of visualization of the left hemidiaphragm and blunting of the left costophrenic angle. There is ce phalization of pulmonary vasculature and hazy indistinctness overlying the right lower lobe. Notable intact median sternotomy wires. Osseous structures are unremarkable. CONCLUSION: Left lower lobe airspace consolidation/atelectasis with radiographic findings concerning for congesti ve heart failure and pulmonary edema versus volume overload. Electronically signed by: Livia Salcedo MD 05/23/2018 11:38 AM EDT
[2018-05-23 12:10] LABS: Baso % (Auto) 0.4 % (0.0-2.0); Eos % (Auto) 0.3 % (0.0-4.0); Hematocrit 36.8 % (39.0-51.0); Hemoglobin 11.8 gm/dL (13.0-17.0); Lymph # (Auto) 0.6 th/mm3 (1.0-4.8); Lymph % (Auto) 7.7 % (9.0-44.0); Mean Corpuscular HGB Conc 31.9 % (32.0-36.0); Mean Corpuscular Hemoglobin 29.2 pg (27.0-34.0); Mean Corpuscular Volume 91.6 fL (80.0-100.0); Mean Platelet Volume 7.2 fL (7.0-11.0); Mono # (Auto) 0.5 th/mm3 (0.0-0.9); Mono % (Auto) 7.3 % (0.0-8.0); Neut # (Auto) 6.1 th/mm3 (1.8-7.7); Neut % (Auto) 84.3 % (16.0-70.0); Platelet Count 341 th/mm3 (150-450); Red Blood Count 4.02 mil/mm3 (4.50-5.90); Red Cell Distribution Width 14.8 % (11.6-17.2); White Blood Count 7.3 th/mm3 (4.0-11.0)
[2018-05-23 12:21] LABS: Activated Partial Thrombo Time 25.5 sec (24.3-30.1); Prothrombin Time 10.6 sec (9.8-11.6)
[2018-05-23 12:38] LABS: Alkaline Phosphatase 58 U/L (45-117); Total Protein 7.1 g/dL (6.4-8.2); Troponin I 0.07 ng/mL (0.02-0.05)
[2018-05-23 13:17] LABS: Alanine Aminotransferase 19 U/L (12-78); Albumin 3.3 g/dL (3.4-5.0); Anion Gap 10 meq/L (5-15); Aspartate Aminotransferase 20 U/L (15-37); Blood Urea Nitrogen 51 mg/dL (7-18); Calcium 8.2 mg/dL (8.5-10.1); Carbon Dioxide 20.1 meq/L (21.0-32.0); Chloride 110 meq/L (98-107); Glomerular Filtration Rate 22 mL/min (>89); Glucose,Random 163 mg/dL (74-106); Sodium 140 meq/L (136-145)
[2018-05-23] MEDS ORDERED: Bisacodyl 10 MG Supp RECTAL PRN (15:16)
[2018-05-23] MEDS ORDERED: Acetaminophen 325 MG Tablet PO PRN (15:16)
--- NOTE | 2018-05-23 15:21 | P.HP ---
History of Present Illness Primary Care Physician: Radha Springer MD Chief Complaint: sob History of Present Illness: 78-year-old male patient with history of CAD, [place], status post CABG x4, hypertension, diabetes, presents to the ER today because he apparently had a worsening dyspnea on exertion and shortness of breath over the last 4 days. He denies any chest pains, coughing, or any other issues. He states he only sleeps on one pillow, however he is waking up and gasping for air at times and his breathing is better when he stands. He does not notice significant leg swelling. Has mild nonproductive cough. Daughter says he was sob in the morning and he had a very weak voice. Patient says he couldn't walk to the bath without sob and he had to rest 10 minutes to catch his breath. He is seeing cardiology, Dr Krueger as OP. Patient received lasix IV in the ED with some improvement however he is dessatign at 88 without O2 supplement. Patient is not on O2 supplement at home. Review of Systems All other systems reviewed negative except as stated in HPI PMFSH - History History Provided By: Patient - Medical History Medical History: Medical History (Last Updated 05/23/18 @ 15:31 by Chinyere Truong MD) HLD (hyperlipidemia) HTN (hypertension) Seizures Myocardial infarct - Surgical History Surgical History: Surgical History (Last Updated 05/23/18 @ 15:29 by Chinyere Truong MD) History of cardiac cath S/P CABG x 4 - Family History Family History: Family History (Last Updated 05/23/18 @ 15:30 by Chinyere Truong MD) Other HTN (hypertension) Myocardial infarct - Tobacco History Smoking Status: Unknown if ever smoked - Alcohol History How Often Do You Have a Drink Containing Alcohol: Unable to Obtain - Immunization History Tetanus Immunization: Unsure Medications and Allergies Active Medications: Active Medications Acetaminophen (Tylenol) 650 mg PO Q4H PRN PRN Reason: Temp > 100.4 Al Hydroxide/Mg Hydroxide (Milk Of Aminata Liq) 30 ml PO Q12H PRN PRN Reason: Mild Constipation Amlodipine Besylate (Norvasc) 10 mg PO DAILY [facility] Apixaban (Eliquis) 2.5 mg PO BID [facility] Aspirin (Ecotrin) 81 mg PO DAILY [facility] Atorvastatin Calcium (Lipitor) 20 mg PO DAILY [facility] Bisacodyl (Dulcolax Supp) 10 mg RECTAL DAILY PRN PRN Reason: SEVERE CONSITIPATION Furosemide (Lasix Inj) 40 mg IV.PUSH BID@0900,1800 [facility] Lactulose (Lactulose Liq) 30 ml PO DAILY PRN PRN Reason: SEVERE CONSITIPATION Levetiracetam (Keppra) 500 mg PO BID [facility] Metoprolol Tartrate (Lopressor) 25 mg PO BID [facility] Non-Formulary Medication (Fenofibrate [Fenofibrate]) 50 mg PO DAILY [facility] Ondansetron HCl (Zofran Inj) 4 mg IV.PUSH Q6H PRN PRN Reason: NAUSEA OR VOMITING Oxycodone/Acetaminophen (Percocet 5/325 Mg) 1 tab PO Q4-6H PRN PRN Reason: Pain Ramipril (Altace) 2.5 mg PO BID [facility] Senna/Docusate Sodium (Gely-Colace) 1 tab PO BID [facility] Sennosides (Senokot) 17.2 mg PO Q12H PRN PRN Reason: Moderate Constipation Sertraline HCl (Zoloft) 100 mg PO DAILY [facility] Allergies Allergy/AdvReac Type Severity Reaction Status Date / Time No Known Allergies Allergy Uncoded 03/07/16 15:20 Home Medications Medication Instructions Recorded Confirmed Type amlodipine 10 mg PO DAILY 05/23/18 05/23/18 History apixaban [Eliquis] 2.5 mg PO BID 05/23/18 05/23/18 History aspirin [Aspir-81] 81 mg PO DAILY 05/23/18 05/23/18 History atorvastatin 20 mg PO DAILY 05/23/18 05/23/18 History docusate sodium 100 mg PO DAILY 05/23/18 05/23/18 History fenofibrate 50 mg PO DAILY 05/23/18 05/23/18 History furosemide 40 mg PO DAILY 05/23/18 05/23/18 History levetiracetam 500 mg PO BID 05/23/18 05/23/18 History metoprolol tartrate 25 mg PO BID 05/23/18 05/23/18 History oxycodone-acetaminophen 1 tab PO Q4-6H PRN 05/23/18 05/23/18 History ramipril 2.5 mg PO BID 05/23/18 05/23/18 History sertraline 100 mg PO DAILY 05/23/18 05/23/18 History Exam Vital signs: Vital Signs 05/23/18 11:04 05/23/18 11:28 05/23/18 12:51 Temperature 97.5 F L Pulse Rate 83 77 77 Respiratory Rate 28 H 22 21 Blood Pressure 153/85 H 172/86 H 145/78 H Pulse Oximetry 94 L 96 95 05/23/18 13:52 05/23/18 14:29 Temperature Pulse Rate 90 76 Respiratory Rate 28 H 23 Blood Pressure 149/82 H Pulse Oximetry 88 L 96 Intake & Output 05/22/18 05/23/18 05/23/18 18:59 06:59 18:59 Weight 72.575 kg Narrative: GENERAL: This is a pleasant 78-year-old male with sob. SKIN: Warm and dry. HEAD: Atraumatic. Normocephalic. EYES: Pupils equal and round. No scleral icterus. No injection or drainage. ENT: No nasal bleeding or discharge. Mucous membranes pink and moist. NECK: Trachea midline. No JVD. CARDIOVASCULAR: Regular rate and rhythm. RESPIRATORY: No accessory muscle use. Decreased breath sounds. Bibasilar crackles and rales. No wheezing. GASTROINTESTINAL: Abdomen soft, non-tender, obese, nondistended. Hepatic and splenic margins not palpable. MUSCULOSKELETAL: Extremities without clubbing, cyanosis. Trace lower extremity edema. No obvious deformities. NEUROLOGICAL: Awake and alert. No obvious cranial nerve deficits. Motor grossly within normal limits. Five out of 5 muscle strength in the arms and legs. Normal speech. PSYCHIATRIC: Appropriate mood and affect; insight and judgment normal. Results - Labs CBC & Chem 7: 05/23/18 11:08 05/23/18 11:08 Labs: Laboratory Results - last 24 hr 05/23/18 05/23/18 05/23/18 11:08 11:08 11:08 WBC 7.3 RBC 4.02 L Hgb 11.8 L Hct 36.8 L MCV 91.6 MCH 29.2 MCHC 31.9 L RDW 14.8 Plt Count 341 MPV 7.2 Neut % (Auto) 84.3 H Lymph % (Auto) 7.7 L Hernando % (Auto) 7.3 Eos % (Auto) 0.3 Baso % (Auto) 0.4 Neut # (Auto) 6.1 Lymph # (Auto) 0.6 L Hernando # (Auto) 0.5 Eos # (Auto) 0.0 Baso # (Auto) 0.0 WBC Differential . Differential Comment Auto diff final PT INR APTT Sodium 140 Potassium 5.0 Chloride 110 H Carbon Dioxide 20.1 L Anion Gap 10 BUN 51 H Creatinine 2.83 H Estimated GFR 22 L Random Glucose 163 H Calcium 8.2 L Total Bilirubin 0.3 AST 20 ALT 19 Alkaline Phosphatase 58 Troponin I 0.07 H B-Natriuretic Peptide 3100 H Total Protein 7.1 Albumin 3.3 L 05/23/18 11:08 WBC RBC Hgb Hct MCV MCH MCHC RDW Plt Count MPV Neut % (Auto) Lymph % (Auto) Hernando % (Auto) Eos % (Auto) Baso % (Auto) Neut # (Auto) Lymph # (Auto) Hernando # (Auto) Eos # (Auto) Baso # (Auto) WBC Differential Differential Comment PT 10.6 INR 1.0 APTT 25.5 Sodium Potassium Chloride Carbon Dioxide Anion Gap BUN Creatinine Estimated GFR Random Glucose Calcium Total Bilirubin AST ALT Alkaline Phosphatase Troponin I B-Natriuretic Peptide Total Protein Albumin - Imaging Impressions Chest X-Ray 05/23/18 11:04 CONCLUSION: Left lower lobe airspace consolidation/atelectasis with radiographic findings concerning for congestive heart failure and pulmonary edema versus volume overload. Caprini VTE Risk Assessment Caprini VTE Risk Assessment: Moderate/High Risk (score >= 2) Caprini Risk Assessment Model: Point Value = 1 Point Value = 2 Point Value = 3 Point Value = 5 Age 41-60 Minor surgery BMI > 25 kg/m2 Swollen legs Varicose veins or History of unexplained or recurrent spontaneous Oral contraceptives or hormone replacement Sepsis (< 1 month) Serious lung disease, including pneumonia (< 1 month) Abnormal pulmonary function Acute myocardial infarction Congestive heart failure (< 1 month) History of inflammatory bowel disease Medical patient at bed rest Age 61-74 Arthroscopic surgery Major open surgery (> 45 min) Laparoscopic surgery (> 45 min) Malignancy Confined to bed (> 72 hours) Immobilizing plaster cast Central venous access Age >= 75 History of VTE Family history of VTE Factor V Leiden Prothrombin [id number] Lupus anticoagulant Anticardiolipin antibodies Elevated serum homocysteine Heparin-induced thrombocytopenia Other congenital or acquired thrombophilia Stroke (< 1 month) Elective arthroplasty Hip, pelvis, or leg fracture Acute spinal cord injury (< 1 month) Prophylaxis Regimen: Total Risk Factor Score Risk Level Prophylaxis Regimen 0-1 Low Early ambulation 2 Moderate Order ONE of the following: *Sequential Compression Device (SCD) *Heparin 5000 units SQ BID 3-4 Higher Order ONE of the following medications: *Heparin 5000 units SQ TID *Enoxaparin/Lovenox 40 mg SQ daily (WT < 150 kg, CrCl > 30 mL/min) *Enoxaparin/Lovenox 30 mg SQ daily (WT < 150 kg, CrCl > 10-29 mL/min) *Enoxaparin/Lovenox 30 mg SQ BID (WT < 150 kg, CrCl > 30 mL/min) AND/OR *Sequential Compression Device (SCD) 5 or more Highest Order ONE of the following medications: *Heparin 5000 units SQ TID (Preferred with Epidurals) *Enoxaparin/Lovenox 40 mg SQ daily (WT < 150 kg, CrCl > 30 mL/min) *Enoxaparin/Lovenox 30 mg SQ daily (WT < 150 kg, CrCl > 10-29 mL/min) *Enoxaparin/Lovenox 30 mg SQ BID (WT < 150 kg, CrCl > 30 mL/min) AND *Sequential Compression Device (SCD) Assessment and Plan - Plan 78-year-old male presented to emergency room with complaints of shortness of breath. Patient is noted desaturating at 88 while on room air. Patient is placed on nasal cannula and is receiving diuretics. Acute respiratory failure requiring O2 patient dessating at 88 on room air Congestive heart failure unknown ejection fraction we will do 2D echo Plan for 2D echo Start Lasix 40 mg IV twice daily monitors kidney function closely on diuretic Monitor closely kidney function while on leg Lasix Monitor weight and urine output Monitor on telemetry CXR reviewed consistent with volume overload. Consult patient cardiology Dr Krueger O2 supplement by [place] keep O2 sat > 94% Coronary artery disease/[place] status post CABG 8/18 H/o Afib rate controlled at thsi time. Monitor on telemetry. Restart home meds metoprolol and eliquis DM2 ISS, accuchecks , monitor BS. Patient is taking injections with Oglinza at home Restart home medications as appropriate ROMINA on CKD patient Cr baseline is around 2. On admission Cr at 2.8. Will consult patient nephrology Manning History of seizures. Stable at this time no signs of seizures. Resume home medication levetiracetam DVT prophylaxis SCDs/tedshelby quintanilla Discussed Condition With: Patient, family at bedside, nurse, ED physician
[2018-05-23] MEDS ORDERED: Dextrose 50% in Water 50 ML Vial IV.PUSH PRN (16:29)
[2018-05-23] MEDS: Insulin NovoLOG Aspart Correctional Sugar Inj SQ SCH ×2 (17:41→21:18)
[2018-05-23] MEDS: Ramipril 2.5 MG Capsule PO SCH (21:18)
[2018-05-23] MEDS: Metoprolol Tartrate 25 MG Tablet PO SCH (21:18)
[2018-05-23] MEDS: levETIRAcetam 500 MG Tablet PO SCH (21:18)
[2018-05-23] MEDS: Senna/Docusate Sodium 8.6/50 MG Tablet PO SCH (21:18)
[2018-05-24 05:30] LABS: Baso # (Auto) 0.1 th/mm3 (0.0-0.2); Baso % (Auto) 1.2 % (0.0-2.0); Eos # (Auto) 0.3 th/mm3 (0.0-0.4); Eos % (Auto) 4.4 % (0.0-4.0); Hematocrit 34.2 % (39.0-51.0); Hemoglobin 11.2 gm/dL (13.0-17.0); Lymph # (Auto) 1.1 th/mm3 (1.0-4.8); Lymph % (Auto) 16.5 % (9.0-44.0); Mean Corpuscular HGB Conc 32.7 % (32.0-36.0); Mean Corpuscular Hemoglobin 29.3 pg (27.0-34.0); Mean Corpuscular Volume 89.8 fL (80.0-100.0); Mean Platelet Volume 7.1 fL (7.0-11.0); Mono # (Auto) 0.7 th/mm3 (0.0-0.9); Neut # (Auto) 4.4 th/mm3 (1.8-7.7); Neut % (Auto) 66.9 % (16.0-70.0); Platelet Count 314 th/mm3 (150-450); Red Blood Count 3.81 mil/mm3 (4.50-5.90); Red Cell Distribution Width 14.9 % (11.6-17.2); White Blood Count 6.6 th/mm3 (4.0-11.0)
--- NOTE | 2018-05-24 05:46 | MB ---
cc: Robb Malhotra DO DATE: 05/23/2018 REASON FOR CONSULTATION: Congestive heart failure. HISTORY OF PRESENT ILLNESS: Wyatt Andrews is a pleasant 78-year-old male whom I see in the office and presented to the emergency room due to shortness of breath with exertion for the past 4 days. Of note, the patient has another account with the patient identification number of [id number]. He previously presented in 03/2018, underwent cardiac catheterization. During this, he was found to have multivessel disease and on 03/24/2018 he underwent bypass x4. He did relatively well postoperatively and was discharged home. I have since seen him in the office and he was doing relatively well. Of note, his previous ejection fraction was 20-25% in March. He says over the past 4 days, he has been waking up gasping for air at times and feels better when he sits up. He denies any edema. He has been unable to walk around his house without getting short of breath. PAST MEDICAL HISTORY: 1. Coronary artery disease with myocardial infarction. 2. Hyperlipidemia. 3. Hypertension. 4. Ischemic cardiomyopathy with an ejection fraction of 20-25%. 5. Seizures. 6. Atrial fibrillation. PAST SURGICAL HISTORY: 1. Cardiac catheterization (03/21/2018) with multivessel disease. 2. CABG x4 (03/24/2018) with VERDUGO to LAD, SVG to PDA, SVG to OM1, SVG to first diagonal. ALLERGIES: NO KNOWN DRUG ALLERGIES. MEDICATIONS: 1. Oxycodone/acetaminophen 5/325 mg every 4-6 hours as needed. 2. Ramipril 2.5 mg b.i.d. 3. Levetiracetam 500 mg b.i.d. 4. Lasix 40 mg daily. 5. Fenofibrate 50 mg daily. 6. Eliquis 2.5 mg b.i.d. 7. Lipitor 20 mg daily. 8. Aspirin 81 mg daily. 9. Norvasc 10 mg daily. 10. Sertraline 100 mg daily. 11. Metoprolol tartrate 25 mg b.i.d. FAMILY HISTORY: Denies premature coronary artery disease or sudden cardiac within the family. SOCIAL HISTORY: Denies current tobacco, alcohol or drug abuse. REVIEW OF SYSTEMS: Fourteen systems were reviewed including osteopathic. Pertinent positives and negatives above, otherwise negative. PHYSICAL EXAMINATION: VITAL SIGNS: Temperature 97.4, heart rate 84, blood pressure 156/97, respirations 18, pulse oximetry 90% on room air. GENERAL: The patient appears well, in no acute distress. Alert, awake and oriented x3. HEENT: Extraocular muscles intact. Mucous membranes moist. NECK: Supple. Minimal JVD at 45 degrees. No carotid bruits heard bilaterally. Carotid upstroke is brisk in nature. HEART: Regular rate and rhythm. Positive first and second heart sounds with no noted murmurs, gallops or rubs. LUNGS: Decreased breath sounds bilateral with fine crackles at the bases. ABDOMEN: Soft, nontender, nondistended. No organomegaly noted. EXTREMITIES: Show no clubbing, cyanosis or edema. Femoral and distal pulses are intact bilaterally. NEUROLOGIC: No focal deficits. SKIN: Warm, dry and intact. OSTEOPATHIC: No kyphoscoliosis, lordosis or paraspinal tender points. LABORATORY DATA: Hemoglobin 11.8, hematocrit 36.8, platelets 341. Potassium 5.1, BUN 51, creatinine 2.83. Troponin 0.07. BNP 3100. Electrocardiogram (05/23/2018 at 11:01): Sinus rhythm, left bundle branch block. IMPRESSION: 1. Acute on chronic systolic heart failure. 2. Acute respiratory failure. 3. Acute kidney injury on chronic kidney disease. 4. Coronary artery disease with a history of coronary artery bypass grafting. 5. Paroxysmal atrial fibrillation. RECOMMENDATIONS: 1. Mr. Andrews presented with what appears to be acute on chronic systolic heart failure. 2. We will attempt to diurese him as best as possible, but we will have to watch his kidney function. 3. He may need to be discharged on Bumex instead of furosemide for better diuresis. 4. He will continue on Eliquis for his atrial fibrillation. 5. We will recheck a 2-D echo to look at his overall left ventricular function, cardiac structure and possible valvulopathies. 6. We will have nephrology evaluate him to help with his overall fluid management and his chronic kidney disease. 7. Further recommendations will be made based on hospital course. Thank you for allowing me to see Wyatt Andrews. If there are any questions, please do not hesitate to call. Robb Malhotra DO VGP/rw , 12:07 AM , 03:58 AM
[2018-05-24 05:59] LABS: Calcium 8.5 mg/dL (8.5-10.1); Carbon Dioxide 22.7 meq/L (21.0-32.0); Potassium 4.2 meq/L (3.5-5.1)
[2018-05-24] MEDS: Fenofibrate 48 MG Tablet PO SCH (08:17)
[2018-05-24] MEDS: Ramipril 2.5 MG Capsule PO SCH ×2 (08:17→20:37)
[2018-05-24] MEDS: Sertraline 100 MG Tablet PO SCH (08:17)
[2018-05-24] MEDS: levETIRAcetam 500 MG Tablet PO SCH ×2 (08:17→20:36)
[2018-05-24] MEDS: amLODIPine 10 MG Tablet PO SCH (08:17)
[2018-05-24] MEDS: Senna/Docusate Sodium 8.6/50 MG Tablet PO SCH ×2 (08:17→20:36)
[2018-05-24] MEDS: Metoprolol Tartrate 25 MG Tablet PO SCH ×2 (08:17→20:37)
[2018-05-24] MEDS: Insulin NovoLOG Aspart Correctional Sugar Inj SQ SCH ×4 (09:45→20:37)
--- NOTE | 2018-05-24 14:56 | P.PNIM ---
Subjective Interval history: Reports breathing much better. No active shortness of breath. No palpitations no chest pain. Has urinated quite a bit since he came in. Physical Exam Vital signs: Vital Signs 05/23/18 16:00 05/23/18 20:00 05/23/18 23:40 Temperature 97.4 F L 97.9 F Pulse Rate 84 83 Respiratory Rate 18 17 18 Blood Pressure 156/97 H 132/60 Pulse Oximetry 90 L 95 05/24/18 00:00 05/24/18 00:29 05/24/18 04:00 Temperature 97.3 F L 97.7 F Pulse Rate 83 77 86 Respiratory Rate 20 17 Blood Pressure 136/82 142/84 H Pulse Oximetry 92 L 92 L 05/24/18 04:43 05/24/18 07:47 05/24/18 08:00 Temperature 97.5 F L Pulse Rate 71 Respiratory Rate 17 16 Blood Pressure 150/84 H Pulse Oximetry 92 L 94 L 05/24/18 12:00 Temperature 97.2 F L Pulse Rate 64 Respiratory Rate 16 Blood Pressure 113/72 Pulse Oximetry 96 Intake & Output 05/23/18 05/24/18 05/24/18 18:59 06:59 18:59 Intake Total 860 / 860 480 / 480 Output Total 1600 / 1600 Balance 860 / 860 -1120 / -1120 Weight 72.575 kg 90.2 kg Intake: Oral 860 / 860 480 / 480 Output: Urine 1600 / 1600 Other: # Voids 1 Date of Last Bowel Movement 05/22/18 05/22/18 Weight On Admission 72.575 kg Narrative: GENERAL: This is a well-nourished, well-developed patient, in no apparent distress. CARDIOVASCULAR: Regular rate and rhythm RESPIRATORY: Bibasilar few crackles GASTROINTESTINAL: Abdomen soft, non-tender, nondistended. Normal active bowel sounds MUSCULOSKELETAL: Extremities without clubbing, cyanosis, trace edema NEURO: Alert & Oriented x4 to person, place, time, situation. Moves all ext x4 Results - Labs CBC & Chem 7: 05/24/18 03:54 05/24/18 03:54 Laboratory Results - last 24 hr 05/23/18 05/23/18 05/24/18 17:40 19:48 03:54 WBC 6.6 RBC 3.81 L Hgb 11.2 L Hct 34.2 L MCV 89.8 MCH 29.3 MCHC 32.7 RDW 14.9 Plt Count 314 MPV 7.1 Neut % (Auto) 66.9 Lymph % (Auto) 16.5 Dundy % (Auto) 11.0 H Eos % (Auto) 4.4 H Baso % (Auto) 1.2 Neut # (Auto) 4.4 Lymph # (Auto) 1.1 Dundy # (Auto) 0.7 Eos # (Auto) 0.3 Baso # (Auto) 0.1 WBC Differential . Differential Comment Auto diff final Sodium Potassium Chloride Carbon Dioxide Anion Gap BUN Creatinine Estimated GFR POC Glucose 136 H 244 H Random Glucose Calcium 05/24/18 05/24/18 05/24/18 03:54 07:38 11:33 WBC RBC Hgb Hct MCV MCH MCHC RDW Plt Count MPV Neut % (Auto) Lymph % (Auto) Dundy % (Auto) Eos % (Auto) Baso % (Auto) Neut # (Auto) Lymph # (Auto) Dundy # (Auto) Eos # (Auto) Baso # (Auto) WBC Differential Differential Comment Sodium 140 Potassium 4.2 D Chloride 108 H Carbon Dioxide 22.7 Anion Gap 9 BUN 58 H Creatinine 2.96 H Estimated GFR 21 L POC Glucose 140 H 168 H Random Glucose 108 H Calcium 8.5 Assessment and Plan - Plan 78-year-old male presented to emergency room with complaints of shortness of breath. Patient is noted desaturating at 88 while on room air. 1. Acute respiratory failure with hypoxia due to Acute on chronic diastolic congestive heart failure with previous 2D echo of EF of 60% in 2008 -repeat 2D echo pending Patient responding to Lasix 40 mg IV twice daily monitors kidney function closely on diuretic Monitor closely kidney function while on Lasix, Zaroxolyn added today. Monitor weight and urine output Monitor on telemetry CXR reviewed consistent with volume overload. Consult patient cardiology Dr Krueger who recommended converting Lasix to Bumex on discharge to home O2 supplement by AR keep O2 sat > 94% and wean off as tolerated. 2. Coronary artery disease/ID status post CABG 03/28 H/o Afib rate controlled at thsi time. Monitor on telemetry. Restart home meds metoprolol and eliquis 3. DM2 insulin-dependent, overall controlled with nephropathy, accuchecks , monitor BS. Patient is taking injections with Oglinza at home Restart home medications as appropriate 4. ROMINA on CKD stage IV patient Cr baseline is around 2. On admission Cr at 2.8. 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 Herrera Monitor while on diuretics, avoid nephrotoxins. 5. History of seizures. Stable at this time no signs of seizures. Resume home medication levetiracetam 6. DVT prophylaxis SCDs/teds, eliquis Discharge Planning: Possible discharge home in the morning if patient continues to clinically improve.
--- NOTE | 2018-05-24 15:00 | ECHRPT ---
Indication: CONCLUSIONS thickness is normal. There is global left ventricular dysfunction. The aortic valve is not well visualized. Aortic valve sclerosis is present. Diffuse calcification of the aortic valve. No aortic valve regurgitation. Moderate to severe aortic valve stenosis. Trace mitral valve regurgitation. Mild thickening of the tricuspid valve leaflets. There is trace tricuspid valve regurgitation. The estimated pulmonary arterial pressure is 45.8 mmHg. BP: / HR: Rhythm: Sinus MEASUREMENTS (Male / Female) Normal Values Technical Quality:Fair 2D ECHO LV Diastolic Diameter PLAX 5.5 cm 4.2 - 5.9 / 3.9 - 5.3 cm LV Systolic Diameter PLAX 4.8 cm IVS Diastolic Thickness 1.1 cm 0.6 - 1.0 / 0.6 - 0.9 cm LVPW Diastolic Thickness 1.1 cm 0.6 - 1.0 / 0.6 - 0.9 cm LV Relative Wall Thickness 0.4 LVOT Diameter 2.0 cm LA Systolic Diameter LX 4.0 cm 3.0 - 4.0 / 2.7 - 3.8 cm M-MODE LV Diastolic Diameter MM 7.5 cm 4.2 - 5.9 / 3.9 - 5.3 cm LV Systolic Diameter MM 6.6 cm LV Ejection Fraction MM Teich 24.4 % IVS Diastolic Thickness MM 1.0 cm 0.6 - 1.0 / 0.6 - 0.9 cm LVPW Diastolic Thickness MM 1.1 cm 0.6 - 1.0 / 0.6 - 0.9 cm LV Relative Wall Thickness MM 0.3 0.24 - 0.42 / 0.22 - 0.42 Aortic Root Diameter MM 2.0 cm LA Systolic Diameter MM 4.0 cm LA Ao Ratio MM 2.0 AV Cusp Separation MM 0.9 cm DOPPLER AV Peak Velocity 175.0 cm/s AV Peak Gradient 12.3 mmHg AV Mean Gradient 7.0 mmHg AV Velocity Time Integral 34.3 cm LVOT Peak Velocity 63.2 cm/s LVOT Peak Gradient 1.6 mmHg LVOT Velocity Time Integral 13.4 cm AV Area Cont Eq vti 1.2 cm AV Area Cont Eq pk 1.1 cm MV Area PHT 3.1 cm Mitral E Point Velocity 66.1 cm/s Mitral A Point Velocity 59.7 cm/s Mitral E to A Ratio 1.1 LV E' Lateral Velocity 7.5 cm/s Mitral E to LV E' Lateral Ratio 8.8 LV E' Septal Velocity 3.1 cm/s Mitral E to LV E' Septal Ratio 21.2 TR Peak Velocity 299.0 cm/s TR Peak Gradient 35.8 mmHg Right Atrial Pressure 10.0 mmHg Pulmonary Artery Systolic Pressu 45.8 mmHg Right Ventricular Systolic Press 45.8 mmHg PV Peak Velocity 78.7 cm/s PV Peak Gradient 2.5 mmHg FINDINGS LEFT VENTRICLE The left ventricular systolic function is severely reduced with an estimated ejection fraction in th e range of 25-30%. Normal left ventricular size. Wall thickness is normal. There is global left ventricular dysfunction. RIGHT VENTRICLE Normal right ventricular size and systolic function. LEFT ATRIUM The left atrial size is upper limits of normal. RIGHT ATRIUM The right atrial size is normal. ATRIAL SEPTUM Normal atrial septal thickness without atrial level shunting by limited color doppler interrogation. AORTA The aortic root and proximal ascending aorta are normal in size on limited imaging. MITRAL VALVE Calcification of the anterior mitral valve leaflet. Trace mitral valve regurgitation. AORTIC VALVE The aortic valve is not well visualized. Aortic valve sclerosis is present. Diffuse calcification of the aortic valve. No aortic valve regurgitation. Moderate to severe aortic valve stenosis. TRICUSPID VALVE Mild thickening of the tricuspid valve leaflets. There is trace tricuspid valve regurgitation. The estimated pulmonary arterial pressure is 45.8 mmHg. PULMONARY VALVE No pulmonary valve regurgitation or stenosis. VESSELS The inferior vena cava is normal in size. PERICARDIUM No pericardial effusion. Gelacio Cheney MD, FACC (Electronically Signed) Final Date:24 May 2018 14:59
--- NOTE | 2018-05-24 16:02 | ECG ---
Date Performed: 05/23/2018 Time Performed: 11:01:26 PTAGE: 78 years EKG: Sinus rhythm LEFT BUNDLE BRANCH BLOCK ABNORMAL ECG Compared to PREVIOUS TRACING , there is a rhythm change from atrial fibrillation to sinus rhythm. Lef t bundle branch block is new. PREVIOUS TRACIN12/07/2008 08.39.40 DOCTOR: Jaron Jones Interpretating Date/Time 05/24/2018 16:01:35
--- NOTE | 2018-05-24 16:23 | P.PNCA ---
Subjective Interval history: No events overnight Feels overall better Walked with PT down the [place] to the end and back Medications and Allergies Active Medications: Active Medications Acetaminophen (Tylenol) 650 mg PO Q4H PRN PRN Reason: Temp > 100.4 Al Hydroxide/Mg Hydroxide (Milk Of Magnesia Liq) 30 ml PO Q12H PRN PRN Reason: Mild Constipation Amlodipine Besylate (Norvasc) 10 mg PO DAILY [facility] Last Admin: 05/24/18 08:17 Dose: 10 mg Apixaban (Eliquis) 2.5 mg PO BID [facility] Last Admin: 05/24/18 08:17 Dose: 2.5 mg Aspirin (Ecotrin) 81 mg PO DAILY [facility] Last Admin: 05/24/18 08:17 Dose: 81 mg Atorvastatin Calcium (Lipitor) 20 mg PO DAILY [facility] Last Admin: 05/24/18 08:17 Dose: 20 mg Bisacodyl (Dulcolax Supp) 10 mg RECTAL DAILY PRN PRN Reason: SEVERE CONSITIPATION Dextrose (D50w Vial) 50 ml IV.PUSH UNSCH PRN PRN Reason: PER HYPOGLYCEMIA PROTOCOL Fenofibrate (Tricor) 48 mg PO DAILY [facility] Last Admin: 05/24/18 08:17 Dose: 48 mg Furosemide (Lasix Inj) 40 mg IV.PUSH BID@0900,1800 [facility] Last Admin: 05/24/18 08:22 Dose: 40 mg Glucagon (Glucagon Inj) 1 mg OTHER PRN PRN PRN Reason: for Hypoglycemia Protocol Insulin Aspart (Novolog Insulin Correctional Sugar Inj) 0 unit SQ [facility]; Protocol Last Admin: 05/24/18 12:00 Dose: 1 unit Lactulose (Lactulose Liq) 30 ml PO DAILY PRN PRN Reason: SEVERE CONSITIPATION Levetiracetam (Keppra) 500 mg PO BID [facility] Last Admin: 05/24/18 08:17 Dose: 500 mg Metoprolol Tartrate (Lopressor) 25 mg PO BID [facility] Last Admin: 05/24/18 08:17 Dose: 25 mg Ondansetron HCl (Zofran Inj) 4 mg IV.PUSH Q6H PRN PRN Reason: NAUSEA OR VOMITING Oxycodone/Acetaminophen (Percocet 5/325 Mg) 1 tab PO Q4H PRN PRN Reason: PAIN SCALE 1 TO 10 Ramipril (Altace) 2.5 mg PO BID [facility] Last Admin: 05/24/18 08:17 Dose: 2.5 mg Senna/Docusate Sodium (Gely-Colace) 1 tab PO BID [facility] Last Admin: 05/24/18 08:17 Dose: 1 tab Sennosides (Senokot) 17.2 mg PO Q12H PRN PRN Reason: Moderate Constipation Sertraline HCl (Zoloft) 100 mg PO DAILY [facility] Last Admin: 05/24/18 08:17 Dose: 100 mg Allergies Allergy/AdvReac Type Severity Reaction Status Date / Time No Known Allergies Allergy Uncoded 03/07/16 15:20 Home Medications Medication Instructions Recorded Confirmed Type amlodipine 10 mg PO DAILY 05/23/18 05/23/18 History apixaban [Eliquis] 2.5 mg PO BID 05/23/18 05/23/18 History aspirin [Aspir-81] 81 mg PO DAILY 05/23/18 05/23/18 History atorvastatin 20 mg PO DAILY 05/23/18 05/23/18 History docusate sodium 100 mg PO DAILY 05/23/18 05/23/18 History fenofibrate 50 mg PO DAILY 05/23/18 05/23/18 History furosemide 40 mg PO DAILY 05/23/18 05/23/18 History levetiracetam 500 mg PO BID 05/23/18 05/23/18 History metoprolol tartrate 25 mg PO BID 05/23/18 05/23/18 History oxycodone-acetaminophen 1 tab PO Q4-6H PRN 05/23/18 05/23/18 History ramipril 2.5 mg PO BID 05/23/18 05/23/18 History sertraline 100 mg PO DAILY 05/23/18 05/23/18 History Physical Exam Vital signs: Vital Signs 05/23/18 20:00 05/23/18 23:40 05/24/18 00:00 Temperature 97.9 F 97.3 F L Pulse Rate 83 83 Respiratory Rate 17 18 20 Blood Pressure 132/60 136/82 Pulse Oximetry 95 92 L 05/24/18 00:29 05/24/18 04:00 05/24/18 04:43 Temperature 97.7 F Pulse Rate 77 86 Respiratory Rate 17 17 Blood Pressure 142/84 H Pulse Oximetry 92 L 05/24/18 07:47 05/24/18 08:00 05/24/18 12:00 Temperature 97.5 F L 97.2 F L Pulse Rate 71 64 Respiratory Rate 16 16 Blood Pressure 150/84 H 113/72 Pulse Oximetry 92 L 94 L 96 Intake & Output 05/23/18 05/24/18 05/24/18 18:59 06:59 18:59 Intake Total 860 / 860 480 / 480 Output Total 1600 / 1600 Balance 860 / 860 -1120 / -1120 Weight 72.575 kg 90.2 kg Intake: Oral 860 / 860 480 / 480 Output: Urine 1600 / 1600 Other: # Voids 1 Date of Last Bowel Movement 05/22/18 05/22/18 Weight On Admission 72.575 kg Narrative: GENERAL: This is a well-nourished, well-developed patient, in no apparent distress. CARDIOVASCULAR: Regular rate and rhythm RESPIRATORY: Bibasilar few crackles GASTROINTESTINAL: Abdomen soft, non-tender, nondistended. Normal active bowel sounds MUSCULOSKELETAL: Extremities without clubbing, cyanosis, trace edema NEURO: Alert & Oriented x4 to person, place, time, situation. Moves all ext x4 Results 05/24/18 03:54 05/24/18 03:54 Cardiac Enzymes 05/23/18 05/23/18 Range/Units 11:08 11:08 AST 20 (15-37) U/L Troponin I 0.07 H (0.02-0.05) ng/mL B-Natriuretic Peptide 3100 H (0-100) pg/mL Coagulation 05/23/18 05/23/18 Range/Units 11:08 11:08 PT 10.6 (9.8-11.6) sec APTT 25.5 (24.3-30.1) sec B-Natriuretic Peptide 3100 H (0-100) pg/mL CBC 05/23/18 05/24/18 Range/Units 11:08 03:54 WBC 7.3 6.6 (4.0-11.0) th/mm3 RBC 4.02 L 3.81 L (4.50-5.90) mil/mm3 Hgb 11.8 L 11.2 L (13.0-17.0) gm/dL Hct 36.8 L 34.2 L (39.0-51.0) % Plt Count 341 314 (150-450) th/mm3 Neut # (Auto) 6.1 4.4 (1.8-7.7) th/mm3 Lymph # (Auto) 0.6 L 1.1 (1.0-4.8) th/mm3 Riley # (Auto) 0.5 0.7 (0.0-0.9) th/mm3 Eos # (Auto) 0.0 0.3 (0.0-0.4) th/mm3 Baso # (Auto) 0.0 0.1 (0.0-0.2) th/mm3 Comprehensive Metabolic Panel 05/23/18 05/24/18 Range/Units 11:08 03:54 Sodium 140 140 (136-145) meq/L Potassium 5.0 4.2 D (3.5-5.1) meq/L Chloride 110 H 108 H (98-107) meq/L Carbon Dioxide 20.1 L 22.7 (21.0-32.0) meq/L BUN 51 H 58 H (7-18) mg/dL Creatinine 2.83 H 2.96 H (0.60-1.30) mg/dL Calcium 8.2 L 8.5 (8.5-10.1) mg/dL AST 20 (15-37) U/L ALT 19 (12-78) U/L Alkaline Phosphatase 58 (45-117) U/L Total Protein 7.1 (6.4-8.2) g/dL Albumin 3.3 L (3.4-5.0) g/dL Intake and Output 05/24/18 05/24/18 05/24/18 06:59 14:59 22:59 Intake Total 480 / 480 Output Total 1600 / 1600 Balance -1120 / -1120 Intake: Oral 480 / 480 Output: Urine 1600 / 1600 Other: Date of Last Bowel Movement 05/22/18 Weight 90.2 kg - Imaging and Cardiology Imaging: Impressions Chest X-Ray 05/23/18 11:04 CONCLUSION: Left lower lobe airspace consolidation/atelectasis with radiographic findings concerning for congestive heart failure and pulmonary edema versus volume overload. Assessment and Plan - Assessment (1) Acute systolic (congestive) heart failure Code(s): I50.21 - Acute systolic (congestive) heart failure Status: Acute (2) CAD (coronary artery disease) Code(s): I25.10 - Atherosclerotic heart disease of [place] coronary artery without angina pectoris Status: Acute (3) Hx of CABG Code(s): Z95.1 - Presence of aortocoronary bypass graft Status: Acute - Plan 1) CAD with Hx of CABGx4 Stable 2) Acute on chronic systolic heart failure Con't diuresis Will have to watch creatinine with baseline CKD Plan on Bumex on discharge Needs to watch dietary sodium on discharge 3) Echo showing EF 25-30% similar to before Question of moderate to severe ? Previous cath in March showing no gradient Echo gradients low (peak 12, mean 7) doubt aortic stenosis 4) CKD 5) Afib Continue on Eliquis
[2018-05-25 07:36] LABS: Calcium 8.7 mg/dL (8.5-10.1); Carbon Dioxide 23.5 meq/L (21.0-32.0); Potassium 4.3 meq/L (3.5-5.1)
--- NOTE | 2018-05-25 07:37 | MB ---
cc: Pieter Wheeler MD DATE: 05/24/2018 REASON FOR CONSULTATION: Chronic kidney disease with high BUN and creatinine. HISTORY OF PRESENT ILLNESS: This is a very pleasant 78-year-old male with a past medical history of ischemic heart disease, history of coronary artery bypass grafting done in 03/2018, hypertension, diabetes mellitus, chronic kidney disease stage IV, came to the hospital with complaint of worsening shortness of breath. I was called to see the patient because of elevated BUN and creatinine. The patient has known history of chronic kidney disease, has been following with Dr. Herrera and when he came in here his creatinine was 2.8 and now it is 2.9. Looking back, it seems like his creatinine was 1.7-2.1 in 2008 and according to the patient, he was told by Dr. Herrera that he has stage IV chronic kidney disease. The patient denies any dysuria, hematuria, or difficulty passing urine. He does not have any chest pain. He does not have any cough. He has this worsening shortness of breath, mainly with exertion, and also lying flat. The patient does not remember if he was taking any diuretics at home. He denies taking any nonsteroidal anti-inflammatory drugs. PAST MEDICAL HISTORY: Hypertension, ischemic heart disease, diabetes mellitus, chronic kidney disease, history of seizure disorder, hyperlipidemia. PAST SURGICAL HISTORY: History of coronary artery bypass grafting in 03/2018, cardiac catheterization in the past. REVIEW OF SYSTEMS: The patient has this worsening shortness of breath, more with exertion, and also lying flat. He feels better sitting up. Does not have any cough, no chest pain, no palpitation. No history of fever. No headache or dizziness. No nausea or vomiting. No history of diarrhea. No dysuria, hematuria, or difficulty passing urine. SOCIAL HISTORY: The patient is single and lives alone. He does not have any current history of smoking or heavy alcoholism. FAMILY HISTORY: Noncontributory. ALLERGIES: HE HAS NO KNOWN DRUG ALLERGIES. MEDICATIONS: 1. Tylenol as needed. 2. Eliquis 2.5 mg b.i.d. 3. Norvasc 10 mg once a day. 4. Milk of magnesia every 12 hours. 5. Ecotrin 81 mg once a day. 6. Lipitor 20 mg daily. 7. Dulcolax as needed. 8. TriCor 48 mg once a day. 9. Furosemide 40 mg IV b.i.d. 10. Lactulose 30 mL daily. 11. Metoprolol 25 mg b.i.d. 12. Keppra 500 mg b.i.d. 13. Zofran as needed. 14. Percocet as needed. 15. Ramipril 2.5 mg b.i.d. 16. Zoloft 100 mg once a day. 17. Gely-Colace one tablet b.i.d. PHYSICAL EXAMINATION: GENERAL: The patient is awake, alert, he is not in acute distress. VITAL SIGNS: Blood pressure is 142/84, temperature is 97.7, oxygen saturation on room air is 92-93%. HEENT: Pupils are mid constricted. Nonicteric sclerae. Conjunctivae are pale. NECK: Supple. JVD is not elevated. LUNGS: The patient has bilateral decreased air entry with basal rales and scattered wheezing. HEART: S1, S2. Regular rate and rhythm. ABDOMEN: Soft and lax. There is no tenderness. Bowel sounds positive. EXTREMITIES: There is no pedal edema. LABORATORY DATA: WBC count 6.6, hemoglobin 11.2, platelet count of 314, neutrophils 66.9%. Sodium 140, potassium 4.2, chloride 108, bicarbonate 22.7, BUN 58, creatinine 2.9, glucose 140, calcium 8.5. Total protein 7.1, albumin is 3.3. There is no urinalysis done. IMAGING STUDIES: The patient had a chest x-ray done, which shows that he has left lower lobe consolidation or atelectasis and pulmonary edema versus fluid overload. ASSESSMENT: 1. Chronic kidney disease, advanced renal failure. 2. Fluid overload status, possibly congestive heart failure. 3. Ischemic heart disease, post-CABG. 4. Hypertension. 5. Diabetes mellitus. PLAN: The patient has been on Lasix now. Creatinine is 2.9 with a GFR of 21-22, so he has stage IV chronic kidney disease. His blood pressure is stable. Agree with continuing the diuretics. Follow the urine output and the BUN and creatinine, the potassium level was in the normal range. 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 Dr. Herrera is following, so he has probably done all the workup, so I will not order all the workup for renal disease and just follow the effect of the diuretics and adjust the medications as needed. Thank you for the consultation. I will follow the patient while he is in the hospital. MD TIFF Gallagher/jarrett/tremayne , 08:52 AM , 09:01 AM
--- NOTE | 2018-05-25 07:47 | P.PN ---
Subjective Interval history: Patient doing well overnight, reports improved shortness of breath. Patient is tolerating p.o., and voiding/stooling well no overnight events per RN Physical Exam Vital signs: Vital Signs 05/24/18 07:47 05/24/18 08:00 05/24/18 12:00 Temperature 97.5 F L 97.2 F L Pulse Rate 71 64 Respiratory Rate 16 16 Blood Pressure 150/84 H 113/72 Pulse Oximetry 92 L 94 L 96 05/24/18 18:00 05/24/18 20:00 05/24/18 20:10 Temperature 97.2 F L 97.7 F Pulse Rate 71 67 Respiratory Rate 18 20 Blood Pressure 113/70 112/64 Pulse Oximetry 94 L 94 L 98 05/24/18 23:45 05/25/18 00:00 05/25/18 04:00 Temperature 97.3 F L 97.6 F Pulse Rate 63 71 Respiratory Rate 18 17 18 Blood Pressure 140/77 136/83 Pulse Oximetry 94 L 95 Intake & Output 05/24/18 05/25/18 05/25/18 18:59 06:59 18:59 Intake Total 1780 / 1780 Output Total 1325 / 1325 1550 / 1550 Balance 455 / 455 -1550 / -1550 Weight 88.8 kg Intake: Oral 1780 / 1780 Output: Urine 1325 / 1325 1550 / 1550 Other: Date of Last Bowel Movement 05/22/18 05/24/18 # Bowel Movements 1 Narrative: GENERAL: This is a well-nourished, well-developed patient, in no apparent distress. HEENT: normocephalic, atraumatic, PERRLA, MOM CARDIOVASCULAR: Regular rate and rhythm, S1 and S2, No M/R/G. RESPIRATORY: Faint crackles left lung base, right lung CTA. GASTROINTESTINAL: Abdomen soft, non-tender, nondistended. Normal active bowel sounds MUSCULOSKELETAL: Extremities without clubbing, cyanosis, trace edema EXT: Trace edema lower extremities NEURO: AAOx3, motor system 5/5 x4 Results - Labs CBC & Chem 7: 05/24/18 03:54 05/25/18 05:04 Laboratory Results - last 24 hr 05/24/18 05/24/18 05/24/18 07:38 11:33 16:31 POC Glucose 140 H 168 H 132 H 05/24/18 20:15 POC Glucose 148 H Assessment and Plan - Assessment (1) Acute systolic (congestive) heart failure Code(s): I50.21 - Acute systolic (congestive) heart failure Status: Acute (2) CAD (coronary artery disease) Code(s): I25.10 - Atherosclerotic heart disease of [place] coronary artery without angina pectoris Status: Acute (3) Hx of CABG Code(s): Z95.1 - Presence of aortocoronary bypass graft Status: Acute - Plan 78-year-old M who presented to the ER with complaints of shortness of breath and admitted for inpatient management of acute respiratory failure and CHF exacerbation, HD #3 1. CHF exacerbation BNP 3,100 on 05/23 follow-up BNP this AM Echo with ef 25-30% Monitor kidney function while on Lasix IV BID Monitor weight and urine output Monitor on telemetry CXR reviewed consistent with volume overload Consulted Cardiology Dr Malhotra who recommended converting Lasix to Bumex on discharge to home O2 supplement by NC keep O2 sat > 94% Plan per Cards 05/24: ) CAD with Hx of CABGx4 Stable 2) Acute on chronic systolic heart failure Con't diuresis Will have to watch creatinine with baseline CKD Plan on Bumex on discharge Needs to watch dietary sodium on discharge 3) Echo showing EF 25-30% similar to before Question of moderate to severe ? Previous cath in March showing no gradient Echo gradients low (peak 12, mean 7) doubt aortic stenosis 4) CKD 5) Afib Continue on Eliquis ECHO 05/24: The left ventricular systolic function is severely reduced with an estimated ejection fraction in the range of 25-30%. Thickness is normal. There is global left ventricular dysfunction. The aortic valve is not well visualized. Aortic valve sclerosis is present. Diffuse calcification of the aortic valve. No aortic valve regurgitation. Moderate to severe aortic valve stenosis. Trace mitral valve regurgitation. Mild thickening of the tricuspid valve leaflets. There is trace tricuspid valve regurgitation. The estimated pulmonary arterial pressure is 45.8 mmHg. 2. Coronary artery disease/VT status post CABG 03/28: noted, cont. ASA and Eliquis 3. HX of A. Fib Rate controlled at this time Monitor on telemetry Cont. home Metoprolol and Eliquis 4. HTN Cont. Norvasc, Rampril, and Metoprolol 5. HLD Cont. statin and fenofibrate 6. Severe Aortic Valve Stenosis Dx per Echo, see above for details Cont. Diurectics as above 7. DM2 Insulin Dependent with Nephropathy Cont. accuchecks Cont. SSI ( at home on Oglinza injections) BS 244, 168, and 148 8. ROMINA on CKD stage IV Cr baseline is 2, Cr 3.17 today (Cr 2.96 on 05/24) Cr 2.8 on admission Will start IVF 50ml/hr to assist with KI Follow-up with his broke handler Dr. Herrera as OP Monitor while on diuretics, avoid nephrotoxins 9. History of Seizures Stable at this time no signs of seizures Resume home Keppra 10. History of Anxiety/Depression Continue Zoloft 11. DVT prophylaxis SCDs/teds, Eliquis 12. Dispo: pending Cards reccs Code Status: full Discussed Condition With: patient, RN, CM
[2018-05-25] MEDS: Insulin NovoLOG Aspart Correctional Sugar Inj SQ SCH ×4 (08:28→21:28)
[2018-05-25] MEDS: levETIRAcetam 500 MG Tablet PO SCH ×2 (08:29→21:26)
[2018-05-25] MEDS: Senna/Docusate Sodium 8.6/50 MG Tablet PO SCH ×2 (08:29→21:27)
[2018-05-25] MEDS: amLODIPine 10 MG Tablet PO SCH (08:30)
[2018-05-25] MEDS: Ramipril 2.5 MG Capsule PO SCH ×2 (08:30→21:27)
[2018-05-25] MEDS: Sertraline 100 MG Tablet PO SCH (08:31)
[2018-05-25] MEDS: Metoprolol Tartrate 25 MG Tablet PO SCH ×2 (08:31→21:27)
[2018-05-25] MEDS: Fenofibrate 48 MG Tablet PO SCH (08:34)
[2018-05-25] MEDS ORDERED: Sod Chloride 0.9% Inj 1,000 ML IV.CONT SCH (09:00)
--- NOTE | 2018-05-25 13:57 | P.PNCA ---
Subjective Interval history: No events overnight Diuresed well Medications and Allergies Active Medications: Active Medications Acetaminophen (Tylenol) 650 mg PO Q4H PRN PRN Reason: Temp > 100.4 Al Hydroxide/Mg Hydroxide (Milk Of Magnesia Liq) 30 ml PO Q12H PRN PRN Reason: Mild Constipation Amlodipine Besylate (Norvasc) 10 mg PO DAILY [facility] Last Admin: 05/25/18 08:30 Dose: Not Given Apixaban (Eliquis) 2.5 mg PO BID [facility] Last Admin: 05/25/18 08:30 Dose: 2.5 mg Aspirin (Ecotrin) 81 mg PO DAILY [facility] Last Admin: 05/25/18 08:29 Dose: 81 mg Atorvastatin Calcium (Lipitor) 20 mg PO DAILY [facility] Last Admin: 05/25/18 08:29 Dose: 20 mg Bisacodyl (Dulcolax Supp) 10 mg RECTAL DAILY PRN PRN Reason: SEVERE CONSITIPATION Dextrose (D50w Vial) 50 ml IV.PUSH UNSCH PRN PRN Reason: PER HYPOGLYCEMIA PROTOCOL Fenofibrate (Tricor) 48 mg PO DAILY [facility] Last Admin: 05/25/18 08:34 Dose: 48 mg Furosemide (Lasix Inj) 40 mg IV.PUSH BID@0900,1800 [facility] Last Admin: 05/25/18 08:34 Dose: 40 mg Glucagon (Glucagon Inj) 1 mg OTHER PRN PRN PRN Reason: for Hypoglycemia Protocol Sodium Chloride (Ns Inj) 1,000 mls @ 50 mls/hr IV.CONT .Q20H [facility] Last Admin: 05/25/18 13:01 Dose: Not Given Insulin Aspart (Novolog Insulin Correctional Sugar Inj) 0 unit SQ ACHS [facility]; Protocol Last Admin: 05/25/18 13:01 Dose: Not Given Lactulose (Lactulose Liq) 30 ml PO DAILY PRN PRN Reason: SEVERE CONSITIPATION Levetiracetam (Keppra) 500 mg PO BID [facility] Last Admin: 05/25/18 08:29 Dose: 500 mg Metoprolol Tartrate (Lopressor) 25 mg PO BID [facility] Last Admin: 05/25/18 08:31 Dose: Not Given Ondansetron HCl (Zofran Inj) 4 mg IV.PUSH Q6H PRN PRN Reason: NAUSEA OR VOMITING Oxycodone/Acetaminophen (Percocet 5/325 Mg) 1 tab PO Q4H PRN PRN Reason: PAIN SCALE 1 TO 10 Ramipril (Altace) 2.5 mg PO BID [facility] Last Admin: 05/25/18 08:30 Dose: Not Given Senna/Docusate Sodium (Gely-Colace) 1 tab PO BID [facility] Last Admin: 05/25/18 08:29 Dose: 1 tab Sennosides (Senokot) 17.2 mg PO Q12H PRN PRN Reason: Moderate Constipation Sertraline HCl (Zoloft) 100 mg PO DAILY [facility] Last Admin: 05/25/18 08:31 Dose: 100 mg Allergies Allergy/AdvReac Type Severity Reaction Status Date / Time No Known Allergies Allergy Uncoded 03/07/16 15:20 Home Medications Medication Instructions Recorded Confirmed Type amlodipine 10 mg PO DAILY 05/23/18 05/23/18 History apixaban [Eliquis] 2.5 mg PO BID 05/23/18 05/23/18 History aspirin [Aspir-81] 81 mg PO DAILY 05/23/18 05/23/18 History atorvastatin 20 mg PO DAILY 05/23/18 05/23/18 History docusate sodium 100 mg PO DAILY 05/23/18 05/23/18 History fenofibrate 50 mg PO DAILY 05/23/18 05/23/18 History furosemide 40 mg PO DAILY 05/23/18 05/23/18 History levetiracetam 500 mg PO BID 05/23/18 05/23/18 History metoprolol tartrate 25 mg PO BID 05/23/18 05/23/18 History oxycodone-acetaminophen 1 tab PO Q4-6H PRN 05/23/18 05/23/18 History ramipril 2.5 mg PO BID 05/23/18 05/23/18 History sertraline 100 mg PO DAILY 05/23/18 05/23/18 History Physical Exam Vital signs: Vital Signs 05/24/18 18:00 05/24/18 20:00 05/24/18 20:10 Temperature 97.2 F L 97.7 F Pulse Rate 71 67 Respiratory Rate 18 20 Blood Pressure 113/70 112/64 Pulse Oximetry 94 L 94 L 98 05/24/18 23:45 05/25/18 00:00 05/25/18 04:00 Temperature 97.3 F L 97.6 F Pulse Rate 63 71 Respiratory Rate 18 17 18 Blood Pressure 140/77 136/83 Pulse Oximetry 94 L 95 05/25/18 08:00 05/25/18 08:02 05/25/18 12:00 Temperature 97.3 F L 97.2 F L Pulse Rate 62 66 Respiratory Rate 17 18 Blood Pressure 120/64 136/73 Pulse Oximetry 97 96 96 Intake & Output 05/24/18 05/25/18 05/25/18 18:59 06:59 18:59 Intake Total 1780 / 1780 Output Total 1325 / 1325 1550 / 1550 Balance 455 / 455 -1550 / -1550 Weight 88.8 kg Intake: Oral 1780 Output: Urine 1325 / 1325 1550 / 1550 Other: Date of Last Bowel Movement 05/22/18 05/24/18 # Bowel Movements 1 Narrative: GENERAL: This is a well-nourished, well-developed patient, in no apparent distress. HEENT: normocephalic, atraumatic, PERRLA, MOM CARDIOVASCULAR: Regular rate and rhythm, S1 and S2, No M/R/G. RESPIRATORY: CTA B/L GASTROINTESTINAL: Abdomen soft, non-tender, nondistended. Normal active bowel sounds MUSCULOSKELETAL: Extremities without clubbing, cyanosis, trace edema EXT: Trace edema lower extremities NEURO: AAOx3, motor system 5/5 x4 Results 05/24/18 03:54 05/25/18 05:04 Cardiac Enzymes 05/25/18 Range/Units 08:18 B-Natriuretic Peptide 805 H (0-100) pg/mL Coagulation 05/25/18 Range/Units 08:18 B-Natriuretic Peptide 805 H (0-100) pg/mL CBC 05/24/18 Range/Units 03:54 WBC 6.6 (4.0-11.0) th/mm3 RBC 3.81 L (4.50-5.90) mil/mm3 Hgb 11.2 L (13.0-17.0) gm/dL Hct 34.2 L (39.0-51.0) % Plt Count 314 (150-450) th/mm3 Neut # (Auto) 4.4 (1.8-7.7) th/mm3 Lymph # (Auto) 1.1 (1.0-4.8) th/mm3 [place] # (Auto) 0.7 (0.0-0.9) th/mm3 Eos # (Auto) 0.3 (0.0-0.4) th/mm3 Baso # (Auto) 0.1 (0.0-0.2) th/mm3 Comprehensive Metabolic Panel 05/24/18 05/25/18 Range/Units 03:54 05:04 Sodium 140 138 (136-145) meq/L Potassium 4.2 D 4.3 (3.5-5.1) meq/L Chloride 108 H 103 (98-107) meq/L Carbon Dioxide 22.7 23.5 (21.0-32.0) meq/L BUN 58 H 66 H (7-18) mg/dL Creatinine 2.96 H 3.27 H (0.60-1.30) mg/dL Calcium 8.5 8.7 (8.5-10.1) mg/dL Intake and Output 05/24/18 05/25/18 05/25/18 22:59 06:59 14:59 Intake Total 1780 / 1780 Output Total 1325 / 1325 1550 / 1550 Balance 455 / 455 -1550 / -1550 Intake: Oral 1780 / 1780 Output: Urine 1325 / 1325 1550 / 1550 Other: Date of Last Bowel Movement 05/24/18 # Bowel Movements 1 Weight 88.8 kg Assessment and Plan - Assessment (1) Acute systolic (congestive) heart failure Code(s): I50.21 - Acute systolic (congestive) heart failure Status: Acute (2) CAD (coronary artery disease) Code(s): I25.10 - Atherosclerotic heart disease of [place] coronary artery without angina pectoris Status: Acute (3) Hx of CABG Code(s): Z95.1 - Presence of aortocoronary bypass graft Status: Acute - Plan 1) CAD with Hx of CABGx4 Stable 2) Acute on chronic systolic heart failure Diuresed Increased creatinine, most likely due to Zaroxolyn Nephrology consulted Plan on Bumex on discharge Needs to watch dietary sodium on discharge 3) Echo showing EF 25-30% similar to before Question of moderate to severe ? Previous cath in March showing no gradient Echo gradients low (peak 12, mean 7) doubt aortic stenosis 4) CKD 5) Afib Continue on Eliquis
--- NOTE | 2018-05-25 15:40 | P.PNNP ---
Subjective Interval history: Patient reports feeling good. Denies any shortness of breath, chest pain, nausea , or vomiting. <Ivy Cameron - Last Filed: 05/25/18 15:23> Physical Exam Vital signs: Vital Signs 05/24/18 18:00 05/24/18 20:00 05/24/18 20:10 Temperature 97.2 F L 97.7 F Pulse Rate 71 67 Respiratory Rate 18 20 Blood Pressure 113/70 112/64 Pulse Oximetry 94 L 94 L 98 05/24/18 23:45 05/25/18 00:00 05/25/18 04:00 Temperature 97.3 F L 97.6 F Pulse Rate 63 71 Respiratory Rate 18 17 18 Blood Pressure 140/77 136/83 Pulse Oximetry 94 L 95 05/25/18 08:00 05/25/18 08:02 05/25/18 12:00 Temperature 97.3 F L 97.2 F L Pulse Rate 62 66 Respiratory Rate 17 18 Blood Pressure 120/64 136/73 Pulse Oximetry 97 96 96 Intake & Output 05/24/18 05/25/18 05/25/18 18:59 06:59 18:59 Intake Total 1780 / 1780 Output Total 1325 / 1325 1550 / 1550 Balance 455 / 455 -1550 / -1550 Weight 88.8 kg Intake: Oral 1780 / 1780 Output: Urine 1325 / 1325 1550 / 1550 Other: Date of Last Bowel Movement 05/22/18 05/24/18 # Bowel Movements 1 <Ivy Cameron - Last Filed: 05/25/18 15:23> Vital signs: Vital Signs 05/28/18 00:00 05/28/18 04:00 05/28/18 04:53 Temperature 97.3 F L 97.2 F L Pulse Rate 60 67 63 Respiratory Rate 17 15 Blood Pressure 128/61 124/69 Pulse Oximetry 94 L 95 05/28/18 08:00 05/28/18 12:00 Temperature 97.4 F L 97.3 F L Pulse Rate 59 L 64 Respiratory Rate 21 20 Blood Pressure 121/67 115/63 Pulse Oximetry 97 96 Intake & Output 05/28/18 05/28/18 05/29/18 06:59 18:59 06:59 Intake Total 1460 / 1460 581 / 581 Balance 1460 / 1460 581 / 581 Weight 72.5 kg Intake: IV 500 / 500 581 / 581 NS Inj 500 ML @ 50 mls/hr IV. 500 / 500 581 / 581 CONT .Q10H HEIDI Rx#:[id number] Oral 960 / 960 Other: # Voids 5 Date of Last Bowel Movement 05/27/18 05/27/18 <Pieter Wheeler - Last Filed: 05/28/18 21:39> Assessment and Plan - Assessment (1) Acute kidney injury Code(s): N17.9 - Acute kidney failure, unspecified Status: Acute Plan: Acute kidney injury most likely prerenal related to CHF Baseline creatinine at around 2.[address] 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 Plan Avoid nephrotoxins as possible Monitor strict I+o Urinalysis, urine osmolarity, and urine sodium ordered. On low dose RICK inhibitor may need to hold if creatinine continues to increase. Creatinine slightly worsened at 3.27 from 2.96, will decrease lasix to 20 mg BID. Will not add IVF's currently. Follow urinary output and BMP <Ivy Cameron - Last Filed: 05/25/18 15:23> - Assessment (1) Acute kidney injury Code(s): N17.9 - Acute kidney failure, unspecified Status: Acute Plan: Patient seen and examined, agree with above. Creatinine increase, possible overdiuresis. Lasix decreased to 20 mg BID. Follow the urine out put and BMP. <Pieter Wheeler - Last Filed: 05/28/18 21:39>
--- NOTE | 2018-05-25 17:23 | US ---
EXAM DATE: 05/25/2018 12:00 AM EDT AGE/SEX: 78 years / Male INDICATIONS: Increased BUN/Creatnine. CLINICAL DATA: This is the patient's initial encounter. Patient reports that signs and symptoms have been present for 1 day and indicates a pain score of 0/10. MEDICAL/SURGICAL HISTORY: Hypertension. Hyperlipidemia. Myocardial infarction. Seizures. CABG. Cardiac catheterization. COMPARISON: No prior exams available for comparison. MEASUREMENTS: Right Kidney:__11.1 x 5.5 x 6.2 cm Left Kidney:__11.7 x 4.6 x 5.1 cm FINDINGS: Right Kidney: Increased echotexture with lobulation. Multiple cysts up to 5.5 cm in size. No solid ma ss or hydronephrosis. Left Kidney: Increased echotexture with lobulation. Multiple cysts up to 4 cm in size. No solid mass or hydronephrosis. Bladder: Within normal limits given the degree of distension. Other: None. CONCLUSION: 1. Echogenic kidneys typical of chronic parenchymal disease. 2. Scattered bilateral cysts. 3. No hydronephrosis. Electronically signed by: Wyatt Melo MD 05/25/2018 5:21 PM EDT
--- NOTE | 2018-05-25 17:59 | P.PN ---
Subjective Interval history: NOT SEEN Physical Exam Vital signs: Vital Signs 05/24/18 18:00 05/24/18 20:00 05/24/18 20:10 Temperature 97.2 F L 97.7 F Pulse Rate 71 67 Respiratory Rate 18 20 Blood Pressure 113/70 112/64 Pulse Oximetry 94 L 94 L 98 05/24/18 23:45 05/25/18 00:00 05/25/18 04:00 Temperature 97.3 F L 97.6 F Pulse Rate 63 71 Respiratory Rate 18 17 18 Blood Pressure 140/77 136/83 Pulse Oximetry 94 L 95 05/25/18 08:00 05/25/18 08:02 05/25/18 12:00 Temperature 97.3 F L 97.2 F L Pulse Rate 62 66 Respiratory Rate 17 18 Blood Pressure 120/64 136/73 Pulse Oximetry 97 96 96 05/25/18 16:00 Temperature 97.7 F Pulse Rate 72 Respiratory Rate 18 Blood Pressure 122/67 Pulse Oximetry 93 L Intake & Output 05/24/18 05/25/18 05/25/18 18:59 06:59 18:59 Intake Total 1780 / 1780 Output Total 1325 / 1325 1550 / 1550 Balance 455 / 455 -1550 / -1550 Weight 88.8 kg Intake: Oral 1780 / 1780 Output: Urine 1325 / 1325 1550 / 1550 Other: Date of Last Bowel Movement 05/22/18 05/24/18 # Bowel Movements 1 Narrative: GENERAL: This is a well-nourished, well-developed patient, in no apparent distress. HEENT: normocephalic, atraumatic, PERRLA, MOM CARDIOVASCULAR: Regular rate and rhythm, S1 and S2, No M/R/G. RESPIRATORY: CTA B/L GASTROINTESTINAL: Abdomen soft, non-tender, nondistended. Normal active bowel sounds MUSCULOSKELETAL: Extremities without clubbing, cyanosis, trace edema EXT: Trace edema lower extremities NEURO: AAOx3, motor system 5/5 x4 Results - Labs CBC & Chem 7: 05/24/18 03:54 05/25/18 05:04 Laboratory Results - last 24 hr 05/24/18 05/25/18 05/25/18 20:15 05:04 07:55 Sodium 138 Potassium 4.3 Chloride 103 Carbon Dioxide 23.5 Anion Gap 12 BUN 66 H Creatinine 3.27 H Estimated GFR 18 L POC Glucose 148 H 152 H Random Glucose 112 H Calcium 8.7 B-Natriuretic Peptide 05/25/18 05/25/18 05/25/18 08:18 12:08 17:30 Sodium Potassium Chloride Carbon Dioxide Anion Gap BUN Creatinine Estimated GFR POC Glucose 132 H 104 Random Glucose Calcium B-Natriuretic Peptide 805 H - Imaging Impressions ITS Impressions Chest X-Ray 05/23/18 11:04 CONCLUSION: Left lower lobe airspace consolidation/atelectasis with radiographic findings concerning for congestive heart failure and pulmonary edema versus volume overload. Abdomen/Bladder Ultrasound 05/25/18 00:00 CONCLUSION: 1. Echogenic kidneys typical of chronic parenchymal disease. 2. Scattered bilateral cysts. 3. No hydronephrosis. - Procedures none Assessment and Plan - Assessment (1) Acute systolic (congestive) heart failure Code(s): I50.21 - Acute systolic (congestive) heart failure Status: Acute (2) CAD (coronary artery disease) Code(s): I25.10 - Atherosclerotic heart disease of [place] coronary artery without angina pectoris Status: Acute (3) Hx of CABG Code(s): Z95.1 - Presence of aortocoronary bypass graft Status: Acute - Plan 78-year-old M who presented to the ER with complaints of shortness of breath and admitted for inpatient management of acute respiratory failure and CHF exacerbation, HD #3 1. Acute on chronic systolic HF exacerbation. Improved BNP 3,100 on 05/23 Echo with ef 25-30% Monitor kidney function while on Lasix IV BID. Ct RICK and BB Monitor weight and urine output Monitor on telemetry CXR reviewed consistent with volume overload Consulted Cardiology Dr Malhotra who recommended converting Lasix to Bumex on discharge to home O2 supplement by [place] keep O2 sat > 94% 2. Coronary artery disease/DE status post CABG 03/28: noted, cont. ASA and Eliquis 3. HX of A. Fib Rate controlled at this time Monitor on telemetry Cont. home Metoprolol and Eliquis 4. HTN Cont. Norvasc, Ramipril, and Metoprolol 5. HLD Cont. statin and fenofibrate 6. Severe Aortic Valve Stenosis Dx per Echo, see above for details Cont. Diurectics as above 7. DM2 Insulin Dependent with Nephropathy Cont. accuchecks Cont. SSI ( at home on Oglinza injections) 8. ROMINA on CKD stage IV Cr baseline is 2, Acute kidney injury most likely prerenal related to CHF Monitor strict I+o Urinalysis, urine osmolarity, and urine sodium ordered. On low dose RICK inhibitor may need to hold if creatinine continues to increase. Creatinine slightly worsened at 3.27 from 2.96, will decrease lasix to 20 mg BID. Will not add IVF's currently. Follow urinary output and BMP Follow-up with his special needs caregiver Dr. Herrera as OP Monitor while on diuretics, avoid nephrotoxins 9. History of Seizures Stable at this time no signs of seizures Resume home Keppra 10. History of Anxiety/Depression Continue Zoloft 11. NCNC anemia. No gross bleed. O/p f/u DVT prophylaxis SCDs/teds, Eliquis Discharge Planning: Per nephrology
[2018-05-26 05:02] LABS: Baso # (Auto) 0.1 th/mm3 (0.0-0.2); Baso % (Auto) 1.2 % (0.0-2.0); Eos # (Auto) 0.6 th/mm3 (0.0-0.4); Eos % (Auto) 9.7 % (0.0-4.0); Hematocrit 38.3 % (39.0-51.0); Hemoglobin 12.4 gm/dL (13.0-17.0); Lymph # (Auto) 1.3 th/mm3 (1.0-4.8); Lymph % (Auto) 20.6 % (9.0-44.0); Mean Corpuscular HGB Conc 32.3 % (32.0-36.0); Mean Corpuscular Volume 89.8 fL (80.0-100.0); Mono # (Auto) 0.7 th/mm3 (0.0-0.9); Mono % (Auto) 11.5 % (0.0-8.0); Neut # (Auto) 3.5 th/mm3 (1.8-7.7); Platelet Count 351 th/mm3 (150-450); Red Blood Count 4.26 mil/mm3 (4.50-5.90); Red Cell Distribution Width 14.4 % (11.6-17.2); White Blood Count 6.2 th/mm3 (4.0-11.0)
[2018-05-26 05:19] LABS: Alanine Aminotransferase 17 U/L (12-78); Albumin 3.2 g/dL (3.4-5.0); Aspartate Aminotransferase 10 U/L (15-37); Blood Urea Nitrogen 70 mg/dL (7-18); Calcium 8.7 mg/dL (8.5-10.1); Carbon Dioxide 26.1 meq/L (21.0-32.0); Glomerular Filtration Rate 17 mL/min (>89); Glucose,Random 124 mg/dL (74-106); Phosphorus 5.1 mg/dL (2.5-4.9)
[2018-05-26 06:02] LABS: Bilirubin,Urine Negative (Negative); Clarity,Urine Clear (Clear); Color,Urine Straw (Yellw/Straw); Glucose,Urine (UA) Negative (Negative); Hyaline Casts,Urine 1 /lpf (0-3); Leukocyte Esterase,Urine Moderate (Negative); Mucus,Urine Few /lpf (Occasional); Nitrite,Urine Negative (Negative); Specific Gravity,Urine 1.006 (1.002-1.035)
[2018-05-26 06:48] LABS: Anion Gap 14 meq/L (5-15); Chloride 100 meq/L (98-107); Potassium 4.2 meq/L (3.5-5.1); Sodium 137 meq/L (136-145)
[2018-05-26 06:52] LABS: Alkaline Phosphatase 52 U/L (45-117); Total Protein 6.6 g/dL (6.4-8.2)
[2018-05-26] MEDS: Insulin NovoLOG Aspart Correctional Sugar Inj SQ SCH ×4 (08:07→22:00)
[2018-05-26] MEDS: Fenofibrate 48 MG Tablet PO SCH (09:02)
[2018-05-26] MEDS: Senna/Docusate Sodium 8.6/50 MG Tablet PO SCH ×2 (09:02→22:00)
[2018-05-26] MEDS: Sertraline 100 MG Tablet PO SCH (09:02)
[2018-05-26] MEDS: levETIRAcetam 500 MG Tablet PO SCH ×2 (09:02→22:00)
[2018-05-26] MEDS: Metoprolol Tartrate 25 MG Tablet PO SCH ×2 (09:03→21:59)
[2018-05-26] MEDS: amLODIPine 10 MG Tablet PO SCH (09:03)
[2018-05-26] MEDS: Ramipril 2.5 MG Capsule PO SCH (09:03)
--- NOTE | 2018-05-26 13:41 | P.PNNP ---
Subjective Interval history: Up out of bed sitting in chair. Denies any shortness of breath, chest pain, nausea, or vomiting. <Ivy Cameron - Last Filed: 05/26/18 13:56> Physical Exam Vital signs: Vital Signs 05/25/18 16:00 05/25/18 20:00 05/25/18 23:29 Temperature 97.7 F 97.6 F 98.0 F Pulse Rate 72 66 67 Respiratory Rate 18 18 Blood Pressure 122/67 127/74 115/65 Pulse Oximetry 93 L 96 96 05/26/18 04:00 05/26/18 07:49 05/26/18 07:55 Temperature 97.5 F L 97.2 F L Pulse Rate 65 64 63 Respiratory Rate 16 16 Blood Pressure 114/70 101/56 L Pulse Oximetry 94 L 95 05/26/18 08:51 05/26/18 12:00 Temperature 97.7 F Pulse Rate 66 Respiratory Rate 16 Blood Pressure 113/61 Pulse Oximetry 92 L 95 Intake & Output 05/25/18 05/26/18 05/26/18 18:59 06:59 18:59 Intake Total 100 / 100 Output Total 1500 / 1500 1480 / 1480 Balance -1500 / -1500 -1380 / -1380 Weight 88.6 kg Intake: Oral 100 / 100 Output: Urine 1500 / 1500 1480 / 1480 Other: # Voids 4 Date of Last Bowel Movement 05/24/18 05/24/18 Narrative: GENERAL: Alert and oriented. SKIN: Warm and dry. NECK: Supple, trachea midline. No JVD or lymphadenopathy. CARDIOVASCULAR: Regular rate and rhythm without murmurs, gallops, or rubs. RESPIRATORY: Breath sounds equal bilaterally. No accessory muscle use. GASTROINTESTINAL: Abdomen soft, non-tender, nondistended. MUSCULOSKELETAL: No cyanosis, or edema. BACK: Nontender without obvious deformity. No CVA tenderness. <Ivy Cameron - Last Filed: 05/26/18 13:56> Vital signs: Intake & Output 05/28/18 05/29/18 05/29/18 18:59 06:59 18:59 Intake Total 581 / 581 Balance 581 / 581 Intake: IV 581 / 581 NS Inj 500 ML @ 50 mls/hr IV. 581 / 581 CONT .Q10H [facility] Rx#:[id number] Other: Date of Last Bowel Movement 05/27/18 <Pieter Wheeler - Last Filed: 05/29/18 18:06> Assessment and Plan - Assessment (1) Acute kidney injury Code(s): N17.9 - Acute kidney failure, unspecified Status: Acute Plan: Acute kidney injury most likely prerenal related to CHF Baseline creatinine at around 2.[address] 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 Plan Avoid nephrotoxins as possible Monitor strict I+o On low dose RICK inhibitor placed on hold can be restarted at later date. Creatinine slightly worsened at 3.51 from 3.27, lasix put on hold. Will not add IVF's, oral fluids encouraged. Follow urinary output and BMP If creatinine the same or improved tomorrow patient is cleared per nephrology for discharge. At discharge patient can start Bumex 1 mg daily and follow up with Dr. Herrera outpatient. <Ivy Cameron - Last Filed: 05/26/18 13:56> - Plan Patient has chronic kidney disease and develop ROMINA. Creatinine is stable at 3.5, Diuretics decreased, if continue to increase will hold diuretics. Follow the urine out put and BMP. <Pieter Wheeler - Last Filed: 05/29/18 18:06>
--- NOTE | 2018-05-26 13:45 | P.PN ---
Subjective Interval history: F/U ROMINA and congestive heart failure. He is doing okay ambulating on room air. Voiding without difficulty. Discussed with cardiology, clear for discharge when okay by nephrology. Creatinine slightly worse today. RICK inhibitor and Lasix on hold. Physical Exam Vital signs: Vital Signs 05/25/18 16:00 05/25/18 20:00 05/25/18 23:29 Temperature 97.7 F 97.6 F 98.0 F Pulse Rate 72 66 67 Respiratory Rate 18 18 Blood Pressure 122/67 127/74 115/65 Pulse Oximetry 93 L 96 96 05/26/18 04:00 05/26/18 07:49 05/26/18 07:55 Temperature 97.5 F L 97.2 F L Pulse Rate 65 64 63 Respiratory Rate 16 16 Blood Pressure 114/70 101/56 L Pulse Oximetry 94 L 95 05/26/18 08:51 05/26/18 12:00 Temperature 97.7 F Pulse Rate 66 Respiratory Rate 16 Blood Pressure 113/61 Pulse Oximetry 92 L 95 Intake & Output 05/25/18 05/26/18 05/26/18 18:59 06:59 18:59 Intake Total 100 / 100 Output Total 1500 / 1500 1480 / 1480 Balance -1500 / -1500 -1380 / -1380 Weight 88.6 kg Intake: Oral 100 / 100 Output: Urine 1500 / 1500 1480 / 1480 Other: # Voids 4 Date of Last Bowel Movement 05/24/18 05/24/18 Narrative: GENERAL: Alert and oriented. SKIN: Warm and dry. NECK: Supple, trachea midline. No JVD or lymphadenopathy. CARDIOVASCULAR: Regular rate and rhythm without murmurs, gallops, or rubs. RESPIRATORY: Breath sounds equal bilaterally. No accessory muscle use. GASTROINTESTINAL: Abdomen soft, non-tender, nondistended. MUSCULOSKELETAL: No cyanosis, or edema. BACK: Nontender without obvious deformity. No CVA tenderness. Results - Labs CBC & Chem 7: 05/26/18 03:37 05/26/18 03:37 Laboratory Results - last 24 hr 05/25/18 05/25/18 05/26/18 17:30 20:52 03:37 WBC RBC Hgb Hct MCV MCH MCHC RDW Plt Count MPV Neut % (Auto) Lymph % (Auto) [place] % (Auto) Eos % (Auto) Baso % (Auto) Neut # (Auto) Lymph # (Auto) [place] # (Auto) Eos # (Auto) Baso # (Auto) WBC Differential Differential Comment Sodium Potassium Chloride Carbon Dioxide Anion Gap BUN Creatinine Estimated GFR POC Glucose 104 141 H Random Glucose Calcium Phosphorus Total Bilirubin AST ALT Alkaline Phosphatase B-Natriuretic Peptide 637 H Total Protein Albumin Urine Color Urine Clarity Urine pH Ur Specific [place] Urine Protein Urine Glucose (UA) Urine Ketones Urine Occult Blood Urine Nitrate Urine Bilirubin Urine Urobilinogen Ur Leukocyte Esterase Urine RBC Urine WBC Hyaline Casts Urine Mucus Micro UA Comment Ur Microscopic Review Urine Culture Comments Urine Osmolality Ur Random Sodium 05/26/18 05/26/18 05/26/18 03:37 03:37 05:53 WBC 6.2 RBC 4.26 L Hgb 12.4 L Hct 38.3 L MCV 89.8 MCH 29.0 MCHC 32.3 RDW 14.4 Plt Count 351 MPV 7.0 Neut % (Auto) 57.0 Lymph % (Auto) 20.6 [place] % (Auto) 11.5 H Eos % (Auto) 9.7 H Baso % (Auto) 1.2 Neut # (Auto) 3.5 Lymph # (Auto) 1.3 [place] # (Auto) 0.7 Eos # (Auto) 0.6 H Baso # (Auto) 0.1 WBC Differential . Differential Comment Auto diff final Sodium 137 Potassium 4.2 Chloride 100 Carbon Dioxide 26.1 Anion Gap 14 BUN 70 H Creatinine 3.51 H Estimated GFR 17 L POC Glucose Random Glucose 124 H Calcium 8.7 Phosphorus 5.1 H Total Bilirubin 0.3 AST 10 L ALT 17 Alkaline Phosphatase 52 B-Natriuretic Peptide Total Protein 6.6 Albumin 3.2 L Urine Color Urine Clarity Urine pH Ur Specific [place] Urine Protein Urine Glucose (UA) Urine Ketones Urine Occult Blood Urine Nitrate Urine Bilirubin Urine Urobilinogen Ur Leukocyte Esterase Urine RBC Urine WBC Hyaline Casts Urine Mucus Micro UA Comment Ur Microscopic Review Urine Culture Comments Urine Osmolality 320 Ur Random Sodium 05/26/18 05/26/18 05/26/18 05:53 05:53 07:23 WBC RBC Hgb Hct MCV MCH MCHC RDW Plt Count MPV Neut % (Auto) Lymph % (Auto) [place] % (Auto) Eos % (Auto) Baso % (Auto) Neut # (Auto) Lymph # (Auto) [place] # (Auto) Eos # (Auto) Baso # (Auto) WBC Differential Differential Comment Sodium Potassium Chloride Carbon Dioxide Anion Gap BUN Creatinine Estimated GFR POC Glucose 146 H Random Glucose Calcium Phosphorus Total Bilirubin AST ALT Alkaline Phosphatase B-Natriuretic Peptide Total Protein Albumin Urine Color Straw Urine Clarity Clear Urine pH 5.0 Ur Specific [place] 1.006 Urine Protein 100 H Urine Glucose (UA) Negative Urine Ketones Negative Urine Occult Blood Moderate H Urine Nitrate Negative Urine Bilirubin Negative Urine Urobilinogen Less than 2 Ur Leukocyte Esterase Moderate H Urine RBC 1 Urine WBC 21 H Hyaline Casts 1 Urine Mucus Few H Micro UA Comment Culture indicated Ur Microscopic Review Not Reportable Urine Culture Comments Culture indicated Urine Osmolality Ur Random Sodium 90 05/26/18 11:00 WBC RBC Hgb Hct MCV MCH MCHC RDW Plt Count MPV Neut % (Auto) Lymph % (Auto) [place] % (Auto) Eos % (Auto) Baso % (Auto) Neut # (Auto) Lymph # (Auto) [place] # (Auto) Eos # (Auto) Baso # (Auto) WBC Differential Differential Comment Sodium Potassium Chloride Carbon Dioxide Anion Gap BUN Creatinine Estimated GFR POC Glucose 162 H Random Glucose Calcium Phosphorus Total Bilirubin AST ALT Alkaline Phosphatase B-Natriuretic Peptide Total Protein Albumin Urine Color Urine Clarity Urine pH Ur Specific [place] Urine Protein Urine Glucose (UA) Urine Ketones Urine Occult Blood Urine Nitrate Urine Bilirubin Urine Urobilinogen Ur Leukocyte Esterase Urine RBC Urine WBC Hyaline Casts Urine Mucus Micro UA Comment Ur Microscopic Review Urine Culture Comments Urine Osmolality Ur Random Sodium - Imaging Impressions Abdomen/Bladder Ultrasound 05/25/18 00:00 CONCLUSION: 1. Echogenic kidneys typical of chronic parenchymal disease. 2. Scattered bilateral cysts. 3. No hydronephrosis. - Procedures none Assessment and Plan - Assessment (1) Acute systolic (congestive) heart failure Code(s): I50.21 - Acute systolic (congestive) heart failure Status: Acute (2) CAD (coronary artery disease) Code(s): I25.10 - Atherosclerotic heart disease of [place] coronary artery without angina pectoris Status: Acute (3) Hx of CABG Code(s): Z95.1 - Presence of aortocoronary bypass graft Status: Acute - Plan 78-year-old M who presented to the ER with complaints of shortness of breath and admitted for inpatient management of acute respiratory failure and CHF exacerbation, HD #3 1. Acute on chronic systolic HF exacerbation. Improved BNP 3,100 on 05/23 Echo with ef 25-30% Ct BB. Lasix and RICK on hold secondary to worsening kidney function Monitor weight and urine output Monitor on telemetry CXR reviewed consistent with volume overload Consulted Cardiology Dr Malhotra who recommended converting Lasix to Bumex on discharge to home O2 supplement by NC keep O2 sat > 94% 2. Coronary artery disease/[place] status post CABG 03/28: noted, cont. ASA and Eliquis 3. HX of A. Fib Rate controlled at this time Monitor on telemetry Cont. home Metoprolol and Eliquis 4. HTN Cont. Norvasc and Metoprolol 5. HLD Cont. statin and fenofibrate 6. Severe Aortic Valve Stenosis Dx per Echo, see above for details Cont. Diurectics as above 7. DM2 Insulin Dependent with Nephropathy Cont. accuchecks Cont. SSI ( at home on Oglinza injections) 8. ROMINA on CKD stage IV Cr baseline is 2, Acute kidney injury most likely prerenal related to CHF Monitor strict I+o Urinalysis with pyuria urine culture pending, urine osmolarity three-point, and urine sodium 90 Because of worsening creatinine level, RICK inhibitor and Lasix currently on hold Will not add IVF's currently. Follow urinary output and BMP Follow-up with his mining engineer Dr. Herrera as OP Avoid nephrotoxins 9. History of Seizures Stable at this time no signs of seizures Resume home Keppra 10. History of Anxiety/Depression Continue Zoloft 11. NCNC anemia. No gross bleed. O/p f/u DVT prophylaxis SCDs/teds, Eliquis Discharge Planning: Per nephrology
--- NOTE | 2018-05-27 00:25 | P.PNCA ---
Subjective Interval history: No events overnight Creatinine worse today No SOB Medications and Allergies Active Medications: Active Medications Acetaminophen (Tylenol) 650 mg PO Q4H PRN PRN Reason: Temp > 100.4 Amlodipine Besylate (Norvasc) 10 mg PO DAILY [facility] Last Admin: 05/26/18 09:03 Dose: Not Given Apixaban (Eliquis) 2.5 mg PO BID [facility] Last Admin: 05/26/18 22:00 Dose: 2.5 mg Aspirin (Ecotrin) 81 mg PO DAILY [facility] Last Admin: 05/26/18 09:03 Dose: 81 mg Atorvastatin Calcium (Lipitor) 20 mg PO DAILY [facility] Last Admin: 05/26/18 09:02 Dose: 20 mg Bisacodyl (Dulcolax Supp) 10 mg RECTAL DAILY PRN PRN Reason: SEVERE CONSITIPATION Dextrose (D50w Vial) 50 ml IV.PUSH UNSCH PRN PRN Reason: PER HYPOGLYCEMIA PROTOCOL Fenofibrate (Tricor) 48 mg PO DAILY [facility] Last Admin: 05/26/18 09:02 Dose: 48 mg Glucagon (Glucagon Inj) 1 mg OTHER PRN PRN PRN Reason: for Hypoglycemia Protocol Insulin Aspart (Novolog Insulin [employer] Sugar Inj) 0 unit SQ [facility]; Protocol Last Admin: 05/26/18 22:00 Dose: Not Given Lactulose (Lactulose Liq) 30 ml PO DAILY PRN PRN Reason: SEVERE CONSITIPATION Levetiracetam (Keppra) 500 mg PO BID [facility] Last Admin: 05/26/18 22:00 Dose: 500 mg Metoprolol Tartrate (Lopressor) 25 mg PO BID [facility] Last Admin: 05/26/18 21:59 Dose: 25 mg Ondansetron HCl (Zofran Inj) 4 mg IV.PUSH Q6H PRN PRN Reason: NAUSEA OR VOMITING Oxycodone/Acetaminophen (Percocet 5/325 Mg) 1 tab PO Q4H PRN PRN Reason: PAIN SCALE 1 TO 10 Senna/Docusate Sodium (Gely-Colace) 1 tab PO BID [facility] Last Admin: 05/26/18 22:00 Dose: 1 tab Sennosides (Senokot) 17.2 mg PO Q12H PRN PRN Reason: Moderate Constipation Sertraline HCl (Zoloft) 100 mg PO DAILY [facility] Last Admin: 05/26/18 09:02 Dose: 100 mg Allergies Allergy/AdvReac Type Severity Reaction Status Date / Time No Known Allergies Allergy Uncoded 03/07/16 15:20 Home Medications Medication Instructions Recorded Confirmed Type amlodipine 10 mg PO DAILY 05/23/18 05/23/18 History apixaban [Eliquis] 2.5 mg PO BID 05/23/18 05/23/18 History aspirin [Aspir-81] 81 mg PO DAILY 05/23/18 05/23/18 History atorvastatin 20 mg PO DAILY 05/23/18 05/23/18 History docusate sodium 100 mg PO DAILY 05/23/18 05/23/18 History fenofibrate 50 mg PO DAILY 05/23/18 05/23/18 History furosemide 40 mg PO DAILY 05/23/18 05/23/18 History levetiracetam 500 mg PO BID 05/23/18 05/23/18 History metoprolol tartrate 25 mg PO BID 05/23/18 05/23/18 History oxycodone-acetaminophen 1 tab PO Q4-6H PRN 05/23/18 05/23/18 History ramipril 2.5 mg PO BID 05/23/18 05/23/18 History sertraline 100 mg PO DAILY 05/23/18 05/23/18 History Physical Exam Vital signs: Vital Signs 05/26/18 04:00 05/26/18 07:49 05/26/18 07:55 Temperature 97.5 F L 97.2 F L Pulse Rate 65 64 63 Respiratory Rate 16 16 Blood Pressure 114/70 101/56 L Pulse Oximetry 94 L 95 05/26/18 08:51 05/26/18 12:00 05/26/18 16:00 Temperature 97.7 F 97.2 F L Pulse Rate 66 67 Respiratory Rate 16 16 Blood Pressure 113/61 100/59 L Pulse Oximetry 92 L 95 96 05/26/18 20:00 Temperature 97.8 F Pulse Rate 67 Respiratory Rate 17 Blood Pressure 115/68 Pulse Oximetry 95 Intake & Output 05/26/18 05/26/18 05/27/18 06:59 18:59 06:59 Intake Total 100 / 100 1200 / 1200 Output Total 1480 / 1480 800 / 800 Balance -1380 / -1380 400 / 400 Weight 88.6 kg Intake: Oral 100 / 100 1200 / 1200 Output: Urine 1480 / 1480 800 / 800 Other: Date of Last Bowel Movement 05/24/18 05/24/18 05/24/18 # Bowel Movements 1 Narrative: GENERAL: Alert and oriented. SKIN: Warm and dry. NECK: Supple, trachea midline. No JVD or lymphadenopathy. CARDIOVASCULAR: Regular rate and rhythm without murmurs, gallops, or rubs. RESPIRATORY: Breath sounds equal bilaterally. No accessory muscle use. GASTROINTESTINAL: Abdomen soft, non-tender, nondistended. MUSCULOSKELETAL: No cyanosis, or edema. BACK: Nontender without obvious deformity. No CVA tenderness. Results 05/26/18 03:37 05/26/18 03:37 Cardiac Enzymes 05/25/18 05/26/18 05/26/18 Range/Units 08:18 03:37 03:37 AST 10 L (15-37) U/L B-Natriuretic Peptide 805 H 637 H (0-100) pg/mL Coagulation 05/25/18 05/26/18 Range/Units 08:18 03:37 B-Natriuretic Peptide 805 H 637 H (0-100) pg/mL CBC 05/26/18 Range/Units 03:37 WBC 6.2 (4.0-11.0) th/mm3 RBC 4.26 L (4.50-5.90) mil/mm3 Hgb 12.4 L (13.0-17.0) gm/dL Hct 38.3 L (39.0-51.0) % Plt Count 351 (150-450) th/mm3 Neut # (Auto) 3.5 (1.8-7.7) th/mm3 Lymph # (Auto) 1.3 (1.0-4.8) th/mm3 [place] # (Auto) 0.7 (0.0-0.9) th/mm3 Eos # (Auto) 0.6 H (0.0-0.4) th/mm3 Baso # (Auto) 0.1 (0.0-0.2) th/mm3 Comprehensive Metabolic Panel 05/25/18 05/26/18 Range/Units 05:04 03:37 Sodium 138 137 (136-145) meq/L Potassium 4.3 4.2 (3.5-5.1) meq/L Chloride 103 100 (98-107) meq/L Carbon Dioxide 23.5 26.1 (21.0-32.0) meq/L BUN 66 H 70 H (7-18) mg/dL Creatinine 3.27 H 3.51 H (0.60-1.30) mg/dL Calcium 8.7 8.7 (8.5-10.1) mg/dL AST 10 L (15-37) U/L ALT 17 (12-78) U/L Alkaline Phosphatase 52 (45-117) U/L Total Protein 6.6 (6.4-8.2) g/dL Albumin 3.2 L (3.4-5.0) g/dL Intake and Output 05/26/18 05/26/18 05/27/18 14:59 22:59 06:59 Intake Total 1200 / 1200 Output Total 800 / 800 Balance 400 / 400 Intake: Oral 1200 / 1200 Output: Urine 800 / 800 Other: Date of Last Bowel Movement 05/24/18 05/24/18 # Bowel Movements 1 - Imaging and Cardiology Imaging: Impressions Abdomen/Bladder Ultrasound 05/25/18 00:00 CONCLUSION: 1. Echogenic kidneys typical of chronic parenchymal disease. 2. Scattered bilateral cysts. 3. No hydronephrosis. Assessment and Plan - Assessment (1) Acute systolic (congestive) heart failure Code(s): I50.21 - Acute systolic (congestive) heart failure Status: Acute (2) CAD (coronary artery disease) Code(s): I25.10 - Atherosclerotic heart disease of [place] coronary artery without angina pectoris Status: Acute (3) Hx of CABG Code(s): Z95.1 - Presence of aortocoronary bypass graft Status: Acute - Plan 1) CAD with Hx of CABGx4 Stable 2) Acute on chronic systolic heart failure Diuresed Increased creatinine, most likely due to Zaroxolyn Nephrology consulted Plan on Bumex on discharge Needs to watch dietary sodium on discharge 3) Echo showing EF 25-30% similar to before Question of moderate to severe ? Previous cath in March showing no gradient Echo gradients low (peak 12, mean 7) doubt aortic stenosis 4) CKD 5) Afib Continue on Eliquis
[2018-05-27 06:09] LABS: Calcium 8.5 mg/dL (8.5-10.1); Carbon Dioxide 23.3 meq/L (21.0-32.0); Magnesium 2.5 mg/dL (1.5-2.5); Potassium 4.2 meq/L (3.5-5.1)
--- NOTE | 2018-05-27 07:55 | P.PN ---
Subjective Interval history: F/U ROMINA. Creatinine bumped to 4.07. Patient denies any urinary complaints. Has been started on IV fluids by nephrology Physical Exam Vital signs: Vital Signs 05/26/18 07:55 05/26/18 08:51 05/26/18 12:00 Temperature 97.7 F Pulse Rate 63 66 Respiratory Rate 16 Blood Pressure 113/61 Pulse Oximetry 92 L 95 05/26/18 16:00 05/26/18 20:00 05/27/18 00:00 Temperature 97.2 F L 97.8 F 97.7 F Pulse Rate 67 60 66 Respiratory Rate 16 17 17 Blood Pressure 100/59 L 115/68 125/74 Pulse Oximetry 96 95 95 05/27/18 04:00 Temperature 97.4 F L Pulse Rate 64 Respiratory Rate 18 Blood Pressure 146/81 H Pulse Oximetry 95 Intake & Output 05/26/18 05/27/18 05/27/18 18:59 06:59 18:59 Intake Total 1200 / 1200 480 / 480 Output Total 800 / 800 605 / 605 Balance 400 / 400 -125 / -125 Intake: Oral 1200 / 1200 480 / 480 Output: Urine 800 / 800 605 / 605 Other: Date of Last Bowel Movement 05/24/18 05/24/18 # Bowel Movements 1 1 Narrative: GENERAL: Alert and oriented. SKIN: Warm and dry. NECK: Supple, trachea midline. No JVD or lymphadenopathy. CARDIOVASCULAR: Regular rate and rhythm without murmurs, gallops, or rubs. RESPIRATORY: Breath sounds equal bilaterally. No accessory muscle use. GASTROINTESTINAL: Abdomen soft, non-tender, nondistended. MUSCULOSKELETAL: No cyanosis, or edema. Results - Labs CBC & Chem 7: 05/26/18 03:37 05/27/18 04:16 Laboratory Results - last 24 hr 05/26/18 05/26/18 05/26/18 05:53 05:53 11:00 Sodium Potassium Chloride Carbon Dioxide Anion Gap BUN Creatinine Estimated GFR POC Glucose 162 H Random Glucose Calcium Magnesium Urine Osmolality 320 Ur Random Sodium 90 05/26/18 05/26/18 05/27/18 17:11 20:51 04:16 Sodium 135 L Potassium 4.2 Chloride 100 Carbon Dioxide 23.3 Anion Gap 12 BUN 81 H Creatinine 4.07 H Estimated GFR 14 L POC Glucose 112 H 116 H Random Glucose 120 H Calcium 8.5 Magnesium 2.5 Urine Osmolality Ur Random Sodium - Procedures none Assessment and Plan - Assessment (1) Acute systolic (congestive) heart failure Code(s): I50.21 - Acute systolic (congestive) heart failure Status: Acute (2) CAD (coronary artery disease) Code(s): I25.10 - Atherosclerotic heart disease of [place] coronary artery without angina pectoris Status: Acute (3) Hx of CABG Code(s): Z95.1 - Presence of aortocoronary bypass graft Status: Acute - Plan 78-year-old M who presented to the ER with complaints of shortness of breath and admitted for inpatient management of acute respiratory failure and CHF exacerbation, HD #3 1. Acute on chronic systolic HF exacerbation. Improved BNP 3,100 on 05/23 Echo with ef 25-30% Ct BB. Lasix and RICK on hold secondary to worsening kidney function Monitor weight and urine output Monitor on telemetry CXR reviewed consistent with volume overload Consulted Cardiology Dr Malhotra who recommended converting Lasix to Bumex on discharge to home O2 supplement by NC keep O2 sat > 94% 2. Coronary artery disease/[place] status post CABG 03/28: noted, cont. ASA and Eliquis 3. HX of A. Fib Rate controlled at this time Monitor on telemetry Cont. home Metoprolol and Eliquis 4. HTN Cont. Norvasc and Metoprolol 5. HLD Cont. statin and fenofibrate 6. Severe Aortic Valve Stenosis Dx per Echo, see above for details Cont. Diurectics as above 7. DM2 Insulin Dependent with Nephropathy Cont. accuchecks Cont. SSI ( at home on Oglinza injections) 8. ROMINA on CKD stage 3. Creatinine level continues to get worse Cr baseline is 2, Acute kidney injury most likely prerenal related to CHF Monitor strict I+o Urinalysis with pyuria urine culture pending, urine osmolarity three-point, and urine sodium 90 Because of worsening creatinine level, RICK inhibitor and Lasix currently on hold. Gentle IV hydration for half a liter ordered by nephrology today. Follow urinary output and BMP Follow-up with his healthcare translator Dr. Herrera as OP Avoid nephrotoxins 9. History of Seizures Stable at this time no signs of seizures Resume home Keppra 10. History of Anxiety/Depression Continue Zoloft 11. NCNC anemia. No gross bleed. O/p f/u DVT prophylaxis SCDs/teds, Eliquis Discharge Planning: Per nephrology
[2018-05-27] MEDS: levETIRAcetam 500 MG Tablet PO SCH ×2 (10:22→21:19)
[2018-05-27] MEDS: Metoprolol Tartrate 25 MG Tablet PO SCH ×2 (10:23→21:19)
[2018-05-27] MEDS: Sertraline 100 MG Tablet PO SCH (10:23)
[2018-05-27] MEDS: Fenofibrate 48 MG Tablet PO SCH (10:23)
[2018-05-27] MEDS: amLODIPine 10 MG Tablet PO SCH (10:23)
[2018-05-27] MEDS: Insulin NovoLOG Aspart Correctional Sugar Inj SQ SCH ×4 (10:28→21:20)
[2018-05-27] MEDS: Senna/Docusate Sodium 8.6/50 MG Tablet PO SCH ×2 (10:28→21:19)
[2018-05-27] MEDS: Sodium Chlor 0.9% Inj 500 ML IV.CONT SCH ×2 (11:00→22:36)
--- NOTE | 2018-05-27 11:17 | P.PNNP ---
Subjective Interval history: Sitting up in chair. Denies any shortness of breath, chest pain, nausea, or vomiting. Creatinine has increased at 4.07 today. <Ivy Cameron - Last Filed: 05/27/18 11:14> Physical Exam Vital signs: Vital Signs 05/26/18 12:00 05/26/18 16:00 05/26/18 20:00 Temperature 97.7 F 97.2 F L 97.8 F Pulse Rate 66 67 60 Respiratory Rate Blood Pressure 113/61 100/59 L 115/68 Pulse Oximetry 95 96 95 05/27/18 00:00 05/27/18 04:00 05/27/18 08:00 Temperature 97.7 F 97.4 F L 97.4 F L Pulse Rate 66 64 63 Respiratory Rate Blood Pressure 125/74 146/81 H 112/62 Pulse Oximetry 95 95 100 05/27/18 09:58 Temperature Pulse Rate Respiratory Rate Blood Pressure Pulse Oximetry 95 Intake & Output 05/26/18 05/27/18 05/27/18 18:59 06:59 18:59 Intake Total 1200 / 1200 480 / 480 Output Total 800 / 800 605 / 605 Balance 400 / 400 -125 / -125 Intake: Oral 1200 / 1200 480 / 480 Output: Urine 800 / 800 605 / 605 Other: Date of Last Bowel Movement 05/24/18 05/24/18 # Bowel Movements 1 1 Narrative: GENERAL: Alert and oriented. SKIN: Warm and dry. NECK: Supple, trachea midline. No JVD or lymphadenopathy. CARDIOVASCULAR: Regular rate and rhythm without murmurs, gallops, or rubs. RESPIRATORY: Breath sounds equal bilaterally. No accessory muscle use. GASTROINTESTINAL: Abdomen soft, non-tender, nondistended. MUSCULOSKELETAL: No cyanosis, or edema. <Ivy Cameron - Last Filed: 05/27/18 11:14> Assessment and Plan - Assessment (2) Acute kidney injury Code(s): N17.9 - Acute kidney failure, unspecified Status: Acute Plan: Acute kidney injury most likely prerenal related to CHF Baseline creatinine at around 2.[address] 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 Plan Avoid nephrotoxins as possible Monitor strict I+o Continue to hold RICK Creatinine slightly worsened at 4.07 from 3.51 Continue to hold diuretics and IVF have been added Follow urinary output and BMP Labs in AM <Ivy Cameron - Last Filed: 05/27/18 11:14> - Assessment (1) Acute kidney injury Code(s): N17.9 - Acute kidney failure, unspecified Status: Acute Plan: Patient seen and examined, agree with above. Creatinine increase, possible overdiuresis. Stop Lasix and gentle IVF. If Creatinine start to improved, can be discharge. (2) Acute respiratory failure with hypoxia Code(s): J96.01 - Acute respiratory failure with hypoxia Status: Acute (3) Acute systolic (congestive) heart failure Code(s): I50.21 - Acute systolic (congestive) heart failure Status: Acute (4) CAD (coronary artery disease) Code(s): I25.10 - Atherosclerotic heart disease of [place] coronary artery without angina pectoris Status: Acute (5) CHF (congestive heart failure) Code(s): I50.9 - Heart failure, unspecified Status: Acute <Pieter Wheeler - Last Filed: 06/01/18 17:09>
--- NOTE | 2018-05-28 00:52 | P.PNCA ---
Subjective Interval history: No events overnight Creatinine further elevated Medications and Allergies Active Medications: Active Medications Acetaminophen (Tylenol) 650 mg PO Q4H PRN PRN Reason: Temp > 100.4 Amlodipine Besylate (Norvasc) 10 mg PO DAILY [facility] Last Admin: 05/27/18 10:23 Dose: 10 mg Apixaban (Eliquis) 2.5 mg PO BID [facility] Last Admin: 05/27/18 21:20 Dose: 2.5 mg Aspirin (Ecotrin) 81 mg PO DAILY [facility] Last Admin: 05/27/18 10:22 Dose: 81 mg Atorvastatin Calcium (Lipitor) 20 mg PO DAILY [facility] Last Admin: 05/27/18 10:22 Dose: 20 mg Bisacodyl (Dulcolax Supp) 10 mg RECTAL DAILY PRN PRN Reason: SEVERE CONSITIPATION Dextrose (D50w Vial) 50 ml IV.PUSH UNSCH PRN PRN Reason: PER HYPOGLYCEMIA PROTOCOL Fenofibrate (Tricor) 48 mg PO DAILY [facility] Last Admin: 05/27/18 10:23 Dose: 48 mg Glucagon (Glucagon Inj) 1 mg OTHER PRN PRN PRN Reason: for Hypoglycemia Protocol Sodium Chloride (Ns Inj) 500 mls @ 50 mls/hr IV.CONT .Q10H [facility] Last Admin: 05/27/18 22:36 Dose: 50 mls/hr Insulin Aspart (Novolog Insulin Correctional Sugar Inj) 0 unit SQ ACHS [facility]; Protocol Last Admin: 05/27/18 21:20 Dose: 3 unit Lactulose (Lactulose Liq) 30 ml PO DAILY PRN PRN Reason: SEVERE CONSITIPATION Levetiracetam (Keppra) 500 mg PO BID [facility] Last Admin: 05/27/18 21:19 Dose: 500 mg Metoprolol Tartrate (Lopressor) 25 mg PO BID [facility] Last Admin: 05/27/18 21:19 Dose: 25 mg Ondansetron HCl (Zofran Inj) 4 mg IV.PUSH Q6H PRN PRN Reason: NAUSEA OR VOMITING Oxycodone/Acetaminophen (Percocet 5/325 Mg) 1 tab PO Q4H PRN PRN Reason: PAIN SCALE 1 TO 10 Senna/Docusate Sodium (Gely-Colace) 1 tab PO BID [facility] Last Admin: 05/27/18 21:19 Dose: 1 tab Sennosides (Senokot) 17.2 mg PO Q12H PRN PRN Reason: Moderate Constipation Sertraline HCl (Zoloft) 100 mg PO DAILY [facility] Last Admin: 05/27/18 10:23 Dose: 100 mg Allergies Allergy/AdvReac Type Severity Reaction Status Date / Time No Known Allergies Allergy Uncoded 03/07/16 15:20 Home Medications Medication Instructions Recorded Confirmed Type amlodipine 10 mg PO DAILY 05/23/18 05/23/18 History apixaban [Eliquis] 2.5 mg PO BID 05/23/18 05/23/18 History aspirin [Aspir-81] 81 mg PO DAILY 05/23/18 05/23/18 History atorvastatin 20 mg PO DAILY 05/23/18 05/23/18 History docusate sodium 100 mg PO DAILY 05/23/18 05/23/18 History fenofibrate 50 mg PO DAILY 05/23/18 05/23/18 History furosemide 40 mg PO DAILY 05/23/18 05/23/18 History levetiracetam 500 mg PO BID 05/23/18 05/23/18 History metoprolol tartrate 25 mg PO BID 05/23/18 05/23/18 History oxycodone-acetaminophen 1 tab PO Q4-6H PRN 05/23/18 05/23/18 History ramipril 2.5 mg PO BID 05/23/18 05/23/18 History sertraline 100 mg PO DAILY 05/23/18 05/23/18 History Physical Exam Vital signs: Vital Signs 05/27/18 04:00 05/27/18 08:00 05/27/18 09:00 Temperature 97.4 F L 97.4 F L Pulse Rate 64 63 63 Respiratory Rate 18 18 Blood Pressure 146/81 H 112/62 Pulse Oximetry 95 100 05/27/18 09:58 05/27/18 12:00 05/27/18 16:00 Temperature 97.9 F 97.8 F Pulse Rate 72 62 Respiratory Rate 18 18 Blood Pressure 124/68 107/60 Pulse Oximetry 95 97 95 05/27/18 20:00 05/28/18 00:00 Temperature 97.7 F 97.3 F L Pulse Rate 65 63 Respiratory Rate 17 17 Blood Pressure 113/54 L 128/61 Pulse Oximetry 96 94 L Intake & Output 05/27/18 05/27/1818 06:59 18:59 06:59 Intake Total 480 / 480 500 / 500 Output Total 605 / 605 1999 Balance -125 / -125 -1999 500 / 500 Intake: IV 500 / 500 NS Inj 500 ML @ 50 mls/hr IV. 500 / 500 CONT .Q10H [facility] Rx#:[id number] Oral 480 / 480 Output: Urine 605 / 605 1999 Other: # Voids 4 Date of Last Bowel Movement 05/24/18 # Bowel Movements 1 Narrative: GENERAL: Alert and oriented. SKIN: Warm and dry. NECK: Supple, trachea midline. No JVD or lymphadenopathy. CARDIOVASCULAR: Regular rate and rhythm without murmurs, gallops, or rubs. RESPIRATORY: Breath sounds equal bilaterally. No accessory muscle use. GASTROINTESTINAL: Abdomen soft, non-tender, nondistended. MUSCULOSKELETAL: No cyanosis, or edema. Results 05/26/18 03:37 05/27/18 04:16 Cardiac Enzymes 05/26/18 05/26/18 Range/Units 03:37 03:37 AST 10 L (15-37) U/L B-Natriuretic Peptide 637 H (0-100) pg/mL Coagulation 05/26/18 Range/Units 03:37 B-Natriuretic Peptide 637 H (0-100) pg/mL CBC 05/26/18 Range/Units 03:37 WBC 6.2 (4.0-11.0) th/mm3 RBC 4.26 L (4.50-5.90) mil/mm3 Hgb 12.4 L (13.0-17.0) gm/dL Hct 38.3 L (39.0-51.0) % Plt Count 351 (150-450) th/mm3 Neut # (Auto) 3.5 (1.8-7.7) th/mm3 Lymph # (Auto) 1.3 (1.0-4.8) th/mm3 [place] # (Auto) 0.7 (0.0-0.9) th/mm3 Eos # (Auto) 0.6 H (0.0-0.4) th/mm3 Baso # (Auto) 0.1 (0.0-0.2) th/mm3 Comprehensive Metabolic Panel 05/26/18 05/27/18 Range/Units 03:37 04:16 Sodium 137 135 L (136-145) meq/L Potassium 4.2 4.2 (3.5-5.1) meq/L Chloride 100 100 (98-107) meq/L Carbon Dioxide 26.1 23.3 (21.0-32.0) meq/L BUN 70 H 81 H (7-18) mg/dL Creatinine 3.51 H 4.07 H (0.60-1.30) mg/dL Calcium 8.7 8.5 (8.5-10.1) mg/dL AST 10 L (15-37) U/L ALT 17 (12-78) U/L Alkaline Phosphatase 52 (45-117) U/L Total Protein 6.6 (6.4-8.2) g/dL Albumin 3.2 L (3.4-5.0) g/dL Intake and Output 05/27/18 05/27/18 05/28/18 14:59 22:59 06:59 Intake Total 500 / 500 Output Total 1999 Balance -1500 / -1500 Intake: IV 500 / 500 NS Inj 500 ML @ 50 mls/hr IV. 500 / 500 CONT .Q10H [facility] Rx#:[id number] Output: Urine 1999 Other: # Voids 4 Assessment and Plan - Assessment (1) Acute systolic (congestive) heart failure Code(s): I50.21 - Acute systolic (congestive) heart failure Status: Acute (2) CAD (coronary artery disease) Code(s): I25.10 - Atherosclerotic heart disease of [place] coronary artery without angina pectoris Status: Acute (3) Hx of CABG Code(s): Z95.1 - Presence of aortocoronary bypass graft Status: Acute - Plan 1) CAD with Hx of CABGx4 Stable 2) Acute on chronic systolic heart failure Diuresed Increased creatinine, most likely due to Zaroxolyn Nephrology consulted Plan on Bumex on discharge Needs to watch dietary sodium on discharge 3) Echo showing EF 25-30% similar to before Question of moderate to severe ? Previous cath in March showing no gradient Echo gradients low (peak 12, mean 7) doubt aortic stenosis 4) CKD Creatinine 4.07, started on IVF 5) Afib Continue on Eliquis
[2018-05-28 06:58] LABS: Calcium 8.8 mg/dL (8.5-10.1); Carbon Dioxide 23.5 meq/L (21.0-32.0); Potassium 4.1 meq/L (3.5-5.1)
[2018-05-28] MEDS: Sodium Chlor 0.9% Inj 500 ML IV.CONT SCH (07:12)
--- NOTE | 2018-05-28 08:08 | P.PN ---
Subjective Interval history: Follow-up acute kidney injury. Creatinine improved to 3.76 on gentle IV hydration. Patient has no complaints Physical Exam Vital signs: Vital Signs 05/27/18 09:00 05/27/18 09:58 05/27/18 12:00 Temperature 97.9 F Pulse Rate 63 72 Respiratory Rate 18 Blood Pressure 124/68 Pulse Oximetry 95 97 05/27/18 16:00 05/27/18 20:00 05/28/18 00:00 Temperature 97.8 F 97.7 F 97.3 F L Pulse Rate 62 65 60 Respiratory Rate 18 17 17 Blood Pressure 107/60 113/54 L 128/61 Pulse Oximetry 95 96 94 L 05/28/18 04:00 05/28/18 04:53 Temperature 97.2 F L Pulse Rate 67 63 Respiratory Rate 15 Blood Pressure 124/69 Pulse Oximetry 95 Intake & Output 05/27/18 05/28/18 05/28/18 18:59 06:59 18:59 Intake Total 1460 / 1460 481 / 481 Output Total 1999 Balance -1999 1460 / 1460 481 / 481 Weight 72.5 kg Intake: IV 500 / 500 481 / 481 NS Inj 500 ML @ 50 mls/hr IV. 500 / 500 481 / 481 CONT .Q10H [facility] Rx#:[id number] Oral 960 / 960 Output: Urine 1999 Other: # Voids 4 5 Date of Last Bowel Movement 05/27/18 Narrative: GENERAL: Alert and oriented. SKIN: Warm and dry. CARDIOVASCULAR: Regular rate and rhythm without murmurs, gallops, or rubs. RESPIRATORY: Breath sounds equal bilaterally. No accessory muscle use. GASTROINTESTINAL: Abdomen soft, non-tender, nondistended. MUSCULOSKELETAL: No cyanosis, or edema. Results - Labs CBC & Chem 7: 05/26/18 03:37 05/28/18 04:47 Laboratory Results - last 24 hr 05/27/18 05/27/18 05/27/18 04:16 12:20 16:59 Sodium Potassium Chloride Carbon Dioxide Anion Gap BUN Creatinine Estimated GFR POC Glucose 191 H 94 Random Glucose Calcium Total Creatine Kinase 30 L 05/27/18 05/28/18 19:51 04:47 Sodium 135 L Potassium 4.1 Chloride 100 Carbon Dioxide 23.5 Anion Gap 12 BUN 82 H Creatinine 3.76 H Estimated GFR 16 L POC Glucose 217 H Random Glucose 91 Calcium 8.8 Total Creatine Kinase Microbiology 05/26/18 05:53 Clean Catch Urine Urine Culture - Final 50-100,000 cfu/mL mixed gram positive olivia (probable contaminants) - Procedures none Assessment and Plan - Assessment (1) Acute systolic (congestive) heart failure Code(s): I50.21 - Acute systolic (congestive) heart failure Status: Acute (2) CAD (coronary artery disease) Code(s): I25.10 - Atherosclerotic heart disease of [place] coronary artery without angina pectoris Status: Acute (3) Hx of CABG Code(s): Z95.1 - Presence of aortocoronary bypass graft Status: Acute - Plan 78-year-old M who presented to the ER with complaints of shortness of breath and admitted for inpatient management of acute respiratory failure and CHF exacerbation 1. Acute on chronic systolic HF exacerbation. Improved BNP 3,100 on 05/23 Echo with ef 25-30% Ct BB. Lasix and RICK on hold secondary to worsening kidney function Monitor weight and urine output Monitor on telemetry CXR reviewed consistent with volume overload Consulted Cardiology Dr Malhotra who recommended converting Lasix to Bumex on discharge to home O2 supplement by [place] keep O2 sat > 94% 2. Coronary artery disease/[place] status post CABG 03/28: noted, cont. ASA and Eliquis 3. HX of A. Fib Rate controlled at this time Monitor on telemetry Cont. home Metoprolol and Eliquis 4. HTN Cont. Norvasc and Metoprolol 5. HLD Cont. statin and fenofibrate 6. Severe Aortic Valve Stenosis Dx per Echo, see above for details Cont. Diurectics as above 7. DM2 Insulin Dependent with Nephropathy Cont. accuchecks Cont. SSI ( at home on Oglinza injections) 8. ROMINA on CKD stage 3. Creatinine improved down to 3.76 on gentle IV hydration Cr baseline is 2, Acute kidney injury most likely prerenal related to CHF Monitor strict I+o Urinalysis with pyuria urine culture pending, urine osmolarity three-point, and urine sodium 90 Because of worsening creatinine level, RICK inhibitor and Lasix currently on hold. Follow urinary output and BMP Follow-up with his coat finisher Dr. Herrera as OP Avoid nephrotoxins 9. History of Seizures Stable at this time no signs of seizures Resume home Keppra 10. History of Anxiety/Depression Continue Zoloft 11. NCNC anemia. No gross bleed. O/p f/u DVT prophylaxis SCDs/teds, Eliquis Discharge Planning: Per nephrology
[2018-05-28] MEDS: Sertraline 100 MG Tablet PO SCH (08:12)
[2018-05-28] MEDS: Fenofibrate 48 MG Tablet PO SCH (08:12)
[2018-05-28] MEDS: Insulin NovoLOG Aspart Correctional Sugar Inj SQ SCH ×2 (08:13→12:17)
[2018-05-28] MEDS: Senna/Docusate Sodium 8.6/50 MG Tablet PO SCH (08:13)
[2018-05-28] MEDS: levETIRAcetam 500 MG Tablet PO SCH (08:13)
[2018-05-28] MEDS: amLODIPine 10 MG Tablet PO SCH (08:13)
[2018-05-28] MEDS: Metoprolol Tartrate 25 MG Tablet PO SCH (08:13)
--- NOTE | 2018-05-28 09:48 | P.PNNP ---
Subjective Interval history: Doing well with no complaints. Denies any shortness of breath, chest pain, nausea, vomiting, or diarrhea. Creatinine has improved at 3.76 today. <Ivy Cameron - Last Filed: 05/28/18 09:43> Physical Exam Vital signs: Vital Signs 05/27/18 09:58 05/27/18 12:00 05/27/18 16:00 Temperature 97.9 F 97.8 F Pulse Rate 72 62 Respiratory Rate 18 18 Blood Pressure 124/68 107/60 Pulse Oximetry 95 97 95 05/27/18 20:00 05/28/18 00:00 05/28/18 04:00 Temperature 97.7 F 97.3 F L 97.2 F L Pulse Rate 65 60 67 Respiratory Rate 17 17 15 Blood Pressure 113/54 L 128/61 124/69 Pulse Oximetry 96 94 L 95 05/28/18 04:53 05/28/18 08:00 Temperature 97.4 F L Pulse Rate 63 61 Respiratory Rate 21 Blood Pressure 121/67 Pulse Oximetry 97 Intake & Output 05/27/18 05/28/18 05/28/18 18:59 06:59 18:59 Intake Total 1460 / 1460 481 / 481 Output Total 1999 Balance -1999 1460 / 1460 481 / 481 Weight 72.5 kg Intake: IV 500 / 500 481 / 481 NS Inj 500 ML @ 50 mls/hr IV. 500 / 500 481 / 481 CONT .Q10H [facility] Rx#:[id number] Oral 960 / 960 Output: Urine 1999 Other: # Voids 4 5 Date of Last Bowel Movement 05/27/18 Narrative: GENERAL: Alert and oriented. SKIN: Warm and dry. CARDIOVASCULAR: Regular rate and rhythm without murmurs, gallops, or rubs. RESPIRATORY: Breath sounds equal bilaterally. No accessory muscle use. GASTROINTESTINAL: Abdomen soft, non-tender, nondistended. MUSCULOSKELETAL: No cyanosis, or edema. <Ivy Cameron - Last Filed: 05/28/18 09:43> Assessment and Plan - Assessment (2) Acute kidney injury Code(s): N17.9 - Acute kidney failure, unspecified Status: Acute Plan: Acute kidney injury most likely prerenal related to CHF Baseline creatinine at around 2.[address] 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 Plan Instructed to avoid NSAID use Continue to hold RICK can be restarted at later date Creatinine has improved at 3.76 from 4.07 with gentle hydration. IVF have been discontinued. From nephrology stand point patient can be discharged home and follow up with outpatient Pattern Checker Can be discharged on Bumex 1 mg daily. Only to increase dose to 2 mg per day if increased swelling or shortness of breath for 3 days only. <Ivy Cameron - Last Filed: 05/28/18 09:43> - Assessment (1) Acute kidney injury Code(s): N17.9 - Acute kidney failure, unspecified Status: Acute Plan: Patient seen an examined, agree with above. Creatinine improve to 3.7, Continue to hold diuretics for now. If discharge to follow with Dr. Herrera and to restart lower dose of diuretic, if needed. (2) Acute respiratory failure with hypoxia Code(s): J96.01 - Acute respiratory failure with hypoxia Status: Acute (3) Acute systolic (congestive) heart failure Code(s): I50.21 - Acute systolic (congestive) heart failure Status: Acute (4) CAD (coronary artery disease) Code(s): I25.10 - Atherosclerotic heart disease of [place] coronary artery without angina pectoris Status: Acute (5) CHF (congestive heart failure) Code(s): I50.9 - Heart failure, unspecified Status: Acute <Pieter Wheeler - Last Filed: 06/01/18 17:22>
[2018-05-28 12:35] VITALS: BP 115/63; PULSE 64; RESP 20; TEMP 97.3; O2SAT 96
--- NOTE | 2018-05-28 13:27 | P.DS ---
Date of admission: 05/23/18 15:44 Primary care physician: Radha Springer MD Brief History from admission: 78-year-old male patient with history of CAD, HI, status post CABG x4, hypertension, diabetes, presents to the ER today because he apparently had a worsening dyspnea on exertion and shortness of breath over the last 4 days. He denies any chest pains, coughing, or any other issues. He states he only sleeps on one pillow, however he is waking up and gasping for air at times and his breathing is better when he stands. He does not notice significant leg swelling. Has mild nonproductive cough. Daughter says he was sob in the morning and he had a very weak voice. Patient says he couldn't walk to the bath without sob and he had to rest 10 minutes to catch his breath. He is seeing cardiology, Dr Krueger as OP. Patient received lasix IV in the ED with some improvement however he is dessatign at 87 without O2 supplement. Patient is not on O2 supplement at home. DS: Diagnosis - Discharge Diagnosis (1) Acute systolic (congestive) heart failure Status: Acute (2) CAD (coronary artery disease) Status: Acute (3) Hx of CABG Status: Acute DS: Medications - Discharge Medications Prescriptions: bumetanide 1 mg PO DAILY #30 tab DS: Summary Hospital Course: 78-year-old M who presented to the ER with complaints of shortness of breath and admitted for inpatient management of acute respiratory failure and CHF exacerbation, HD #3 1. Acute on chronic systolic HF exacerbation. Improved BNP 3,100 on 05/23 Echo with ef 25-30% Ct BB. Lasix and RICK on hold secondary to worsening kidney function Monitor weight and urine output Monitor on telemetry CXR reviewed consistent with volume overload Consulted Cardiology Dr Malhotra who recommended converting Lasix to Bumex on discharge to home O2 supplement by [place] keep O2 sat > 94% 2. Coronary artery disease/[place] status post CABG 03/28: noted, cont. ASA and Eliquis 3. HX of A. Fib Rate controlled at this time Monitor on telemetry Cont. home Metoprolol and Eliquis 4. HTN Cont. Norvasc and Metoprolol 5. HLD Cont. statin and fenofibrate 6. Severe Aortic Valve Stenosis Dx per Echo, see above for details Cont. Diurectics as above 7. DM2 Insulin Dependent with Nephropathy Cont. accuchecks Cont. SSI ( at home on Oglinza injections) 8. ROMINA on CKD stage 3. Creatinine improved down to 3.76 on gentle IV hydration Cr baseline is 2, Acute kidney injury most likely prerenal related to CHF Monitor strict I+o Urinalysis with pyuria urine culture pending, urine osmolarity three-point, and urine sodium 90 Because of worsening creatinine level, RICK inhibitor and Lasix currently on hold. Follow urinary output and BMP Follow-up with his scientific informatics project leader Dr. Herrera as OP Avoid nephrotoxins 9. History of Seizures Stable at this time no signs of seizures Resume home Keppra 10. History of Anxiety/Depression Continue Zoloft 11. NCNC anemia. No gross bleed. O/p f/u DVT prophylaxis SCDs/teds, Eliquis - Time Spent with Patient Total time spent providing and/or coordinating discharge services: Greater than 30 minutes - Quality: VTE Deep Vein Thrombosis/Pulmonary Embolism Present on Admission: No Exam Vital signs: Vital Signs 05/27/18 16:00 05/27/18 20:00 05/28/18 00:00 Temperature 97.8 F 97.7 F 97.3 F L Pulse Rate 62 65 60 Respiratory Rate 18 17 17 Blood Pressure 107/60 113/54 L 128/61 Pulse Oximetry 95 96 94 L 05/28/18 04:00 05/28/18 04:53 05/28/18 08:00 Temperature 97.2 F L 97.4 F L Pulse Rate 67 63 59 L Respiratory Rate 15 21 Blood Pressure 124/69 121/67 Pulse Oximetry 95 97 05/28/18 12:00 Temperature 97.3 F L Pulse Rate 64 Respiratory Rate 20 Blood Pressure 115/63 Pulse Oximetry 96 Intake & Output 05/27/18 05/28/18 05/28/18 18:59 06:59 18:59 Intake Total 1460 / 1460 581 / 581 Output Total 1999 Balance -1999 1460 / 1460 581 / 581 Weight 72.5 kg Intake: IV 500 / 500 581 / 581 NS Inj 500 ML @ 50 mls/hr IV. 500 / 500 581 / 581 CONT .Q10H [facility] Rx#:[id number] Oral 960 / 960 Output: Urine 1999 Other: # Voids 4 5 Date of Last Bowel Movement 05/27/18 05/27/18 Narrative: GENERAL: Alert and oriented. SKIN: Warm and dry. CARDIOVASCULAR: Regular rate and rhythm without murmurs, gallops, or rubs. RESPIRATORY: Breath sounds equal bilaterally. No accessory muscle use. GASTROINTESTINAL: Abdomen soft, non-tender, nondistended. MUSCULOSKELETAL: No cyanosis, or edema. Results Procedures completed during hospitalization: none Labs on day of discharge: Labs from last 24 hours 05/28/18 05/28/18 05/28/18 11:20 08:11 04:47 Sodium 135 L Potassium 4.1 Chloride 100 Carbon Dioxide 23.5 Anion Gap 12 BUN 82 H Creatinine 3.76 H Estimated GFR 16 L POC Glucose 248 H 119 H Random Glucose 91 Calcium 8.8 05/27/18 05/27/18 19:51 16:59 Sodium Potassium Chloride Carbon Dioxide Anion Gap BUN Creatinine Estimated GFR POC Glucose 217 H 94 Random Glucose Calcium - Impressions ITS Impressions Chest X-Ray 05/23/18 11:04 CONCLUSION: Left lower lobe airspace consolidation/atelectasis with radiographic findings concerning for congestive heart failure and pulmonary edema versus volume overload. Abdomen/Bladder Ultrasound 05/25/18 00:00 CONCLUSION: 1. Echogenic kidneys typical of chronic parenchymal disease. 2. Scattered bilateral cysts. 3. No hydronephrosis. Discharge Plan - Discharge Disposition Patient Disposition: 01 Discharge Home - Discharge Condition Condition: Stable - Discharge Order Discharge Orders: Discharge Order (Routine); Ordered 05/28/18 Ordered By: Espinoaz Ford - Discharge Details Anticipated Discharge Date: 05/23/18 Discharge Comment: dc when cleared by renal - Physicians Team Primary Care Provider: Radha Springer Attending Provider: Espinoza Ford Other Providers: Robb Malhotra DO ; Pieter Wheeler MD ; Sal Huang
--- NOTE | 2018-05-28 23:57 | P.PNCA ---
Subjective Interval history: Feels great Creatinine better Medications and Allergies Allergies Allergy/AdvReac Type Severity Reaction Status Date / Time No Known Allergies Allergy Uncoded 03/07/16 15:20 Home Medications Medication Instructions Recorded Confirmed Type amlodipine 10 mg PO DAILY 05/23/18 05/23/18 History apixaban [Eliquis] 2.5 mg PO BID 05/23/18 05/23/18 History aspirin [Aspir-81] 81 mg PO DAILY 05/23/18 05/23/18 History atorvastatin 20 mg PO DAILY 05/23/18 05/23/18 History docusate sodium 100 mg PO DAILY 05/23/18 05/23/18 History fenofibrate 50 mg PO DAILY 05/23/18 05/23/18 History levetiracetam 500 mg PO BID 05/23/18 05/23/18 History metoprolol tartrate 25 mg PO BID 05/23/18 05/23/18 History oxycodone-acetaminophen 1 tab PO Q4-6H PRN 05/23/18 05/23/18 History sertraline 100 mg PO DAILY 05/23/18 05/23/18 History Physical Exam Vital signs: Vital Signs 05/28/18 00:00 05/28/18 04:00 05/28/18 04:53 Temperature 97.3 F L 97.2 F L Pulse Rate 60 67 63 Respiratory Rate 17 15 Blood Pressure 128/61 124/69 Pulse Oximetry 94 L 95 05/28/18 08:00 05/28/18 12:00 Temperature 97.4 F L 97.3 F L Pulse Rate 59 L 64 Respiratory Rate 21 20 Blood Pressure 121/67 115/63 Pulse Oximetry 97 96 Intake & Output 05/28/18 05/28/18 05/29/18 06:59 18:59 06:59 Intake Total 1460 / 1460 581 / 581 Balance 1460 / 1460 581 / 581 Weight 72.5 kg Intake: IV 500 / 500 581 / 581 NS Inj 500 ML @ 50 mls/hr IV. 500 / 500 581 / 581 CONT .Q10H [facility] Rx#:[id number] Oral 960 / 960 Other: # Voids 5 Date of Last Bowel Movement 05/27/18 05/27/18 Narrative: GENERAL: Alert and oriented. SKIN: Warm and dry. CARDIOVASCULAR: Regular rate and rhythm without murmurs, gallops, or rubs. RESPIRATORY: Breath sounds equal bilaterally. No accessory muscle use. GASTROINTESTINAL: Abdomen soft, non-tender, nondistended. MUSCULOSKELETAL: No cyanosis, or edema. Results 05/26/18 03:37 05/28/18 04:47 Comprehensive Metabolic Panel 05/27/18 05/28/18 Range/Units 04:16 04:47 Sodium 135 L 135 L (136-145) meq/L Potassium 4.2 4.1 (3.5-5.1) meq/L Chloride 100 100 (98-107) meq/L Carbon Dioxide 23.3 23.5 (21.0-32.0) meq/L BUN 81 H 82 H (7-18) mg/dL Creatinine 4.07 H 3.76 H (0.60-1.30) mg/dL Calcium 8.5 8.8 (8.5-10.1) mg/dL Intake and Output 05/28/18 05/28/18 05/29/18 14:59 22:59 06:59 Intake Total 581 / 581 Balance 581 / 581 Intake: IV 581 / 581 NS Inj 500 ML @ 50 mls/hr IV. 581 / 581 CONT .Q10H [facility] Rx#:[id number] Other: Date of Last Bowel Movement 05/27/18 Assessment and Plan - Assessment (1) Acute systolic (congestive) heart failure Code(s): I50.21 - Acute systolic (congestive) heart failure Status: Acute (2) CAD (coronary artery disease) Code(s): I25.10 - Atherosclerotic heart disease of [place] coronary artery without angina pectoris Status: Acute (3) Hx of CABG Code(s): Z95.1 - Presence of aortocoronary bypass graft Status: Acute - Plan 1) CAD with Hx of CABGx4 Stable 2) Acute on chronic systolic heart failure Diuresed Increased creatinine, most likely due to Zaroxolyn Nephrology consulted Plan on Bumex on discharge Needs to watch dietary sodium on discharge 3) Echo showing EF 25-30% similar to before Question of moderate to severe ? Previous cath in March showing no gradient Echo gradients low (peak 12, mean 7) doubt aortic stenosis 4) CKD Will follow up with BMP with his hoop bender tank 5) Afib Continue on Eliquis
== END 2018-05-28 16:25 | disposition home or self-care (01) ==
LOC: NEDA 10:53 → NEPE 10:53 → MERGE 15:44 → NEDA 16:44 → N06 17:12
PROVIDERS: ADMIT Internal Medicine; ATTEND Internal Medicine

== ENCOUNTER 2018-07-20 09:37 | Inpatient (IN) ==
--- NOTE | 2018-07-20 10:19 | ED ---
HPI General Chief complaint: Altered Mental Status Stated complaint: SOB/Confusion Complaint Time Seen by Provider: 07/20/18 10:03 History of Present Illness HPI narrative: 78-year-old male presents emergency department for evaluation of shortness of breath worsening over the past 3 weeks. He is coming by his daughter is also concerned that he is been having some intermittent confusion. He is getting in the car late at night and driving to try and pay bills he is seeing cats in his house and he does not own a cat. Currently he is alert and awake and oriented and seems to be his normal self and his daughter agrees. She is concerned because the confusion seems more than just regular "elderly" confusion. He denies any chest pain and does endorse exertional shortness of breath. No falls no syncope. He has a history of CHF and was recently admitted and is followed by Dr. Malhotra. Symptoms moderate, for the past 3 weeks, gradually worsening, associated signs and symptoms and context as above. Related Data Home Medications Medication Instructions Recorded Confirmed atorvastatin 20 mg PO DAILY 03/20/18 07/20/18 amlodipine 10 mg PO DAILY 05/23/18 07/20/18 apixaban [Eliquis] 2.5 mg PO BID 05/23/18 07/20/18 fenofibrate 50 mg PO DAILY 05/23/18 07/20/18 levetiracetam 500 mg PO BID 05/23/18 07/20/18 metoprolol tartrate 50 mg PO DAILY 05/23/18 07/20/18 sertraline 100 mg PO DAILY 05/23/18 07/20/18 bumetanide 1 mg PO DAILY 07/20/18 07/20/18 losartan 100 mg PO DAILY 07/20/18 07/20/18 valsartan 80 mg PO 5XW 07/20/18 07/20/18 Allergies Allergy/AdvReac Type Severity Reaction Status Date / Time No Known Allergies Allergy Verified 07/20/18 10:02 Review of Systems ROS: all other systems reviewed are negative [facility] Medical History Medical History Anxiety (Acute) HLD (hyperlipidemia) (Acute) HTN (hypertension) (Acute) Myocardial infarct (Acute) Renal disease (Acute) Seizures (Acute) Surgical History Surgical History History of cardiac cath (Acute) S/P CABG x 4 (Acute) Social History Social History Substance History: No History of Abuse Second Hand Smoke Exposure: No Smoking Status: Never smoker How Often Do You Have a Drink Containing Alcohol: Monthly or less Hx Recent Travel: No Recent Travel in [facility] within the Last 8 Weeks: No Recent Out of Country Travel within the Last 8 Weeks: No Exam Narrative Exam Narrative: GENERAL: Well-developed well-nourished in no obvious distress. Quite pleasant. SKIN: Focused skin assessment warm/dry. HEAD: Atraumatic. Normocephalic. EYES: Pupils equal and round. No scleral icterus. No injection or drainage. ENT: No nasal bleeding or discharge. Mucous membranes pink and moist. NECK: Trachea midline. No JVD. CARDIOVASCULAR: Regular rate and rhythm. No murmur appreciated. 2+ bilateral equal pulses in all 4 extremities, well-healed midline sternotomy scar. RESPIRATORY: No accessory muscle use. Clear to auscultation. Breath sounds equal bilaterally. GASTROINTESTINAL: Abdomen soft, non-tender, nondistended. Hepatic and splenic margins not palpable. MUSCULOSKELETAL: No obvious deformities. No clubbing. No cyanosis. 3+ pitting edema bilateral lower extremities from the knees distally. NEUROLOGICAL: Awake and alert. No obvious cranial nerve deficits. Motor grossly within normal limits. Normal speech. PSYCHIATRIC: Appropriate mood and affect; insight and judgment normal. Course Initial Documented Vital Signs Temperature 98.1 F 07/20/18 09:57 Pulse Rate 71 07/20/18 09:57 Respiratory Rate 18 07/20/18 09:57 Blood Pressure 141/75 H 07/20/18 09:57 Pulse Oximetry 96 07/20/18 09:57 Last Documented Vital Signs Temperature 97.8 F 07/20/18 16:25 Pulse Rate 70 07/20/18 16:25 Respiratory Rate 17 07/20/18 16:25 Blood Pressure 138/81 07/20/18 16:25 Pulse Oximetry 98 07/20/18 16:25 Medical Decision Making MDM Narrative Medical decision making narrative: Patient room to the emergency department, does have pedal edema and some fluids and worsening effusion on chest x-ray. Patient has had a recent stay in the hospital d-dimer is positive, he is on anticoagulation VQ scan was ordered and is indeterminate. Probably this test is limited by the pleural effusion. BNP significant elevated troponin of 0.04. He is reasonable for the patient to come in for CHF exacerbation, was given 80 mg of Lasix, his creatinine is elevated 3.82 which seems to be about the patient's baseline. He may be very difficult to manage from a cardiorenal standpoint. Is followed by Dr. Malhotra. Appears well he is alert and awake and oriented and probably is having some delirium associated with breath. Discussed with [facility] for admission. Medical Screen Exam Complete: Yes Emergency Medical Condition: Yes Lab Data Result diagrams: 07/20/18 10:15 07/20/18 10:15 Lab Results 07/20/18 07/20/18 07/20/18 Range/Units 10:15 10:15 10:15 WBC 5.1 (4.0-11.0) th/mm3 RBC 4.34 L (4.50-5.90) mil/mm3 Hgb 12.3 L (13.0-17.0) gm/dL Hct 38.6 L (39.0-51.0) % MCV 89.0 (80.0-100.0) fL MCH 28.3 (27.0-34.0) pg MCHC 31.8 L (32.0-36.0) % RDW 16.5 (11.6-17.2) % Plt Count 261 (150-450) th/mm3 MPV 7.7 (7.0-11.0) fL Neut % (Auto) 71.9 H (16.0-70.0) % Lymph % (Auto) 15.3 (9.0-44.0) % [place] % (Auto) 9.6 H (0.0-8.0) % Eos % (Auto) 2.2 (0.0-4.0) % Baso % (Auto) 1.0 (0.0-2.0) % Neut # (Auto) 3.6 (1.8-7.7) th/mm3 Lymph # (Auto) 0.8 L (1.0-4.8) th/mm3 [place] # (Auto) 0.5 (0.0-0.9) th/mm3 Eos # (Auto) 0.1 (0.0-0.4) th/mm3 Baso # (Auto) 0.1 (0.0-0.2) th/mm3 WBC Differential . Differential Comment Auto diff final PT 11.4 (9.8-11.6) sec INR 1.1 Ratio APTT 24.6 (23.4-31.7) sec D-Dimer Quant (PE/DVT) 2.71 H (0.00-0.50) mg/L FEU Sodium 141 (136-145) meq/L Potassium 4.7 (3.5-5.1) meq/L Chloride 108 H (98-107) meq/L Carbon Dioxide 24.9 (21.0-32.0) meq/L Anion Gap 8 (5-15) meq/L BUN 70 H (7-18) mg/dL Creatinine 3.82 H (0.60-1.30) mg/dL Estimated GFR 15 L (>89) mL/min Random Glucose 159 H (74-106) mg/dL Calcium 8.7 (8.5-10.1) mg/dL Total Bilirubin 0.3 (0.2-1.0) mg/dL AST 29 (15-37) U/L ALT 39 (12-78) U/L Alkaline Phosphatase 57 (45-117) U/L Troponin I 0.04 (0.02-0.05) ng/mL B-Natriuretic Peptide (0-100) pg/mL Total Protein 6.9 (6.4-8.2) g/dL Albumin 3.5 (3.4-5.0) g/dL 07/20/18 07/20/18 Range/Units 14:28 14:28 WBC (4.0-11.0) th/mm3 RBC (4.50-5.90) mil/mm3 Hgb (13.0-17.0) gm/dL Hct (39.0-51.0) % MCV (80.0-100.0) fL MCH (27.0-34.0) pg MCHC (32.0-36.0) % RDW (11.6-17.2) % Plt Count (150-450) th/mm3 MPV (7.0-11.0) fL Neut % (Auto) (16.0-70.0) % Lymph % (Auto) (9.0-44.0) % [place] % (Auto) (0.0-8.0) % Eos % (Auto) (0.0-4.0) % Baso % (Auto) (0.0-2.0) % Neut # (Auto) (1.8-7.7) th/mm3 Lymph # (Auto) (1.0-4.8) th/mm3 [place] # (Auto) (0.0-0.9) th/mm3 Eos # (Auto) (0.0-0.4) th/mm3 Baso # (Auto) (0.0-0.2) th/mm3 WBC Differential Differential Comment PT (9.8-11.6) sec INR Ratio APTT (23.4-31.7) sec D-Dimer Quant (PE/DVT) (0.00-0.50) mg/L FEU Sodium (136-145) meq/L Potassium (3.5-5.1) meq/L Chloride (98-107) meq/L Carbon Dioxide (21.0-32.0) meq/L Anion Gap (5-15) meq/L BUN (7-18) mg/dL Creatinine (0.60-1.30) mg/dL Estimated GFR (>89) mL/min Random Glucose (74-106) mg/dL Calcium (8.5-10.1) mg/dL Total Bilirubin (0.2-1.0) mg/dL AST (15-37) U/L ALT (12-78) U/L Alkaline Phosphatase (45-117) U/L Troponin I 0.04 (0.02-0.05) ng/mL B-Natriuretic Peptide 4572 H (0-100) pg/mL Total Protein (6.4-8.2) g/dL Albumin (3.4-5.0) g/dL Imaging Data Radiologist's impression: Chest X-Ray 07/20/18 10:16 CONCLUSION: Increasing effusion and consolidation left base Pulmonary Perfusion Imaging 07/20/18 12:02 CONCLUSION: 1. Intermediate probability for pulmonary emboli with large matching ventilatory and perfusion abnormality corresponding to the left effusion. Discharge Plan Discharge Disposition Patient Disposition: ED Admit(ED Internal Use Only) Discharge Condition Condition: Stable Discharge Order Discharge Orders: ED Use Only Admit Order (Routine); Ordered 07/20/18 Ordered By: Pancho Kelsey Discharge Details Diagnosis: CHF (congestive heart failure) Physicians Team ED Provider: Pancho Kelsey Primary Care Provider: Radha Springer Attending Provider: Sofie Rice Discharge Interventions Interventions: ED Discharge Assessment Last Done: 07/20/18 16:25 Vital Signs Last Done: 07/20/18 10:02 Status ED Status: Admitted Patient
[2018-07-20 10:32] LABS: Baso # (Auto) 0.1 th/mm3 (0.0-0.2); Eos # (Auto) 0.1 th/mm3 (0.0-0.4); Eos % (Auto) 2.2 % (0.0-4.0); Hematocrit 38.6 % (39.0-51.0); Hemoglobin 12.3 gm/dL (13.0-17.0); Lymph # (Auto) 0.8 th/mm3 (1.0-4.8); Lymph % (Auto) 15.3 % (9.0-44.0); Mean Corpuscular HGB Conc 31.8 % (32.0-36.0); Mean Corpuscular Hemoglobin 28.3 pg (27.0-34.0); Mean Platelet Volume 7.7 fL (7.0-11.0); Mono # (Auto) 0.5 th/mm3 (0.0-0.9); Mono % (Auto) 9.6 % (0.0-8.0); Neut # (Auto) 3.6 th/mm3 (1.8-7.7); Neut % (Auto) 71.9 % (16.0-70.0); Platelet Count 261 th/mm3 (150-450); Red Blood Count 4.34 mil/mm3 (4.50-5.90); Red Cell Distribution Width 16.5 % (11.6-17.2); White Blood Count 5.1 th/mm3 (4.0-11.0)
[2018-07-20 10:46] LABS: Activated Partial Thrombo Time 24.6 sec (23.4-31.7); INR 1.1 Ratio; Prothrombin Time 11.4 sec (9.8-11.6)
[2018-07-20 10:49] LABS: D-Dimer 2.71 mg/L FEU (0.00-0.50)
--- NOTE | 2018-07-20 10:49 | XR ---
EXAM DATE: 07/20/2018 10:45 AM EST AGE/SEX: 78 years / Male INDICATIONS: . Shortness of breath. CLINICAL DATA: This is the patient's initial encounter. Patient reports that signs and symptoms have been present for 2 days and indicates a pain score of 0/10. MEDICAL/SURGICAL HISTORY: Cardiovascular disease. CABG. COMPARISON: [facility] [place], CHEST 1V SINGLE AP, 05/23/2018. . FINDINGS: Patchy airspace disease is seen in both lungs with increasing left pleural effusion. Sternal wires pr evious bypass are noted. The heart is enlarged. The portion of the bony skeleton visualized is unrema rkable. CONCLUSION: Increasing effusion and consolidation left base Electronically signed by: Jaiden Gatica MD 07/20/2018 10:47 AM EST
[2018-07-20 10:54] LABS: Albumin 3.5 g/dL (3.4-5.0); Anion Gap 8 meq/L (5-15); Aspartate Aminotransferase 29 U/L (15-37); Blood Urea Nitrogen 70 mg/dL (7-18); Calcium 8.7 mg/dL (8.5-10.1); Carbon Dioxide 24.9 meq/L (21.0-32.0); Chloride 108 meq/L (98-107); Glomerular Filtration Rate 15 mL/min (>89); Glucose,Random 159 mg/dL (74-106); Potassium 4.7 meq/L (3.5-5.1); Sodium 141 meq/L (136-145)
[2018-07-20 10:55] LABS: Alanine Aminotransferase 39 U/L (12-78)
[2018-07-20 10:58] LABS: Alkaline Phosphatase 57 U/L (45-117); Total Protein 6.9 g/dL (6.4-8.2); Troponin I 0.04 ng/mL (0.02-0.05)
--- NOTE | 2018-07-20 14:13 | NM ---
EXAM DATE: 07/20/2018 2:04 PM EST AGE/SEX: 78 years / Male INDICATIONS: Shortness of breath for three weeks. Abnormal chest x-ray examination demonstrating inc reasing left effusion and patchy airspace disease. CLINICAL DATA: This is the patient's initial encounter. Patient reports that signs and symptoms have been present for 3 weeks and indicates a pain score of 0/10. MEDICAL/SURGICAL HISTORY: Hypertension. Myocardial infarction. Congestive heart failure. CABG . COMPARISON: [facility] [place], CHEST 2V PA&LAT, 07/20/2018. . No external comparison. DOSE: 0.6 mCi Tc99m DTPA aerosol 8.7 mCi Tc99m MAA IV TECHNIQUE: Following five minutes of tidal breathing of DTPA aerosol, planar images of the lungs wer e performed in eight projections. The patient was then injected with MAA, and eight-view perfusion s can was performed. FINDINGS: There is an inhomogeneous pattern of aerosol delivery to the periphery of both lungs with mild centra l deposition of the radionucleotide. There is a large perfusion defect involving the left lower lung. The perfusion lung scan demonstrates a fairly homogenous pattern of uptake in both lungs. There is a matched filling perfusion defect involving the left lower lung CONCLUSION: 1. Intermediate probability for pulmonary emboli with large matching ventilatory and perfusion abnor mality corresponding to the left effusion. Electronically signed by: Harrison Cancino MD 07/20/2018 2:11 PM EST
[2018-07-20] MEDS ORDERED: Bisacodyl 10 MG Supp RECTAL PRN (15:38)
--- NOTE | 2018-07-20 16:16 | P.HPIM ---
History of Present Illness Primary Care Physician: Radha Springer MD History of Present Illness: 78 yo M with h/o CAD,CKD IV,HTN,HFrEF,Atrial fib and other listed medical illnesses who presented to the ER c/o gradually worsening SOB for 2-3 weeks. He says he has been feeling winded when he exerts himself, and also noticed his legs are swollen at the ankles. He has no chest pain, dizziness,palpitations, lightheadedness or passing out. No change in his bowel or micturition habits. ROS obtained from patient is negative. He says his Oxygen was at 88% when he arrived. Patient's daughter had informed the ER physician that patient had been confused. On presentation to ER, patient had stable vitals, ECG-NSR 67/min, with q waves in ii,iii,avf. labs--troponin 0.04 x2, Cr 3.82,essentially unchanged compared to 2 months ago, BNP 4572(was in 637 when he was discharge two months ago). CXR- patchy airway disease with increased lt pleural effusion and consolidation. VQ scan-moderate probability for PE. Patient received IV Lasix 80mg. He is being admitted to the med surg floor for further management. Inpatient Certification Inpatient Certification: I certify that the inpatient services were ordered in accordance with Medicare regulations governing the order. This includes certification that hospital inpatient services are reasonable and necessary and in the case of services not specified as inpatient-only under 42 CFR 419.22(n), that they are appropriately provided as inpatient services in accordance to with the 2-midnight benchmark under 43 CFR 412.3(e) Review of Systems Review of Systems: all other systems reviewed are negative [facility] Medical History Medical History Anxiety (Acute) HLD (hyperlipidemia) (Acute) HTN (hypertension) (Acute) Myocardial infarct (Acute) Renal disease (Acute) Seizures (Acute) Surgical History Surgical History History of cardiac cath (Acute) S/P CABG x 4 (Acute) Social History Social History Substance History: No History of Abuse Second Hand Smoke Exposure: No Smoking Status: Never smoker How Often Do You Have a Drink Containing Alcohol: 2 to 4 times a month Hx Recent Travel: No Recent Travel in [facility] within the Last 8 Weeks: No Recent Out of Country Travel within the Last 8 Weeks: No Immunization History Tetanus Immunization: >5 Years Medications and Allergies Allergies Allergy/AdvReac Type Severity Reaction Status Date / Time No Known Allergies Allergy Verified 07/20/18 10:02 Home Medications Medication Instructions Recorded Confirmed Type atorvastatin 20 mg PO DAILY 03/20/18 07/20/18 History amlodipine 10 mg PO DAILY 05/23/18 07/20/18 History apixaban [Eliquis] 2.5 mg PO BID 05/23/18 07/20/18 History fenofibrate 50 mg PO DAILY 05/23/18 07/20/18 History levetiracetam 500 mg PO BID 05/23/18 07/20/18 History metoprolol tartrate 50 mg PO DAILY 05/23/18 07/20/18 History sertraline 100 mg PO DAILY 05/23/18 07/20/18 History bumetanide 1 mg PO DAILY 07/20/18 07/20/18 History losartan 100 mg PO DAILY 07/20/18 07/20/18 History valsartan 80 mg PO 5XW 07/20/18 07/20/18 History Active Medications: Active Medications Bisacodyl (Dulcolax Supp) 10 mg RECTAL DAILY PRN PRN Reason: SEVERE CONSITIPATION Lactulose (Lactulose Liq) 30 ml PO DAILY PRN PRN Reason: SEVERE CONSITIPATION Senna/Docusate Sodium (Gely-Colace) 1 tab PO BID HEIDI Sennosides (Senokot) 17.2 mg PO Q12H PRN PRN Reason: Moderate Constipation Sodium Chloride (Ns Flush) 2 ml IV.FLUSH UNSCH PRN PRN Reason: FLUSH AFTER USING IV ACCESS Last Admin: 07/20/18 12:28 Dose: 2 ml Sodium Chloride (Ns Flush) 2 ml IV.FLUSH BID HEIDI Sodium Chloride (Ns Flush) 2 ml IV.FLUSH PRN PRN PRN Reason: FLUSH AFTER USING IV ACCESS Physical Exam Vital signs: Last Vital Signs Temp 98.1 F 07/20/18 14:30 Pulse 69 07/20/18 14:30 Resp 18 07/20/18 14:30 BP 145/87 H 07/20/18 14:30 Pulse Ox 99 07/20/18 14:30 Intake & Output 07/18/18 07/19/18 07/20/18 07/21/18 06:59 06:59 06:59 06:59 Output Total 1100 / 1100 Balance -1100 / -1100 Weight 88.451 kg Narrative: GENERAL: elderly man, obese, not in acute distress. HEENT:not pale,anicteric NECK:JVP elevated above mid neck. CARDIOVASCULAR: Regular rate and rhythm without murmurs, gallops, or rubs. RESPIRATORY: Clear to auscultation. Breath sounds equal bilaterally. No wheezes , rales, or rhonchi. GASTROINTESTINAL: Abdomen soft, non-tender, nondistended. Normal active bowel sounds MUSCULOSKELETAL: Extremities without clubbing, cyanosis, or edema.warm and well perfused. NEURO: Alert & Oriented x4 to person, place, time, situation. Moves all ext x4 Results Labs CBC & Chem 7: 07/20/18 10:15 07/20/18 10:15 Imaging Impressions Chest X-Ray 07/20/18 10:16 CONCLUSION: Increasing effusion and consolidation left base Pulmonary Perfusion Imaging 07/20/18 12:02 CONCLUSION: 1. Intermediate probability for pulmonary emboli with large matching ventilatory and perfusion abnormality corresponding to the left effusion. Caprini VTE Risk Assessment Caprini VTE Risk Assessment: Moderate/High Risk (score >= 2) Caprini Risk Assessment Model: Point Value = 1 Point Value = 2 Point Value = 3 Point Value = 5 Age 41-60 Minor surgery BMI > 25 kg/m2 Swollen legs Varicose veins or History of unexplained or recurrent spontaneous Oral contraceptives or hormone replacement Sepsis (< 1 month) Serious lung disease, including pneumonia (< 1 month) Abnormal pulmonary function Acute myocardial infarction Congestive heart failure (< 1 month) History of inflammatory bowel disease Medical patient at bed rest Age 61-74 Arthroscopic surgery Major open surgery (> 45 min) Laparoscopic surgery (> 45 min) Malignancy Confined to bed (> 72 hours) Immobilizing plaster cast Central venous access Age >= 75 History of VTE Family history of VTE Factor V Leiden Prothrombin [id number] Lupus anticoagulant Anticardiolipin antibodies Elevated serum homocysteine Heparin-induced thrombocytopenia Other congenital or acquired thrombophilia Stroke (< 1 month) Elective arthroplasty Hip, pelvis, or leg fracture Acute spinal cord injury (< 1 month) Prophylaxis Regimen: Total Risk Factor Score Risk Level Prophylaxis Regimen 0-1 Low Early ambulation 2 Moderate Order ONE of the following: *Sequential Compression Device (SCD) *Heparin 5000 units SQ BID 3-4 Higher Order ONE of the following medications: *Heparin 5000 units SQ TID *Enoxaparin/Lovenox 40 mg SQ daily (WT < 150 kg, CrCl > 30 mL/min) *Enoxaparin/Lovenox 30 mg SQ daily (WT < 150 kg, CrCl > 10-29 mL/min) *Enoxaparin/Lovenox 30 mg SQ BID (WT < 150 kg, CrCl > 30 mL/min) AND/OR *Sequential Compression Device (SCD) 5 or more Highest Order ONE of the following medications: *Heparin 5000 units SQ TID (Preferred with Epidurals) *Enoxaparin/Lovenox 40 mg SQ daily (WT < 150 kg, CrCl > 30 mL/min) *Enoxaparin/Lovenox 30 mg SQ daily (WT < 150 kg, CrCl > 10-29 mL/min) *Enoxaparin/Lovenox 30 mg SQ BID (WT < 150 kg, CrCl > 30 mL/min) AND *Sequential Compression Device (SCD) Assessment and Plan Plan 78 yo M with h/o CAD,HTN,CKD IV,HFrEF (25-30%) and other medical illnesses listed below who presented to the ER c/o gradually increasing shortness of breath and for the last 2-3 weeks. Signs and symptoms in keeping with volume overload. Acute problem: 1.Shortness of breath-- due to volume overload secondary to acute on chronic decompensated systolic heart failure(EF 25-30% in 05/2018). Given patient is already on anticoagulation with ApixabanI doubt PE even though VQ with mismatch and moderate probability. CXR shows worsening consolidation in LLL, obtain dry CT to evaluate for pneumonia, if present would treat as hcap in light of recent hospitalization. -continue IV Lasix, 80mg daily, strict I/O monitoring, keep 2gm sodium diet. -continue B moises. RICK-I were discontinued last admission in light of worsening renal function. -monitor bun/cr/electrolytes daily. Stable chronic conditions: #Hypertension:systolic BP 140's, resume Amlodipine. #CAD:stable,has not had any chest pain. #CKD IV:Cr stable compared to 2 months ago. avoid nephrotoxic agents. monitor, dose medication to GFR. #Hyperlipidemia:Continue Atorvastatin, Fenofibrate. #H/o anxiety-continue Sertraline. #Seizures-on Levetiracetam 500 mg bid. Will need med recs
--- NOTE | 2018-07-20 18:53 | ECG ---
Date Performed: 07/20/2018 Time Performed: 10:12:59 PTAGE: 78 years EKG: Sinus rhythm POSSIBLE INFERIOR MYOCARDIAL INFARCTION MODERATE T-WAVE ABNORMALITY, CONSIDER ANTEROLATERAL ISCHEMIA ABNORMAL ECG INTERPRETATION BASED ON A DEFAULT AGE OF 40 YEARS PREVIOUS TRACING : 03/26/2018 19.21 Since the previous tracing, no significant change not ed DOCTOR: Jameson Hackett Interpretating Date/Time 07/20/2018 18:52:07
[2018-07-20] MEDS: Senna/Docusate Sodium 8.6/50 MG Tablet PO SCH (20:27)
[2018-07-20] MEDS: levETIRAcetam 500 MG Tablet PO SCH (20:28)
--- NOTE | 2018-07-21 00:35 | CT ---
EXAM DATE: 07/21/2018 12:05 AM EST AGE/SEX: 78 years / Male INDICATIONS: Shortness of breath. Evaluate for pneumonia. CLINICAL DATA: This is the patient's initial encounter. Patient reports that signs and symptoms have been present for 1 day and indicates a pain score of 0/10. MEDICAL/SURGICAL HISTORY: Cardiovascular disease. Hypertension. None. RADIATION DOSE: 15.63 CTDI (mGy) COMPARISON: No prior exams available for comparison. TECHNIQUE: Multiple contiguous axial images were obtained through the chest without contrast. Image s were obtained in suspended respiration using multiple row detector helical technique. Using automa roberto exposure control and adjustment of the mA and/or kV according to patient size, radiation dose was kept as low as reasonably achievable to obtain optimal diagnostic quality images. DICOM format imag e data is available electronically for review and comparison. FINDINGS: Lungs: Confluent opacity at the dependent portions of the lower lobes bilaterally left greater than right indicating atelectasis/consolidation. Mediastinum: Heterogeneous enlarged thyroid with 4 cm nodular area in the left lobe. Diffuse aortic calcification and coronary artery calcification. Aortic diameter within normal limits. Multiple subce ntimeter mediastinal lymph nodes are likely reactive. Pleurae: Moderate-sized left pleural effusion. Small right pleural effusion. Extensive pleural calci fication bilaterally. Axillae: Unremarkable. Bony Structures: Degenerative findings of the thoracic spine. Median sternotomy wires are present. Miscellaneous: Atrophic right kidney. Left kidney not visualized. 1.8 cm calcification in the anteri or right kidney. CONCLUSION: 1. Bilateral pleural effusions left greater than right with dependent confluent pulmonary opacity of the lower lobes bilaterally indicating atelectasis versus consolidation. 2. Extensive coronary artery calcification and diffuse aortic calcification. 3. Atrophic right kidney with prominent anterior calcification. 4. Extensive bilateral pleural calcification. 5. Heterogeneous enlarged thyroid with 4 cm nodular area in the left lobe. Electronically signed by: Rene Wright MD 07/21/2018 12:33 AM EST
[2018-07-21 08:05] LABS: Calcium 8.7 mg/dL (8.5-10.1); Carbon Dioxide 25.8 meq/L (21.0-32.0); Magnesium 2.5 mg/dL (1.5-2.5); Potassium 4.4 meq/L (3.5-5.1)
[2018-07-21] MEDS: amLODIPine 10 MG Tablet PO SCH (08:26)
[2018-07-21] MEDS: Sertraline 100 MG Tablet PO SCH (08:26)
[2018-07-21] MEDS: Senna/Docusate Sodium 8.6/50 MG Tablet PO SCH ×2 (08:26→21:44)
[2018-07-21] MEDS: Fenofibrate 48 MG Tablet PO SCH (08:26)
[2018-07-21] MEDS: levETIRAcetam 500 MG Tablet PO SCH ×2 (08:27→21:46)
[2018-07-21] MEDS: Metoprolol Tartrate 25 MG Tablet PO SCH (08:28)
[2018-07-21] MEDS ORDERED: Fenofibrate 48 MG Tablet PO SCH (09:00)
--- NOTE | 2018-07-21 09:26 | ECG ---
Date Performed: 07/20/2018 Time Performed: 14:44:57 PTAGE: 78 years EKG: Sinus rhythm WITH OCCASIONAL VENTRICULAR PREMATURE COMPLEXES LEFT VENTRICULAR HYPERTROPHY AND ST-T CHANGE POSSIBL E INFERIOR MYOCARDIAL INFARCTION ABNORMAL ECG PREVIOUS TRACING : 07/20/2018 10.12 DOCTOR: Gelacio Cheney Interpretating Date/Time 07/21/2018 09:25:24
--- NOTE | 2018-07-21 13:18 | P.PN ---
Subjective Interval history: Follow-up for CHF exacerbation. The patient is seen with daughter at bedside. The patient reports improvement of his breathing, although still with some mild shortness of breath, worse with exertion. He reports a continued nonproductive cough, orthopnea, and dyspnea on exertion. Family member states the patient attempted ambulation to the bathroom earlier, and upon returning his O2 sat was 85% on room air. He does not wear oxygen at home. Patient denies any fevers or chills. Denies any chest pain. Denies any other medical complaints. Family requesting consultation to the patient's foundry finisher Dr. Malhotra. Physical Exam Vital signs: Vital Signs 07/20/18 14:30 07/20/18 16:25 07/20/18 20:00 Temperature 98.1 F 97.8 F 97.8 F Pulse Rate 69 70 73 Respiratory Rate 18 17 16 Blood Pressure 145/87 H 138/81 143/82 H Pulse Oximetry 99 98 98 07/21/18 00:00 07/21/18 04:31 07/21/18 08:00 Temperature 97.6 F 98.6 F 97.5 F L Pulse Rate 72 79 78 Respiratory Rate 12 20 16 Blood Pressure 133/73 136/82 164/87 H Pulse Oximetry 94 L 94 L 95 07/21/18 12:00 Temperature 97.5 F L Pulse Rate 63 Respiratory Rate 16 Blood Pressure 123/75 Pulse Oximetry 96 Intake & Output 07/20/18 07/21/18 07/21/18 18:59 06:59 18:59 Intake Total 420 / 420 Output Total 1100 / 1100 1400 / 1400 Balance -1100 / -1100 -980 / -980 Weight 88.451 kg Intake: Oral 420 / 420 Output: Urine 1100 / 1100 1400 / 1400 Other: # Voids 1 Date of Last Bowel Movement 07/20/18 Narrative: GENERAL: Well-nourished, well-developed pleasant elderly male patient in [facility]. SKIN: Warm and dry. No rash. HEENT: Normocephalic. Atraumatic. Pupils equal and round. Mucous membranes pink and moist. CARDIOVASCULAR: Regular rate and rhythm. No murmur appreciated. RESPIRATORY: No accessory muscle use. Crackles at the left base with decreased air movement bilaterally. GASTROINTESTINAL: Abdomen soft, non-tender, nondistended. Normoactive bowel sounds x4. MUSCULOSKELETAL: No obvious deformities. Trace bilateral lower extremity pedal and ankle edema. NEUROLOGICAL: Awake and alert. No obvious cranial nerve deficits. Moving all extremities spontaneously. Normal speech. Results - Labs CBC & Chem 7: 07/20/18 10:15 07/21/18 05:47 Laboratory Results - last 24 hr 07/20/18 07/20/18 07/21/18 14:28 14:28 05:47 Sodium 141 Potassium 4.4 Chloride 108 H Carbon Dioxide 25.8 Anion Gap 7 BUN 70 H Creatinine 3.63 H Estimated GFR 16 L Random Glucose 108 H Calcium 8.7 Magnesium 2.5 Troponin I 0.04 B-Natriuretic Peptide 4572 H 07/21/18 05:47 Sodium Potassium Chloride Carbon Dioxide Anion Gap BUN Creatinine Estimated GFR Random Glucose Calcium Magnesium Troponin I B-Natriuretic Peptide 2945 H - Imaging Impressions Chest CT 07/20/18 00:00 CONCLUSION: 1. Bilateral pleural effusions left greater than right with dependent confluent pulmonary opacity of the lower lobes bilaterally indicating atelectasis versus consolidation. 2. Extensive coronary artery calcification and diffuse aortic calcification. 3. Atrophic right kidney with prominent anterior calcification. 4. Extensive bilateral pleural calcification. 5. Heterogeneous enlarged thyroid with 4 cm nodular area in the left lobe. Pulmonary Perfusion Imaging 07/20/18 12:02 CONCLUSION: 1. Intermediate probability for pulmonary emboli with large matching ventilatory and perfusion abnormality corresponding to the left effusion. Assessment and Plan - Plan 78 yo M with h/o CAD, HTN, CKD IV, CHF EF 25-30% and other medical illnesses listed below who presented to the ER c/o gradually increasing shortness of breath and for the last 2-3 weeks. Acute Exacerbation of Chronic Systolic CHF: SOB/RUEDA/Orthopnea due to volume overload secondary to acute on chronic decompensated systolic heart failure(EF 25-30% in 05/2018). -CXR shows worsening consolidation in LLL, obtain dry CT to evaluate for pneumonia, if present would treat as hcap in light of recent hospitalization. -continue IV Lasix 40mg bid -strict I/O monitoring, 2gm sodium diet. -continue B moises. RICK-I were discontinued last admission in light of worsening renal function. -monitor bun/cr/electrolytes daily. -plan for O2 walk test prior to discharge -consult patient's foundry finisher Dr. Malhotra Abnormal VQ Scan: possibility of PE. Patient's family doubts compliance with Eliquis as an empty Eliquis bottle was found at the patient's home -VQ scan with moderate probability of PE -restart the patient back on his Eliquis -O2 as needed -stressed importance of continuing Eliquis after discharge Hypertension: systolic BP 140's, resume patient's Amlodipine. CAD: stable,has not had any chest pain. CKD IV: Cr stable compared to 2 months ago. avoid nephrotoxic agents. monitor, dose medication to GFR. Hyperlipidemia:Continue Atorvastatin, Fenofibrate. H/o anxiety: continue Sertraline. Seizures: on Levetiracetam 500 mg bid, continue. DVT Prophylaxis: on Eliquis Discharge Planning: Discharge pending further clinical improvement. Not yet ready for discharge.
--- NOTE | 2018-07-22 04:02 | MB ---
cc: Robb Malhotra DO DATE: 07/21/2018 REASON FOR CONSULTATION: Congestive heart failure. HISTORY OF PRESENT ILLNESS: Wyatt Andrews is a pleasant 78-year-old male whom I see in the office and presented to [facility] due to shortness of breath as well as confusion. He states that his shortness of breath has increased over the past 2-3 weeks. He has been noticing that he has been getting winded when he exerts himself as well as his legs have been more swollen. He denies any chest pain. On arrival, per his daughter, he was noted to be somewhat confused. In seeing him today, he knows who I am right when I walked in and no longer appears confused. He has been diuresed with over 2 liters off of him. PAST MEDICAL HISTORY: 1. Coronary artery disease with myocardial infarction. 2. Hyperlipidemia. 3. Hypertension. 4. Ischemic cardiomyopathy with an ejection fraction of 20%-25%. 5. Seizures. 6. Atrial fibrillation. PAST SURGICAL HISTORY: 1. Cardiac catheterization (03/21/2018) with multivessel disease. 2. CABG x4 (03/24/2018) with VERDUGO to LAD, saphenous vein graft to PDA, saphenous vein graft to first obtuse marginal, saphenous vein graft to first diagonal. ALLERGIES: NO KNOWN DRUG ALLERGIES. MEDICATIONS: 1. Lipitor 20 mg daily. 2. Levetiracetam 500 mg b.i.d. 3. Fenofibrate 50 mg daily. 4. Eliquis 2.5 mg b.i.d. 5. Norvasc 10 mg daily. 6. Zoloft 100 mg daily. 7. Metoprolol tartrate 50 mg daily. 8. Losartan 100 mg daily. 9. Bumetanide 1 mg daily. 10. Valsartan 80 mg daily. FAMILY HISTORY: Denies sudden cardiac within the family. SOCIAL HISTORY: Denies current tobacco, alcohol or drug abuse. REVIEW OF SYSTEMS: Fourteen systems were reviewed including osteopathic. Pertinent positives and negatives above, otherwise negative. PHYSICAL EXAMINATION: VITAL SIGNS: Temperature 97.5, heart rate 63, blood pressure 123/75, respirations 16, pulse oximetry 96% on 2 liters. GENERAL: The patient appears well, in no acute distress. Alert, awake and oriented x3. HEENT: Extraocular muscles intact. Mucous membranes moist. NECK: Supple. No JVD at 45 degrees. No carotid bruits heard bilaterally. Carotid upstroke is brisk in nature. HEART: Regular rate and rhythm. Positive first and second heart sounds with no noted murmurs, gallops or rubs. LUNGS: Decreased breath sounds at bilateral bases, but no overt wheezes, rales or rhonchi. ABDOMEN: Soft, nontender, nondistended. No organomegaly noted. EXTREMITIES: Show 1+ pitting edema bilaterally. NEUROLOGIC: No focal deficits. SKIN: Warm, dry and intact. OSTEOPATHIC: No kyphoscoliosis, lordosis or paraspinal tender points. Electrocardiogram (07/20/2018 at 1444 hours): Sinus rhythm, LVH with secondary ST-T wave changes. LABORATORY DATA: Hemoglobin 12.3, hematocrit 38.6, platelets 261. Potassium 4.4, BUN 70, creatinine 3.63. BNP 4572, decreasing to 2945. Troponin negative x2. IMPRESSION: 1. Acute systolic heart failure. 2. Mild confusion, possibly due to hypoxemia. 3. Coronary artery disease with a history of coronary artery bypass graft as above. 4. Atrial fibrillation. RECOMMENDATIONS: 1. Mr. Andrews presented with shortness of breath and edema, most likely due to a fluid overload state. 2. We will attempt to diurese him as possible. He may need to go home on an increased dose of his Bumex. 3. As we are diuresing him, we will have to watch his kidney function as he does have extensive chronic kidney disease. 4. We will continue on his cardiovascular medications. 5. He will continue on Eliquis for his atrial fibrillation. Thank you for allowing me to see Wyatt Andrews. If there are any questions, please do not hesitate to call. DO LISA Rosales/karon , 01:52 AM , 02:03 AM
[2018-07-22 07:45] VITALS: RESP 16; TEMP 97.6
[2018-07-22] MEDS: Fenofibrate 48 MG Tablet PO SCH (09:06)
[2018-07-22] MEDS: levETIRAcetam 500 MG Tablet PO SCH (09:06)
[2018-07-22] MEDS: amLODIPine 10 MG Tablet PO SCH (09:06)
[2018-07-22] MEDS: Sertraline 100 MG Tablet PO SCH (09:06)
[2018-07-22] MEDS: Metoprolol Tartrate 25 MG Tablet PO SCH (09:06)
[2018-07-22] MEDS: Senna/Docusate Sodium 8.6/50 MG Tablet PO SCH (09:07)
--- NOTE | 2018-07-22 09:25 | P.PN ---
Subjective Interval history: Follow-up CHF exacerbation. Patient seen with his at bedside. The patient reports feeling much better again today. He denies any significant shortness of breath while at rest, and was able to ambulate to the restroom without difficulty. He passed his O2 walk test this morning. He denies any chest pain. He believes his lower extremity swelling has improved. He wants to go home. Discussed with the daughter, plan for home health care upon discharge, and the daughter is arranging for the patient to go to [facility] in the near future. Physical Exam Vital signs: Vital Signs 07/21/18 12:00 07/21/18 16:00 07/21/18 20:00 Temperature 97.5 F L 97.5 F L 97.3 F L Pulse Rate 63 68 67 Respiratory Rate 16 16 20 Blood Pressure 123/75 140/76 135/72 Pulse Oximetry 96 95 94 L Pulse Oximetry [Exertion on Room Air] Pulse Oximetry [Resting on Room Air] Pulse Oximetry [Resting with Oxygen] 07/22/18 00:00 07/22/18 04:00 07/22/18 07:44 Temperature 97.7 F 97.7 F 97.6 F Pulse Rate 87 78 74 Respiratory Rate 20 20 16 Blood Pressure 133/83 147/77 H 146/74 H Pulse Oximetry 96 92 L 96 Pulse Oximetry [Exertion on Room Air] Pulse Oximetry [Resting on Room Air] Pulse Oximetry [Resting with Oxygen] 07/22/18 08:08 07/22/18 08:10 Temperature Pulse Rate Respiratory Rate Blood Pressure Pulse Oximetry 96 Pulse Oximetry [Exertion on Room Air] 90 L Pulse Oximetry [Resting on Room Air] 96 Pulse Oximetry [Resting with Oxygen] 98 Intake & Output 07/21/18 07/22/18 07/22/18 18:59 06:59 18:59 Output Total 400 / 400 Balance -400 / -400 Weight 87.5 kg Output: Urine 400 / 400 Other: # Voids 4 6 Date of Last Bowel Movement 07/20/18 Narrative: GENERAL: Well-nourished, well-developed pleasant elderly male patient in [facility]. SKIN: Warm and dry. No rash. HEENT: Normocephalic. Atraumatic. Pupils equal and round. Mucous membranes pink and moist. CARDIOVASCULAR: Regular rate and rhythm. No murmur appreciated. RESPIRATORY: No accessory muscle use. Breath sounds slightly diminished at bilateral bases, much improved, otherwise clear to auscultation. GASTROINTESTINAL: Abdomen soft, non-tender, nondistended. Normoactive bowel sounds x4. MUSCULOSKELETAL: No obvious deformities. Trace bilateral lower extremity pedal and ankle edema, improving. NEUROLOGICAL: Awake and alert. No obvious cranial nerve deficits. Moving all extremities spontaneously. Normal speech. Results - Labs CBC & Chem 7: 07/20/18 10:15 07/22/18 10:47 - Imaging Chest CT 07/20/18 00:00 CONCLUSION: 1. Bilateral pleural effusions left greater than right with dependent confluent pulmonary opacity of the lower lobes bilaterally indicating atelectasis versus consolidation. 2. Extensive coronary artery calcification and diffuse aortic calcification. 3. Atrophic right kidney with prominent anterior calcification. 4. Extensive bilateral pleural calcification. 5. Heterogeneous enlarged thyroid with 4 cm nodular area in the left lobe. Chest X-Ray 07/20/18 10:16 CONCLUSION: Increasing effusion and consolidation left base Pulmonary Perfusion Imaging 07/20/18 12:02 CONCLUSION: 1. Intermediate probability for pulmonary emboli with large matching ventilatory and perfusion abnormality corresponding to the left effusion. Assessment and Plan - Plan 78 yo M with h/o CAD, HTN, CKD IV, CHF EF 25-30% and other medical illnesses listed below who presented to the ER c/o gradually increasing shortness of breath and for the last 2-3 weeks. Acute Exacerbation of Chronic Systolic CHF: SOB/RUEDA/Orthopnea due to volume overload secondary to acute on chronic decompensated systolic heart failure(EF 25-30% in 05/2018). -CXR shows worsening consolidation in LLL, however doubt pneumonia with no fever/leukocytosis/productive cough. -continue IV Lasix 40mg bid -strict I/O monitoring, 2gm sodium diet. -continue B moises. RICK-I were discontinued last admission in light of worsening renal function. -monitor bun/cr/electrolytes daily. -Patient passed home O2 walk test with O2 sat 90% on exertion -consult patient's cash on delivery clerk Dr. Malhotra, appreciate assistance -Patient much improved, O2 sat stable on room air, possible discharge when cleared by cardiology Abnormal VQ Scan: possibility of PE. Patient's family doubts compliance with Eliquis as an empty Eliquis bottle was found at the patient's home -VQ scan with moderate probability of PE -restart the patient back on his Eliquis -O2 as needed -stressed importance of continuing Eliquis after discharge, and requested [facility] to monitor compliance with medications Hypertension: systolic BP 140's, resume patient's Amlodipine. CAD: stable,has not had any chest pain. CKD IV: Cr stable compared to 2 months ago. avoid nephrotoxic agents. monitor, dose medication to GFR. Suspect cardiorenal component as creatinine improved from 3.82 to 3.05 with diuresis. Continue outpatient follow-up Hyperlipidemia:Continue Atorvastatin, Fenofibrate. H/o anxiety: continue Sertraline. Seizures: on Levetiracetam 500 mg bid, continue. DVT Prophylaxis: on Eliquis Discharge Planning: Possible discharge today if cleared by patient's cash on delivery clerk Dr. Malhotra.
[2018-07-22 11:24] LABS: Calcium 8.5 mg/dL (8.5-10.1); Carbon Dioxide 23.9 meq/L (21.0-32.0); Potassium 4.3 meq/L (3.5-5.1)
[2018-07-22 12:05] VITALS: BP 129/72; PULSE 62; O2SAT 95
--- NOTE | 2018-07-22 13:28 | P.DCO ---
- Diagnosis (1) Acute respiratory failure with hypoxia Status: Acute (2) Stage 4 chronic kidney disease Status: Chronic (3) Acute systolic (congestive) heart failure Status: Acute (4) CAD (coronary artery disease) Status: Acute - Physical Therapy Order: Evaluate and treat, Improve ambulation, Strength and gait training - Home Health Nursing Order: Medical education, Signs/symptoms of disease process, CHF education, Nursing assessment with vital signs - Case Management Consult Case Management Consult-Home Health: Yes - Certification I have seen patient Wyatt Andrews on 07/22/18. My clinical findings support the need for the requested home health care services because: Limited mobility due to disease progression, Patient has SOB, Deconditioned with increased weakness, Medication compliance is questionable, Limited ability to care for self I certify that my clinical findings support that this patient is homebound because: Unsafe to leave home unassisted, Unable to use public transportation, Poor cardiac reserve
--- NOTE | 2018-07-22 15:44 | P.DS ---
Date of admission: 07/20/18 15:54 Primary care physician: Radha Springer MD Brief History from admission: 78 yo M with h/o CAD,CKD IV,HTN,HFrEF,Atrial fib and other listed medical illnesses who presented to the ER c/o gradually worsening SOB for 2-3 weeks. He says he has been feeling winded when he exerts himself, and also noticed his legs are swollen at the ankles. He has no chest pain, dizziness,palpitations, lightheadedness or passing out. No change in his bowel or micturition habits. ROS obtained from patient is negative. He says his Oxygen was at 88% when he arrived. Patient's daughter had informed the ER physician that patient had been confused. On presentation to ER, patient had stable vitals, ECG-NSR 67/min, with q waves in ii,iii,avf. labs--troponin 0.04 x2, Cr 3.82,essentially unchanged compared to 2 months ago, BNP 4572(was in 637 when he was discharge two months ago). CXR- patchy airway disease with increased lt pleural effusion and consolidation. VQ scan-moderate probability for PE. Patient received IV Lasix 80mg. He is being admitted to the med surg floor for further management. DS: Medications - Discharge Medications Prescriptions: amlodipine 10 mg PO DAILY #30 tab apixaban [Eliquis] 2.5 mg PO BID #60 tab bumetanide 1 mg PO BID #60 tab metoprolol tartrate 25 mg PO BID #60 tab DS: Summary - Time Spent with Patient Total time spent providing and/or coordinating discharge services: - Quality: VTE Deep Vein Thrombosis/Pulmonary Embolism Present on Admission: No Exam Vital signs: Vital Signs 07/21/18 16:00 07/21/18 20:00 07/22/18 00:00 Temperature 97.5 F L 97.3 F L 97.7 F Pulse Rate 68 67 87 Respiratory Rate 16 20 20 Blood Pressure 140/76 135/72 133/83 Pulse Oximetry 95 94 L 96 Pulse Oximetry [Exertion on Room Air] Pulse Oximetry [Resting on Room Air] Pulse Oximetry [Resting with Oxygen] 07/22/18 04:00 07/22/18 07:44 07/22/18 08:08 Temperature 97.7 F 97.6 F Pulse Rate 78 74 Respiratory Rate 20 16 Blood Pressure 147/77 H 146/74 H Pulse Oximetry 92 L 96 96 Pulse Oximetry [Exertion on Room Air] Pulse Oximetry [Resting on Room Air] Pulse Oximetry [Resting with Oxygen] 07/22/18 08:10 07/22/18 09:00 07/22/18 12:00 Temperature 97.6 F Pulse Rate 69 62 Respiratory Rate 16 Blood Pressure 129/72 Pulse Oximetry 95 Pulse Oximetry [Exertion on Room Air] 90 L Pulse Oximetry [Resting on Room Air] 96 Pulse Oximetry [Resting with Oxygen] 98 Intake & Output 07/21/18 07/22/18 07/22/18 18:59 06:59 18:59 Output Total 400 / 400 Balance -400 / -400 Weight 87.5 kg Output: Urine 400 / 400 Other: # Voids 4 6 Date of Last Bowel Movement 07/20/18 07/21/18 Results Labs on day of discharge: Labs from last 24 hours 07/22/18 10:47 Sodium 142 Potassium 4.3 Chloride 107 Carbon Dioxide 23.9 Anion Gap 11 BUN 63 H Creatinine 3.05 H Estimated GFR 20 L Random Glucose 178 H Calcium 8.5 - Impressions ITS Impressions Chest CT 07/20/18 00:00 CONCLUSION: 1. Bilateral pleural effusions left greater than right with dependent confluent pulmonary opacity of the lower lobes bilaterally indicating atelectasis versus consolidation. 2. Extensive coronary artery calcification and diffuse aortic calcification. 3. Atrophic right kidney with prominent anterior calcification. 4. Extensive bilateral pleural calcification. 5. Heterogeneous enlarged thyroid with 4 cm nodular area in the left lobe. Chest X-Ray 07/20/18 10:16 CONCLUSION: Increasing effusion and consolidation left base Pulmonary Perfusion Imaging 07/20/18 12:02 CONCLUSION: 1. Intermediate probability for pulmonary emboli with large matching ventilatory and perfusion abnormality corresponding to the left effusion. Discharge Plan - Discharge Disposition Patient Disposition: W/Home Health Service - Discharge Condition Condition: Stable - Discharge Order Discharge Orders: Discharge Order (Routine); Ordered 07/22/18 Ordered By: Abril Brown - Discharge Details Anticipated Discharge Date: 07/22/18 - Physicians Team Primary Care Provider: Radha Springer Attending Provider: Pancho Wise Other Providers: [employer] ; Robb Malhotra,
--- NOTE | 2018-07-22 23:27 | P.PNCA ---
Subjective Interval history: No events overnight Up and ambulating Breathing better Medications and Allergies Allergies Allergy/AdvReac Type Severity Reaction Status Date / Time No Known Allergies Allergy Verified 07/20/18 10:02 Home Medications Medication Instructions Recorded Confirmed Type atorvastatin 20 mg PO DAILY 03/20/18 07/20/18 History fenofibrate 50 mg PO DAILY 05/23/18 07/20/18 History levetiracetam 500 mg PO BID 05/23/18 07/20/18 History sertraline 100 mg PO DAILY 05/23/18 07/20/18 History Physical Exam Vital signs: Vital Signs 07/22/18 00:00 07/22/18 04:00 07/22/18 07:44 Temperature 97.7 F 97.7 F 97.6 F Pulse Rate 87 78 74 Respiratory Rate 20 20 16 Blood Pressure 133/83 147/77 H 146/74 H Pulse Oximetry 96 92 L 96 Pulse Oximetry [Exertion on Room Air] Pulse Oximetry [Resting on Room Air] Pulse Oximetry [Resting with Oxygen] 07/22/18 08:08 07/22/18 08:10 07/22/18 09:00 Temperature Pulse Rate 69 Respiratory Rate Blood Pressure Pulse Oximetry 96 Pulse Oximetry [Exertion on Room Air] 90 L Pulse Oximetry [Resting on Room Air] 96 Pulse Oximetry [Resting with Oxygen] 98 07/22/18 12:00 Temperature 97.6 F Pulse Rate 62 Respiratory Rate 16 Blood Pressure 129/72 Pulse Oximetry 95 Pulse Oximetry [Exertion on Room Air] Pulse Oximetry [Resting on Room Air] Pulse Oximetry [Resting with Oxygen] Intake & Output 07/22/18 07/22/18 07/23/18 06:59 18:59 06:59 Output Total 400 / 400 Balance -400 / -400 Weight 87.5 kg Output: Urine 400 / 400 Other: # Voids 6 Date of Last Bowel Movement 07/20/18 07/21/18 Narrative: GENERAL: Well-nourished, well-developed pleasant elderly male patient in [facility]. SKIN: Warm and dry. No rash. HEENT: Normocephalic. Atraumatic. Pupils equal and round. Mucous membranes pink and moist. CARDIOVASCULAR: Regular rate and rhythm. No murmur appreciated. RESPIRATORY: No accessory muscle use. Breath sounds slightly diminished at bilateral bases, much improved, otherwise clear to auscultation. GASTROINTESTINAL: Abdomen soft, non-tender, nondistended. Normoactive bowel sounds x4. MUSCULOSKELETAL: No obvious deformities. Trace bilateral lower extremity pedal and ankle edema, improving. NEUROLOGICAL: Awake and alert. No obvious cranial nerve deficits. Moving all extremities spontaneously. Normal speech. Results 07/20/18 10:15 07/22/18 10:47 Cardiac Enzymes 07/21/18 Range/Units 05:47 B-Natriuretic Peptide 2945 H (0-100) pg/mL Coagulation 07/21/18 Range/Units 05:47 B-Natriuretic Peptide 2945 H (0-100) pg/mL Comprehensive Metabolic Panel 07/21/18 07/22/18 Range/Units 05:47 10:47 Sodium 141 142 (136-145) meq/L Potassium 4.4 4.3 (3.5-5.1) meq/L Chloride 108 H 107 (98-107) meq/L Carbon Dioxide 25.8 23.9 (21.0-32.0) meq/L BUN 70 H 63 H (7-18) mg/dL Creatinine 3.63 H 3.05 H (0.60-1.30) mg/dL Calcium 8.7 8.5 (8.5-10.1) mg/dL Intake and Output 07/22/18 07/22/18 07/23/18 14:59 22:59 06:59 Other: Date of Last Bowel Movement 07/21/18 - Imaging and Cardiology Imaging: Impressions Chest CT 07/20/18 00:00 CONCLUSION: 1. Bilateral pleural effusions left greater than right with dependent confluent pulmonary opacity of the lower lobes bilaterally indicating atelectasis versus consolidation. 2. Extensive coronary artery calcification and diffuse aortic calcification. 3. Atrophic right kidney with prominent anterior calcification. 4. Extensive bilateral pleural calcification. 5. Heterogeneous enlarged thyroid with 4 cm nodular area in the left lobe. Assessment and Plan - Assessment (1) Acute systolic (congestive) heart failure Code(s): I50.21 - Acute systolic (congestive) heart failure Status: Acute (2) CAD (coronary artery disease) Code(s): I25.10 - Atherosclerotic heart disease of [place] coronary artery without angina pectoris Status: Acute (3) CHF (congestive heart failure) Code(s): I50.9 - Heart failure, unspecified Status: Acute (4) Hx of CABG Code(s): Z95.1 - Presence of aortocoronary bypass graft Status: Acute (5) Stage 4 chronic kidney disease Code(s): N18.4 - Chronic kidney disease, stage 4 (severe) Status: Chronic - Plan 1) Acute on chronic heart failure 2) CKD 4 3) Doing much better, appears compensated 4) Discussed with his daughter Appears he wasn't taking his meds a couple of days a week usually Had bottles of meds that were empty and not refilled Unsure if he was taking his diuretic everyday 5) Plan for discharge Daughter plans to transfer him to her home for now and look into assisted living facility
== END 2018-07-22 17:04 | disposition home health service (06) ==
LOC: NEPC 09:37 → NEDA 15:54 → NEPFCDU 16:25
PROVIDERS: ADMIT Internal Medicine; ATTEND Internal Medicine

== ENCOUNTER 2018-09-22 11:47 | Inpatient (IN) ==
[2018-09-22 14:59] LABS: Hematocrit 36.8 % (39.0-51.0); Hemoglobin 12.3 gm/dL (13.0-17.0); Mean Corpuscular HGB Conc 33.4 % (32.0-36.0); Mean Corpuscular Hemoglobin 28.8 pg (27.0-34.0); Mean Corpuscular Volume 86.3 fL (80.0-100.0); Mean Platelet Volume 7.8 fL (7.0-11.0); Platelet Count 267 th/mm3 (150-450); Red Blood Count 4.27 mil/mm3 (4.50-5.90); Red Cell Distribution Width 16.4 % (11.6-17.2); White Blood Count 6.5 th/mm3 (4.0-11.0)
--- NOTE | 2018-09-22 15:01 | ED ---
HPI General Chief Complaint: Altered Mental Status Stated Complaint: AMS/SOB Time Seen by Provider: 09/22/18 14:34 Source: patient Mode of arrival: ambulatory Limitations: no limitations History of Present Illness HPI narrative: 78 year old male presents to the ED for increasing SOB and AMS. History of COPD, CHF, diabetes and stage 4 renal failure. Daughter is at bedside and states that she was to meet him at PCP appointment today and patient never made it to appointment. Daughter states she found him still in bed and was having hallucinations. Daughter states that the mental status and activity level has been declining over the last 3 days. Blood sugars have been running between 110-140. Patient lives alone and controls his own medications but daughter noticed that there are random days that there are still medications in the weekly pill organizer. Denies chest pain, abdominal pain or nausea and vomiting. Daughter states patient was just in the hospital. Patient is currently not doing any dialysis. Patient states compliance with his medications. He does complain of shortness of breath with exertion that has progressively getting worse and per daughter it seems that has seemed to worsen. He denies any chest pain. He does state that when he lays down he gets short of breath. Does not use oxygen. Related Data Home Medications Medication Instructions Recorded Confirmed atorvastatin 20 mg PO DAILY 03/20/18 09/22/18 fenofibrate 50 mg PO DAILY 05/23/18 09/22/18 levetiracetam 500 mg PO BID 05/23/18 09/22/18 sertraline 100 mg PO DAILY 05/23/18 09/22/18 semaglutide [Ozempic] 1 mg SUBCUT QWEEK 09/22/18 09/22/18 Previous Rx's Medication Instructions Recorded amlodipine 10 mg PO DAILY #30 tab 07/22/18 apixaban [Eliquis] 2.5 mg PO BID #60 tab 07/22/18 bumetanide 1 mg PO BID #60 tab 07/22/18 metoprolol tartrate 25 mg PO BID #60 tab 07/22/18 Allergies Allergy/AdvReac Type Severity Reaction Status Date / Time No Known Allergies Allergy Verified 09/22/18 11:52 Review of Systems ROS: all other systems reviewed are negative COUNTS INCLUDE 234 BEDS AT THE [facility] Medical History Medical History Anxiety (Acute) HLD (hyperlipidemia) (Acute) HTN (hypertension) (Acute) Myocardial infarct (Acute) Renal disease (Acute) Seizures (Acute) Surgical History Surgical History History of cardiac cath (Acute) S/P CABG x 4 (Acute) Social History Social History Substance History: No History of Abuse Second Hand Smoke Exposure: No Smoking Status: Never smoker How Often Do You Have a Drink Containing Alcohol: Monthly or less Hx Recent Travel: No Recent Travel in [facility] within the Last 8 Weeks: No Recent Out of Country Travel within the Last 8 Weeks: No Immunization History Tetanus Immunization: Unsure Exam Narrative Exam Narrative: GENERAL: Well-appearing in no distress. SKIN: Focused skin assessment warm/dry. HEAD: Atraumatic. Normocephalic. EYES: Pupils equal and round. No scleral icterus. No injection or drainage. ENT: No nasal bleeding or discharge. Mucous membranes pink and moist. Tongue is midline. No uvula deviation. NECK: Trachea midline. No JVD. CARDIOVASCULAR: Regular rate and rhythm. No murmur appreciated. RESPIRATORY: No accessory muscle use. Patient does have rales and crackles heard especially in the lower lung boggs more specific on the left side where there is diminished breath sounds. Breath sounds equal bilaterally. GASTROINTESTINAL: Abdomen soft, non-tender, nondistended. Hepatic and splenic margins not palpable. MUSCULOSKELETAL: No obvious deformities. No clubbing. No cyanosis. No edema. Full range of motion of the upper and lower extremity bilaterally. 2+ pulses bilaterally. NEUROLOGICAL: Awake and alert. No obvious cranial nerve deficits. Motor grossly within normal limits. Normal speech. PSYCHIATRIC: Appropriate mood and affect; insight and judgment normal. Course Initial Documented Vital Signs Temperature 97.1 F L 09/22/18 11:53 Pulse Rate 60 09/22/18 11:53 Respiratory Rate 18 09/22/18 11:53 Blood Pressure 110/59 L 09/22/18 11:53 Pulse Oximetry 95 09/22/18 11:53 Last Documented Vital Signs Temperature 97.1 F L 09/22/18 11:53 Pulse Rate 59 L 09/22/18 15:55 Respiratory Rate 18 09/22/18 15:55 Blood Pressure 146/75 H 09/22/18 15:55 Pulse Oximetry 95 09/22/18 15:55 Medical Decision Making VALENTE Attestation VALENTE supervised visit: Yes Attestation: I, Dr. Mcdonough, have reviewed the advance practice practitioner' s documentation and am in agreement, met with the patient face to face, made the diagnosis, and the medical decision making was done by me. *My assessment and Findings: 78-year-old male with history of CHF and chronic kidney disease presents for evaluation of hallucinations and shortness of breath. Patient has been managing his own medications and daughter did note several days of medications were still in the pill container. Chest x-ray and elevated BNP consistent with CHF exacerbation will give patient Lasix and admit to medicine. MDM Narrative Medical decision making narrative: 78-year-old male who presents to the ED for evaluation of shortness of breath and altered mental status. Patient was properly examined and was found to have signs and symptoms consistent appears to be CHF exacerbation. He does have a large pleural effusion on the left side. Patient was slightly hypoxic before put on oxygen. Labs and imaging were done here and were essentially remarkable for what appears to be acute CHF exacerbation with large left pleural effusion. Because of this I do recommend admission for further evaluation and treatment. Patient is also hypoxic and has altered mental status. No sign of anything causing the alteration but it appears to be likely more related to the hypoxia and the fluid overload. My attending evaluate the patient herself and agrees with this plan. Patient will be admitted to the medical team Dr. Truong who agrees to admission to her service. Medical Screen Exam Complete: Yes Emergency Medical Condition: Yes Differential Diagnosis Differential Diagnosis: CHF exacerbation versus CHF versus kidney disease versus pleural effusion versus hypoxia versus altered mental status Medical Records Medical records reviewed: Yes I reviewed the patient's medical records. Lab Data Lab results reviewed: Yes I reviewed the patient's lab results. Result diagrams: 09/22/18 14:24 09/22/18 14:24 Lab Results 09/22/18 09/22/18 09/22/18 Range/Units 14:24 14:24 14:24 WBC 6.5 (4.0-11.0) th/mm3 RBC 4.27 L (4.50-5.90) mil/mm3 Hgb 12.3 L (13.0-17.0) gm/dL Hct 36.8 L (39.0-51.0) % MCV 86.3 (80.0-100.0) fL MCH 28.8 (27.0-34.0) pg MCHC 33.4 (32.0-36.0) % RDW 16.4 (11.6-17.2) % Plt Count 267 (150-450) th/mm3 MPV 7.8 (7.0-11.0) fL PT (9.8-11.6) sec INR Ratio APTT (23.4-31.7) sec Puncture Site Patient Temperature VBG pH (7.360-7.400) VBG pCO2 (44-48) mmHG VBG pO2 (35-40) mmHG VBG HCO3 (22-26) mmol/L VBG O2 Saturation (70-76) % VBG O2 Content (9.0-17.0) Vol % VBG Base Excess (-2-2) mmol/L VBG Carboxyhemoglobin (0-4) % VBG Methemoglobin (0-2) % Hemoglobin (12.0-16.0) G/DL O2 Delivery Device Liter Flow L/M Critical Value Sodium 140 (136-145) meq/L Potassium 4.6 (3.5-5.1) meq/L Chloride 108 H (98-107) meq/L Carbon Dioxide 20.7 L (21.0-32.0) meq/L Anion Gap 11 (5-15) meq/L BUN 71 H (7-18) mg/dL Creatinine 4.01 H (0.60-1.30) mg/dL Estimated GFR 15 L (>89) mL/min Random Glucose 153 H (74-106) mg/dL Calcium 8.5 (8.5-10.1) mg/dL Total Bilirubin 0.5 (0.2-1.0) mg/dL AST 17 (15-37) U/L ALT 22 (12-78) U/L Alkaline Phosphatase 49 (45-117) U/L Total Creatine Kinase (39-308) U/L Troponin I (0.02-0.05) ng/mL B-Natriuretic Peptide 2362 H (0-100) pg/mL Total Protein 6.6 (6.4-8.2) g/dL Albumin 3.5 (3.4-5.0) g/dL Urine Color (Yellw/Straw) Urine Clarity (Clear) Urine pH (5.0-8.5) Ur Specific Brackney (1.002-1.035) Urine Protein (Neg-Trace) mg/dL Urine Glucose (UA) (Negative) mg/dL Urine Ketones (Negative) mg/dL Urine Occult Blood (Negative) Urine Nitrate (Negative) Urine Bilirubin (Negative) Urine Urobilinogen (Less than 2) mg/dL Ur Leukocyte Esterase (Negative) Urine RBC (0-3) /hpf Urine WBC (0-5) /hpf Urine WBC Clumps (None) Ur Squamous Epith Cells (0-5) /hpf Urine Bacteria (None) /hpf Micro UA Comment Ur Microscopic Review Urine Culture Comments 09/22/18 09/22/18 09/22/18 Range/Units 14:24 15:27 15:45 WBC (4.0-11.0) th/mm3 RBC (4.50-5.90) mil/mm3 Hgb (13.0-17.0) gm/dL Hct (39.0-51.0) % MCV (80.0-100.0) fL MCH (27.0-34.0) pg MCHC (32.0-36.0) % RDW (11.6-17.2) % Plt Count (150-450) th/mm3 MPV (7.0-11.0) fL PT 12.0 H (9.8-11.6) sec INR 1.2 Ratio APTT 28.0 (23.4-31.7) sec Puncture Site Peripheral line Patient Temperature 98.6 VBG pH 7.28 L* (7.360-7.400) VBG pCO2 44 (44-48) mmHG VBG pO2 31 L (35-40) mmHG VBG HCO3 20 L (22-26) mmol/L VBG O2 Saturation 44 L (70-76) % VBG O2 Content 7.0 L (9.0-17.0) Vol % VBG Base Excess -6.0 L (-2-2) mmol/L VBG Carboxyhemoglobin 1.0 (0-4) % VBG Methemoglobin 0.8 (0-2) % Hemoglobin 11.4 L (12.0-16.0) G/DL O2 Delivery Device Nasal cannula Liter Flow 2.00 L/M Critical Value Yes Sodium (136-145) meq/L Potassium (3.5-5.1) meq/L Chloride (98-107) meq/L Carbon Dioxide (21.0-32.0) meq/L Anion Gap (5-15) meq/L BUN (7-18) mg/dL Creatinine (0.60-1.30) mg/dL Estimated GFR (>89) mL/min Random Glucose (74-106) mg/dL Calcium (8.5-10.1) mg/dL Total Bilirubin (0.2-1.0) mg/dL AST (15-37) U/L ALT (12-78) U/L Alkaline Phosphatase (45-117) U/L Total Creatine Kinase 77 (39-308) U/L Troponin I 0.03 (0.02-0.05) ng/mL B-Natriuretic Peptide (0-100) pg/mL Total Protein (6.4-8.2) g/dL Albumin (3.4-5.0) g/dL Urine Color (Yellw/Straw) Urine Clarity (Clear) Urine pH (5.0-8.5) Ur Specific Brackney (1.002-1.035) Urine Protein (Neg-Trace) mg/dL Urine Glucose (UA) (Negative) mg/dL Urine Ketones (Negative) mg/dL Urine Occult Blood (Negative) Urine Nitrate (Negative) Urine Bilirubin (Negative) Urine Urobilinogen (Less than 2) mg/dL Ur Leukocyte Esterase (Negative) Urine RBC (0-3) /hpf Urine WBC (0-5) /hpf Urine WBC Clumps (None) Ur Squamous Epith Cells (0-5) /hpf Urine Bacteria (None) /hpf Micro UA Comment Ur Microscopic Review Urine Culture Comments 09/22/18 Range/Units 16:10 WBC (4.0-11.0) th/mm3 RBC (4.50-5.90) mil/mm3 Hgb (13.0-17.0) gm/dL Hct (39.0-51.0) % MCV (80.0-100.0) fL MCH (27.0-34.0) pg MCHC (32.0-36.0) % RDW (11.6-17.2) % Plt Count (150-450) th/mm3 MPV (7.0-11.0) fL PT (9.8-11.6) sec INR Ratio APTT (23.4-31.7) sec Puncture Site Patient Temperature VBG pH (7.360-7.400) VBG pCO2 (44-48) mmHG VBG pO2 (35-40) mmHG VBG HCO3 (22-26) mmol/L VBG O2 Saturation (70-76) % VBG O2 Content (9.0-17.0) Vol % VBG Base Excess (-2-2) mmol/L VBG Carboxyhemoglobin (0-4) % VBG Methemoglobin (0-2) % Hemoglobin (12.0-16.0) G/DL O2 Delivery Device Liter Flow L/M Critical Value Sodium (136-145) meq/L Potassium (3.5-5.1) meq/L Chloride (98-107) meq/L Carbon Dioxide (21.0-32.0) meq/L Anion Gap (5-15) meq/L BUN (7-18) mg/dL Creatinine (0.60-1.30) mg/dL Estimated GFR (>89) mL/min Random Glucose (74-106) mg/dL Calcium (8.5-10.1) mg/dL Total Bilirubin (0.2-1.0) mg/dL AST (15-37) U/L ALT (12-78) U/L Alkaline Phosphatase (45-117) U/L Total Creatine Kinase (39-308) U/L Troponin I (0.02-0.05) ng/mL B-Natriuretic Peptide (0-100) pg/mL Total Protein (6.4-8.2) g/dL Albumin (3.4-5.0) g/dL Urine Color Yellow (Yellw/Straw) Urine Clarity Cloudy H (Clear) Urine pH 5.0 (5.0-8.5) Ur Specific Brackney 1.016 (1.002-1.035) Urine Protein 100 H (Neg-Trace) mg/dL Urine Glucose (UA) Negative (Negative) mg/dL Urine Ketones Negative (Negative) mg/dL Urine Occult Blood Small H (Negative) Urine Nitrate Negative (Negative) Urine Bilirubin Negative (Negative) Urine Urobilinogen Less than 2 (Less than 2) mg/dL Ur Leukocyte Esterase Large H (Negative) Urine RBC 2 (0-3) /hpf Urine WBC 157 H (0-5) /hpf Urine WBC Clumps Few H (None) Ur Squamous Epith Cells <1 (0-5) /hpf Urine Bacteria Moderate H (None) /hpf Micro UA Comment Culture indicated Ur Microscopic Review Not Reportable Urine Culture Comments Culture indicated Imaging Data Attestation: I personally reviewed and interpreted this imaging study as follows : Radiologist's impression: Chest X-Ray 09/22/18 14:38 CONCLUSION: Worsening left pleural effusion and left lung base consolidation and/or compressive collapse is also suspected. ECG Data Attestation: I personally reviewed and interpreted this ECG as follows: Interpretation: EKG shows sinus rhythm with no sign of acute ischemia or arrhythmia. Read by me and attending. Discharge Plan Discharge Disposition Patient Disposition: ED Admit(ED Internal Use Only) Discharge Order Discharge Orders: ED Use Only Admit Order (Routine); Ordered 09/22/18 Ordered By: Immanuel Azar Discharge Details Diagnosis: CHF (congestive heart failure), Stage 4 chronic kidney disease, Altered mental status, Pleural effusion Physicians Team ED Provider: Kelly Mcdonough ED Midlevel Provider: Immanuel Azar Primary Care Provider: NON STAFF,PROVIDER Attending Provider: Chinyere Truong Status ED Status: Admitted Patient
[2018-09-22 15:10] LABS: Alanine Aminotransferase 22 U/L (12-78); Albumin 3.5 g/dL (3.4-5.0); Anion Gap 11 meq/L (5-15); Aspartate Aminotransferase 17 U/L (15-37); Blood Urea Nitrogen 71 mg/dL (7-18); Calcium 8.5 mg/dL (8.5-10.1); Carbon Dioxide 20.7 meq/L (21.0-32.0); Chloride 108 meq/L (98-107); Glomerular Filtration Rate 15 mL/min (>89); Glucose,Random 153 mg/dL (74-106); Potassium 4.6 meq/L (3.5-5.1); Sodium 140 meq/L (136-145)
[2018-09-22 15:12] LABS: Alkaline Phosphatase 49 U/L (45-117); Total Protein 6.6 g/dL (6.4-8.2); Troponin I 0.03 ng/mL (0.02-0.05)
[2018-09-22 15:37] LABS: VBG PCO2 44 mmHG (44-48); VBG PH 7.28 (7.360-7.400); VBG PO2 31 mmHG (35-40)
--- NOTE | 2018-09-22 16:00 | XR ---
EXAM DATE: 09/22/2018 3:49 PM EST AGE/SEX: 78 years / Male INDICATIONS: Dyspnea. CLINICAL DATA: This is the patient's initial encounter. Patient reports that signs and symptoms have been present for 1 week and indicates a pain score of 0/10. MEDICAL/SURGICAL HISTORY: . asbestos related copd CABG. COMPARISON: [facility] [place], CHEST 2V PA&LAT, 07/20/2018. . FINDINGS: Left pleural effusion is significantly larger since 07/2018 occupying half of the hemithorax. The res t of the examination has not changed. CONCLUSION: Worsening left pleural effusion and left lung base consolidation and/or compressive collapse is also suspected. Electronically signed by: Lacey Henley MD Board Certified Radiologist 09/22/2018 3:59 PM EST
[2018-09-22 16:40] LABS: Bacteria,Urine Moderate /hpf; Bilirubin,Urine Negative (Negative); Clarity,Urine Cloudy (Clear); Color,Urine Yellow (Yellw/Straw); Glucose,Urine (UA) Negative (Negative); Leukocyte Esterase,Urine Large (Negative); Nitrite,Urine Negative (Negative); Specific Gravity,Urine 1.016 (1.002-1.035); Squamous Epithelial Cell,Urine <1 /hpf (0-5)
[2018-09-22 16:43] LABS: INR 1.2 Ratio
--- NOTE | 2018-09-22 16:50 | P.HPIM ---
History of Present Illness Primary Care Physician: PROVIDER NON STAFF Chief Complaint: sob History of Present Illness: 78 year old male presents to the ED for increasing SOB and AMS. History of COPD, CHF, diabetes and stage 4 renal failure. Daughter is at bedside and states that she was to meet him at PCP appointment today and patient never made it to appointment. Daughter states she found him still in bed and was having hallucinations. Daughter states that the mental status and activity level has been declining over the last 3 days. Blood sugars have been running between 110-140. Patient lives alone and controls his own medications but daughter noticed that there are random days that there are still medications in the weekly pill organizer. Denies chest pain, abdominal pain or nausea and vomiting. Daughter states patient was just in the hospital. Patient is currently not doing any dialysis. Patient states compliance with his medications. He does complain of shortness of breath with exertion that has progressively getting worse and per daughter it seems that has seemed to worsen. He denies any chest pain. He does state that when he lays down he gets short of breath. Does not use oxygen. Review of Systems Review of Systems: all other systems reviewed are negative [facility] Medical History Medical History Anxiety (Acute) HLD (hyperlipidemia) (Acute) HTN (hypertension) (Acute) Myocardial infarct (Acute) Renal disease (Acute) Seizures (Acute) Surgical History Surgical History History of cardiac cath (Acute) S/P CABG x 4 (Acute) Social History Social History Substance History: No History of Abuse Second Hand Smoke Exposure: No Smoking Status: Never smoker How Often Do You Have a Drink Containing Alcohol: Monthly or less Hx Recent Travel: No Recent Travel in [facility] within the Last 8 Weeks: No Recent Out of Country Travel within the Last 8 Weeks: No Immunization History Tetanus Immunization: Unsure Medications and Allergies Allergies Allergy/AdvReac Type Severity Reaction Status Date / Time No Known Allergies Allergy Verified 09/22/18 11:52 Home Medications Medication Instructions Recorded Confirmed Type atorvastatin 20 mg PO DAILY 03/20/18 09/22/18 History fenofibrate 50 mg PO DAILY 05/23/18 09/22/18 History levetiracetam 500 mg PO BID 05/23/18 09/22/18 History sertraline 100 mg PO DAILY 05/23/18 09/22/18 History semaglutide [Ozempic] 1 mg SUBCUT QWEEK 09/22/18 09/22/18 History Physical Exam Vital signs: Vital Signs 09/22/18 11:53 09/22/18 11:55 09/22/18 15:55 Temperature 97.1 F L Pulse Rate 60 64 59 L Respiratory Rate 18 20 18 Blood Pressure 110/59 L 125/73 146/75 H Pulse Oximetry 95 92 L 95 Intake & Output 09/21/18 09/22/18 09/22/18 18:59 06:59 18:59 Weight 85.729 kg Narrative: GENERAL: Pleasant 78-year-old male, well-nourished well-developed appears short of breath SKIN: Warm and dry. HEAD: Atraumatic. Normocephalic. EYES: Pupils equal and round. No scleral icterus. No injection or drainage. ENT: No nasal bleeding or discharge. Mucous membranes pink and moist. NECK: Trachea midline. No JVD. CARDIOVASCULAR: Regular rate and rhythm. RESPIRATORY: No accessory muscle use. Decreased breath sounds bilaterally. Bibasilar crackles. Shortness of breath. GASTROINTESTINAL: Abdomen soft, non-tender, nondistended. Hepatic and splenic margins not palpable. MUSCULOSKELETAL: Extremities without clubbing, cyanosis. 3+ bilateral lower extremity edema. No obvious deformities. NEUROLOGICAL: Awake and alert. No obvious cranial nerve deficits. Motor grossly within normal limits. Five out of 5 muscle strength in the arms and legs. Normal speech. PSYCHIATRIC: Appropriate mood and affect; insight and judgment normal. Results Labs CBC & Chem 7: 09/22/18 14:24 09/22/18 14:24 Imaging Impressions Chest X-Ray 09/22/18 14:38 CONCLUSION: Worsening left pleural effusion and left lung base consolidation and/or compressive collapse is also suspected. Caprini VTE Risk Assessment Caprini VTE Risk Assessment: Moderate/High Risk (score >= 2) Caprini Risk Assessment Model: Point Value = 1 Point Value = 2 Point Value = 3 Point Value = 5 Age 41-60 Minor surgery BMI > 25 kg/m2 Swollen legs Varicose veins or History of unexplained or recurrent spontaneous Oral contraceptives or hormone replacement Sepsis (< 1 month) Serious lung disease, including pneumonia (< 1 month) Abnormal pulmonary function Acute myocardial infarction Congestive heart failure (< 1 month) History of inflammatory bowel disease Medical patient at bed rest Age 61-74 Arthroscopic surgery Major open surgery (> 45 min) Laparoscopic surgery (> 45 min) Malignancy Confined to bed (> 72 hours) Immobilizing plaster cast Central venous access Age >= 75 History of VTE Family history of VTE Factor V Leiden Prothrombin [id number] Lupus anticoagulant Anticardiolipin antibodies Elevated serum homocysteine Heparin-induced thrombocytopenia Other congenital or acquired thrombophilia Stroke (< 1 month) Elective arthroplasty Hip, pelvis, or leg fracture Acute spinal cord injury (< 1 month) Prophylaxis Regimen: Total Risk Factor Score Risk Level Prophylaxis Regimen 0-1 Low Early ambulation 2 Moderate Order ONE of the following: *Sequential Compression Device (SCD) *Heparin 5000 units SQ BID 3-4 Higher Order ONE of the following medications: *Heparin 5000 units SQ TID *Enoxaparin/Lovenox 40 mg SQ daily (WT < 150 kg, CrCl > 30 mL/min) *Enoxaparin/Lovenox 30 mg SQ daily (WT < 150 kg, CrCl > 10-29 mL/min) *Enoxaparin/Lovenox 30 mg SQ BID (WT < 150 kg, CrCl > 30 mL/min) AND/OR *Sequential Compression Device (SCD) 5 or more Highest Order ONE of the following medications: *Heparin 5000 units SQ TID (Preferred with Epidurals) *Enoxaparin/Lovenox 40 mg SQ daily (WT < 150 kg, CrCl > 30 mL/min) *Enoxaparin/Lovenox 30 mg SQ daily (WT < 150 kg, CrCl > 10-29 mL/min) *Enoxaparin/Lovenox 30 mg SQ BID (WT < 150 kg, CrCl > 30 mL/min) AND *Sequential Compression Device (SCD) Assessment and Plan Plan Pleasant 78 yo M with h/o CAD, HTN, CKD IV, CHF EF 25-30% presented with shortness of breath and worsening LE edema: Acute Exacerbation of Chronic Systolic CHF: SOB/RUEDA/Orthopnea due to volume overload secondary to acute on chronic decompensated systolic heart failure(EF 25-30% in 05/2018). Hypohia on admission. Acute respiratory failure requiring O2 patient noted dessating in the ED -CXR shows worsening consolidation in LLL, however doubt pneumonia with no fever/leukocytosis/productive cough. -bumex 1mg IV bid , monitor closely kidney function -strict I/O monitoring -continue home meds , lisinopril DCd as patient with worsening kidney function follows with nephro in [facility] -monitor bun/cr/electrolytes daily. -Needs home O2 walk test prior to DC -Patient follows with cardiology Dr Chely Krueger consult if doen't improve Hypertension: continue gordo emeds CAD: stable,has not had any chest pain. CKD IV: Cr stable. Continue outpatient follow-up with his nephro in [facility]. Monitor closely kidney function Hyperlipidemia:Continue Atorvastatin, Fenofibrate. H/o anxiety: continue Sertraline. Seizures: on Levetiracetam 500 mg bid, continue. DVT Prophylaxis: on Eliquis Discussed with the patient , nurse , ED physician
[2018-09-22] MEDS ORDERED: Bisacodyl 10 MG Supp RECTAL PRN (16:51)
[2018-09-22] MEDS ORDERED: Acetaminophen 325 MG Tablet PO PRN (16:51)
[2018-09-22] MEDS ORDERED: Dextrose 50% in Water 50 ML Vial IV.PUSH PRN (16:55)
[2018-09-22] MEDS: Insulin NovoLOG Aspart Correctional Sugar Inj SQ SCH ×2 (18:23→20:55)
[2018-09-22] MEDS: levETIRAcetam 500 MG Tablet PO SCH (21:27)
[2018-09-22] MEDS: Metoprolol Tartrate 25 MG Tablet PO SCH (21:27)
[2018-09-22] MEDS: Senna/Docusate Sodium 8.6/50 MG Tablet PO SCH (21:27)
[2018-09-23] MEDS: Senna/Docusate Sodium 8.6/50 MG Tablet PO SCH ×2 (09:48→21:01)
[2018-09-23] MEDS: Metoprolol Tartrate 25 MG Tablet PO SCH ×2 (09:48→21:01)
[2018-09-23] MEDS: Fenofibrate 48 MG Tablet PO SCH (09:48)
[2018-09-23] MEDS: Sertraline 100 MG Tablet PO SCH (09:48)
[2018-09-23] MEDS: amLODIPine 10 MG Tablet PO SCH (09:49)
[2018-09-23] MEDS: levETIRAcetam 500 MG Tablet PO SCH ×2 (09:49→21:01)
[2018-09-23] MEDS: Insulin NovoLOG Aspart Correctional Sugar Inj SQ SCH ×4 (09:50→21:13)
--- NOTE | 2018-09-23 10:57 | P.PNIM ---
Subjective Interval history: Patient reports he is feeling better today. He is less short of breath. He denies chest pain. Physical Exam Vital signs: Vital Signs 09/22/18 11:53 09/22/18 11:55 09/22/18 15:55 Temperature 97.1 F L Pulse Rate 60 64 59 L Respiratory Rate 18 20 18 Blood Pressure 110/59 L 125/73 146/75 H Pulse Oximetry 95 92 L 95 09/22/18 16:52 09/22/18 18:42 09/22/18 19:40 Temperature Pulse Rate 62 64 67 Respiratory Rate 18 18 18 Blood Pressure 133/76 126/86 134/91 H Pulse Oximetry 98 96 97 09/22/18 20:00 09/23/18 00:00 09/23/18 04:00 Temperature 97.9 F 97.8 F 97.9 F Pulse Rate 61 62 80 Respiratory Rate 16 18 18 Blood Pressure 137/82 123/72 125/66 Pulse Oximetry 94 L 94 L 96 09/23/18 08:00 Temperature 97.5 F L Pulse Rate 62 Respiratory Rate 20 Blood Pressure 134/79 Pulse Oximetry 93 L Intake & Output 09/22/18 09/23/18 09/23/18 18:59 06:59 18:59 Intake Total 360 / 360 Output Total 275 / 275 300 / 300 Balance -275 / -275 60 / 60 Weight 85.729 kg 86.183 kg Intake: Oral 360 / 360 Output: Urine 275 / 275 300 / 300 Other: # Voids 1 Date of Last Bowel Movement 09/22/18 Weight On Admission 86.183 kg Narrative: GENERAL: Elderly male in no acute distress CARDIOVASCULAR: Normal rate and regular rhythm without murmurs, gallops, or rubs. RESPIRATORY: Good respiratory efforts. Faint bibasilar crackles. Otherwise clear to auscultation bilaterally. GASTROINTESTINAL: Abdomen soft, non-tender, non-distended. Normal active bowel sounds MUSCULOSKELETAL: Trace bilateral lower extremity edema. NEURO: Alert & Oriented x4 to person, place, time, situation. Moves all ext x4 PSYCH: Appropriate mood and affect. Results Labs CBC & Chem 7: 09/22/18 14:24 09/22/18 14:24 Imaging Imaging: Impressions Chest X-Ray 09/22/18 14:38 CONCLUSION: Worsening left pleural effusion and left lung base consolidation and/or compressive collapse is also suspected. Assessment and Plan Plan 78 yo M with h/o CAD, HTN, CKD IV, CHF EF 25-30% presented with shortness of breath and worsening LE edema: Acute Exacerbation of Chronic Systolic CHF: SOB/RUEDA/Orthopnea due to volume overload secondary to acute on chronic decompensated systolic heart failure(EF 25-30% in 05/2018). Hypoxemia on admission. Acute respiratory failure requiring O2 patient in the ED -CXR shows worsening consolidation in LLL, however doubt pneumonia with no fever/leukocytosis/productive cough. -Continue Bumex 1mg IV bid , monitor closely kidney function -strict I/O monitoring -continue home meds , lisinopril DCd as patient with worsening kidney function follows with nephro in [facility] -monitor bun/cr/electrolytes daily. -Needs home O2 walk test prior to DC -Patient follows with cardiology Dr Chely Krueger, consult if needed. -Symptoms improving. Continue IV diuretics for another 24 hours and plan to discharge home tomorrow. Wean off oxygen as tolerated. Hypertension: continue home meds CAD: stable,has not had any chest pain. CKD IV: Cr stable. Continue outpatient follow-up with his nephro in [facility]. Monitor closely kidney function Hyperlipidemia:Continue Atorvastatin, Fenofibrate. H/o anxiety: continue Sertraline. Seizures: on Levetiracetam 500 mg bid, continue. DVT Prophylaxis: on Eliquis Progress Note: Quality VTE Deep Vein Thrombosis/Pulmonary Embolism Present on Admission: No
[2018-09-23 11:13] LABS: Baso # (Auto) 0.1 th/mm3 (0.0-0.2); Baso % (Auto) 0.9 % (0.0-2.0); Eos # (Auto) 0.2 th/mm3 (0.0-0.4); Eos % (Auto) 2.6 % (0.0-4.0); Hematocrit 37.1 % (39.0-51.0); Lymph # (Auto) 0.7 th/mm3 (1.0-4.8); Lymph % (Auto) 10.4 % (9.0-44.0); Mean Corpuscular HGB Conc 32.4 % (32.0-36.0); Mean Corpuscular Hemoglobin 27.5 pg (27.0-34.0); Mean Platelet Volume 7.7 fL (7.0-11.0); Mono # (Auto) 0.6 th/mm3 (0.0-0.9); Mono % (Auto) 8.8 % (0.0-8.0); Neut # (Auto) 5.2 th/mm3 (1.8-7.7); Neut % (Auto) 77.3 % (16.0-70.0); Platelet Count 304 th/mm3 (150-450); Red Blood Count 4.37 mil/mm3 (4.50-5.90); Red Cell Distribution Width 16.2 % (11.6-17.2); White Blood Count 6.7 th/mm3 (4.0-11.0)
[2018-09-23 11:32] LABS: Calcium 8.5 mg/dL (8.5-10.1); Carbon Dioxide 18.9 meq/L (21.0-32.0)
[2018-09-23 15:30] LABS: Calcium 8.4 mg/dL (8.5-10.1); Potassium 4.1 meq/L (3.5-5.1)
--- NOTE | 2018-09-23 20:43 | ECG ---
Date Performed: 09/22/2018 Time Performed: 14:42:28 PTAGE: 78 years EKG: Sinus rhythm POSSIBLE LEFT ATRIAL ENLARGEMENT LEFT BUNDLE BRANCH BLOCK ABNORMAL ECG PREVIOUS TRACING : 09/22/2018 14.29 Compared to previous tracing, LEFT BUNDLE BRACH BLOCK IS N EW DOCTOR: Raj Alvarez Interpretating Date/Time 09/23/2018 20:41:47
[2018-09-24] MEDS: Insulin NovoLOG Aspart Correctional Sugar Inj SQ SCH ×4 (07:28→21:08)
[2018-09-24] MEDS: Senna/Docusate Sodium 8.6/50 MG Tablet PO SCH ×2 (08:02→20:52)
[2018-09-24] MEDS: levETIRAcetam 500 MG Tablet PO SCH ×2 (08:02→20:00)
[2018-09-24] MEDS: Fenofibrate 48 MG Tablet PO SCH (08:02)
[2018-09-24] MEDS: Metoprolol Tartrate 25 MG Tablet PO SCH ×2 (08:02→20:00)
[2018-09-24] MEDS: amLODIPine 10 MG Tablet PO SCH (08:03)
[2018-09-24] MEDS: Sertraline 100 MG Tablet PO SCH (08:04)
[2018-09-24 08:22] LABS: Hematocrit 36.8 % (39.0-51.0); Hemoglobin 12.2 gm/dL (13.0-17.0); Mean Corpuscular HGB Conc 33.3 % (32.0-36.0); Mean Corpuscular Hemoglobin 28.5 pg (27.0-34.0); Mean Corpuscular Volume 85.7 fL (80.0-100.0); Mean Platelet Volume 7.4 fL (7.0-11.0); Platelet Count 282 th/mm3 (150-450); Red Cell Distribution Width 16.6 % (11.6-17.2); White Blood Count 5.5 th/mm3 (4.0-11.0)
[2018-09-24 08:48] LABS: Calcium 8.2 mg/dL (8.5-10.1); Carbon Dioxide 21.7 meq/L (21.0-32.0)
--- NOTE | 2018-09-24 10:09 | XR ---
EXAM DATE: 09/24/2018 9:59 AM EST AGE/SEX: 78 years / Male INDICATIONS: Short of breath. CLINICAL DATA: This is the patient's subsequent encounter. Patient reports that signs and symptoms h ave been present for 4 - 6 days and indicates a pain score of 0/10. MEDICAL/SURGICAL HISTORY: . Cardiovascular disease. Hypertension. . COMPARISON: [facility], CHEST 1V SINGLE AP, 09/22/2018. [facility], CT CHEST W/O CONTRAST, 07/20/2018. . FINDINGS: Large left pleural effusion with meniscal tears extending into the upper lateral chest is similar in size and appearance to prior. There is loss of delineation of the entire left heart border and hemidi aphragm. Patchy areas of opacity in the lateral right lung correlates with calcified plaques. The rig ht lung is clear. The right heart border and right hemidiaphragm is intact. Heart size is normal. Celine dence prior median sternotomy. CONCLUSION: Stable size to the large left pleural effusion. Electronically signed by: Juan Begum MD Board Certified Radiologist 09/24/2018 10:08 AM EST
--- NOTE | 2018-09-24 10:55 | P.PNIM ---
Subjective Interval history: Patient reports his breathing status is unchanged. He still gets short of breath with activity. He is still requiring oxygen. Physical Exam Vital signs: Vital Signs 09/23/18 12:00 09/23/18 16:00 09/23/18 20:00 Temperature 97.8 F 97.5 F L 97.5 F L Pulse Rate 61 60 58 L Respiratory Rate 18 18 16 Blood Pressure 123/69 137/73 130/80 Pulse Oximetry 96 96 99 09/24/18 00:00 09/24/18 04:00 09/24/18 08:00 Temperature 97.5 F L 97.8 F 97.4 F L Pulse Rate 60 78 61 Respiratory Rate 20 20 18 Blood Pressure 135/81 156/81 H 135/77 Pulse Oximetry 95 93 L 91 L Intake & Output 09/23/18 09/24/18 09/24/18 18:59 06:59 18:59 Intake Total 890 / 890 520 / 520 Balance 890 / 890 520 / 520 Weight 92.3 kg Intake: Oral 890 / 890 520 / 520 Other: # Voids 3 4 Date of Last Bowel Movement 09/22/18 09/23/18 09/23/18 # Bowel Movements 0 Narrative: GENERAL: Elderly male in no acute distress CARDIOVASCULAR: Normal rate and regular rhythm without murmurs, gallops, or rubs. RESPIRATORY: Good respiratory efforts. Faint bibasilar crackles. Markedly diminished breath sounds on the left mid to lower lung boggs. GASTROINTESTINAL: Abdomen soft, non-tender, non-distended. Normal active bowel sounds MUSCULOSKELETAL: Trace bilateral lower extremity edema. NEURO: Alert & Oriented x4 to person, place, time, situation. Moves all ext x4 PSYCH: Appropriate mood and affect. Results Labs CBC & Chem 7: 09/24/18 07:48 09/24/18 07:48 Labs: Microbiology 09/22/18 16:10 Random Urine Urine Culture - Final 50-100,000 cfu/mL mixed gram positive olivia (probable contaminants) Imaging Imaging: Impressions Chest X-Ray 09/24/18 00:00 CONCLUSION: Stable size to the large left pleural effusion. Assessment and Plan Plan 78 yo M with h/o CAD, HTN, CKD IV, CHF EF 25-30% presented with shortness of breath and worsening LE edema: Acute Exacerbation of Chronic Systolic CHF: SOB/RUEDA/Orthopnea due to volume overload secondary to acute on chronic decompensated systolic heart failure(EF 25-30% in 05/2018). Hypoxemia on admission. Acute respiratory failure requiring O2 patient in the ED Large left pleural effusion -09/24 Patient has a persistent large left pleural effusion despite IV Bumex for the past couple of days. -Will order diagnostic and therapeutic thoracentesis. Follow-up fluid studies. -Continue Bumex 1mg IV bid , monitor closely kidney function -strict I/O monitoring -continue home meds -monitor bun/cr/electrolytes daily. -Would likely need home O2 walk test prior to DC -Patient follows with cardiology Dr Chely Krueger, consult if needed. Hypertension: continue home meds CAD: stable,has not had any chest pain. CKD IV: Cr stable. Continue outpatient follow-up with his nephro in [facility]. Monitor closely kidney function Hyperlipidemia:Continue Atorvastatin, Fenofibrate. H/o anxiety: continue Sertraline. Seizures: on Levetiracetam 500 mg bid, continue. DVT Prophylaxis: on Eliquis Dispo: Need thoracentesis. Wean off oxygen vs DC home on oxygen based when ready. Progress Note: Quality VTE Deep Vein Thrombosis/Pulmonary Embolism Present on Admission: No
[2018-09-24 13:16] LABS: INR 1.2 Ratio
[2018-09-25 10:09] LABS: Hematocrit 40.4 % (39.0-51.0); Hemoglobin 13.1 gm/dL (13.0-17.0); Mean Corpuscular HGB Conc 32.5 % (32.0-36.0); Mean Corpuscular Hemoglobin 27.6 pg (27.0-34.0); Mean Platelet Volume 7.8 fL (7.0-11.0); Platelet Count 314 th/mm3 (150-450); Red Blood Count 4.75 mil/mm3 (4.50-5.90); Red Cell Distribution Width 16.8 % (11.6-17.2); White Blood Count 6.6 th/mm3 (4.0-11.0)
--- NOTE | 2018-09-25 10:17 | XR ---
EXAM DATE: 09/25/2018 10:12 AM EST AGE/SEX: 78 years / Male INDICATIONS: Post left side thoracentesis CLINICAL DATA: This is the patient's initial encounter. Patient reports that signs and symptoms have been present for 3 days and indicates a pain score of 0/10. MEDICAL/SURGICAL HISTORY: Congestive heart failure. Hypertension. CABG. COMPARISON: [facility], CHEST 1V SINGLE AP, 09/24/2018. . FINDINGS: Patient is status post a left thoracentesis. There is no evidence of pneumothorax. The previously not ed left pleural effusion has been drained. There appear to be bilateral calcified pleural plaques. Th e heart size is enlarged but stable. There is evidence of previous cardiothoracic surgery. The bony s tructures are stable. CONCLUSION: Status post left thoracentesis. No pneumothorax. Electronically signed by: Damian Cortes MD Board Certified Radiologist 09/25/2018 10:16 AM EST
--- NOTE | 2018-09-25 10:32 | US ---
EXAM DATE: 09/25/2018 10:25 AM EST AGE/SEX: 78 years / Male INDICATIONS: Large left pleural effusion. CLINICAL DATA: This is the patient's initial encounter. Patient reports that signs and symptoms have been present for 1 week and indicates a pain score of 2/10. MEDICAL/SURGICAL HISTORY: Myocardial infarction. Hypercholesterolemia. Hypertension. Renal d isease. Seizures. CABG. Cardiac catheterization. COMPARISON: [facility], CHEST EXPIRATION ONLY, 09/25/2018. . FLUID: Total volume of 1800, straw colored cc of . fluid was removed. Fluid was sent to lab for ordered studies. . . TECHNIQUE: Ultrasound guidance for thoracentesis. Thoracentesis. The risks, benefits, and alternatives to ultrasound guided thoracentesis were explained to the patien t in lay simple terms, including the risk of bleeding and infection. Written and verbal informed con sent was obtained. Appropriate area for left thoracentesis was marked under ultrasound guidance with the patient in the upright position. Overlying skin was prepped and draped in the usual sterile fashion and with local anesthetic, a dermatotomy was made with an 11 blade scalpel. A 6 Nigerien thoracentesis catheter was p laced in the pleural space and fluid was removed. Catheter was then removed and a sterile dressing a pplied. There were no immediate complications. The patient tolerated the procedure well and the left the ultrasound suite in stable condition. Chest radiograph is to be obtained. FINDINGS: Adequate fluid for thoracentesis. CONCLUSION: 1. Uncomplicated left thoracentesis. Electronically signed by: Juan Sue MD Board Certified Radiologist 09/25/2018 10:31 AM EST
[2018-09-25 10:47] LABS: Calcium 8.7 mg/dL (8.5-10.1); Carbon Dioxide 23.8 meq/L (21.0-32.0); Potassium 4.3 meq/L (3.5-5.1)
[2018-09-25 10:58] LABS: Total Protein,Pleural Fluid 2.6 gm/dL
[2018-09-25] MEDS: Insulin NovoLOG Aspart Correctional Sugar Inj SQ SCH ×4 (11:24→21:23)
[2018-09-25] MEDS: Senna/Docusate Sodium 8.6/50 MG Tablet PO SCH ×2 (12:03→21:22)
[2018-09-25] MEDS: Metoprolol Tartrate 25 MG Tablet PO SCH ×2 (12:03→21:21)
[2018-09-25] MEDS: amLODIPine 10 MG Tablet PO SCH (12:03)
[2018-09-25] MEDS: levETIRAcetam 500 MG Tablet PO SCH ×2 (12:03→21:22)
[2018-09-25] MEDS: Sertraline 100 MG Tablet PO SCH (12:04)
[2018-09-25] MEDS: Fenofibrate 48 MG Tablet PO SCH (12:04)
[2018-09-25 12:30] LABS: Eosinophils,Pleural Fluid 9 %; Lymphocytes,Pleural Fluid 61 %; Mesothelial,Pleural Fluid 1 %; Monocytes,Pleural Fluid 12 %; Neutrophils,Pleural Fluid 2 %
[2018-09-25 12:31] LABS: RBC,Pleural Fluid 1540 /mm3 (0-0)
--- NOTE | 2018-09-25 13:33 | P.PNIM ---
Subjective Interval history: Patient seen after thoracentesis. He reports he is feeling much better. He is less short of breath. He does not have any chest pain. Physical Exam Vital signs: Vital Signs 09/24/18 16:00 09/24/18 20:00 09/25/18 08:00 Temperature 97.8 F 97.6 F Pulse Rate 60 61 61 Respiratory Rate 16 17 Blood Pressure 117/74 122/71 Pulse Oximetry 95 97 09/25/18 08:10 09/25/18 09:22 09/25/18 10:20 Temperature 97.5 F L 97.0 F L 97.7 F Pulse Rate 61 62 63 Respiratory Rate 19 18 16 Blood Pressure 131/75 139/79 106/66 Pulse Oximetry 96 95 93 L 09/25/18 10:30 09/25/18 11:45 Temperature 98 F Pulse Rate 66 66 Respiratory Rate 16 19 Blood Pressure 113/63 150/80 H Pulse Oximetry 92 L 95 Intake & Output 09/24/18 09/25/18 09/25/18 18:59 06:59 18:59 Other: # Voids 3 3 Date of Last Bowel Movement 09/23/18 09/23/18 09/23/18 Narrative: GENERAL: Elderly male in no acute distress CARDIOVASCULAR: Normal rate and regular rhythm without murmurs, gallops, or rubs. RESPIRATORY: Good respiratory efforts. Faint bibasilar crackles. Diminished breath sounds in the left lung base. GASTROINTESTINAL: Abdomen soft, non-tender, non-distended. Normal active bowel sounds MUSCULOSKELETAL: Trace bilateral lower extremity edema. NEURO: Alert & Oriented x4 to person, place, time, situation. Moves all ext x4 PSYCH: Appropriate mood and affect. Results Labs CBC & Chem 7: 09/25/18 08:30 09/25/18 08:30 Labs: Microbiology 09/22/18 16:10 Random Urine Urine Culture - Final 50-100,000 cfu/mL mixed gram positive olivia (probable contaminants) Imaging Imaging: Impressions Chest X-Ray 09/25/18 00:00 CONCLUSION: Status post left thoracentesis. No pneumothorax. Thoracentesis Ultrasound 09/25/18 00:00 CONCLUSION: 1. Uncomplicated left thoracentesis. Assessment and Plan Plan 78 yo M with h/o CAD, HTN, CKD IV, CHF EF 25-30% presented with shortness of breath and worsening LE edema: Acute Exacerbation of Chronic Systolic CHF: SOB/RUEDA/Orthopnea due to volume overload secondary to acute on chronic decompensated systolic heart failure(EF 25-30% in 05/2018). Hypoxemia on admission. Acute respiratory failure requiring O2 patient in the ED Large left pleural effusion -Patient initially treated with IV diuretics but a large pleural effusion and hypoxemia persisted. He underwent thoracentesis today 09/25/18. Fluid studies pending. -Continue Bumex 1mg IV bid , monitor closely kidney function -strict I/O monitoring -continue home meds -monitor bun/cr/electrolytes daily. -Would likely need home O2 walk test prior to DC -Patient follows with cardiology Dr Chely Krueger, consult if needed. -Continue metoprolol. Add low-dose lisinopril Hypertension: continue home meds CAD: stable,has not had any chest pain. CKD IV: Cr stable. Continue outpatient follow-up with his nephro in [facility]. Monitor closely kidney function Hyperlipidemia:Continue Atorvastatin, Fenofibrate. H/o anxiety: continue Sertraline. Seizures: on Levetiracetam 500 mg bid, continue. DVT Prophylaxis: on Eliquis Dispo: Status post thoracentesis today. Follow-up fluid studies. Anticipate discharge home with home health in 1-2 days. Wean off oxygen vs DC home on oxygen when ready. Progress Note: Quality VTE Deep Vein Thrombosis/Pulmonary Embolism Present on Admission: No
[2018-09-25 16:21] LABS: Total Protein 7.4 g/dL (6.4-8.2)
--- NOTE | 2018-09-25 22:36 | P.PNADD ---
Addendum to Inpatient Note Additional information: Joaquinat call for respiratory distress. Resident team responded. Primary team had already been contacted thus was care taken over by primary team.
--- NOTE | 2018-09-25 22:47 | XR ---
EXAM DATE: 09/25/2018 10:42 PM EST AGE/SEX: 78 years / Male INDICATIONS: Respiratory failure. CLINICAL DATA: This is the patient's subsequent encounter. Patient reports that signs and symptoms h ave been present for 3 days and indicates a pain score of 0/10. MEDICAL/SURGICAL HISTORY: . Congestive heart failure. Hypertension. . CABG. COMPARISON: [facility], CHEST EXPIRATION ONLY, 09/25/2018. [facility], CHEST 1V SINGLE AP, 09/24/2018. . FINDINGS: There is increased density at the mid and lower left chest silhouetting the left heart border and lef t hemidiaphragm. There is pleural calcification seen along the lateral left chest. There are some foc al areas of density seen over the right upper and mid chest likely related to pleural plaque on the r ight side. These were present on the prior exam. The patient is status post sternotomy. CONCLUSION: Increased density at the mid and lower left chest likely related to large effusion. This has develope d largely since the last chest x-ray. Some degree of consolidation or atelectasis can also be conside red. Calcified pleural plaques. Electronically signed by: Wyatt Carias MD Board Certified Radiologist 09/25/2018 10:46 PM EST
[2018-09-26] MEDS: Insulin NovoLOG Aspart Correctional Sugar Inj SQ SCH ×4 (08:54→21:51)
[2018-09-26 11:09] LABS: Hematocrit 38.5 % (39.0-51.0); Hemoglobin 12.8 gm/dL (13.0-17.0); Mean Corpuscular HGB Conc 33.2 % (32.0-36.0); Mean Corpuscular Hemoglobin 28.4 pg (27.0-34.0); Mean Corpuscular Volume 85.6 fL (80.0-100.0); Mean Platelet Volume 7.7 fL (7.0-11.0); Platelet Count 284 th/mm3 (150-450); Red Cell Distribution Width 16.8 % (11.6-17.2); White Blood Count 11.3 th/mm3 (4.0-11.0)
--- NOTE | 2018-09-26 11:11 | US ---
EXAM DATE: 09/26/2018 11:07 AM EST AGE/SEX: 78 years / Male INDICATIONS: Left pleural effusion. CLINICAL DATA: This is the patient's subsequent encounter. Patient reports that signs and symptoms h ave been present for 1 day and indicates a pain score of 0/10. MEDICAL/SURGICAL HISTORY: Hypertension. Seizures. Anxiety. Hyperlipidemia. Myocardial infarct. Renal disease. CABG. Cardiac cath. [place] [facility] [place], 07/20/2018. [facility] [place], 09/25/2018. . MEASUREMENTS: Skin To Parietal Pleura:__1.4 cm Skin To Max Safe Depth:__3.2 cm Estimated Fluid Volume:__1431 cc Fluid Composition:__complex FINDINGS: No marking was performed. Loculated left pleural effusion CONCLUSION: 1. Loculated left pleural effusion. Electronically signed by: Marcus Broussard MD Board Certified Radiologist 09/26/2018 11:09 AM EST
[2018-09-26 11:47] LABS: Calcium 8.3 mg/dL (8.5-10.1); Carbon Dioxide 22.1 meq/L (21.0-32.0)
[2018-09-26] MEDS: Senna/Docusate Sodium 8.6/50 MG Tablet PO SCH ×2 (11:56→21:50)
[2018-09-26] MEDS: levETIRAcetam 500 MG Tablet PO SCH ×2 (11:57→21:50)
[2018-09-26] MEDS: Lisinopril 5 MG Tablet PO SCH (11:57)
[2018-09-26] MEDS: Sertraline 100 MG Tablet PO SCH (11:57)
[2018-09-26] MEDS: amLODIPine 10 MG Tablet PO SCH (11:57)
[2018-09-26] MEDS: Metoprolol Tartrate 25 MG Tablet PO SCH ×2 (11:57→21:51)
[2018-09-26] MEDS: Fenofibrate 48 MG Tablet PO SCH (11:58)
--- NOTE | 2018-09-26 13:06 | P.PNIM ---
Subjective Interval history: The patient is in bed he appears to not acute distress however he was desaturating overnight and was placed on BiPAP. Denies chest pain. He is on nasal cannula at this time. Feels very tired. No fever or chills. No cough. Physical Exam Vital signs: Vital Signs 09/25/18 15:43 09/25/18 20:00 09/25/18 22:20 Temperature 97.6 F 97.7 F Pulse Rate 62 68 Respiratory Rate 19 17 Blood Pressure 149/73 H 135/73 Pulse Oximetry 91 L 98 92 L 09/25/18 22:47 09/25/18 22:51 09/26/18 00:00 Temperature 98.2 F Pulse Rate 104 H 65 Respiratory Rate 18 24 Blood Pressure 145/77 H Pulse Oximetry 95 95 09/26/18 01:53 09/26/18 04:00 09/26/18 05:23 Temperature 98.2 F Pulse Rate 63 Respiratory Rate 22 Blood Pressure 153/90 H Pulse Oximetry 97 98 98 Intake & Output 09/25/18 09/26/18 09/26/18 18:59 06:59 18:59 Intake Total 1200 / 1200 240 / 240 Output Total 875 / 875 1000 / 1000 Balance 325 / 325 -760 / -760 Intake: Oral 1200 / 1200 240 / 240 Output: Urine 875 / 875 1000 / 1000 Other: # Incontinent Voids 1 Date of Last Bowel Movement 09/23/18 09/23/18 Narrative: GENERAL: Elderly male in no acute distress CARDIOVASCULAR: Normal rate and regular rhythm without murmurs, gallops, or rubs. RESPIRATORY: Good respiratory efforts. Faint bibasilar crackles. Diminished breath sounds in the left lung base. GASTROINTESTINAL: Abdomen soft, non-tender, non-distended. Normal active bowel sounds MUSCULOSKELETAL: Trace bilateral lower extremity edema. NEURO: Alert & Oriented x4 to person, place, time, situation. Moves all ext x4 PSYCH: Appropriate mood and affect. Results Labs CBC & Chem 7: 09/26/18 08:42 09/26/18 08:42 Labs: Microbiology 09/25/18 10:00 Fluid - Pleural fluid Fungal Smear - Final No fungal elements seen 09/25/18 10:00 Fluid - Pleural fluid Gram Stain - Final Imaging Imaging: Impressions Chest X-Ray 09/25/18 22:21 CONCLUSION: Increased density at the mid and lower left chest likely related to large effusion. This has developed largely since the last chest x-ray. Some degree of consolidation or atelectasis can also be considered. Calcified pleural plaques. Chest Ultrasound 09/26/18 00:00 CONCLUSION: 1. Loculated left pleural effusion. Assessment and Plan Plan Pleasant 78 yo M with h/o CAD, HTN, CKD IV, CHF EF 25-30% presented with shortness of breath and worsening LE edema: Acute Exacerbation of Chronic Systolic CHF: SOB/RUEDA/Orthopnea due to volume overload secondary to acute on chronic decompensated systolic heart failure(EF 25-30% in 05/2018). Hypohia on admission. Acute respiratory failure requiring O2 patient noted dessating in the ED -CXR shows worsening consolidation in LLL, however doubt pneumonia with no fever/leukocytosis/productive cough. - S/P thoracentesis , patient imprpved after thoracentesis. However overnight 09/25 noted dessating , was placed on BIPBP , Patient with repiratory failure requiring bipap -bumex 1mg IV bid , monitor closely kidney function -strict I/O monitoring -continue home meds , lisinopril DCd as patient with worsening kidney function follows with nephro in [facility] -monitor bun/cr/electrolytes daily. -Needs home O2 walk test prior to DC -Patient follows with cardiology Dr Chely Krueger consult if doen't improve - Consult PT/OT - SCD/TEDs Hypertension: continue gordo emeds CAD: stable,has not had any chest pain. CKD IV: Cr stable. Continue outpatient follow-up with his nephro in [facility]. Monitor closely kidney function Hyperlipidemia:Continue Atorvastatin, Fenofibrate. H/o anxiety: continue Sertraline. Seizures: on Levetiracetam 500 mg bid, continue. DVT Prophylaxis: on Eliquis Discussed with the patient , nurse, family very supportive at bedside Progress Note: Quality VTE Deep Vein Thrombosis/Pulmonary Embolism Present on Admission: No
[2018-09-26] MEDS: Piperacil/Tazo 3.375 GM Premix 3.375 GM/50 ML PIGGYBACK IV.SIG SCH (18:10)
[2018-09-27] MEDS: Piperacil/Tazo 3.375 GM Premix 3.375 GM/50 ML PIGGYBACK IV.SIG SCH ×2 (01:22→09:27)
[2018-09-27] MEDS: Insulin NovoLOG Aspart Correctional Sugar Inj SQ SCH ×4 (08:31→21:33)
[2018-09-27] MEDS: Lisinopril 5 MG Tablet PO SCH (09:20)
[2018-09-27] MEDS: levETIRAcetam 500 MG Tablet PO SCH ×2 (09:20→20:16)
[2018-09-27] MEDS: Metoprolol Tartrate 25 MG Tablet PO SCH ×2 (09:21→20:11)
[2018-09-27] MEDS: Fenofibrate 48 MG Tablet PO SCH (09:21)
[2018-09-27] MEDS: Sertraline 100 MG Tablet PO SCH (09:21)
[2018-09-27] MEDS: Senna/Docusate Sodium 8.6/50 MG Tablet PO SCH ×2 (09:21→20:11)
[2018-09-27] MEDS: amLODIPine 10 MG Tablet PO SCH (09:21)
--- NOTE | 2018-09-27 11:57 | P.PNCV ---
- Note Subjective/Hospital Course: 78 y/o male s/p CABG in ~03/2018 presents with left pleural effusion and dyspnea. He also presented with creatinine of 4 which is higher than his baseline of ~3. He has undergone thoracentesis with reaccumulation. Objective: Vital Signs - 24 hr 09/26/18 12:00 09/26/18 16:00 09/26/18 20:00 Temperature 97.7 F 98.4 F Pulse Rate 67 68 61 Respiratory Rate 20 18 Blood Pressure 127/70 97/53 L Pulse Oximetry 96 97 09/27/18 00:00 09/27/18 04:00 09/27/18 08:00 Temperature 97.7 F 97.8 F 97.7 F Pulse Rate 72 68 90 Respiratory Rate 17 18 18 Blood Pressure 112/67 98/54 L 141/74 H Pulse Oximetry 98 95 97 Labs: Laboratory Results - last 12 hr 09/27/18 08:27 POC Glucose 112 H Result Diagrams: 09/26/18 08:42 09/26/18 08:42 Imaging: Thoracentesis Ultrasound 09/25/18 00:00 CONCLUSION: 1. Uncomplicated left thoracentesis. Chest X-Ray 09/25/18 22:21 CONCLUSION: Increased density at the mid and lower left chest likely related to large effusion. This has developed largely since the last chest x-ray. Some degree of consolidation or atelectasis can also be considered. Calcified pleural plaques. Chest Ultrasound 09/26/18 00:00 CONCLUSION: 1. Loculated left pleural effusion. Cardiovascular: IRR Pulmonary: Decreased BS on left GI/: NABS, NT - Plan (4) CHF (congestive heart failure) I have discussed his care with Dot Truong and Roscoe. Will request ECHO and a CXR to determine status of left pleural effusion. I have also requested transfer to [facility] and stopped his IV antibiotics for now. Will follow along with Dr. Chandra and Dionne for now. I also discussed his care with his family and they are aware of the above plan. (4) CHF (congestive heart failure) Qualifiers: Heart failure type: unspecified Heart failure chronicity: acute on chronic Qualified Code(s): I50.9 - Heart failure, unspecified
[2018-09-27 11:58] LABS: Baso % (Auto) 0.7 % (0.0-2.0); Eos # (Auto) 0.2 th/mm3 (0.0-0.4); Eos % (Auto) 2.8 % (0.0-4.0); Hematocrit 39.1 % (39.0-51.0); Lymph # (Auto) 0.6 th/mm3 (1.0-4.8); Mean Corpuscular HGB Conc 33.3 % (32.0-36.0); Mean Corpuscular Volume 86.9 fL (80.0-100.0); Mean Platelet Volume 7.6 fL (7.0-11.0); Mono # (Auto) 0.5 th/mm3 (0.0-0.9); Mono % (Auto) 7.8 % (0.0-8.0); Neut # (Auto) 5.2 th/mm3 (1.8-7.7); Neut % (Auto) 79.7 % (16.0-70.0); Platelet Count 287 th/mm3 (150-450); Red Cell Distribution Width 16.5 % (11.6-17.2); White Blood Count 6.5 th/mm3 (4.0-11.0)
--- NOTE | 2018-09-27 12:00 | MB ---
cc: Cheryle Fierro MD DATE: 09/27/2018 HISTORY OF PRESENT ILLNESS: The patient is a 78-year-old male with a past medical history of CHF, cardiomyopathy with ejection fraction of 25-30%, COPD, diabetes mellitus, chronic kidney disease, coronary artery disease, seizure disorder, hyperlipidemia, who presented to [facility] on 09/22/2018 for shortness of breath. The patient was admitted under the hospitalist service for CHF decompensation. He had a chest x-ray on admission, which showed left pleural effusion with left lung base consolidation. On 09/2014, patient underwent ultrasound-guided left thoracentesis by interventional radiology with removal of 1800 of pleural fluid, which was transudative in nature. The patient was started on bronchodilators and broad spectrum antibiotics. An ultrasound of the chest was done yesterday, which shows loculated left pleural effusion. When seen, the patient denies any chest pain, shortness of breath, cough, wheezing or any constitutional symptoms. He is a nonsmoker. He denies any use of oxygen or bronchodilators at home. He denies any orthopnea, PND; however, he reports edema of lower extremities. PAST MEDICAL HISTORY: Significant for anxiety, hyperlipidemia, hypertension, coronary artery disease, chronic kidney disease, seizure disorder, COPD. PAST SURGICAL HISTORY: Previous cardiac catheterization previous CABG x 4. SOCIAL HISTORY: Nonsmoker, nondrinker. ALLERGIES: NO KNOWN DRUG ALLERGIES. FAMILY HISTORY: Noncontributory. ACTIVE MEDICATIONS: 1. DuoNeb. 2. Eliquis. 3. Lipitor. 4. Bumex. 5. Lactulose. 6. Lopressor. 7. Zosyn. REVIEW OF SYSTEMS: As per HPI, review of systems is unremarkable. PHYSICAL EXAMINATION: GENERAL: A 78-year-old male lying in bed in no acute distress. VITAL SIGNS: Temperature 97.7, pulse 87, respiratory rate of 18, blood pressure 141/74, saturation 97%. HEENT: Atraumatic, normocephalic. Pupils are equal, round, reactive to light and accommodation. Extraocular muscles intact. Conjunctivae pink, anicteric sclerae. Oral mucosa within normal. NECK: Supple. No JVD, adenopathy or thyromegaly. Trachea in the midline. CARDIOVASCULAR: Regular rate and rhythm. Normal S1, S2. No murmurs, rubs or gallops noted. PULMONARY: Bilateral equal air entry. Diminished breath sounds at the left base. ABDOMEN: Soft, nontender. No distention. Positive bowel sounds. EXTREMITIES: No cyanosis, clubbing, edema noted. NEUROLOGIC: No focal sensory deficit. LABORATORY DATA: Sodium 141, potassium 4, chloride 108, CO2 of 22, BUN 72, creatinine 3.24. WBC 11.3, hemoglobin 12, hematocrit 38, platelet count 284. RADIOGRAPHIC STUDIES: Ultrasound of the chest from 09/26/2018 showed large loculated left pleural effusion. IMPRESSION: 1. Respiratory insufficiency. 2. Recurrent left pleural effusion. 3. Status post ultrasound-guided left thoracentesis on 09/25/2018 with removal of 1.8 liters pleural fluid, transudative, likely secondary to congestive heart failure. 4. Congestive heart failure decompensation. 5. Cardiomyopathy. 6. Acute on chronic kidney disease. 7. Chronic obstructive pulmonary disease. 8. Diabetes mellitus. 9. Hypertension. 10. Hyperlipidemia. RECOMMENDATIONS: 1. We will continue with oxygen and maintain sats above 92%. 2. Bronchodilators in the form of DuoNeb every 4 hours plus every 2 hours p.r.n. for shortness of breath. 3. Continue with diuretics. The patient is on Bumex 1 mg b.i.d. 4. Continue with empiric antibiotics. He was placed on Zosyn. Monitor for signs of infection, which include fever and WBC. We will obtain a sputum culture with Gram stain. His previous blood culture and fluid culture shows no growth to date. We will consult Interventional Radiology for a repeat ultrasound, left pleural effusion. If the patient continues to have recurrent pleural effusions he might be a candidate for a PleurX catheter insertion. His pleural effusion is likely secondary to congestive heart failure and cardiomyopathy. 5. The patient is on Eliquis, and it has to be on hold for at least 5 days. Further recommendations will be based on hospital course. Thank you for this consultation and allowing us to participate in this patient's care. MD HECTOR Watts/omaira , 08:57 AM , 09:06 AM
[2018-09-27 12:19] LABS: Calcium 8.3 mg/dL (8.5-10.1); Carbon Dioxide 27.5 meq/L (21.0-32.0); Potassium 4.1 meq/L (3.5-5.1)
--- NOTE | 2018-09-27 12:44 | P.PNIM ---
Subjective Interval history: The patient is in the chair and had a shower earlier and feels tired and with some shortness of breath, however a little bit improved since yesterday. Has no chest pain. No palpitations. In good spirits. Family very supportive of bedside. Appetite is coming back. No nausea vomiting no diarrhea or constipation. Physical Exam Vital signs: Vital Signs 09/26/18 16:00 09/26/18 20:00 09/27/18 00:00 Temperature 97.7 F 98.4 F 97.7 F Pulse Rate 68 61 72 Respiratory Rate 20 18 17 Blood Pressure 127/70 97/53 L 112/67 Pulse Oximetry 96 97 98 09/27/18 04:00 09/27/18 08:00 09/27/18 12:00 Temperature 97.8 F 97.7 F 97.0 F L Pulse Rate 68 90 67 Respiratory Rate 18 18 16 Blood Pressure 98/54 L 141/74 H 108/61 Pulse Oximetry 95 97 98 Intake & Output 09/26/18 09/27/18 09/27/18 18:59 06:59 18:59 Intake Total 770 / 770 250 / 250 Output Total 1200 / 1200 700 / 700 Balance -430 / -430 -450 / -450 Weight 92.5 kg Intake: IV 50 / 50 50 / 50 Zosyn 3.375 GM Premix 3.375 gm 50 / 50 50 / 50 In 50 ml @ 100 mls/hr IV.SIG Q8H [facility] Rx#:[id number] Oral 720 / 720 200 / 200 Output: Urine 1200 / 1200 700 / 700 Other: Date of Last Bowel Movement 09/27/18 09/27/18 # Bowel Movements 1 1 Narrative: GENERAL: Elderly male in no acute distress CARDIOVASCULAR: Normal rate and regular rhythm without murmurs, gallops, or rubs. RESPIRATORY: Good respiratory efforts. Faint bibasilar crackles. Diminished breath sounds in the left lung base. GASTROINTESTINAL: Abdomen soft, non-tender, non-distended. Normal active bowel sounds MUSCULOSKELETAL: Trace bilateral lower extremity edema. NEURO: Alert & Oriented x4 to person, place, time, situation. Moves all ext x4 PSYCH: Appropriate mood and affect. Results Labs CBC & Chem 7: 09/27/18 11:13 09/27/18 11:13 Labs: Microbiology 09/25/18 10:00 Fluid - Pleural fluid Gram Stain - Final 09/25/18 10:00 Fluid - Pleural fluid Body Fluid Culture - Preliminary No growth in 48 hours 09/26/18 16:53 Blood - Peripheral Aerobic Blood Culture - Preliminary No growth in 1 day 09/26/18 16:53 Blood - Peripheral Anaerobic Blood Culture - Preliminary No growth in 1 day 09/26/18 16:58 Blood - Peripheral Aerobic Blood Culture - Preliminary No growth in 1 day 09/26/18 16:58 Blood - Peripheral Anaerobic Blood Culture - Preliminary No growth in 1 day Assessment and Plan (1) Acute respiratory failure with hypoxia: Code(s): J96.01 - Acute respiratory failure with hypoxia Status: Acute (2) Stage 4 chronic kidney disease: Code(s): N18.4 - Chronic kidney disease, stage 4 (severe) Status: Chronic (3) S/P CABG x 3: Code(s): Z95.1 - Presence of aortocoronary bypass graft Status: Acute (4) CHF (congestive heart failure): Code(s): I50.9 - Heart failure, unspecified Status: Acute (5) Pleural effusion: Code(s): J90 - Pleural effusion, not elsewhere classified Status: Acute Plan Pleasant 78 yo M with h/o CAD, HTN, CKD IV, CHF EF 25-30% presented with shortness of breath and worsening LE edema: Acute Exacerbation of Chronic Systolic CHF s/p CABG 03/2018 presents with left pleural effusion and dyspnea: SOB/RUEDA/Orthopnea due to volume overload secondary to acute on chronic decompensated systolic heart failure(EF 25-30% in 05/2018). Hypoxia. Acute respiratory failure requiring O2 patient noted dessating. Patient had therapeutic and diagnostic thoracentesis, however fluid reaccumulated within 2 days and noted dessating again. PULm was also consulted. Consult Dr Horn CTS who operated the patient in 2018 for eval patient might need pleurodesis/ decortication. Zonia on hold. Also Dr Krueger his cardilogy Dr Consulted. -CXR shows worsening consolidation in LLL, however doubt pneumonia with no fever/leukocytosis/productive cough. - S/P thoracentesis , patient imprpved after thoracentesis. However overnight 09/25 noted dessating , was placed on BIPBP , Patient with repiratory failure requiring bipap -bumex 1mg IV bid , monitor closely kidney function -strict I/O monitoring -continue home meds , lisinopril DCd as patient with worsening kidney function follows with nephro in [facility] -monitor bun/cr/electrolytes daily. -Needs home O2 walk test prior to DC -Patient follows with cardiology Dr Chely Krueger consult if doen't improve - Consult PT/OT - SCD/TEDs Hypertension: continue gordo emeds CAD s/p CABG 03/2018 : stable,has not had any chest pain. CKD IV: Cr stable. Continue outpatient follow-up with his nephro in [facility]. Monitor closely kidney function Hyperlipidemia:Continue Atorvastatin, Fenofibrate. H/o anxiety: continue Sertraline. Seizures: on Levetiracetam 500 mg bid, continue. DVT Prophylaxis: on Eliquis Discussed with the patient, nurse, family very supportive at bedside. Discussed with Dr Horn CTS Progress Note: Quality VTE Deep Vein Thrombosis/Pulmonary Embolism Present on Admission: No _ (1) CHF (congestive heart failure) Qualifiers: Heart failure chronicity: acute on chronic Heart failure type: unspecified Qualified Code(s): I50.9 - Heart failure, unspecified
--- NOTE | 2018-09-28 03:50 | XR ---
EXAM DATE: 09/28/2018 3:42 AM EST AGE/SEX: 78 years / Male INDICATIONS: Shortness of breath, possible pulmonary disease. CLINICAL DATA: This is the patient's subsequent encounter. Patient reports that signs and symptoms h ave been present for 1 week and indicates a pain score of 0/10. MEDICAL/SURGICAL HISTORY: . Hypertension. Seizures. Anxiety. Hyperlipidemia. Myocardial infarct . Renal disease. CABG. COMPARISON: [facility] [place], CHEST 1V SINGLE AP, 09/25/2018. . FINDINGS: A single AP view of the chest demonstrates the lungs to be symmetrically aerated with some interval i mprovement in the left airspace process/effusion. Some consolidation/effusion persist, however. Stabl e bilateral pleural plaques. Heart size appears to be upper limits of normal. Intact median sternotom y wires.. CONCLUSION: 1. Left basilar airspace disease/effusion appears to show some interval improvement when compared to prior. 2. Stable bilateral pleural plaques. Electronically signed by: Jony Mota MD Board Certified Radiologist 09/28/2018 3:49 AM EST
[2018-09-28 05:10] LABS: Baso # (Auto) 0.1 th/mm3 (0.0-0.2); Baso % (Auto) 0.7 % (0.0-2.0); Eos # (Auto) 0.3 th/mm3 (0.0-0.4); Eos % (Auto) 4.5 % (0.0-4.0); Hematocrit 37.6 % (39.0-51.0); Hemoglobin 12.2 gm/dL (13.0-17.0); Lymph % (Auto) 14.2 % (9.0-44.0); Mean Corpuscular HGB Conc 32.4 % (32.0-36.0); Mean Corpuscular Hemoglobin 27.3 pg (27.0-34.0); Mean Corpuscular Volume 84.3 fL (80.0-100.0); Mean Platelet Volume 7.5 fL (7.0-11.0); Mono # (Auto) 0.8 th/mm3 (0.0-0.9); Mono % (Auto) 10.7 % (0.0-8.0); Neut % (Auto) 69.9 % (16.0-70.0); Platelet Count 285 th/mm3 (150-450); Red Blood Count 4.47 mil/mm3 (4.50-5.90); Red Cell Distribution Width 16.3 % (11.6-17.2); White Blood Count 7.2 th/mm3 (4.0-11.0)
[2018-09-28 05:38] LABS: Calcium 8.5 mg/dL (8.5-10.1); Carbon Dioxide 27.9 meq/L (21.0-32.0)
--- NOTE | 2018-09-28 08:48 | P.PNIM ---
Subjective Interval history: Follow-up for dyspnea, left-sided pleural effusion. Patient is currently sitting in his chair. Denies any chest pain, shortness of breath, fever or chills. He is on 3 L oxygen via nasal cannula. Physical Exam Vital signs: Vital Signs 09/27/18 12:00 09/27/18 12:48 09/27/18 14:00 Temperature 97.0 F L 98.5 F Pulse Rate 62 67 66 Respiratory Rate 16 16 14 Blood Pressure 108/61 110/64 Pulse Oximetry 98 97 09/27/18 14:20 09/27/18 15:00 09/27/18 15:21 Temperature 98.3 F Pulse Rate 69 75 Respiratory Rate 14 Blood Pressure 113/63 Pulse Oximetry 97 97 97 09/27/18 15:50 09/27/18 16:00 09/27/18 17:00 Temperature Pulse Rate 71 66 70 Respiratory Rate 14 Blood Pressure Pulse Oximetry 09/27/18 18:00 09/27/18 19:00 09/27/18 20:00 Temperature 98.4 F Pulse Rate 66 71 Respiratory Rate 18 Blood Pressure 114/61 Pulse Oximetry 96 96 09/27/18 20:44 09/27/18 21:00 09/27/18 22:00 Temperature Pulse Rate 73 72 68 Respiratory Rate 18 Blood Pressure Pulse Oximetry 97 09/27/18 23:00 09/28/18 00:00 09/28/18 00:35 Temperature 98.6 F Pulse Rate 64 71 71 Respiratory Rate 18 Blood Pressure 115/61 Pulse Oximetry 96 96 09/28/18 01:00 09/28/18 02:00 09/28/18 03:00 Temperature Pulse Rate 71 68 77 Respiratory Rate Blood Pressure Pulse Oximetry 96 09/28/18 04:00 09/28/18 04:38 09/28/18 05:00 Temperature 98.6 F Pulse Rate 71 80 73 Respiratory Rate 18 18 Blood Pressure 107/65 Pulse Oximetry 96 09/28/18 06:00 09/28/18 08:09 09/28/18 08:12 Temperature Pulse Rate 73 76 Respiratory Rate 18 Blood Pressure Pulse Oximetry 95 Intake & Output 09/27/18 09/28/18 09/28/18 18:59 06:59 18:59 Intake Total 470 / 470 420 / 420 Output Total 150 / 150 1600 / 1600 Balance 320 / 320 -1180 / -1180 Weight 82.5 kg Intake: IV 50 / 50 Zosyn 3.375 GM Premix 3.375 gm 50 / 50 In 50 ml @ 100 mls/hr IV.SIG Q8H [facility] Rx#:[id number] Oral 420 / 420 420 / 420 Output: Urine 150 / 150 1600 / 1600 Other: Date of Last Bowel Movement 09/27/18 # Bowel Movements 1 Narrative: GENERAL: Well-nourished, well-developed patient. SKIN: Warm and dry. HEAD: Normocephalic. EYES: No scleral icterus. No injection or drainage. NECK: Supple, trachea midline. No JVD or lymphadenopathy. CARDIOVASCULAR: Regular rate and rhythm without murmurs, gallops, or rubs. RESPIRATORY: Moderate air entry, no wheezing noted. No accessory muscle use. Bibasilar crackles noted. GASTROINTESTINAL: Abdomen soft, non-tender, nondistended. MUSCULOSKELETAL: No cyanosis. Trace edema. BACK: Nontender without obvious deformity. No CVA tenderness. Results Labs CBC & Chem 7: 09/28/18 04:37 09/28/18 04:37 Labs: Microbiology 09/25/18 10:00 Fluid - Pleural fluid Gram Stain - Final 09/25/18 10:00 Fluid - Pleural fluid Body Fluid Culture - Preliminary No growth in 48 hours 09/26/18 16:53 Blood - Peripheral Aerobic Blood Culture - Preliminary No growth in 1 day 09/26/18 16:53 Blood - Peripheral Anaerobic Blood Culture - Preliminary No growth in 1 day 09/26/18 16:58 Blood - Peripheral Aerobic Blood Culture - Preliminary No growth in 1 day 09/26/18 16:58 Blood - Peripheral Anaerobic Blood Culture - Preliminary No growth in 1 day Imaging Imaging: Impressions Chest X-Ray 09/28/18 00:00 CONCLUSION: 1. Left basilar airspace disease/effusion appears to show some interval improvement when compared to prior. 2. Stable bilateral pleural plaques. Assessment and Plan (1) Acute respiratory failure with hypoxia: Code(s): J96.01 - Acute respiratory failure with hypoxia Status: Acute (2) Stage 4 chronic kidney disease: Code(s): N18.4 - Chronic kidney disease, stage 4 (severe) Status: Chronic (3) S/P CABG x 3: Code(s): Z95.1 - Presence of aortocoronary bypass graft Status: Acute (4) CHF (congestive heart failure): Code(s): I50.9 - Heart failure, unspecified Status: Acute (5) Pleural effusion: Code(s): J90 - Pleural effusion, not elsewhere classified Status: Acute Plan Mr. Andrews is a pleasant 78 yo M with h/o CAD, HTN, CKD IV, CHF EF 25-30% presented with shortness of breath and worsening LE edema. Acute Exacerbation of Chronic Systolic CHF s/p CABG 03/2018 Left sided pleural effusion -s/p Thoracentesis on 09/25/2018, 1800cc of fluid taken off. -EF 25-30%. Cardiology consulted. Echo ordered on 09/27/2018. Report pending. Continue bumetanide 1 mg IV twice daily. Continue lisinopril 2.5 mg p.o. daily. Atrial fibrillation Hyperlipidemia Currently on metoprolol tartrate 25 mg twice daily. Also on apixaban 2.5 mg p.o. twice daily. Currently on hold due to anticipated thoracentesis. Stage IV chronic kidney disease Creatinine around baseline 3.2. Outpatient nephrology follow-up. Anxiety - continue Sertraline. Seizures: on Levetiracetam 500 mg bid Full code. Apixaban (Currently on hold). Progress Note: Quality VTE Deep Vein Thrombosis/Pulmonary Embolism Present on Admission: No _ (1) CHF (congestive heart failure) Qualifiers: Heart failure chronicity: acute on chronic Heart failure type: unspecified Qualified Code(s): I50.9 - Heart failure, unspecified
[2018-09-28] MEDS: Insulin NovoLOG Aspart Correctional Sugar Inj SQ SCH ×3 (09:21→17:09)
[2018-09-28] MEDS: Senna/Docusate Sodium 8.6/50 MG Tablet PO SCH ×2 (09:22→21:24)
[2018-09-28] MEDS: Metoprolol Tartrate 25 MG Tablet PO SCH ×2 (09:22→21:23)
[2018-09-28] MEDS: amLODIPine 10 MG Tablet PO SCH (09:22)
[2018-09-28] MEDS: levETIRAcetam 500 MG Tablet PO SCH ×2 (09:22→21:23)
[2018-09-28] MEDS: Lisinopril 5 MG Tablet PO SCH (09:22)
[2018-09-28] MEDS: Sertraline 100 MG Tablet PO SCH (09:22)
[2018-09-28] MEDS: Fenofibrate 48 MG Tablet PO SCH (09:23)
--- NOTE | 2018-09-28 12:16 | ECHRPT ---
Indication: HEART FAILURE CONCLUSIONS The left ventricular systolic function is severely reduced with an estimated ejection fraction in th e range of 25-30%. Mild concentric left ventricular hypertrophy. Mildly dilated left ventricle. There is global left ventricular dysfunction. [id number] mitral valve regurgitation. Possible severe with low flow/low gradient (Vmax 2.3, peak grad 21, mean grad 12, ZAN 0.9, SVI 17 ). There is mild tricuspid valve regurgitation. There is estimated moderate pulmonary hypertension present (range 50-60 mmHg). Bilateral pleural effusion is present. BP: / HR: Rhythm: Sinus MEASUREMENTS (Male / Female) Normal Values Technical Quality:Fair 2D ECHO LV Diastolic Diameter PLAX 6.0 cm 4.2 - 5.9 / 3.9 - 5.3 cm LV Systolic Diameter PLAX 5.6 cm IVS Diastolic Thickness 1.1 cm 0.6 - 1.0 / 0.6 - 0.9 cm LVPW Diastolic Thickness 1.1 cm 0.6 - 1.0 / 0.6 - 0.9 cm LV Relative Wall Thickness 0.4 RV Internal Dim ED PLAX 1.7 cm LVOT Diameter 1.9 cm Aortic Root Diameter 2.7 cm LA Systolic Diameter LX 3.8 cm 3.0 - 4.0 / 2.7 - 3.8 cm DOPPLER AV Peak Velocity 229.0 cm/s AV Peak Gradient 21.0 mmHg AV Mean Gradient 12.0 mmHg AV Velocity Time Integral 45.0 cm LVOT Peak Velocity 70.7 cm/s LVOT Peak Gradient 2.0 mmHg LVOT Velocity Time Integral 12.4 cm AV Area Cont Eq vti 0.8 cm AV Area Cont Eq pk 0.9 cm Mitral E Point Velocity 74.0 cm/s Mitral A Point Velocity 41.5 cm/s Mitral E to A Ratio 1.8 TR Peak Velocity 327.0 cm/s TR Peak Gradient 42.8 mmHg Right Atrial Pressure 10.0 mmHg Pulmonary Artery Systolic Pressu 52.8 mmHg Right Ventricular Systolic Press 52.8 mmHg PV Peak Velocity 41.4 cm/s PV Peak Gradient 0.7 mmHg FINDINGS LEFT VENTRICLE Mildly dilated left ventricle. Mild concentric left ventricular hypertrophy. The left ventricular systolic function is severely reduced with an estimated ejection fraction in th e range of 25-30%. There is global left ventricular dysfunction. There is abnormal (paradoxical) septal motion consistent with postoperative state. RIGHT VENTRICLE The right ventricular size is normal. The right ventricular systoilc function is mildly decreased. LEFT ATRIUM The left atrial size is upper limits of normal. RIGHT ATRIUM The right atrial size is normal. ATRIAL SEPTUM The interatrial septum not well visualized. AORTA The aortic root and proximal ascending aorta are not well visualized. MITRAL VALVE Structurally normal mitral valve. [id number] mitral valve regurgitation. No mitral valve stenosis. AORTIC VALVE Severe thickening of the aortic valve leaflets. No aortic valve regurgitation. Possible severe with low flow/low gradient (Vmax 2.3, peak grad 21, mean grad 12, ZAN 0.9, SVI 17 ) TRICUSPID VALVE There is mild tricuspid valve regurgitation. The estimated pulmonary arterial pressure is 52.8 mmHg. There is estimated moderate pulmonary hypertension present (range 50-60 mmHg). PULMONARY VALVE The pulmonary valve is not well visualized. VESSELS The inferior vena cava was not well visualized. PERICARDIUM No pericardial effusion. Bilateral pleural effusion is present. Robb Malhotra DO (Electronically Signed) Final Date:28 September 2018 12:15
--- NOTE | 2018-09-28 13:27 | P.PNCV ---
- Note Subjective/Hospital Course: 78 y/o male s/p CABG in ~03/2018 presents with left pleural effusion and dyspnea. He also presented with creatinine of 4 which is higher than his baseline of ~3. He has undergone thoracentesis with reaccumulation. 09/28 pt underwent thoracentesis on 09/25 drained 1800cc CXR today with some improvement, now on 2 liter nasal cannula still has some left basilar crackles feels better. Will review chest xray with Dr Justina Brar on hold for now Objective: Vital Signs - 24 hr 09/27/18 14:00 09/27/18 14:20 09/27/18 15:00 Temperature 98.5 F Pulse Rate 66 69 Respiratory Rate 14 Blood Pressure 110/64 Pulse Oximetry 97 97 97 09/27/18 15:21 09/27/18 15:50 09/27/18 16:00 Temperature 98.3 F Pulse Rate 75 71 66 Respiratory Rate 14 14 Blood Pressure 113/63 Pulse Oximetry 97 09/27/18 17:00 09/27/18 18:00 09/27/18 19:00 Temperature Pulse Rate 70 66 Respiratory Rate Blood Pressure Pulse Oximetry 96 09/27/18 20:00 09/27/18 20:44 09/27/18 21:00 Temperature 98.4 F Pulse Rate 71 73 72 Respiratory Rate 18 18 Blood Pressure 114/61 Pulse Oximetry 96 97 09/27/18 22:00 09/27/18 23:00 09/28/18 00:00 Temperature Pulse Rate 68 64 71 Respiratory Rate Blood Pressure Pulse Oximetry 96 09/28/18 00:35 09/28/18 01:00 09/28/18 02:00 Temperature 98.6 F Pulse Rate 71 71 68 Respiratory Rate 18 Blood Pressure 115/61 Pulse Oximetry 96 09/28/18 03:00 09/28/18 04:00 09/28/18 04:38 Temperature 98.6 F Pulse Rate 77 71 80 Respiratory Rate 18 18 Blood Pressure 107/65 Pulse Oximetry 96 96 09/28/18 05:00 09/28/18 06:00 09/28/18 07:00 Temperature Pulse Rate 73 73 78 Respiratory Rate Blood Pressure Pulse Oximetry 09/28/18 08:00 09/28/18 08:09 09/28/18 08:12 Temperature 97.7 F Pulse Rate 74 76 Respiratory Rate 16 18 Blood Pressure 129/66 Pulse Oximetry 95 95 09/28/18 09:00 09/28/18 10:00 09/28/18 11:00 Temperature Pulse Rate 72 77 63 Respiratory Rate Blood Pressure Pulse Oximetry 09/28/18 11:04 09/28/18 12:00 Temperature 97.8 F Pulse Rate 68 61 Respiratory Rate 18 16 Blood Pressure 105/58 L Pulse Oximetry 99 GENERAL: A&O x 3 SKIN: Warm and dry. HEAD: Normocephalic. EYES: No scleral icterus. No injection or drainage. NECK: Supple, trachea midline. No JVD or lymphadenopathy. CARDIOVASCULAR: Regular rate and rhythm without murmurs, gallops, or rubs. RESPIRATORY:some crackles left base , some scattered rhonchi y. No accessory muscle use. GASTROINTESTINAL: Abdomen soft, non-tender, nondistended. MUSCULOSKELETAL: No cyanosis, or edema. BACK: Nontender without obvious deformity. No CVA tenderness. Labs: Laboratory Results - last 12 hr 09/28/18 09/28/18 09/28/18 04:37 04:37 08:14 WBC 7.2 RBC 4.47 L Hgb 12.2 L Hct 37.6 L MCV 84.3 MCH 27.3 MCHC 32.4 RDW 16.3 Plt Count 285 MPV 7.5 Neut % (Auto) 69.9 Lymph % (Auto) 14.2 [place] % (Auto) 10.7 H Eos % (Auto) 4.5 H Baso % (Auto) 0.7 Neut # (Auto) 5.0 Lymph # (Auto) 1.0 [place] # (Auto) 0.8 Eos # (Auto) 0.3 Baso # (Auto) 0.1 WBC Differential . Differential Comment Auto diff final Sodium 141 Potassium 4.0 Chloride 106 Carbon Dioxide 27.9 Anion Gap 7 BUN 68 H Creatinine 3.23 H Estimated GFR 19 L POC Glucose 133 H Random Glucose 112 H D Calcium 8.5 09/28/18 11:36 WBC RBC Hgb Hct MCV MCH MCHC RDW Plt Count MPV Neut % (Auto) Lymph % (Auto) [place] % (Auto) Eos % (Auto) Baso % (Auto) Neut # (Auto) Lymph # (Auto) [place] # (Auto) Eos # (Auto) Baso # (Auto) WBC Differential Differential Comment Sodium Potassium Chloride Carbon Dioxide Anion Gap BUN Creatinine Estimated GFR POC Glucose 239 H Random Glucose Calcium Result Diagrams: 09/28/18 04:37 09/28/18 04:37 - Plan (1) Acute respiratory failure with hypoxia Plan: improving, post thoracentesis no growth in pleural fluid to date Echo: The left ventricular systolic function is severely reduced with an estimated ejection fraction in the range of 25-30%. ( was 35-40% post re-vascularization) Mild concentric left ventricular hypertrophy. Mildly dilated left ventricle. There is global left ventricular dysfunction. Avdq-ra-[id number] mitral valve regurgitation. Possible severe with low flow/low gradient (Vmax 2.3, peak grad 21, mean grad 12, ZAN 0.9, SVI 17). There is mild tricuspid valve regurgitation. There is estimated moderate pulmonary hypertension present (range 50-60 mmHg). Bilateral pleural effusion is present. (4) CHF (congestive heart failure) (4) CHF (congestive heart failure) Qualifiers: Heart failure type: unspecified Heart failure chronicity: acute on chronic Qualified Code(s): I50.9 - Heart failure, unspecified
--- NOTE | 2018-09-28 20:01 | P.PNPL ---
Subjective Interval history: 78 YOWM with CHF,CMP,Pl effusion breathing better On NC No SOB Physical Exam Vital signs: Vital Signs 09/27/18 20:00 09/27/18 20:44 09/27/18 21:00 Temperature 98.4 F Pulse Rate 71 73 72 Respiratory Rate 18 18 Blood Pressure 114/61 Pulse Oximetry 96 97 09/27/18 22:00 09/27/18 23:00 09/28/18 00:00 Temperature Pulse Rate 68 64 71 Respiratory Rate Blood Pressure Pulse Oximetry 96 09/28/18 00:35 09/28/18 01:00 09/28/18 02:00 Temperature 98.6 F Pulse Rate 71 71 68 Respiratory Rate 18 Blood Pressure 115/61 Pulse Oximetry 96 09/28/18 03:00 09/28/18 04:00 09/28/18 04:38 Temperature 98.6 F Pulse Rate 77 71 80 Respiratory Rate 18 18 Blood Pressure 107/65 Pulse Oximetry 96 96 09/28/18 05:00 09/28/18 06:00 09/28/18 07:00 Temperature Pulse Rate 73 73 78 Respiratory Rate Blood Pressure Pulse Oximetry 09/28/18 08:00 09/28/18 08:09 09/28/18 08:12 Temperature 97.7 F Pulse Rate 74 76 Respiratory Rate 16 18 Blood Pressure 129/66 Pulse Oximetry 95 95 09/28/18 09:00 09/28/18 10:00 09/28/18 11:00 Temperature Pulse Rate 72 77 63 Respiratory Rate Blood Pressure Pulse Oximetry 09/28/18 11:04 09/28/18 12:00 09/28/18 13:00 Temperature 97.8 F Pulse Rate 68 61 65 Respiratory Rate 18 16 Blood Pressure 105/58 L Pulse Oximetry 99 09/28/18 14:00 09/28/18 15:00 09/28/18 15:51 Temperature Pulse Rate 63 66 73 Respiratory Rate 18 Blood Pressure Pulse Oximetry 95 09/28/18 16:00 09/28/18 17:00 09/28/18 18:00 Temperature 98.1 F Pulse Rate 78 90 73 Respiratory Rate 14 Blood Pressure 136/67 Pulse Oximetry 94 L 09/28/18 19:56 09/28/18 19:57 Temperature Pulse Rate 77 Respiratory Rate 18 Blood Pressure Pulse Oximetry 95 Intake & Output 09/28/18 09/28/18 09/29/18 06:59 18:59 06:59 Intake Total 420 / 420 1170 / 1170 Output Total 1600 / 1600 900 / 900 Balance -1180 / -1180 270 / 270 Weight 82.5 kg Intake: Oral 420 / 420 1170 / 1170 Output: Urine 1600 / 1600 900 / 900 GENERAL: WBWN WM, NAD SKIN: Warm and dry. HEAD: Normocephalic. EYES: No scleral icterus. No injection or drainage. NECK: Supple, trachea midline. No JVD or lymphadenopathy. CARDIOVASCULAR: Regular rate and rhythm without murmurs, gallops, or rubs. RESPIRATORY: Breath sounds equal bilaterally. No accessory muscle use. GASTROINTESTINAL: Abdomen soft, non-tender, nondistended. MUSCULOSKELETAL: No cyanosis, or edema. BACK: Nontender without obvious deformity. No CVA tenderness. Assessment and Plan - Plan IMPRESSION: Bilat Pleural effusion CHF CMP Pleural Placques PLAN: Supplement 02 Diurease IR consulted for TC
[2018-09-29] MEDS: Insulin NovoLOG Aspart Correctional Sugar Inj SQ SCH ×5 (00:23→21:04)
--- NOTE | 2018-09-29 00:44 | MB ---
cc: Robb Malhotra DO DATE: 09/28/2018 REASON FOR CONSULTATION: Congestive heart failure. HISTORY OF PRESENT ILLNESS: Wyatt Andrews is a pleasant 78-year-old male, whom I see in the office, presented to [facility] due to shortness of breath and acute mental status change. Since that time, he has undergone thoracentesis with drainage of 1800 mL from the left thoracentesis. His daughter is at the bedside and discussing with her, apparently she was supposed to meet him at the primary care physician and he did not show up. When she went to find him, he was lying in bed and having some hallucination. Apparently, his mental status and activity level had been declining over the past few days. He currently lives alone and controls with medication, but she notes that there are days where he has not been taking his medications. At this time, he is sitting up in the chair and denies chest pain or shortness of breath. PAST MEDICAL HISTORY: 1. Coronary artery disease with history of myocardial infarction. 2. Anxiety. 3. Hyperlipidemia. 4. Hypertension. 5. Chronic kidney disease, stage IV. 6. Seizures. 7. Chronic systolic heart failure 8. Atrial fibrillation. PAST SURGICAL HISTORY: 1. Cardiac catheterization (03/21/2018) with multivessel disease. 2. CABG x4 (03/24/2018) with VERDUGO to LAD, saphenous vein graft to PDA, saphenous vein graft to obtuse marginal, saphenous vein graft to diagonal. ALLERGIES: NO KNOWN DRUG ALLERGIES. MEDICATIONS: 1. Lipitor 20 mg daily. 2. Levetiracetam 500 mg b.i.d. 3. Fenofibrate 50 mg daily. 4. Zoloft 100 mg daily. 5. Bumex 1 mg b.i.d. 6. Metoprolol tartrate 25 mg b.i.d. 7. Norvasc 10 mg daily. 8. Eliquis 2.5 mg b.i.d. 9. Ozempic subcutaneous weekly. FAMILY HISTORY: Denies sudden cardiac within the family. SOCIAL HISTORY: Denies current tobacco, alcohol or drug abuse. REVIEW OF SYSTEMS: Fourteen systems were reviewed including osteopathic. Pertinent positives and negatives above, otherwise negative. PHYSICAL EXAMINATION: VITAL SIGNS: Temperature 97.8, heart rate 61, blood pressure 105/58, respirations 16, pulse oximetry 99% on 3 liters. GENERAL: The patient appears well, in no acute distress. Alert, awake and oriented x3. HEENT: Extraocular muscles intact. Mucous membranes moist. NECK: Supple. No JVD at 45 degrees. No carotid bruits heard bilaterally. Carotid upstroke is brisk in nature. HEART: Regular rate and rhythm. Positive first and second heart sounds with a 2/6 crescendo/decrescendo murmur to the right sternal border. LUNGS: Have crackles noted bilaterally. ABDOMEN: Soft, nontender, nondistended. No organomegaly noted. EXTREMITIES: Show no clubbing, cyanosis or edema. Femoral and distal pulses intact bilaterally. NEUROLOGIC: No focal deficits. SKIN: Warm, dry and intact. OSTEOPATHIC: No kyphoscoliosis, lordosis or paraspinal tender points. LABORATORY DATA: Hemoglobin 12.2, hematocrit 37.6, platelets 285. Potassium 4.0, BUN 68, creatinine 3.23. Electrocardiogram (09/22/2018 at 14:42): Sinus rhythm, left atrial enlargement, left bundle branch block. IMPRESSIONS: 1. Acute on chronic systolic heart failure. 2. Atrial fibrillation. 3. Pleural effusion, status post thoracentesis removing 1800 mL. 4. Coronary artery disease with myocardial infarction, status post coronary artery bypass grafting, as above. RECOMMENDATIONS: 1. Mr. Andrews presented with acute on chronic systolic heart failure, status post thoracentesis removing 1800 mL. 2. We will continue to attempt to diurese him as possible, although this is difficult with his chronic kidney disease, stage IV. 3. Ultimately, discussing with his daughter, they will attempt to get him into assisted living as he has been missing his medications recently. 4. A 2D echo has been done and shows an ejection fraction of 25-30% with possible severe aortic stenosis, which is low flow, low gradient. 5. He will need to undergo a dobutamine echocardiogram for further evaluation of this to rule out pseudo stenosis due to the lowered ejection fraction. 6. I also believe that he would benefit from a biventricular ICD at some point, although this was previously held off as his ejection fraction had been better previously. 7. Further recommendations will be made based on the hospital course. Thank you for allowing me to see Wyatt Andrews. If there are any questions, please do not hesitate to call. DO LISA Rosales/sv/ , 11:00 PM , 11:12 PM
[2018-09-29 06:12] LABS: Baso % (Auto) 0.7 % (0.0-2.0); Eos # (Auto) 0.5 th/mm3 (0.0-0.4); Eos % (Auto) 7.2 % (0.0-4.0); Hematocrit 37.9 % (39.0-51.0); Hemoglobin 12.5 gm/dL (13.0-17.0); Lymph # (Auto) 0.9 th/mm3 (1.0-4.8); Lymph % (Auto) 13.1 % (9.0-44.0); Mean Corpuscular HGB Conc 33.1 % (32.0-36.0); Mean Corpuscular Hemoglobin 28.2 pg (27.0-34.0); Mean Corpuscular Volume 85.3 fL (80.0-100.0); Mean Platelet Volume 7.2 fL (7.0-11.0); Mono # (Auto) 0.7 th/mm3 (0.0-0.9); Mono % (Auto) 10.3 % (0.0-8.0); Neut # (Auto) 4.6 th/mm3 (1.8-7.7); Neut % (Auto) 68.7 % (16.0-70.0); Platelet Count 285 th/mm3 (150-450); Red Blood Count 4.44 mil/mm3 (4.50-5.90); Red Cell Distribution Width 16.2 % (11.6-17.2); White Blood Count 6.6 th/mm3 (4.0-11.0)
[2018-09-29 06:27] LABS: Calcium 8.9 mg/dL (8.5-10.1); Carbon Dioxide 28.4 meq/L (21.0-32.0); Potassium 4.2 meq/L (3.5-5.1)
[2018-09-29] MEDS: Fenofibrate 48 MG Tablet PO SCH (08:33)
[2018-09-29] MEDS: Senna/Docusate Sodium 8.6/50 MG Tablet PO SCH ×2 (08:33→20:49)
[2018-09-29] MEDS: Metoprolol Tartrate 25 MG Tablet PO SCH ×2 (08:33→20:49)
[2018-09-29] MEDS: Sertraline 100 MG Tablet PO SCH (08:33)
[2018-09-29] MEDS: Lisinopril 5 MG Tablet PO SCH (08:33)
[2018-09-29] MEDS: amLODIPine 10 MG Tablet PO SCH (08:33)
[2018-09-29] MEDS: levETIRAcetam 500 MG Tablet PO SCH ×2 (08:33→20:49)
--- NOTE | 2018-09-29 10:06 | P.PNIM ---
Subjective Interval history: Follow-up for dyspnea, left-sided pleural effusion. Patient denies any chest pain, shortness of breath, fever or chills. He is comfortable sitting in his chair. Daughter is at bedside. Physical Exam Vital signs: Vital Signs 09/28/18 11:00 09/28/18 11:04 09/28/18 12:00 Temperature 97.8 F Pulse Rate 63 68 61 Respiratory Rate 18 16 Blood Pressure 105/58 L Pulse Oximetry 99 09/28/18 13:00 09/28/18 14:00 09/28/18 15:00 Temperature Pulse Rate 65 63 66 Respiratory Rate Blood Pressure Pulse Oximetry 09/28/18 15:51 09/28/18 16:00 09/28/18 17:00 Temperature 98.1 F Pulse Rate 73 78 90 Respiratory Rate 18 14 Blood Pressure 136/67 Pulse Oximetry 95 94 L 09/28/18 18:00 09/28/18 19:00 09/28/18 19:56 Temperature Pulse Rate 73 69 77 Respiratory Rate 18 Blood Pressure Pulse Oximetry 09/28/18 19:57 09/28/18 20:00 09/28/18 21:00 Temperature 97.7 F Pulse Rate 72 88 Respiratory Rate 14 Blood Pressure 134/71 Pulse Oximetry 95 97 09/28/18 22:00 09/28/18 23:00 09/29/18 00:00 Temperature 97.7 F Pulse Rate 74 68 64 Respiratory Rate 14 Blood Pressure 118/71 Pulse Oximetry 98 09/29/18 01:00 09/29/18 01:04 09/29/18 02:00 Temperature Pulse Rate 62 73 70 Respiratory Rate 18 Blood Pressure Pulse Oximetry 09/29/18 03:00 09/29/18 04:00 09/29/18 05:00 Temperature 97.5 F L Pulse Rate 100 H 68 72 Respiratory Rate 14 Blood Pressure 153/78 H Pulse Oximetry 98 09/29/18 05:05 09/29/18 06:00 09/29/18 07:00 Temperature Pulse Rate 73 86 66 Respiratory Rate 18 16 Blood Pressure Pulse Oximetry 09/29/18 07:49 09/29/18 08:00 09/29/18 09:00 Temperature 97.5 F L Pulse Rate 81 102 H 72 Respiratory Rate 16 Blood Pressure 127/61 Pulse Oximetry 95 Intake & Output 09/28/18 09/29/18 09/29/18 18:59 06:59 18:59 Intake Total 1170 / 1170 240 / 240 Output Total 900 / 900 625 / 625 Balance 270 / 270 -385 / -385 Weight 81 kg Intake: Oral 1170 / 1170 240 / 240 Output: Urine 900 / 900 625 / 625 Narrative: GENERAL: Well-nourished, well-developed patient. SKIN: Warm and dry. HEAD: Normocephalic. EYES: No scleral icterus. No injection or drainage. NECK: Supple, trachea midline. No JVD or lymphadenopathy. CARDIOVASCULAR: Regular rate and rhythm without murmurs, gallops, or rubs. RESPIRATORY: Moderate air entry, no wheezing noted. No accessory muscle use. Bibasilar crackles noted. GASTROINTESTINAL: Abdomen soft, non-tender, nondistended. MUSCULOSKELETAL: No cyanosis. Trace edema. BACK: Nontender without obvious deformity. No CVA tenderness. Results Labs CBC & Chem 7: 09/29/18 05:29 09/29/18 05:29 Labs: Microbiology 09/25/18 10:00 Fluid - Pleural fluid Acid Fast Bacilli Smear - Final No acid fast bacilli seen 09/26/18 16:53 Blood - Peripheral Aerobic Blood Culture - Preliminary No growth in 2 days 09/26/18 16:53 Blood - Peripheral Anaerobic Blood Culture - Preliminary No growth in 2 days 09/26/18 16:58 Blood - Peripheral Aerobic Blood Culture - Preliminary No growth in 2 days 09/26/18 16:58 Blood - Peripheral Anaerobic Blood Culture - Preliminary No growth in 2 days 09/25/18 10:00 Fluid - Pleural fluid Gram Stain - Final 09/25/18 10:00 Fluid - Pleural fluid Body Fluid Culture - Final No growth in 72 hours (aerobically and anaerobically ) Assessment and Plan (1) Acute respiratory failure with hypoxia: Code(s): J96.01 - Acute respiratory failure with hypoxia Status: Acute (2) Stage 4 chronic kidney disease: Code(s): N18.4 - Chronic kidney disease, stage 4 (severe) Status: Chronic (3) S/P CABG x 3: Code(s): Z95.1 - Presence of aortocoronary bypass graft Status: Acute (4) CHF (congestive heart failure): Code(s): I50.9 - Heart failure, unspecified Status: Acute (5) Pleural effusion: Code(s): J90 - Pleural effusion, not elsewhere classified Status: Acute Plan Mr. Andrews is a pleasant 78 yo M with h/o CAD, HTN, CKD IV, CHF EF 25-30% presented with shortness of breath and worsening LE edema. Acute Exacerbation of Chronic Systolic CHF s/p CABG 03/2018 Left sided pleural effusion -s/p Thoracentesis on 09/25/2018, 1800cc of fluid taken off. -EF 25-30%. Echo ordered on 09/27/2018 --> Possible severe with low flow/low gradient. Cardiology ordered echo stress test to rule out pseudo-stenosis Continue bumetanide 1 mg IV twice daily. Continue lisinopril 2.5 mg p.o. daily. Discussed with Dr. Christine who recommended holding off any thoracentesis since patient is doing well on 2-3 L of oxygen via nasal cannula and chest x-ray shows improvements of pleural effusion. Atrial fibrillation Hyperlipidemia Hypertension Continue amlodipine 10 mg p.o. daily, lisinopril 2.5 mg p.o. daily Currently on metoprolol tartrate 25 mg twice daily. Atorvastatin 20 mg p.o. daily Also on apixaban 2.5 mg p.o. twice daily. Currently on hold due to anticipated thoracentesis. Stage IV chronic kidney disease Creatinine around baseline 3.2. Creatinine improved to 2.86 today. Outpatient nephrology follow-up. Anxiety - continue Sertraline. Seizures: on Levetiracetam 500 mg bid Full code. Apixaban (Currently on hold). Progress Note: Quality VTE Deep Vein Thrombosis/Pulmonary Embolism Present on Admission: No _ (1) CHF (congestive heart failure) Qualifiers: Heart failure chronicity: acute on chronic Heart failure type: unspecified Qualified Code(s): I50.9 - Heart failure, unspecified
--- NOTE | 2018-09-29 14:35 | P.PNCV ---
- Note Subjective/Hospital Course: 78 y/o male s/p CABG in ~03/2018 presents with left pleural effusion and dyspnea. He also presented with creatinine of 4 which is higher than his baseline of ~3. He has undergone thoracentesis with reaccumulation. 09/28 pt underwent thoracentesis on 09/25 drained 1800cc CXR today with some improvement, now on 2 liter nasal cannula still has some left basilar crackles feels better. Will review chest xray with Dr Justina Brar on hold for now 09/29 pt on 2 liters 02 feels a little better echo showed severe with ZAN 0.9% pending dobutamine stress echo to eval rule out pseudo-stenosis Dr Malhotra following will see prn , please reconsult if needed Objective: Vital Signs - 24 hr 09/28/18 15:00 09/28/18 15:51 09/28/18 16:00 Temperature 98.1 F Pulse Rate 66 73 78 Respiratory Rate 18 14 Blood Pressure 136/67 Pulse Oximetry 95 94 L 09/28/18 17:00 09/28/18 18:00 09/28/18 19:00 Temperature Pulse Rate 90 73 69 Respiratory Rate Blood Pressure Pulse Oximetry 09/28/18 19:56 09/28/18 19:57 09/28/18 20:00 Temperature 97.7 F Pulse Rate 77 72 Respiratory Rate 18 14 Blood Pressure 134/71 Pulse Oximetry 95 97 09/28/18 21:00 09/28/18 22:00 09/28/18 23:00 Temperature Pulse Rate 88 74 68 Respiratory Rate Blood Pressure Pulse Oximetry 09/29/18 00:00 09/29/18 01:00 09/29/18 01:04 Temperature 97.7 F Pulse Rate 64 62 73 Respiratory Rate 14 18 Blood Pressure 118/71 Pulse Oximetry 98 09/29/18 02:00 09/29/18 03:00 09/29/18 04:00 Temperature 97.5 F L Pulse Rate 70 100 H 68 Respiratory Rate 14 Blood Pressure 153/78 H Pulse Oximetry 98 09/29/18 05:00 09/29/18 05:05 09/29/18 06:00 Temperature Pulse Rate 72 73 86 Respiratory Rate 18 Blood Pressure Pulse Oximetry 09/29/18 07:00 09/29/18 07:49 09/29/18 08:00 Temperature 97.5 F L Pulse Rate 66 81 102 H Respiratory Rate 16 16 Blood Pressure 127/61 Pulse Oximetry 95 09/29/18 09:00 09/29/18 10:00 09/29/18 11:00 Temperature Pulse Rate 72 74 64 Respiratory Rate 16 Blood Pressure Pulse Oximetry 09/29/18 11:26 09/29/18 11:47 09/29/18 12:00 Temperature 97.9 F Pulse Rate 67 75 67 Respiratory Rate 18 17 Blood Pressure 116/63 Pulse Oximetry 94 L 98 09/29/18 13:00 Temperature Pulse Rate 63 Respiratory Rate Blood Pressure Pulse Oximetry GENERAL: A&O x 3 SKIN: Warm and dry. HEAD: Normocephalic. EYES: No scleral icterus. No injection or drainage. NECK: Supple, trachea midline. No JVD or lymphadenopathy. CARDIOVASCULAR: Regular rate and rhythm without murmurs, gallops, or rubs. RESPIRATORY: Breath sounds equal bilaterally. No accessory muscle use. few crackles in bases GASTROINTESTINAL: Abdomen soft, non-tender, nondistended. MUSCULOSKELETAL: No cyanosis, or edema. BACK: Nontender without obvious deformity. No CVA tenderness. Labs: Laboratory Results - last 12 hr 09/29/18 09/29/18 09/29/18 05:29 05:29 07:39 WBC 6.6 RBC 4.44 L Hgb 12.5 L Hct 37.9 L MCV 85.3 MCH 28.2 MCHC 33.1 RDW 16.2 Plt Count 285 MPV 7.2 Neut % (Auto) 68.7 Lymph % (Auto) 13.1 [place] % (Auto) 10.3 H Eos % (Auto) 7.2 H Baso % (Auto) 0.7 Neut # (Auto) 4.6 Lymph # (Auto) 0.9 L [place] # (Auto) 0.7 Eos # (Auto) 0.5 H Baso # (Auto) 0.0 WBC Differential . Differential Comment Auto diff final Sodium 142 Potassium 4.2 Chloride 106 Carbon Dioxide 28.4 Anion Gap 8 BUN 61 H Creatinine 2.86 H Estimated GFR 21 L POC Glucose 134 H Random Glucose 136 H Calcium 8.9 09/29/18 11:15 WBC RBC Hgb Hct MCV MCH MCHC RDW Plt Count MPV Neut % (Auto) Lymph % (Auto) [place] % (Auto) Eos % (Auto) Baso % (Auto) Neut # (Auto) Lymph # (Auto) [place] # (Auto) Eos # (Auto) Baso # (Auto) WBC Differential Differential Comment Sodium Potassium Chloride Carbon Dioxide Anion Gap BUN Creatinine Estimated GFR POC Glucose 223 H Random Glucose Calcium Result Diagrams: 09/29/18 05:29 09/29/18 05:29 - Plan (1) Acute respiratory failure with hypoxia Plan: improving, post thoracentesis no growth in pleural fluid to date Echo: The left ventricular systolic function is severely reduced with an estimated ejection fraction in the range of 25-30%. ( was 35-40% post re-vascularization) Mild concentric left ventricular hypertrophy. Mildly dilated left ventricle. There is global left ventricular dysfunction. [id number] mitral valve regurgitation. Possible severe with low flow/low gradient (Vmax 2.3, peak grad 21, mean grad 12, ZAN 0.9, SVI 17). There is mild tricuspid valve regurgitation. There is estimated moderate pulmonary hypertension present (range 50-60 mmHg). Bilateral pleural effusion is present. Dr Malhotra following, will see prn (4) CHF (congestive heart failure) (4) CHF (congestive heart failure) Qualifiers: Heart failure type: unspecified Heart failure chronicity: acute on chronic Qualified Code(s): I50.9 - Heart failure, unspecified
--- NOTE | 2018-09-29 19:46 | P.PNPL ---
Subjective Interval history: 78 YOWM with CHF,CMP,Pl effusion breathing better On NC No SOB Seen by Cardiology Echo severe Up in chair, denies sob Physical Exam Vital signs: Vital Signs 09/28/18 19:56 09/28/18 19:57 09/28/18 20:00 Temperature 97.7 F Pulse Rate 77 72 Respiratory Rate 18 14 Blood Pressure 134/71 Pulse Oximetry 95 97 09/28/18 21:00 09/28/18 22:00 09/28/18 23:00 Temperature Pulse Rate 88 74 68 Respiratory Rate Blood Pressure Pulse Oximetry 09/29/18 00:00 09/29/18 01:00 09/29/18 01:04 Temperature 97.7 F Pulse Rate 64 62 73 Respiratory Rate 14 18 Blood Pressure 118/71 Pulse Oximetry 98 09/29/18 02:00 09/29/18 03:00 09/29/18 04:00 Temperature 97.5 F L Pulse Rate 70 100 H 68 Respiratory Rate 14 Blood Pressure 153/78 H Pulse Oximetry 98 09/29/18 05:00 09/29/18 05:05 09/29/18 06:00 Temperature Pulse Rate 72 73 86 Respiratory Rate 18 Blood Pressure Pulse Oximetry 09/29/18 07:00 09/29/18 07:49 09/29/18 08:00 Temperature 97.5 F L Pulse Rate 66 81 102 H Respiratory Rate 16 16 Blood Pressure 127/61 Pulse Oximetry 95 09/29/18 09:00 09/29/18 10:00 09/29/18 11:00 Temperature Pulse Rate 72 74 64 Respiratory Rate 16 Blood Pressure Pulse Oximetry 09/29/18 11:26 09/29/18 11:47 09/29/18 12:00 Temperature 97.9 F Pulse Rate 67 75 67 Respiratory Rate 18 17 Blood Pressure 116/63 Pulse Oximetry 94 L 98 09/29/18 13:00 09/29/18 14:00 09/29/18 15:00 Temperature Pulse Rate 63 71 67 Respiratory Rate Blood Pressure Pulse Oximetry 09/29/18 15:18 09/29/18 15:33 09/29/18 16:00 Temperature 98 F Pulse Rate 95 H 72 72 Respiratory Rate 20 18 Blood Pressure 123/66 Pulse Oximetry 97 92 L 09/29/18 17:00 09/29/18 18:00 Temperature Pulse Rate 74 78 Respiratory Rate Blood Pressure Pulse Oximetry Intake & Output 09/29/18 09/29/18 09/30/18 06:59 18:59 06:59 Intake Total 240 / 240 1050 / 1050 Output Total 625 / 625 575 / 575 Balance -385 / -385 475 / 475 Weight 81 kg Intake: Oral 240 / 240 1050 / 1050 Output: Urine 625 / 625 575 / 575 GENERAL: WBWn NAD SKIN: Warm and dry. HEAD: Normocephalic. EYES: No scleral icterus. No injection or drainage. NECK: Supple, trachea midline. No JVD or lymphadenopathy. CARDIOVASCULAR: Regular rate and rhythm without murmurs, gallops, or rubs. RESPIRATORY: Breath sounds equal bilaterally. No accessory muscle use. GASTROINTESTINAL: Abdomen soft, non-tender, nondistended. MUSCULOSKELETAL: No cyanosis, or edema. BACK: Nontender without obvious deformity. No CVA tenderness. Assessment and Plan - Plan IMPRESSION: Bilat Pleural effusion CHF CMP Pleural Placques PLAN: Supplement 02 Diurease Pleural effusion small Will monitor and worthy TC for now DW pt and family at
--- NOTE | 2018-09-29 23:31 | P.PNCA ---
Subjective Interval history: No events overnight Up to the chair with no complaints Medications and Allergies Active Medications: Active Medications Acetaminophen (Tylenol) 650 mg PO Q4H PRN PRN Reason: Temp > 100.4 Al Hydroxide/Mg Hydroxide (Milk Of Magnesia Liq) 30 ml PO Q12H PRN PRN Reason: Mild Constipation Albuterol (Duoneb Neb (Prn)) 1 ampul NEB Q2HR NEB PRN PRN Reason: sob Last Admin: 09/25/18 22:47 Dose: 1 ampul Albuterol (Duoneb Neb (Vianney)) 1 ampul NEB Q4HR NEB [facility] Last Admin: 09/29/18 20:58 Dose: 1 ampul Amlodipine Besylate (Norvasc) 10 mg PO DAILY [facility] Last Admin: 09/29/18 08:33 Dose: 10 mg Apixaban (Eliquis) 2.5 mg PO BID [facility] Last Admin: 09/28/18 14:48 Dose: Not Given Atorvastatin Calcium (Lipitor) 20 mg PO DAILY [facility] Last Admin: 09/29/18 08:33 Dose: 20 mg Bisacodyl (Dulcolax Supp) 10 mg RECTAL DAILY PRN PRN Reason: SEVERE CONSITIPATION Bumetanide (Bumex Inj) 1 mg IV.PUSH BID@0900,1800 [facility] Last Admin: 09/29/18 17:25 Dose: 1 mg Dextrose (D50w Vial) 50 ml IV.PUSH UNSCH PRN PRN Reason: PER HYPOGLYCEMIA PROTOCOL Fenofibrate (Tricor) 48 mg PO DAILY [facility] Last Admin: 09/29/18 08:33 Dose: 48 mg Glucagon (Glucagon Inj) 1 mg OTHER PRN PRN PRN Reason: for Hypoglycemia Protocol Insulin Aspart (Novolog Insulin Correctional Sugar Inj) 0 unit SQ [facility]; Protocol Last Admin: 09/29/18 21:04 Dose: 1 unit Lactulose (Lactulose Liq) 30 ml PO DAILY PRN PRN Reason: SEVERE CONSITIPATION Levetiracetam (Keppra) 500 mg PO BID [facility] Last Admin: 09/29/18 20:49 Dose: 500 mg Lisinopril (Prinivil) 2.5 mg PO DAILY [facility] Last Admin: 09/29/18 08:33 Dose: 2.5 mg Metoprolol Tartrate (Lopressor) 25 mg PO BID [facility] Last Admin: 09/29/18 20:49 Dose: 25 mg Miscellaneous (Pill Splitter) 1 each OTHER UNSCH PRN PRN Reason: SEE LABEL COMMENTS Ondansetron HCl (Zofran Inj) 4 mg IV.PUSH Q6H PRN PRN Reason: NAUSEA OR VOMITING Senna/Docusate Sodium (Gely-Colace) 1 tab PO BID [facility] Last Admin: 09/29/18 20:49 Dose: Not Given Sennosides (Senokot) 17.2 mg PO Q12H PRN PRN Reason: Moderate Constipation Sertraline HCl (Zoloft) 100 mg PO DAILY [facility] Last Admin: 09/29/18 08:33 Dose: 100 mg Sodium Chloride (Ns Flush) 2 ml IV.FLUSH PRN PRN PRN Reason: FLUSH AFTER USING IV ACCESS Sodium Chloride (Ns Flush) 2 ml IV.FLUSH BID [facility] Last Admin: 09/29/18 20:50 Dose: 2 ml Allergies Allergy/AdvReac Type Severity Reaction Status Date / Time No Known Allergies Allergy Verified 09/22/18 11:52 Home Medications Medication Instructions Recorded Confirmed Type atorvastatin 20 mg PO DAILY 03/20/18 09/22/18 History fenofibrate 50 mg PO DAILY 05/23/18 09/22/18 History levetiracetam 500 mg PO BID 05/23/18 09/22/18 History sertraline 100 mg PO DAILY 05/23/18 09/22/18 History semaglutide [Ozempic] 1 mg SUBCUT QWEEK 09/22/18 09/22/18 History Physical Exam Vital signs: Vital Signs 09/29/18 00:00 09/29/18 01:00 09/29/18 01:04 Temperature 97.7 F Pulse Rate 64 62 73 Respiratory Rate 14 18 Blood Pressure 118/71 Pulse Oximetry 98 09/29/18 02:00 09/29/18 03:00 09/29/18 04:00 Temperature 97.5 F L Pulse Rate 70 100 H 68 Respiratory Rate 14 Blood Pressure 153/78 H Pulse Oximetry 98 09/29/18 05:00 09/29/18 05:05 09/29/18 06:00 Temperature Pulse Rate 72 73 86 Respiratory Rate 18 Blood Pressure Pulse Oximetry 09/29/18 07:00 09/29/18 07:49 09/29/18 08:00 Temperature 97.5 F L Pulse Rate 66 81 102 H Respiratory Rate 16 16 Blood Pressure 127/61 Pulse Oximetry 95 09/29/18 09:00 09/29/18 10:00 09/29/18 11:00 Temperature Pulse Rate 72 74 64 Respiratory Rate 16 Blood Pressure Pulse Oximetry 09/29/18 11:26 09/29/18 11:47 09/29/18 12:00 Temperature 97.9 F Pulse Rate 67 75 67 Respiratory Rate 18 17 Blood Pressure 116/63 Pulse Oximetry 94 L 98 09/29/18 13:00 09/29/18 14:00 09/29/18 15:00 Temperature Pulse Rate 63 71 67 Respiratory Rate Blood Pressure Pulse Oximetry 09/29/18 15:18 09/29/18 15:33 09/29/18 16:00 Temperature 98 F Pulse Rate 95 H 72 72 Respiratory Rate 20 18 Blood Pressure 123/66 Pulse Oximetry 97 92 L 09/29/18 17:00 09/29/18 18:00 09/29/18 20:59 Temperature Pulse Rate 74 78 83 Respiratory Rate 16 Blood Pressure Pulse Oximetry Intake & Output 09/29/18 09/29/18 09/30/18 06:59 18:59 06:59 Intake Total 240 / 240 1050 / 1050 Output Total 625 / 625 575 / 575 Balance -385 / -385 475 / 475 Weight 81 kg Intake: Oral 240 / 240 1050 / 1050 Output: Urine 625 / 625 575 / 575 Narrative: GENERAL: NAD, AAOx3 SKIN: Warm and dry. HEAD: Atraumatic. Normocephalic. EYES: Pupils equal and round. No scleral icterus. No injection or drainage. ENT: No nasal bleeding or discharge. Mucous membranes pink and moist. NECK: Trachea midline. No JVD. CARDIOVASCULAR: Regular rate and rhythm. 2/6 crescendo-decrescendo systolic murmur to the RSB RESPIRATORY: No accessory muscle use. Decreased breath sounds at the bases GASTROINTESTINAL: Abdomen soft, non-tender, nondistended. Hepatic and splenic margins not palpable. MUSCULOSKELETAL: Extremities without clubbing, cyanosis, or edema. No obvious deformities. NEUROLOGICAL: Awake and alert. No obvious cranial nerve deficits. Motor grossly within normal limits. Five out of 5 muscle strength in the arms and legs. Normal speech. PSYCHIATRIC: Appropriate mood and affect; insight and judgment normal. Results 09/29/18 05:29 09/29/18 05:29 CBC 09/28/18 09/29/18 Range/Units 04:37 05:29 WBC 7.2 6.6 (4.0-11.0) th/mm3 RBC 4.47 L 4.44 L (4.50-5.90) mil/mm3 Hgb 12.2 L 12.5 L (13.0-17.0) gm/dL Hct 37.6 L 37.9 L (39.0-51.0) % Plt Count 285 285 (150-450) th/mm3 Neut # (Auto) 5.0 4.6 (1.8-7.7) th/mm3 Lymph # (Auto) 1.0 0.9 L (1.0-4.8) th/mm3 [place] # (Auto) 0.8 0.7 (0.0-0.9) th/mm3 Eos # (Auto) 0.3 0.5 H (0.0-0.4) th/mm3 Baso # (Auto) 0.1 0.0 (0.0-0.2) th/mm3 Comprehensive Metabolic Panel 09/28/18 09/29/18 Range/Units 04:37 05:29 Sodium 141 142 (136-145) meq/L Potassium 4.0 4.2 (3.5-5.1) meq/L Chloride 106 106 (98-107) meq/L Carbon Dioxide 27.9 28.4 (21.0-32.0) meq/L BUN 68 H 61 H (7-18) mg/dL Creatinine 3.23 H 2.86 H (0.60-1.30) mg/dL Calcium 8.5 8.9 (8.5-10.1) mg/dL Intake and Output 09/29/18 09/29/18 09/30/18 14:59 22:59 06:59 Intake Total 1050 / 1050 Output Total 575 / 575 Balance 475 / 475 Intake: Oral 1050 / 1050 Output: Urine 575 / 575 - Imaging and Cardiology Imaging: Impressions Chest X-Ray 09/28/18 00:00 CONCLUSION: 1. Left basilar airspace disease/effusion appears to show some interval improvement when compared to prior. 2. Stable bilateral pleural plaques. Assessment and Plan - Assessment (1) Acute respiratory failure with hypoxia Code(s): J96.01 - Acute respiratory failure with hypoxia Status: Acute (2) CAD (coronary artery disease) Code(s): I25.10 - Atherosclerotic heart disease of [place] coronary artery without angina pectoris Status: Acute (3) Stage 4 chronic kidney disease Code(s): N18.4 - Chronic kidney disease, stage 4 (severe) Status: Chronic (4) S/P CABG x 3 Code(s): Z95.1 - Presence of aortocoronary bypass graft Status: Acute - Plan 1. Acute on chronic systolic heart failure. Diuresed well Pleural effusion s/p thoracentesis with 1.8L removed 2. Atrial fibrillation. Con't on Eliquis 3. Pleural effusion, status post thoracentesis removing 1800 mL. 4. Coronary artery disease with myocardial infarction, status post coronary artery bypass grafting 5. CKD 4 6. EF 25-30% with possible severe , low flow-low gradient Plan on dobutamine echo tomorrow to evaluate for severe vs pseudo Eventual BiV-ICD depending on course 7. Eventual assisted living to help with his medications as he misses doses of meds
[2018-09-30 05:59] LABS: Carbon Dioxide 28.1 meq/L (21.0-32.0)
[2018-09-30] MEDS: Insulin NovoLOG Aspart Correctional Sugar Inj SQ SCH ×3 (08:33→17:32)
[2018-09-30] MEDS: Lisinopril 5 MG Tablet PO SCH (08:35)
[2018-09-30] MEDS: amLODIPine 10 MG Tablet PO SCH (08:36)
[2018-09-30] MEDS: Fenofibrate 48 MG Tablet PO SCH (08:36)
[2018-09-30] MEDS: levETIRAcetam 500 MG Tablet PO SCH (08:36)
[2018-09-30] MEDS: Metoprolol Tartrate 25 MG Tablet PO SCH (08:36)
[2018-09-30] MEDS: Sertraline 100 MG Tablet PO SCH (08:36)
[2018-09-30] MEDS: Senna/Docusate Sodium 8.6/50 MG Tablet PO SCH (08:36)
[2018-09-30] MEDS ORDERED: DOBUTamine 250 MG/250 ML Premx 250 MG/250 ML BAG IV.CONT ONE (10:17)
--- NOTE | 2018-09-30 13:04 | P.PNIM ---
Physical Exam Vital signs: Vital Signs 09/29/18 14:00 09/29/18 15:00 09/29/18 15:18 Temperature 98 F Pulse Rate 71 67 95 H Respiratory Rate 20 Blood Pressure 123/66 Pulse Oximetry 97 09/29/18 15:33 09/29/18 16:00 09/29/18 17:00 Temperature Pulse Rate 72 72 74 Respiratory Rate 18 Blood Pressure Pulse Oximetry 92 L 09/29/18 18:00 09/29/18 19:00 09/29/18 20:00 Temperature 97.7 F Pulse Rate 78 73 74 Respiratory Rate 20 Blood Pressure 133/77 Pulse Oximetry 93 L 09/29/18 20:59 09/29/18 21:00 09/29/18 22:00 Temperature Pulse Rate 83 78 68 Respiratory Rate 16 Blood Pressure Pulse Oximetry 09/29/18 23:00 09/30/18 00:00 09/30/18 01:00 Temperature 98.3 F Pulse Rate 72 74 90 Respiratory Rate 20 Blood Pressure 124/72 Pulse Oximetry 92 L 09/30/18 02:00 09/30/18 03:00 09/30/18 04:00 Temperature 98.3 F Pulse Rate 86 88 70 Respiratory Rate 20 Blood Pressure 119/67 Pulse Oximetry 93 L 09/30/18 05:00 09/30/18 06:00 09/30/18 07:00 Temperature Pulse Rate 72 66 77 Respiratory Rate Blood Pressure Pulse Oximetry 09/30/18 07:30 09/30/18 07:40 09/30/18 08:00 Temperature 97.2 F L Pulse Rate 70 76 Respiratory Rate 22 16 Blood Pressure 129/70 Pulse Oximetry 92 L 92 L 09/30/18 12:00 Temperature Pulse Rate 72 Respiratory Rate 20 Blood Pressure 115/72 Pulse Oximetry 95 Intake & Output 09/29/18 09/30/18 09/30/18 18:59 06:59 18:59 Intake Total 1050 / 1050 240 / 240 Output Total 575 / 575 1225 / 1225 Balance 475 / 475 -985 / -985 Weight 82.4 kg Intake: Oral 1050 / 1050 240 / 240 Output: Urine 575 / 575 1225 / 1225 Other: Date of Last Bowel Movement 09/29/18 Results Labs CBC & Chem 7: 09/29/18 05:29 09/30/18 04:47 Labs: Microbiology 02/16/19 16:53 Blood - Peripheral Aerobic Blood Culture - Preliminary No growth in 4 days 09/26/18 16:53 Blood - Peripheral Anaerobic Blood Culture - Preliminary No growth in 4 days 09/26/18 16:58 Blood - Peripheral Aerobic Blood Culture - Preliminary No growth in 4 days 09/26/18 16:58 Blood - Peripheral Anaerobic Blood Culture - Preliminary No growth in 4 days Assessment and Plan (1) Acute respiratory failure with hypoxia: Code(s): J96.01 - Acute respiratory failure with hypoxia Status: Acute (2) CAD (coronary artery disease): Code(s): I25.10 - Atherosclerotic heart disease of [place] coronary artery without angina pectoris Status: Acute (3) Stage 4 chronic kidney disease: Code(s): N18.4 - Chronic kidney disease, stage 4 (severe) Status: Chronic (4) S/P CABG x 3: Code(s): Z95.1 - Presence of aortocoronary bypass graft Status: Acute Plan Mr. Andrews is a pleasant 78 yo M with h/o CAD, HTN, CKD IV, CHF EF 25-30% presented with shortness of breath and worsening LE edema. Acute Exacerbation of Chronic Systolic CHF s/p CABG 03/2018 Left sided pleural effusion -s/p Thoracentesis on 09/25/2018, 1800cc of fluid taken off. -EF 25-30%. Echo ordered on 09/27/2018 --> Possible severe with low flow/low gradient. Cardiology ordered echo stress test to rule out pseudo-stenosis Continue bumetanide 1 mg IV twice daily. Continue lisinopril 2.5 mg p.o. daily. Discussed with Dr. Christine who recommended holding off any thoracentesis since patient is doing well on 2-3 L of oxygen via nasal cannula and chest x-ray shows improvements of pleural effusion. Atrial fibrillation Hyperlipidemia Hypertension Continue amlodipine 10 mg p.o. daily, lisinopril 2.5 mg p.o. daily Currently on metoprolol tartrate 25 mg twice daily. Atorvastatin 20 mg p.o. daily Also on apixaban 2.5 mg p.o. twice daily. Currently on hold due to anticipated thoracentesis. Stage IV chronic kidney disease Creatinine around baseline 3.2. Creatinine improved to 2.86 today. Outpatient nephrology follow-up. Anxiety - continue Sertraline. Seizures: on Levetiracetam 500 mg bid Full code. Apixaban (Currently on hold). Progress Note: Quality VTE Deep Vein Thrombosis/Pulmonary Embolism Present on Admission: No _ (1) CAD (coronary artery disease) Qualifiers: Coronary Disease-Associated Artery/Lesion type: [place] vs. transplanted heart: Associated angina:
[2018-09-30 16:24] VITALS: BP 123/67; TEMP 96.8; O2SAT 97
[2018-09-30 16:50] VITALS: RESP 16
--- NOTE | 2018-09-30 17:49 | P.DCO ---
Diagnosis (1) Acute respiratory failure with hypoxia: Status: Acute (2) CAD (coronary artery disease): Status: Acute (3) Stage 4 chronic kidney disease: Status: Chronic (4) S/P CABG x 3: Status: Acute Physical Therapy Order: Evaluate and treat, Improve ambulation and Strength and gait training Home Health Nursing Order: Medical education, Signs/symptoms of disease process, CHF education and Nursing assessment with vital signs Case Management Consult Case Management Consult-Home Health: Yes I have seen patient Wyatt Andrews on 09/30/18. My clinical findings support the need for the requested home health care services because: Limited mobility due to disease progression, Patient has SOB, Deconditioned with increased weakness, Limited ability to care for self, Need for psychosocial assistance, High risk of falls and Infection with risk of complications I certify that my clinical findings support that this patient is homebound because: Impaired cognitive ability/safety, Unsteady gait/balance, Unsafe to leave home unassisted, Need for psychosocial assistance, Unable to use public transportation and Poor cardiac reserve _ (1) CAD (coronary artery disease) Qualifiers: Coronary Disease-Associated Artery/Lesion type: [place] vs. transplanted heart: Associated angina:
[2018-09-30 18:36] VITALS: PULSE 98
--- NOTE | 2018-09-30 18:53 | P.PNPL ---
Subjective Interval history: 78 YOWM with CHF,CMP,Pl effusion breathing better No SOB Echo severe Up in chair, denies sob Weaned to RA Daughter at ( works in CVICU OR, [facility]) Physical Exam Vital signs: Vital Signs 09/29/18 19:00 09/29/18 20:00 09/29/18 20:59 Temperature 97.7 F Pulse Rate 73 74 83 Respiratory Rate 20 16 Blood Pressure 133/77 Pulse Oximetry 93 L 09/29/18 21:00 09/29/18 22:00 09/29/18 23:00 Temperature Pulse Rate 78 68 72 Respiratory Rate Blood Pressure Pulse Oximetry 09/30/18 00:00 09/30/18 01:00 09/30/18 02:00 Temperature 98.3 F Pulse Rate 74 90 86 Respiratory Rate 20 Blood Pressure 124/72 Pulse Oximetry 92 L 09/30/18 03:00 09/30/18 04:00 09/30/18 05:00 Temperature 98.3 F Pulse Rate 88 70 72 Respiratory Rate 20 Blood Pressure 119/67 Pulse Oximetry 93 L 09/30/18 06:00 09/30/18 07:00 09/30/18 07:30 Temperature 97.2 F L Pulse Rate 66 77 70 Respiratory Rate 22 Blood Pressure 129/70 Pulse Oximetry 92 L 09/30/18 07:40 09/30/18 08:00 09/30/18 09:00 Temperature Pulse Rate 76 92 H 84 Respiratory Rate 16 Blood Pressure Pulse Oximetry 92 L 09/30/18 10:00 09/30/18 12:00 09/30/18 13:00 Temperature Pulse Rate 76 60 67 Respiratory Rate 20 Blood Pressure 115/72 Pulse Oximetry 95 09/30/18 14:00 09/30/18 15:00 09/30/18 16:00 Temperature 96.8 F L Pulse Rate 68 79 74 Respiratory Rate 19 Blood Pressure 123/67 Pulse Oximetry 97 09/30/18 17:00 09/30/18 18:00 Temperature Pulse Rate 95 H 98 H Respiratory Rate Blood Pressure Pulse Oximetry Intake & Output 09/29/18 09/30/18 09/30/18 18:59 06:59 18:59 Intake Total 1050 / 1050 240 / 240 Output Total 575 / 575 1225 / 1225 Balance 475 / 475 -985 / -985 Weight 82.4 kg Intake: Oral 1050 / 1050 240 / 240 Output: Urine 575 / 575 1225 / 1225 Other: Date of Last Bowel Movement 09/29/18 GENERAL: WBWN WM, NAD SKIN: Warm and dry. HEAD: Normocephalic. EYES: No scleral icterus. No injection or drainage. NECK: Supple, trachea midline. No JVD or lymphadenopathy. CARDIOVASCULAR: Regular rate and rhythm without murmurs, gallops, or rubs. RESPIRATORY: Breath sounds equal bilaterally. No accessory muscle use. Decreased BS left base GASTROINTESTINAL: Abdomen soft, non-tender, nondistended. MUSCULOSKELETAL: No cyanosis, or edema. BACK: Nontender without obvious deformity. No CVA tenderness. Assessment and Plan - Plan IMPRESSION: Bilat Pleural effusion CHF CMP Pleural [place] PLAN: Diurease Pleural effusion small Will monitor and worthy TC for now Stable on RA DW pt and daughter at BS.
--- NOTE | 2018-09-30 22:00 | P.DS ---
DS: Providers Date of admission: 09/22/18 16:47 Primary care physician: PROVIDER NON STAFF Consults: 09/23/18 14:28 HUB Only Consult Order Routine Consulting Provider: Sal Huang 09/26/18 16:15 Consult to Pulmonology Routine Consulting Provider: Cheryle Fierro Reason for Consultation: effusion poss loculated effusion Notified:: Service Spoke with:: Mic Date Notified:: 09/26/18 Time Notified:: 16:43 Ordering Provider: STERLING 09/27/18 11:43 Consult to Cardiology Routine Consulting Provider: Carlos Enrique Michelle Does the patient have a Corporate Events Director who follows them?: Yes Preferred Health Care Technician:: Robb Malhotra Reason for Consultation: Patient known to you with heart failure, renal failure and recurrent left pleural effusions Notified:: Physician Date Notified:: 09/27/18 Time Notified:: 11:20 Comments:: I already spoke with Dr. Malhotra. Please put on his list. No need to call Ordering Provider: ANSON Consult to Cardiothoracic Surgery Routine Consulting Provider: Kallie Horn Preferred Gas Plant Operator:: Kallie Horn Patient known to:: Kallie Horn Reason for Consultation: recurrent effusions known to Dr Horn already spoke with Dr Horn Notified:: Physician Spoke with:: Dr Horn Date Notified:: 09/27/18 Time Notified:: 12:20 Ordering Provider: STERLING 09/27/18 11:44 Consult to Cardiology Routine Consulting Provider: Carlos Enrique Michelle Does the patient have a Corporate Events Director who follows them?: Yes Preferred Health Care Technician:: Robb Malhotra Reason for Consultation: severe chf with exacerbation , recurrent effusions Notified:: Service Spoke with:: FIORDALIZA Date Notified:: 09/27/18 Time Notified:: 12:11 Ordering Provider: STERLING Brief History from admission: 78 year old male presents to the ED for increasing SOB and AMS. History of COPD, CHF, diabetes and stage 4 renal failure. Daughter is at bedside and states that she was to meet him at PCP appointment today and patient never made it to appointment. Daughter states she found him still in bed and was having hallucinations. Daughter states that the mental status and activity level has been declining over the last 3 days. Blood sugars have been running between 110-140. Patient lives alone and controls his own medications but daughter noticed that there are random days that there are still medications in the weekly pill organizer. Denies chest pain, abdominal pain or nausea and vomiting. Daughter states patient was just in the hospital. Patient is currently not doing any dialysis. Patient states compliance with his medications. He does complain of shortness of breath with exertion that has progressively getting worse and per daughter it seems that has seemed to worsen. He denies any chest pain. He does state that when he lays down he gets short of breath. Does not use oxygen. DS: Diagnosis Discharge Diagnosis (1) Acute respiratory failure with hypoxia: Status: Acute (2) CAD (coronary artery disease): Status: Acute (3) Stage 4 chronic kidney disease: Status: Chronic (4) S/P CABG x 3: Status: Acute DS: Summary Mr. Andrews is a pleasant 78 yo M with h/o CAD, HTN, CKD IV, CHF EF 25-30% presented with shortness of breath and worsening LE edema. Acute Exacerbation of Chronic Systolic CHF s/p CABG 03/2018 Left sided pleural effusion -s/p Thoracentesis on 09/25/2018, 1800cc of fluid taken off. -EF 25-30%. Echo ordered on 09/27/2018 --> Possible severe with low flow/low gradient. Cardiology ordered echo stress test to rule out pseudo-stenosis Continue bumetanide 1 mg IV twice daily. Continue lisinopril 2.5 mg p.o. daily. Discussed with Dr. Christine who recommended holding off any thoracentesis since patient is doing well. Patient is on room air on the day of discharge. Atrial fibrillation Hyperlipidemia Hypertension Probable aortic stenosis -Echo showed mod to severe - which maybe flow limited. Corporate Events Director ordered Echo stress. Cardiology will follow in the outpatient setting. Continue amlodipine 10 mg p.o. daily, lisinopril 2.5 mg p.o. daily Currently on metoprolol tartrate 25 mg twice daily. Atorvastatin 20 mg p.o. daily Also on apixaban 2.5 mg p.o. twice daily. Stage IV chronic kidney disease Creatinine around baseline 3.2. Creatinine remains around 3. Outpatient nephrology follow-up. Anxiety - continue Sertraline. Seizures: on Levetiracetam 500 mg bid Full code. Apixaban Discussed with cardiology prior to discharge. Cardiology cleared. Patient is subsequently discharged home with home health. Time Spent with Patient Total time spent providing and/or coordinating discharge services: Greater than 30 minutes Quality: VTE Deep Vein Thrombosis/Pulmonary Embolism Present on Admission: No Results Labs on day of discharge: Labs from last 24 hours 09/30/18 09/30/18 09/30/18 17:12 11:54 07:44 Sodium Potassium Chloride Carbon Dioxide Anion Gap BUN Creatinine Estimated GFR POC Glucose 139 H 206 H 122 H Random Glucose Calcium 09/30/18 04:47 Sodium 140 Potassium 4.0 Chloride 104 Carbon Dioxide 28.1 Anion Gap 8 BUN 62 H Creatinine 2.98 H Estimated GFR 20 L POC Glucose Random Glucose 133 H Calcium 9.0 Preliminary micro results at discharge 09/26/18 16:53 Aerobic Blood Culture - Preliminary Blood - Peripheral No growth in 4 days Anaerobic Blood Culture - Preliminary No growth in 4 days 09/26/18 16:58 Aerobic Blood Culture - Preliminary Blood - Peripheral No growth in 4 days Anaerobic Blood Culture - Preliminary No growth in 4 days Impressions ITS Impressions Thoracentesis Ultrasound 09/25/18 00:00 CONCLUSION: 1. Uncomplicated left thoracentesis. Chest Ultrasound 09/26/18 00:00 CONCLUSION: 1. Loculated left pleural effusion. Chest X-Ray 09/28/18 00:00 CONCLUSION: 1. Left basilar airspace disease/effusion appears to show some interval improvement when compared to prior. 2. Stable bilateral pleural plaques. Echo 09/28/2018 The left ventricular systolic function is severely reduced with an estimated ejection fraction in the range of 25-30%. Mild concentric left ventricular hypertrophy. Mildly dilated left ventricle. There is global left ventricular dysfunction. [id number] mitral valve regurgitation. Possible severe with low flow/low gradient (Vmax 2.3, peak grad 21, mean grad 12, ZAN 0.9, SVI 17). There is mild tricuspid valve regurgitation. There is estimated moderate pulmonary hypertension present (range 50-60 mmHg). Bilateral pleural effusion is present. Discharge Plan Discharge Disposition Patient Disposition: Disch W/Home Health Service Discharge Condition Condition: Good Discharge Order Discharge Orders: Discharge Order (Routine); Ordered 09/30/18 Ordered By: Benjamin Arechiga Discharge Details Anticipated Discharge Date: 09/30/18 Physicians Team Primary Care Provider: NON STAFF,PROVIDER Attending Provider: Benjamin Arechiga Other Providers: [employer],Hum[employer] ; Cheryle Fierro ; Carlos Enrique Michelle ; Kallie Horn ; Joby Christine Rxs /Orders / Referrals /Forms Prescriptions: New lisinopril 5 mg Tablet 2.5 mg PO DAILY Qty: 30 RF: 3 Continue amlodipine 10 mg Tablet 10 mg PO DAILY Qty: 30 RF: 0 bumetanide 1 mg Tablet 1 mg PO BID Qty: 60 RF: 0 metoprolol tartrate 25 mg Tablet 25 mg PO BID Qty: 60 RF: 0 apixaban [Eliquis] 2.5 mg Tablet 2.5 mg PO BID Qty: 60 RF: 0 atorvastatin 20 mg Tablet 20 mg PO DAILY RF: 0 levetiracetam 500 mg Tablet 500 mg PO BID RF: 0 sertraline 100 mg Tablet 100 mg PO DAILY RF: 0 fenofibrate 50 mg Capsule 50 mg PO DAILY RF: 0 semaglutide [Ozempic] 0.25 mg or 0.5 mg(2 mg/1.5 mL) Pen Injector 1 mg SUBCUT QWEEK RF: 0 Referrals: Robb Malhotra DO [Physician] - See Instructions (Follow up within 2 weeks. ) NON STAFF,PROVIDER [Primary Care Provider] - See Instructions (PCP within 1-2 weeks. ) Status ED Status: Left Department Discharge Information Discharge Date/Time: 09/30/18 18:47
--- NOTE | 2018-09-30 23:14 | ECHRPT ---
Indication: EVALUATE AORTIC STENOSIS CONCLUSIONS Dobutamine was increased to 30 mcg/kg/min. Gradient increased to mean of 19 with aortic valve area of 1.0, stroke volume index of 32, and dimens ionless index of 0.23. Appears to have severe aortic stenosis by dobutamine echo. STRESS TEST Protocol: Dobutamine Duration (m:s): Dobutamine Dose: 30 mcg/kg/min Atropine Dose: Resting HR (bpm): Resting BP (mmHg): / MPHR: 141 Target HR: 120 Peak HR (bpm): Peak BP (mmHg): / % MPHR: Double Product: Target HR Summary: BP Response: Termination Reason: Cardiac Symptoms: REST ECHO FINDINGS Resting images show severe vs pseudo . Mean gradient 10 VTI 46.6 ZAN 1.27 SV 51 STRESS ECHO FINDINGS Dobutamine was increased to 30 mcg/kg/min Vmax 3.18 Peak gradient 40 Mean gradient 19 ZAN 0.84 Stroke volume 64 SVI 32 Dimensionless Index 0.23 Gradient increased to mean of 19 with aortic valve area of 1.0, stroke volume index of 32, and dimen sionless index of 0.23. Appears to have severe aortic stenosis by dobutamine echo. MEASUREMENTS (Male/Female) Normal Values 2D ECHO LVOT Diameter 2.4 cm DOPPLER AV Peak Velocity 278.4 cm/s LVOT Peak Gradient 2.4 mmHg AV Peak Gradient 31.0 mmHg LVOT Velocity Time Integr 12.7 cm AV Mean Gradient 14.4 mmHg AV Area Cont Eq vti 1.1 cm AV Velocity Time Integral 51.2 cm AV Area Cont Eq pk 1.3 cm LVOT Peak Velocity 78.2 cm/s Robb Malhotra DO (Electronically Signed) Final Date:30 September 2018 23:13
--- NOTE | 2018-09-30 23:23 | P.PNCA ---
Subjective Interval history: No events overnight s/p dobutamine echo On room area, awaiting discharge Medications and Allergies Allergies Allergy/AdvReac Type Severity Reaction Status Date / Time No Known Allergies Allergy Verified 09/22/18 11:52 Home Medications Medication Instructions Recorded Confirmed Type atorvastatin 20 mg PO DAILY 03/20/18 09/22/18 History fenofibrate 50 mg PO DAILY 05/23/18 09/22/18 History levetiracetam 500 mg PO BID 05/23/18 09/22/18 History sertraline 100 mg PO DAILY 05/23/18 09/22/18 History semaglutide [Ozempic] 1 mg SUBCUT QWEEK 09/22/18 09/22/18 History Physical Exam Vital signs: Vital Signs 09/30/18 00:00 09/30/18 01:00 09/30/18 02:00 Temperature 98.3 F Pulse Rate 74 90 86 Respiratory Rate 20 Blood Pressure 124/72 Pulse Oximetry 92 L 09/30/18 03:00 09/30/18 04:00 09/30/18 05:00 Temperature 98.3 F Pulse Rate 88 70 72 Respiratory Rate 20 Blood Pressure 119/67 Pulse Oximetry 93 L 09/30/18 06:00 09/30/18 07:00 09/30/18 07:30 Temperature 97.2 F L Pulse Rate 66 77 70 Respiratory Rate 22 Blood Pressure 129/70 Pulse Oximetry 92 L 09/30/18 07:40 09/30/18 08:00 09/30/18 09:00 Temperature Pulse Rate 76 92 H 84 Respiratory Rate 16 Blood Pressure Pulse Oximetry 92 L 09/30/18 10:00 09/30/18 12:00 09/30/18 13:00 Temperature Pulse Rate 76 60 67 Respiratory Rate 20 Blood Pressure 115/72 Pulse Oximetry 95 09/30/18 14:00 09/30/18 15:00 09/30/18 16:00 Temperature 96.8 F L Pulse Rate 68 79 74 Respiratory Rate 19 Blood Pressure 123/67 Pulse Oximetry 97 09/30/18 17:00 09/30/18 18:00 Temperature Pulse Rate 95 H 98 H Respiratory Rate Blood Pressure Pulse Oximetry Intake & Output 09/30/18 09/30/18 10/01/18 06:59 18:59 06:59 Intake Total 240 / 240 1500 / 1500 Output Total 1225 / 1225 200 / 200 Balance -985 / -985 1300 / 1300 Weight 82.4 kg Intake: Oral 240 / 240 1500 / 1500 Output: Urine 1225 / 1225 200 / 200 Other: # Voids 1 Date of Last Bowel Movement 09/29/18 Narrative: GENERAL: NAD, AAOx3 SKIN: Warm and dry. HEAD: Atraumatic. Normocephalic. EYES: Pupils equal and round. No scleral icterus. No injection or drainage. ENT: No nasal bleeding or discharge. Mucous membranes pink and moist. NECK: Trachea midline. No JVD. CARDIOVASCULAR: Regular rate and rhythm. 2/6 crescendo-decrescendo systolic murmur to the RSB RESPIRATORY: No accessory muscle use. Clear to auscultation bilaterally GASTROINTESTINAL: Abdomen soft, non-tender, nondistended. Hepatic and splenic margins not palpable. MUSCULOSKELETAL: Extremities without clubbing, cyanosis, or edema. No obvious deformities. NEUROLOGICAL: Awake and alert. No obvious cranial nerve deficits. Motor grossly within normal limits. Five out of 5 muscle strength in the arms and legs. Normal speech. PSYCHIATRIC: Appropriate mood and affect; insight and judgment normal. Results 09/29/18 05:29 09/30/18 04:47 CBC 09/29/18 Range/Units 05:29 WBC 6.6 (4.0-11.0) th/mm3 RBC 4.44 L (4.50-5.90) mil/mm3 Hgb 12.5 L (13.0-17.0) gm/dL Hct 37.9 L (39.0-51.0) % Plt Count 285 (150-450) th/mm3 Neut # (Auto) 4.6 (1.8-7.7) th/mm3 Lymph # (Auto) 0.9 L (1.0-4.8) th/mm3 [place] # (Auto) 0.7 (0.0-0.9) th/mm3 Eos # (Auto) 0.5 H (0.0-0.4) th/mm3 Baso # (Auto) 0.0 (0.0-0.2) th/mm3 Comprehensive Metabolic Panel 09/29/18 09/30/18 Range/Units 05:29 04:47 Sodium 142 140 (136-145) meq/L Potassium 4.2 4.0 (3.5-5.1) meq/L Chloride 106 104 (98-107) meq/L Carbon Dioxide 28.4 28.1 (21.0-32.0) meq/L BUN 61 H 62 H (7-18) mg/dL Creatinine 2.86 H 2.98 H (0.60-1.30) mg/dL Calcium 8.9 9.0 (8.5-10.1) mg/dL Intake and Output 09/30/18 09/30/18 10/01/18 14:59 22:59 06:59 Intake Total 1500 / 1500 Output Total 200 / 200 Balance 1300 / 1300 Intake: Oral 1500 / 1500 Output: Urine 200 / 200 Other: # Voids 1 Assessment and Plan - Assessment (1) Acute respiratory failure with hypoxia Code(s): J96.01 - Acute respiratory failure with hypoxia Status: Acute (2) CAD (coronary artery disease) Code(s): I25.10 - Atherosclerotic heart disease of [place] coronary artery without angina pectoris Status: Acute (3) Stage 4 chronic kidney disease Code(s): N18.4 - Chronic kidney disease, stage 4 (severe) Status: Chronic (4) S/P CABG x 3 Code(s): Z95.1 - Presence of aortocoronary bypass graft Status: Acute - Plan 1. Acute on chronic systolic heart failure. Diuresed well, on room air Pleural effusion s/p thoracentesis with 1.8L removed 2. Atrial fibrillation. Con't on Eliquis 3. Pleural effusion, status post thoracentesis removing 1800 mL. 4. Coronary artery disease with myocardial infarction, status post coronary artery bypass grafting 5. CKD 4 6. EF 25-30% with severe , low flow-low gradient Dobutamine echo for possible low flow-low gradient vs pseudo Found to have an increase in his gradient with ZAN 1.0, dimensionless index of 0.23, appears to have LF/LG severe Eventual BiV-ICD depending on course 7. Eventual assisted living to help with his medications as he misses doses of meds 8. Cardiovascularly stable for discharge Has follow up with me in the next few weeks Discussed with patient and daughter, consideration of TAVR in the near future
== END 2018-09-30 18:47 | disposition home health service (06) | DRG 291 ==
LOC: NEPE 11:47 → NEDA 16:47 → H7ONC 19:44 → HCPC 09-27 13:42
PROVIDERS: ADMIT Hospitalist; ATTEND Hospitalist
DX: E78.5 Hyperlipidemia, unspecified; J96.01 Acute respiratory failure with hypoxia; J91.8 Pleural effusion in other conditions classified elsewhere; Z95.1 Presence of aortocoronary bypass graft; I13.0 Hypertensive heart and chronic kidney disease with heart failure and stage 1 through stage 4 chronic kidney disease, or unspecified chronic kidney disease; R26.81 Unsteadiness on feet; G40.909 Epilepsy, unspecified, not intractable, without status epilepticus; I48.91 Unspecified atrial fibrillation; R44.3 Hallucinations, unspecified; I25.10 Atherosclerotic heart disease of native coronary artery without angina pectoris; J44.9 Chronic obstructive pulmonary disease, unspecified; Z79.01 Long term (current) use of anticoagulants; I27.20 Pulmonary hypertension, unspecified; F41.9 Anxiety disorder, unspecified; I50.23 Acute on chronic systolic (congestive) heart failure; I42.9 Cardiomyopathy, unspecified; E11.22 Type 2 diabetes mellitus with diabetic chronic kidney disease; I25.2 Old myocardial infarction; I08.0 Rheumatic disorders of both mitral and aortic valves; N18.4 Chronic kidney disease, stage 4 (severe)
CPT/HCPCS: 32555; 71010; 71045; 76604; 80048; 80053; 81001; 82550; 82803; 82805; 82945; 82948; 82962; 83520; 83615; 83880; 84155; 84157; 84484; 85025; 85027; 85610; 85730; 87015; 87040; 87070; 87086; 87102; 87116; 87205; 87206; 89051; 90774; 90784; 93005; 93306; 94002; 94150; 94618; 94620; 94640; 94656; 94664; 94665; 94667; 94668; 96374; 97162; 97166; 97530; 97535; 99285; C1729; C8928; C8952; J1250; J1815; J1940; J2543